=== PATIENT | male | born 1950 | race Two or more races ===

== ENCOUNTER 2018-11-02 11:07 | Inpatient (IN) | payer MEDICAID ==
[2018-11-02] VITALS (13 sets, daily range): BP systolic 85–124; BP diastolic 50–87
[~2018-11-02] VITALS: Ht 172.7 cm; Wt 79.5 kg
[2018-11-02] MEDS ORDERED: LEVOTHYROXINE200 MCG PO (11:22)
[2018-11-02] MEDS ORDERED: LISINOPRIL5 MG ORAL (11:23)
[2018-11-02] MEDS ORDERED: AMLODIPINE BESYL5 MG ORAL (11:23)
[2018-11-02] MEDS ORDERED: ASPIR 8181 MG ORAL (11:23)
[2018-11-02] MEDS ORDERED: METFORMIN ER1000 MG PO (11:23)
[2018-11-02] MEDS ORDERED: METOPROLOL TART25 MG ORAL (11:23)
[2018-11-02] MEDS ORDERED: LIPITOR80 MG ORAL (11:23)
[2018-11-02] MEDS ORDERED: GABAPENTIN300 MG ORAL (11:23)
[2018-11-02 11:52] LABS: HEMATOCRIT 44.7 % (42.0-52.0); MEAN CORPUSCULAR VOLUME 86 FL (80-99); PLATELET COUNT 162 K/UL (150-450); RED CELL DISTRIBUTION WIDTH 14.1 % (11.6-14.8); WHITE BLOOD COUNT 11.1 K/UL (4.8-10.8)
[2018-11-02 12:29] LABS: APPEARANCE,URINE SLIGHTLY CLOUDY; BILIRUBIN, URINE NEGATIVE (NEGATIVE); COLOR,URINE PALE YELLOW; GLUCOSE, URINE (UA) 4+ (NEGATIVE); KETONES,URINE 3+ (NEGATIVE); LEUKOCYTE ESTERASE ,URINE 1+ (NEGATIVE); NITRITE,URINE NEGATIVE (NEGATIVE); PH,URINE 5 (4.5-8.0); PROTEIN,URINE 2+ (NEGATIVE); UROBILINOGEN,URINE NORMAL MG/DL (0.0-1.0)
--- NOTE | 2018-11-02 12:36 | Diagnostic Imaging Report ---
Indication: Chest pain Technique: XRAY Chest 1v Comparison: None Findings: Heart size and mediastinal contours are within normal limits for AP technique. Calcifications noted in a slightly tortuous thoracic aorta. There is no focal consolidation, pneumothorax or pleural effusion. There are degenerative changes in the spine. Osseous structures demonstrate no acute abnormality. Impression: No radiographic evidence of acute cardiopulmonary disease.
[2018-11-02 12:43] LABS: ANION GAP 22 mmol/L (5-15); BLOOD UREA NITROGEN 74 mg/dL (7-18); CALCIUM 7.6 MG/DL (8.5-10.1); CARBON DIOXIDE 16 MMOL/L (21-32); CHLORIDE 86 MMOL/L (98-107); CREATININE 3.9 MG/DL (0.55-1.30); POTASSIUM 5.1 MMOL/L (3.5-5.1); SODIUM 124 MMOL/L (136-145)
[2018-11-02 12:44] LABS: ALANINE AMINOTRANSFERASE 12 U/L (12-78); ALBUMIN 2.3 G/DL (3.4-5.0); ALBUMIN/GLOBULIN RATIO 0.5 (1.0-2.7); ALKALINE PHOSPHATASE 84 U/L (46-116); ASPARTATE AMINO TRANSFERASE 17 U/L (15-37); BILIRUBIN,TOTAL 0.5 MG/DL (0.2-1.0)
[2018-11-02] MEDS ORDERED: LORazepam Inj 2mg/ml 1ml IV PRN (13:45)
[2018-11-02] MEDS ORDERED: Insulin Rate Change 1 Each MISC PRN (13:45)
[2018-11-02] MEDS ORDERED: Insulin Human Regular 100units/ml 3ml IV PRN ×3 (13:45→21:15)
[2018-11-02] MEDS ORDERED: Morphine Sulfate 4mg/ml Inj (IV USE ONLY) IVP PRN (13:45)
[2018-11-02] MEDS ORDERED: Albuterol/Ipratropium 3ml neb HHN PRN (13:45)
[2018-11-02] MEDS ORDERED: Nitroglycerin Subl 0.4mg tab SL PRN (13:45)
[2018-11-02] MEDS ORDERED: Miralax 17gm pkt ORAL PRN (13:45)
[2018-11-02] MEDS ORDERED: Dextrose 50% 25ml Syringe IV PRN (14:00)
--- NOTE | 2018-11-02 15:15 | Emergency Room Report ---
History of Present Illness General Chief Complaint: Abnormal Labs Source: Patient, Medical Record, EMS Present Illness HPI This patient presents from a nursing home facility with critically high blood sugar. EMS reported that they were called to the nursing home facility because the nursing staff had taken a blood sugar and it was greater than 500. The patient himself complains of lightheadedness otherwise has no complaints. He denies recent illness. He denies fever or chills. He denies nausea or vomiting. He denies chest pain or shortness of breath. He denies abdominal pain. He has no other complaints. Allergies: Coded Allergies: No Known Allergies (Unverified , 11/02/18) Patient History Past Medical History: see triage record, old chart reviewed, DM, HTN, CAD, renal disease Social History: Denies: smoking, alcohol use, drug use Reviewed Nursing Documentation: PMH: Agreed; PSxH: Agreed Nursing Documentation-PMH Past Medical History: No History, Except For Hx Diabetes: Yes Review of Systems All Other Systems: negative except mentioned in HPI Physical Exam Vital Signs Date Time Temp Pulse Resp B/P (MAP) Pulse Ox O2 Delivery O2 Flow Rate FiO2 11/02/18 11:00 98.1 96 18 117/73 98 Room Air 11/02/18 11:41 2.0 Sp02 EP Interpretation: reviewed, normal General Appearance: no apparent distress, alert, GCS 15, non-toxic Head: normocephalic, atraumatic Eyes: bilateral eye normal inspection, bilateral eye PERRL ENT: hearing grossly normal, normal pharynx, no angioedema, normal voice Neck: full range of motion, supple/symm/no masses Respiratory: chest non-tender, lungs clear, normal breath sounds, no respiratory distress, no retraction, no accessory muscle use, speaking full sentences Cardiovascular #1: regular rate, rhythm, no edema Gastrointestinal: normal bowel sounds, non tender, soft, non-distended, no guarding, no rebound Rectal: deferred Musculoskeletal: normal inspection, normal range of motion, non-tender Neurologic: alert, oriented x3, responsive, motor strength/tone normal, sensory intact, speech normal Psychiatric: judgement/insight normal, memory normal, mood/affect normal, no suicidal/homicidal ideation Skin: warm/dry, well hydrated, other - See RN skin exam Medical Decision Making Diagnostic Impression: Primary Impression: DKA (diabetic ketoacidoses) ER Course This patient is in DKA. His given aggressive IV fluids and started on an insulin drip. I did not identify an infectious etiology. I am unsure why this patient is in DKA, possibly diet Indiscretion in combination with insufficient insulin treatment. Regardless, the patient will be admitted to the ICU for DKA on an insulin drip. This patient is critically ill. This patient required complex medical decision- making, aggressive intervention, extensive laboratory workup and monitoring. Critical care time: 40 minutes. Laboratory Tests Test 11/02/18 11:30 11/02/18 12:05 11/02/18 12:10 11/02/18 12:15 White Blood Count 11.1 K/UL (4.8-10.8) H Red Blood Count 5.20 M/UL (4.70-6.10) Hemoglobin 14.0 G/DL (14.2-18.0) L Hematocrit 44.7 % (42.0-52.0) Mean Corpuscular Volume 86 FL (80-99) Mean Corpuscular Hemoglobin 26.9 PG (27.0-31.0) L Mean Corpuscular Hemoglobin Concent 31.3 G/DL (32.0-36.0) L Red Cell Distribution Width 14.1 % (11.6-14.8) Platelet Count 162 K/UL (150-450) Mean Platelet Volume 7.4 FL (6.5-10.1) Neutrophils (%) (Auto) % (45.0-75.0) Lymphocytes (%) (Auto) % (20.0-45.0) Monocytes (%) (Auto) % (1.0-10.0) Eosinophils (%) (Auto) % (0.0-3.0) Basophils (%) (Auto) % (0.0-2.0) Differential Total Cells Counted 100 Neutrophils % (Manual) 86 % (45-75) H Lymphocytes % (Manual) 2 % (20-45) L Monocytes % (Manual) 12 % (1-10) H Eosinophils % (Manual) 0 % (0-3) Basophils % (Manual) 0 % (0-2) Band Neutrophils 0 % (0-8) Platelet Estimate Adequate Platelet Morphology Normal Acetone Level Positive-small (NEGATIVE) Sodium Level 124 MMOL/L (136-145) L Potassium Level 5.1 MMOL/L (3.5-5.1) Chloride Level 86 MMOL/L (98-107) L Carbon Dioxide Level 16 MMOL/L (21-32) L Anion Gap 22 mmol/L (5-15) H Blood Urea Nitrogen 74 mg/dL (7-18) H Creatinine 3.9 MG/DL (0.55-1.30) H Estimate Glomerular Filtration Rate 15.5 mL/min (>60) Glucose Level 928 MG/DL (74-106) *H Calcium Level 7.6 MG/DL (8.5-10.1) L Magnesium Level 1.9 MG/DL (1.8-2.4) Total Bilirubin 0.5 MG/DL (0.2-1.0) Aspartate Amino Transferase (AST) 17 U/L (15-37) Alanine Aminotransferase (ALT) 12 U/L (12-78) Alkaline Phosphatase 84 U/L (46-116) Total Protein 6.5 G/DL (6.4-8.2) Albumin 2.3 G/DL (3.4-5.0) L Globulin 4.2 g/dL Albumin/Globulin Ratio 0.5 (1.0-2.7) L Arterial Blood pH 7.243 (7.350-7.450) Arterial Blood Partial Pressure CO2 28.1 mmHg (35.0-45.0) L Arterial Blood Partial Pressure O2 135.8 mmHg (75.0-100.0) H Arterial Blood HCO3 11.9 mmol/L (22.0-26.0) *L Arterial Blood Oxygen Saturation 98.0 % (95-100) Arterial Blood Base Excess -14.0 (-2-2) *L Zain Test Positive Urine Color Pale yellow Urine Appearance Slightly cloudy Urine pH 5 (4.5-8.0) Urine Specific [employer] 1.010 (1.005-1.035) Urine Protein 2+ (NEGATIVE) H Urine Glucose (UA) 4+ (NEGATIVE) H Urine Ketones 3+ (NEGATIVE) H Urine Blood 3+ (NEGATIVE) H Urine Nitrite Negative (NEGATIVE) Urine Bilirubin Negative (NEGATIVE) Urine Urobilinogen Normal MG/DL (0.0-1.0) Urine Leukocyte Esterase 1+ (NEGATIVE) H Urine RBC 2-4 /HPF (0 - 0) H Urine WBC 2-4 /HPF (0 - 0) Urine Squamous Epithelial Cells Occasional /LPF Urine Bacteria Moderate /HPF (NONE) H EKG Diagnostic Results Rate: normal Rhythm: NSR ST Segments: no acute changes Rhythm Strip Diag. Results EP Interpretation: yes Rate: 90's Rhythm: NSR, no PVC's, no ectopy Chest X-Ray Diagnostic Results Chest X-Ray Diagnostic Results : Chest X-Ray Ordered: Yes # of Views/Limited/Complete: 1 View Indication: Other Interpretation: no consolidation, no effusion, no pneumothorax, no acute cardiopulmonary disease Impression: No acute disease Electronically Signed by: Krystina Finn DO Last Vital Signs Date Time Temp Pulse Resp B/P (MAP) Pulse Ox O2 Delivery O2 Flow Rate FiO2 11/02/18 14:50 98.4 98 18 102/87 (92) 100 11/02/18 14:04 Room Air 11/02/18 11:42 2.0 Disposition: ADMITTED INPATIENT Condition: Critical Scripts Insulin Aspart (Novolog Flexpen) 100 Unit/1 Ml Insuln.pen 0 UNITS SUBQ BEFORE MEALS AND HS for 30 Days, EA Prov: Jade Mann MD 11/06/18 Insulin Detemir (LEVEMIR FLEXPEN) 100 Unit/1 Ml Insuln.pen 10 UNITS SUBQ EVERY 12 HOURS for 30 Days, EA Prov: Jade Mann MD 11/06/18 Referrals: NON PHYSICIAN (PCP) Krystina Finn DO Nov 02, 2018 15:15
[2018-11-02] MEDS: Insulin Human Regular 100units/ml 3ml IV PRN ×6 (15:31→20:02)
--- NOTE | 2018-11-02 18:01 | History & Physical ---
History and Physical History & Physicial Dictated for Int Med - Dr Mancini no. [id number]. ICU Sudhir Jones MD Nov 02, 2018 18:01
[2018-11-02 19:09] LABS: ANION GAP 14 mmol/L (5-15); BLOOD UREA NITROGEN 66 mg/dL (7-18); CALCIUM 7.7 MG/DL (8.5-10.1); CARBON DIOXIDE 21 MMOL/L (21-32); CHLORIDE 101 MMOL/L (98-107); POTASSIUM 3.3 MMOL/L (3.5-5.1); SODIUM 136 MMOL/L (136-145)
[2018-11-02] MEDS: Heparin 5000 units/ml inj SUBQ SCH (20:49)
--- NOTE | 2018-11-02 21:15 | History and Physical Report ---
DATE OF ADMISSION: 11/02/2018 CHIEF COMPLAINT: The patient is a 68-year-old male, who presents with a chief complaint of elevated blood sugar. HISTORY OF PRESENT ILLNESS: This is a history and physical that is taken from the patient's chart. The patient is a resident of [facility], [place]. According to staff at [facility], the patient had elevated blood sugar. The patient was transferred to [facility]. Initial glucose was found to be greater than 900. The patient is admitted for diabetic ketoacidosis. REVIEW OF SYSTEMS: Unable to assess secondary to the patient's mental status. PAST MEDICAL HISTORY: Significant for, 1. Type 2 diabetes. 2. Diabetic neuropathy. 3. Hypertension. 4. Anemia. 5. Hypothyroidism. PAST SURGICAL HISTORY: Unknown. CURRENT MEDICATIONS: 1. Levoxyl 0.05 mg p.o. daily. 2. Metoprolol 25 mg one tablet p.o. twice daily. 3. Aspirin 81 mg one tablet p.o. daily. 4. Amlodipine 5 mg p.o. daily. 5. Lisinopril 10 mg p.o. daily. 6. Basaglar 10 units subcutaneously daily. 7. NovoLog sliding scale. 8. Metformin 1000 mg p.o. twice daily. 9. Gabapentin 300 mg p.o. 3 times daily. 10. Atorvastatin 40 mg p.o. at bedtime. ALLERGIES: No known drug allergies. SOCIAL HISTORY: The patient is single. PHYSICAL EXAMINATION: VITAL SIGNS: Temperature 98.4, respirations 18, pulse 98, and blood pressure 102/87. GENERAL: The patient is a well-developed and well-nourished male, in no apparent distress. HEENT: Eyes, pupils are equal and responsive to light and accommodation. Extraocular movements are intact. NECK: Supple without lymphadenopathy. CHEST: Lungs are clear to auscultation bilaterally without wheezes or rales. CARDIOVASCULAR: Regular rhythm and rate. S1 and S2 are normal without murmurs, rubs, or gallops. ABDOMEN: Soft, nontender, and nondistended. Positive bowel sounds. No evidence of hepatosplenomegaly. Currently, no rebound or guarding noted. EXTREMITIES: Negative for clubbing, cyanosis, or edema. RECTAL/GENITAL: Not performed. NEUROLOGIC: Cranial nerves II through XII are grossly intact without focal deficits. LABORATORY STUDIES: WBC 11.1, hemoglobin 14.0, hematocrit 44.7, and platelets 162,000. Sodium 124, potassium 5.1, chloride 86, CO2 16, BUN 74, creatinine 3.9, and glucose 928. TREATMENT: 1. Hyperglycemia. The patient has been placed on a regular insulin drip. Serial BNPs will be performed. Latest fingerstick is reading as high. 2. Acute renal failure. This may be secondary to diabetic ketoacidosis as above. 3. Hyponatremia. The patient has been started on normal saline intravenously. 4. Hypertension. Continue amlodipine and lisinopril as above. Continue metoprolol as above. 5. Hypothyroidism. Continue Levoxyl as above. 6. Hypercholesterolemia. Continue atorvastatin as above. Sudhir Jones M.D. DR: NATE JOB#: [id number] CC:
[2018-11-02 21:44] LABS: ANION GAP 13 mmol/L (5-15); BLOOD UREA NITROGEN 67 mg/dL (7-18); CALCIUM 8.4 MG/DL (8.5-10.1); CARBON DIOXIDE 22 MMOL/L (21-32); CHLORIDE 103 MMOL/L (98-107); POTASSIUM 3.6 MMOL/L (3.5-5.1); SODIUM 138 MMOL/L (136-145)
[2018-11-02] MEDS: Insulin Rate Change 1 Each MISC PRN ×2 (21:57→22:53)
[2018-11-03] VITALS (24 sets, daily range): BP systolic 82–141; BP diastolic 49–97
[2018-11-03] MEDS ORDERED: Insulin Human Regular 100units/ml 3ml IV PRN ×2 (00:30)
[2018-11-03] MEDS: Insulin Rate Change 1 Each MISC PRN ×5 (01:54→09:11)
[2018-11-03] MEDS ORDERED: Insulin Rate Change 1 Each MISC PRN (02:30)
[2018-11-03 05:41] LABS: BASOPHILS % (AUTO) 0.4 % (0.0-2.0); EOSINOPHILS % (AUTO) 0.2 % (0.0-3.0); HEMATOCRIT 30.6 % (42.0-52.0); HEMOGLOBIN 10.4 G/DL (14.2-18.0); LYMPHOCYTES % (AUTO) 7.3 % (20.0-45.0); MEAN CORPUSCULAR VOLUME 82 FL (80-99); MONOCYTES % (AUTO) 7.7 % (1.0-10.0); NEUTROPHILS % (AUTO) 84.4 % (45.0-75.0); PLATELET COUNT 212 K/UL (150-450); RED BLOOD COUNT 3.72 M/UL (4.70-6.10); RED CELL DISTRIBUTION WIDTH 12.9 % (11.6-14.8); WHITE BLOOD COUNT 11.9 K/UL (4.8-10.8)
[2018-11-03 06:16] LABS: ALANINE AMINOTRANSFERASE 19 U/L (12-78); ALBUMIN/GLOBULIN RATIO 0.6 (1.0-2.7); ALKALINE PHOSPHATASE 69 U/L (46-116); ANION GAP 14 mmol/L (5-15); ASPARTATE AMINO TRANSFERASE 15 U/L (15-37); BILIRUBIN,TOTAL 0.3 MG/DL (0.2-1.0); BLOOD UREA NITROGEN 60 mg/dL (7-18); CALCIUM 7.9 MG/DL (8.5-10.1); CARBON DIOXIDE 19 MMOL/L (21-32); CHLORIDE 107 MMOL/L (98-107); CREATININE 2.3 MG/DL (0.55-1.30); POTASSIUM 4.3 MMOL/L (3.5-5.1); SODIUM 140 MMOL/L (136-145)
[2018-11-03 06:19] LABS: PHOSPHORUS 1.6 MG/DL (2.5-4.9)
[2018-11-03 06:20] LABS: BILIRUBIN,DIRECT 0.1 MG/DL (0.0-0.3)
[2018-11-03] MEDS: Heparin 5000 units/ml inj SUBQ SCH ×2 (08:14→20:37)
[2018-11-03] MEDS ORDERED: Pantoprazole Inj IVP SCH (09:00)
--- NOTE | 2018-11-03 09:57 | Consultation ---
History of Present Illness General Chief Complaint: Abnormal Labs Present Illness HPI 68 year old male with hx of DM, on Insulin, hypothyroid, HTN, who lives in an assisted living brought in by paramedics b/o too high of BS. Pt was found to be in DKA and was started on insulin drip and transferred to ICU. Allergies: Coded Allergies: No Known Allergies (Unverified , 11/02/18) Medication History Scheduled Amlodipine Besylate* (Amlodipine Besylate*), 5 MG ORAL DAILY, (Reported) Aspirin* (Aspir 81*), 81 MG ORAL DAILY, (Reported) Atorvastatin (Lipitor), 40 MG ORAL BEDTIME, (Reported) Gabapentin* (Gabapentin*), 300 MG ORAL THREE TIMES A DAY, (Reported) Levothyroxine Sodium* (Levothyroxine Sodium), 50 MCG PO DAILY, (Reported) Lisinopril (Lisinopril*), 10 MG ORAL DAILY, (Reported) Metformin HCl (Metformin ER Gastric), 1,000 MG PO BID, (Reported) Metoprolol Tartrate* (Metoprolol Tartrate*), 12.5 MG ORAL EVERY 12 HOURS, ( Reported) Patient History Healthcare decision maker N Resuscitation status Advanced Directive on File Past Medical/Surgical History Past Medical/Surgical History: (1) Diabetes mellitus (2) Hypothyroidism (3) Hypertension Review of Systems All Other Systems: negative except mentioned in HPI Physical Exam General Appearance: WD/WN Lines, tubes and drains: peripheral HEENT: normocephalic, atraumatic Neck: non-tender, normal alignment Respiratory/Chest: chest wall non-tender, lungs clear Breasts: no masses Cardiovascular/Chest: normal peripheral pulses Abdomen: normal bowel sounds, non tender Genitourinary/Rectal: normal genital exam Extremities: non-tender Last 24 Hour Vital Signs Date Time Temp Pulse Resp B/P (MAP) Pulse Ox O2 Delivery O2 Flow Rate FiO2 11/03/18 09:00 82 17 130/75 (93) 100 11/03/18 08:00 Room Air 11/03/18 08:00 80 11/03/18 08:00 98.0 80 14 134/72 (92) 100 11/03/18 07:00 79 16 127/94 (105) 100 11/03/18 06:00 82 14 133/64 (87) 100 11/03/18 05:00 82 15 97/64 (75) 100 11/03/18 04:16 83 11/03/18 04:00 99.0 85 16 124/88 (100) 100 11/03/18 04:00 Room Air 11/03/18 03:00 89 15 104/64 (77) 100 11/03/18 02:00 94 13 86/59 (68) 100 11/03/18 01:00 95 18 91/64 (73) 99 11/03/18 00:00 Room Air 11/03/18 00:00 98.7 104 20 82/49 (60) 100 11/02/18 23:15 112 19 94/50 (65) 100 11/02/18 23:00 111 19 88/53 (65) 100 11/02/18 22:56 114 11/02/18 22:00 113 15 97/56 (70) 100 11/02/18 21:00 114 15 91/57 (68) 100 11/02/18 20:00 98.6 115 16 85/57 (66) 100 11/02/18 20:00 Room Air 11/02/18 19:17 113 11/02/18 19:00 114 18 90/64 (73) 100 11/02/18 18:00 115 18 104/62 (76) 98 11/02/18 17:00 110 16 99/63 (75) 98 11/02/18 16:12 109 11/02/18 16:00 97 18 111/63 (79) 100 11/02/18 16:00 Room Air 11/02/18 15:17 Room Air 11/02/18 14:50 98.4 98 18 102/87 (92) 100 11/02/18 14:47 97 11/02/18 14:04 98.3 84 16 124/68 100 Room Air 11/02/18 13:20 98.1 84 16 124/68 100 Room Air 11/02/18 12:19 98.0 85 16 123/74 100 Room Air 11/02/18 11:42 97.9 86 13 116/77 98 Nasal Cannula 2.0 11/02/18 11:41 86 13 Nasal Cannula 2.0 11/02/18 11:00 98.1 96 18 117/73 98 Room Air Intake and Output 11/02/18 11/03/18 19:00 07:00 Intake Total 4731.96 ml 2280.76 ml Output Total 550 ml 700 ml Balance 4181.96 ml 1580.76 ml Intake Oral 0 ml 0 ml IV Total 4731.96 ml 2280.76 ml Output Urine Total 550 ml 700 ml # Voids 4 Laboratory Tests Test 11/02/18 11:30 11/02/18 12:05 11/02/18 12:10 11/02/18 12:15 White Blood Count 11.1 K/UL (4.8-10.8) H Red Blood Count 5.20 M/UL (4.70-6.10) Hemoglobin 14.0 G/DL (14.2-18.0) L Hematocrit 44.7 % (42.0-52.0) Mean Corpuscular Volume 86 FL (80-99) Mean Corpuscular Hemoglobin 26.9 PG (27.0-31.0) L Mean Corpuscular Hemoglobin Concent 31.3 G/DL (32.0-36.0) L Red Cell Distribution Width 14.1 % (11.6-14.8) Platelet Count 162 K/UL (150-450) Mean Platelet Volume 7.4 FL (6.5-10.1) Neutrophils (%) (Auto) % (45.0-75.0) Lymphocytes (%) (Auto) % (20.0-45.0) Monocytes (%) (Auto) % (1.0-10.0) Eosinophils (%) (Auto) % (0.0-3.0) Basophils (%) (Auto) % (0.0-2.0) Differential Total Cells Counted 100 Neutrophils % (Manual) 86 % (45-75) H Lymphocytes % (Manual) 2 % (20-45) L Monocytes % (Manual) 12 % (1-10) H Eosinophils % (Manual) 0 % (0-3) Basophils % (Manual) 0 % (0-2) Band Neutrophils 0 % (0-8) Platelet Estimate Adequate Platelet Morphology Normal Acetone Level Positive-small (NEGATIVE) Sodium Level 124 MMOL/L (136-145) L Potassium Level 5.1 MMOL/L (3.5-5.1) Chloride Level 86 MMOL/L (98-107) L Carbon Dioxide Level 16 MMOL/L (21-32) L Anion Gap 22 mmol/L (5-15) H Blood Urea Nitrogen 74 mg/dL (7-18) H Creatinine 3.9 MG/DL (0.55-1.30) H Estimat Glomerular Filtration Rate 15.5 mL/min (>60) Glucose Level 928 MG/DL (74-106) *H Calcium Level 7.6 MG/DL (8.5-10.1) L Magnesium Level 1.9 MG/DL (1.8-2.4) Total Bilirubin 0.5 MG/DL (0.2-1.0) Aspartate Amino Transf (AST/SGOT) 17 U/L (15-37) Alanine Aminotransferase (ALT/SGPT) 12 U/L (12-78) Alkaline Phosphatase 84 U/L (46-116) Total Protein 6.5 G/DL (6.4-8.2) Albumin 2.3 G/DL (3.4-5.0) L Globulin 4.2 g/dL Albumin/Globulin Ratio 0.5 (1.0-2.7) L Arterial Blood pH 7.243 (7.350-7.450) Arterial Blood Partial Pressure CO2 28.1 mmHg (35.0-45.0) L Arterial Blood Partial Pressure O2 135.8 mmHg (75.0-100.0) H Arterial Blood HCO3 11.9 mmol/L (22.0-26.0) *L Arterial Blood Oxygen Saturation 98.0 % (95-100) Arterial Blood Base Excess -14.0 (-2-2) *L Zain Test Positive Urine Color Pale yellow Urine Appearance Slightly cloudy Urine pH 5 (4.5-8.0) Urine Specific [place] 1.010 (1.005-1.035) Urine Protein 2+ (NEGATIVE) H Urine Glucose (UA) 4+ (NEGATIVE) H Urine Ketones 3+ (NEGATIVE) H Urine Blood 3+ (NEGATIVE) H Urine Nitrite Negative (NEGATIVE) Urine Bilirubin Negative (NEGATIVE) Urine Urobilinogen Normal MG/DL (0.0-1.0) Urine Leukocyte Esterase 1+ (NEGATIVE) H Urine RBC 2-4 /HPF (0 - 0) H Urine WBC 2-4 /HPF (0 - 0) Urine Squamous Epithelial Cells Occasional /LPF Urine Bacteria Moderate /HPF (NONE) H Test 11/02/18 18:20 11/02/18 21:15 11/03/18 04:30 Sodium Level 136 MMOL/L (136-145) # 138 MMOL/L (136-145) 140 MMOL/L (136-145) Potassium Level 3.3 MMOL/L (3.5-5.1) L 3.6 MMOL/L (3.5-5.1) 4.3 MMOL/L (3.5-5.1) Chloride Level 101 MMOL/L (98-107) 103 MMOL/L (98-107) 107 MMOL/L (98-107) Carbon Dioxide Level 21 MMOL/L (21-32) 22 MMOL/L (21-32) 19 MMOL/L (21-32) L Anion Gap 14 mmol/L (5-15) 13 mmol/L (5-15) 14 mmol/L (5-15) Blood Urea Nitrogen 66 mg/dL (7-18) H 67 mg/dL (7-18) H 60 mg/dL (7-18) H Creatinine 3.0 MG/DL (0.55-1.30) H 3.0 MG/DL (0.55-1.30) H 2.3 MG/DL (0.55-1.30) H Estimat Glomerular Filtration Rate 20.9 mL/min (>60) 20.9 mL/min (>60) 28.4 mL/min (>60) Glucose Level 396 MG/DL (74-106) #H 241 MG/DL (74-106) #H 123 MG/DL (74-106) #H Calcium Level 7.7 MG/DL (8.5-10.1) L 8.4 MG/DL (8.5-10.1) L 7.9 MG/DL (8.5-10.1) L Hemoglobin A1c 14.2 % (4.3-6.0) H White Blood Count 11.9 K/UL (4.8-10.8) H Red Blood Count 3.72 M/UL (4.70-6.10) L Hemoglobin 10.4 G/DL (14.2-18.0) L Hematocrit 30.6 % (42.0-52.0) #L Mean Corpuscular Volume 82 FL (80-99) Mean Corpuscular Hemoglobin 27.8 PG (27.0-31.0) Mean Corpuscular Hemoglobin Concent 33.8 G/DL (32.0-36.0) Red Cell Distribution Width 12.9 % (11.6-14.8) Platelet Count 212 K/UL (150-450) Mean Platelet Volume 7.6 FL (6.5-10.1) Neutrophils (%) (Auto) 84.4 % (45.0-75.0) H Lymphocytes (%) (Auto) 7.3 % (20.0-45.0) L Monocytes (%) (Auto) 7.7 % (1.0-10.0) Eosinophils (%) (Auto) 0.2 % (0.0-3.0) Basophils (%) (Auto) 0.4 % (0.0-2.0) Prothrombin Time 10.8 SEC (9.30-11.50) Prothromb Time International Ratio 1.0 (0.9-1.1) Activated Partial Thromboplast Time 33 SEC (23-33) Phosphorus Level 1.6 MG/DL (2.5-4.9) L Total Bilirubin 0.3 MG/DL (0.2-1.0) Direct Bilirubin 0.1 MG/DL (0.0-0.3) Aspartate Amino Transf (AST/SGOT) 15 U/L (15-37) Alanine Aminotransferase (ALT/SGPT) 19 U/L (12-78) Alkaline Phosphatase 69 U/L (46-116) Total Protein 5.5 G/DL (6.4-8.2) L Albumin 2.0 G/DL (3.4-5.0) L Globulin 3.5 g/dL Albumin/Globulin Ratio 0.6 (1.0-2.7) L Microbiology Date/Time Source Procedure Growth Status 11/02/18 12:15 Urine,Clean Catch Urine Culture - Preliminary Gram Negative Bacillus 1 Resulted 11/02/18 12:05 Rectum Received Height (Feet): 5 Height (Inches): 8.00 Weight (Pounds): 155 Medications Current Medications Medications (Trade) Dose Ordered Sig/Oscar Route PRN Reason Start Time Stop Time Status Last Admin Dose Admin Acetaminophen (Tylenol) 650 mg Q4H PRN ORAL Fever 11/02/18 13:45 12/02/18 13:44 Albuterol/ Ipratropium (Albuterol/ Ipratropium) 3 ml Q4H PRN HHN Shortness of Breath 11/02/18 13:45 11/07/18 13:44 Dextrose (Dextrose 50%) 25 ml Q30M PRN IV HYPOGLYCEMIA 11/03/18 00:30 12/03/18 00:29 Dextrose (Dextrose 50%) 50 ml Q30M PRN IV HYPOGLYCEMIA 11/03/18 00:30 12/03/18 00:29 Heparin Sodium (Porcine) (Heparin 5000 units/ml) 5,000 units EVERY 12 HOURS SUBQ 11/02/18 21:00 12/02/18 20:59 11/03/18 08:14 Insulin Human Regular (NovoLIN R) 5 units PRN PRN IV BS 200-299 11/03/18 00:30 12/03/18 00:29 Insulin Human Regular (NovoLIN R) 10 units PRN PRN IV BS=>300 11/03/18 00:30 12/03/18 00:29 Insulin Human Regular 100 units/ Sodium Chloride 101 ml @ 0 mls/hr Q24H IV 11/03/18 02:30 12/03/18 02:29 11/03/18 02:42 Lorazepam (Ativan 2mg/ml 1ml) 2 mg Q2H PRN IV agitation 11/02/18 13:45 11/09/18 13:44 Miscellaneous Medication (Insulin Rate Change) 1 ea PRN PRN MISC Taper 11/03/18 01:00 12/03/18 00:59 11/03/18 09:11 Miscellaneous Medication (Insulin Rate Change) 1 ea PRN PRN MISC Hyperglycemia 11/03/18 02:30 12/03/18 02:29 11/03/18 05:53 Morphine Sulfate (Morphine Sulfate) 4 mg Q4H PRN IVP Severe Pain (Pain Scale 7-10) 11/02/18 13:45 11/09/18 13:44 Nitroglycerin (Ntg) 0.4 mg Q5M PRN SL Prn Chest Pain 11/02/18 13:45 12/02/18 13:44 Ondansetron HCl (Zofran) 4 mg Q6H PRN IVP Nausea & Vomiting 11/02/18 13:45 12/02/18 13:44 Pantoprazole (Protonix) 40 mg DAILY IVP 11/03/18 09:00 12/03/18 08:59 11/03/18 08:06 Polyethylene Glycol (Miralax) 17 gm DAILYPRN PRN ORAL Constipation 11/02/18 13:45 12/02/18 13:44 Sodium Chloride 1,000 ml @ 150 mls/hr Q6H40M IV 11/02/18 14:14 12/02/18 14:13 11/03/18 03:24 Assessment/Plan Problem List: (1) DKA (diabetic ketoacidoses) ICD Codes: E13.10 - Other specified diabetes mellitus with ketoacidosis without coma SNOMED: 38615707, 832716865 (2) Sacral wound ICD Codes: S31.000A - Unspecified open wound of lower back and pelvis without penetration into retroperitoneum, initial encounter SNOMED: 384602315 (3) ATN (acute tubular necrosis) ICD Codes: N17.0 - Acute kidney failure with tubular necrosis SNOMED: 84614680 (4) Acute on chronic renal insufficiency ICD Codes: N28.9 - Disorder of kidney and ureter, unspecified; N18.9 - Chronic kidney disease, unspecified SNOMED: 165903798, 633489008 (5) Diabetes mellitus ICD Codes: E11.9 - Type 2 diabetes mellitus without complications SNOMED: 16822433 (6) Hypothyroidism ICD Codes: E03.9 - Hypothyroidism, unspecified SNOMED: 23907850 (7) Hypertension ICD Codes: I10 - Essential (primary) hypertension SNOMED: 13095635 Diagnosis [place] I: BS controlled start levemir and sliding scale diabetic diet wound care pt/ot monitor HTN, supplement synthyroid dvt prophylaxis. Jade Mann MD Nov 03, 2018 09:57
[2018-11-03] MEDS ORDERED: Dextrose 50% 25ml Syringe IV PRN (10:15)
[2018-11-03 10:26] LABS: CREATINE KINASE 84 U/L (26-308)
[2018-11-03] MEDS: Levemir Flexpen SUBQ SCH ×2 (11:49→20:38)
[2018-11-03] MEDS: NovoLOG Insulin Flexpen SUBQ SCH ×3 (11:50→20:40)
[2018-11-03] MEDS ORDERED: Sodium Phosphate 30 MM in NS 275 ML IV SCH (13:00)
--- NOTE | 2018-11-03 13:39 | Cardiology Report ---
APPROVED REPORT EKG Measurement Heart [id number] Normal sinus rhythm Septal infarct, age undetermined Abnormal ECG
[2018-11-03 13:43] LABS: APPEARANCE,URINE CLOUDY; BILIRUBIN, URINE NEGATIVE (NEGATIVE); COLOR,URINE PALE YELLOW; GLUCOSE, URINE (UA) 2+ (NEGATIVE); KETONES,URINE 1+ (NEGATIVE); LEUKOCYTE ESTERASE ,URINE 3+ (NEGATIVE); NITRITE,URINE NEGATIVE (NEGATIVE); PH,URINE 6 (4.5-8.0); PROTEIN,URINE 2+ (NEGATIVE); UROBILINOGEN,URINE NORMAL MG/DL (0.0-1.0)
--- NOTE | 2018-11-03 14:19 | Consultation ---
Consult Note Consult Note seen at the request of Dr Reinoso for renal failure The patient is a 68-year-old male, who presents with a chief complaint of elevated blood sugar. HISTORY OF PRESENT ILLNESS: This is a history and physical that is taken from the patient's chart. The patient is a resident of [facility]. According to staff at [facility], the patient had elevated blood sugar. The patient was transferred to [facility]. Initial glucose was found to be greater than 900. The patient is admitted for diabetic ketoacidosis. REVIEW OF SYSTEMS: Unable to assess secondary to the patient's mental status. PAST MEDICAL HISTORY: Significant for, 1. Type 2 diabetes. 2. Diabetic neuropathy. 3. Hypertension. 4. Anemia. 5. Hypothyroidism. examined data reviewed presented with BS of over 900 cr 3.9 to 2.3 Assessment/Plan Acute on Chronic renal failure- DKA on admit Diabetic Nephropathy HypoThyroidism HTN Sacral wound Anemia UTI Hydrate BP and BS control Electrolyte check Anemia conrado Dawson per orders Lefty Zaomra MD Nov 03, 2018 14:19
--- NOTE | 2018-11-03 14:54 | Diagnostic Imaging Report ---
Indication: Abnormal renal function. Diabetes. Technique: A plantar grayscale and color Doppler imaging of the kidneys Comparison: None Findings: The right kidney measures 9.7 cm in length. The left kidney measures 9.9 cm in length. Bilateral kidneys demonstrate normal echogenicity. Normal color flow is noted in the bilateral kidneys. A subcentimeter simple cyst is noted in the left kidney. There is mild nonspecific fullness of the left renal collecting system. Trace perinephric fluid is noted on the left. No sonographically appreciable urinary tract stones are identified. Bilateral ureteral jets identified. Bladder is unremarkable given degree of distention. Prostate normal in size with a volume of 16 mL imaged portions of the liver and IVC unremarkable. Impression: * Renal echogenicity within normal limits. * Trace fullness of the left renal collecting system trace left perinephric fluid nonspecific. Correlate for left flank pain. No sonographically appreciable renal stone. * Bladder grossly unremarkable given degree of underdistention. Bilateral ureteral jets seen.
--- NOTE | 2018-11-03 14:59 | Consultation ---
History of Present Illness General Chief Complaint: Abnormal Labs Present Illness HPI 68 year old male shelter resident was found to be in DKA with elevated glucose and brought to [facility] for evaluation. Admitted to ICU for care and management. on admission noted requiring care for multiple medical comorbidities and also noted to have wounds requiring care. surgery called to evaluate and assist with care and management. patient seen, chart reviewed, patient examined. Allergies: Coded Allergies: No Known Allergies (Unverified , 11/02/18) Medication History Scheduled Amlodipine Besylate* (Amlodipine Besylate*), 5 MG ORAL DAILY, (Reported) Aspirin* (Aspir 81*), 81 MG ORAL DAILY, (Reported) Atorvastatin (Lipitor), 40 MG ORAL BEDTIME, (Reported) Gabapentin* (Gabapentin*), 300 MG ORAL THREE TIMES A DAY, (Reported) Levothyroxine Sodium* (Levothyroxine Sodium), 50 MCG PO DAILY, (Reported) Lisinopril (Lisinopril*), 10 MG ORAL DAILY, (Reported) Metformin HCl (Metformin ER Gastric), 1,000 MG PO BID, (Reported) Metoprolol Tartrate* (Metoprolol Tartrate*), 12.5 MG ORAL EVERY 12 HOURS, ( Reported) Patient History Limited by: medical condition History Provided By: Medical Record, PMD Healthcare decision maker N Resuscitation status Advanced Directive on File Past Medical/Surgical History Past Medical/Surgical History: (1) Diabetes mellitus (2) Hypothyroidism (3) Hypertension (4) DKA (diabetic ketoacidoses) (5) ATN (acute tubular necrosis) (6) Acute on chronic renal insufficiency (7) Sacral wound Review of Systems ROS Narrative cannot obtain given medical condition Physical Exam General Appearance: no apparent distress Lines, tubes and drains: peripheral HEENT: mucous membranes moist Neck: normal inspection, other Respiratory/Chest: no respiratory distress, no accessory muscle use, other Cardiovascular/Chest: tachycardia Abdomen: soft, no organomegaly, no mass, other Extremities: normal capillary refill Skin Exam: warm/dry Neurologic: unresponsiveness Last 24 Hour Vital Signs Date Time Temp Pulse Resp B/P (MAP) Pulse Ox O2 Delivery O2 Flow Rate FiO2 11/03/18 14:00 107 16 128/71 (90) 100 11/03/18 13:00 108 14 139/84 (102) 99 11/03/18 12:00 97.6 120 14 95/62 (73) 100 11/03/18 12:00 Room Air 11/03/18 12:00 122 11/03/18 11:00 132 17 141/92 (108) 100 11/03/18 10:00 86 17 137/97 (110) 100 11/03/18 09:00 82 17 130/75 (93) 100 11/03/18 08:00 Room Air 11/03/18 08:00 80 11/03/18 08:00 98.0 80 14 134/72 (92) 100 11/03/18 07:00 79 16 127/94 (105) 100 11/03/18 06:00 82 14 133/64 (87) 100 11/03/18 05:00 82 15 97/64 (75) 100 11/03/18 04:16 83 11/03/18 04:00 99.0 85 16 124/88 (100) 100 11/03/18 04:00 Room Air 11/03/18 03:00 89 15 104/64 (77) 100 11/03/18 02:00 94 13 86/59 (68) 100 11/03/18 01:00 95 18 91/64 (73) 99 11/03/18 00:00 Room Air 11/03/18 00:00 98.7 104 20 82/49 (60) 100 11/02/18 23:15 112 19 94/50 (65) 100 11/02/18 23:00 111 19 88/53 (65) 100 11/02/18 22:56 114 11/02/18 22:00 113 15 97/56 (70) 100 11/02/18 21:00 114 15 91/57 (68) 100 11/02/18 20:00 98.6 115 16 85/57 (66) 100 11/02/18 20:00 Room Air 11/02/18 19:17 113 11/02/18 19:00 114 18 90/64 (73) 100 11/02/18 18:00 115 18 104/62 (76) 98 11/02/18 17:00 110 16 99/63 (75) 98 11/02/18 16:12 109 11/02/18 16:00 97 18 111/63 (79) 100 11/02/18 16:00 Room Air 11/02/18 15:17 Room Air Intake and Output 11/02/18 11/03/18 19:00 07:00 Intake Total 4731.96 ml 2280.76 ml Output Total 550 ml 700 ml Balance 4181.96 ml 1580.76 ml Intake Oral 0 ml 0 ml IV Total 4731.96 ml 2280.76 ml Output Urine Total 550 ml 700 ml # Voids 4 Laboratory Tests Test 11/02/18 18:20 11/02/18 21:15 11/03/18 04:30 11/03/18 13:20 Sodium Level 136 MMOL/L (136-145) # 138 MMOL/L (136-145) 140 MMOL/L (136-145) Potassium Level 3.3 MMOL/L (3.5-5.1) L 3.6 MMOL/L (3.5-5.1) 4.3 MMOL/L (3.5-5.1) Chloride Level 101 MMOL/L (98-107) 103 MMOL/L (98-107) 107 MMOL/L (98-107) Carbon Dioxide Level 21 MMOL/L (21-32) 22 MMOL/L (21-32) 19 MMOL/L (21-32) L Anion Gap 14 mmol/L (5-15) 13 mmol/L (5-15) 14 mmol/L (5-15) Blood Urea Nitrogen 66 mg/dL (7-18) H 67 mg/dL (7-18) H 60 mg/dL (7-18) H Creatinine 3.0 MG/DL (0.55-1.30) H 3.0 MG/DL (0.55-1.30) H 2.3 MG/DL (0.55-1.30) H Estimat Glomerular Filtration Rate 20.9 mL/min (>60) 20.9 mL/min (>60) 28.4 mL/min (>60) Glucose Level 396 MG/DL (74-106) #H 241 MG/DL (74-106) #H 123 MG/DL (74-106) #H Calcium Level 7.7 MG/DL (8.5-10.1) L 8.4 MG/DL (8.5-10.1) L 7.9 MG/DL (8.5-10.1) L Hemoglobin A1c 14.2 % (4.3-6.0) H White Blood Count 11.9 K/UL (4.8-10.8) H Red Blood Count 3.72 M/UL (4.70-6.10) L Hemoglobin 10.4 G/DL (14.2-18.0) L Hematocrit 30.6 % (42.0-52.0) #L Mean Corpuscular Volume 82 FL (80-99) Mean Corpuscular Hemoglobin 27.8 PG (27.0-31.0) Mean Corpuscular Hemoglobin Concent 33.8 G/DL (32.0-36.0) Red Cell Distribution Width 12.9 % (11.6-14.8) Platelet Count 212 K/UL (150-450) Mean Platelet Volume 7.6 FL (6.5-10.1) Neutrophils (%) (Auto) 84.4 % (45.0-75.0) H Lymphocytes (%) (Auto) 7.3 % (20.0-45.0) L Monocytes (%) (Auto) 7.7 % (1.0-10.0) Eosinophils (%) (Auto) 0.2 % (0.0-3.0) Basophils (%) (Auto) 0.4 % (0.0-2.0) Prothrombin Time 10.8 SEC (9.30-11.50) Prothromb Time International Ratio 1.0 (0.9-1.1) Activated Partial Thromboplast Time 33 SEC (23-33) Uric Acid 13.4 MG/DL (2.6-7.2) H Phosphorus Level 1.6 MG/DL (2.5-4.9) L Total Bilirubin 0.3 MG/DL (0.2-1.0) Direct Bilirubin 0.1 MG/DL (0.0-0.3) Aspartate Amino Transf (AST/SGOT) 15 U/L (15-37) Alanine Aminotransferase (ALT/SGPT) 19 U/L (12-78) Alkaline Phosphatase 69 U/L (46-116) Total Creatine Kinase 84 U/L (26-308) Total Protein 5.5 G/DL (6.4-8.2) L Albumin 2.0 G/DL (3.4-5.0) L Globulin 3.5 g/dL Albumin/Globulin Ratio 0.6 (1.0-2.7) L Urine Color Pale yellow Urine Appearance Cloudy Urine pH 6 (4.5-8.0) Urine Specific [place] 1.010 (1.005-1.035) Urine Protein 2+ (NEGATIVE) H Urine Glucose (UA) 2+ (NEGATIVE) H Urine Ketones 1+ (NEGATIVE) H Urine Blood 5+ (NEGATIVE) H Urine Nitrite Negative (NEGATIVE) Urine Bilirubin Negative (NEGATIVE) Urine Urobilinogen Normal MG/DL (0.0-1.0) Urine Leukocyte Esterase 3+ (NEGATIVE) H Urine RBC 20-30 /HPF (0 - 0) H Urine WBC Tntc /HPF (0 - 0) H Urine Squamous Epithelial Cells Few /LPF (NONE/OCC) Urine Bacteria Many /HPF (NONE) H Urine Eosinophils None seen (NONE SEEN) Urine Random Creatinine Pending Urine Random Microalbumin Pending Urine Random Sodium 45 mmol/L (20-110) Urine Creatinine 77.9 MG/DL (30.0-125.0) Urine Microalbumin/Creatinine Ratio Pending Urine Potassium Timed 20 mmol/L (12-62) Height (Feet): 5 Height (Inches): 8.00 Weight (Pounds): 155 Medications Current Medications Medications (Trade) Dose Ordered Sig/Oscar Route PRN Reason Start Time Stop Time Status Last Admin Dose Admin Acetaminophen (Tylenol) 650 mg Q4H PRN ORAL Fever 11/02/18 13:45 12/02/18 13:44 Aspirin (Ecotrin) 81 mg DAILY ORAL 11/04/18 09:00 12/04/18 08:59 Ceftriaxone Sodium 1 gm/ Dextrose 55 ml @ 110 mls/hr Q24H IVPB 11/03/18 16:00 11/10/18 15:59 Clonidine HCl (Catapres Tab) 0.1 mg Q4H PRN ORAL bp over 165 syst 11/03/18 14:30 12/03/18 14:29 Dextrose (Dextrose 50%) 25 ml Q30M PRN IV Hypoglycemia 11/03/18 10:15 12/03/18 10:01 Dextrose (Dextrose 50%) 50 ml Q30M PRN IV hypoglycemia 11/03/18 10:15 12/03/18 10:14 Docusate Sodium (Colace) 100 mg THREE TIMES A DAY ORAL 11/03/18 18:00 12/03/18 17:59 Heparin Sodium (Porcine) (Heparin 5000 units/ml) 5,000 units EVERY 12 HOURS SUBQ 11/02/18 21:00 12/02/18 20:59 11/03/18 08:14 Insulin Aspart (NovoLOG) BEFORE MEALS AND HS SUBQ 11/03/18 11:30 12/03/18 11:29 11/03/18 11:50 Insulin Detemir (Levemir) 10 units EVERY 12 HOURS SUBQ 11/03/18 10:00 12/03/18 09:59 11/03/18 11:49 Levothyroxine Sodium (Synthroid) 50 mcg DAILY@0630 ORAL 11/04/18 06:30 12/04/18 06:29 Magnesium Sulfate 100 ml @ 100 mls/hr Q1H IVPB 11/03/18 14:30 11/03/18 18:29 Ondansetron HCl (Zofran) 4 mg Q6H PRN IVP Nausea & Vomiting 11/02/18 13:45 12/02/18 13:44 Pantoprazole (Protonix) 40 mg EVERY 12 HOURS ORAL 11/03/18 14:30 12/03/18 14:29 Polyethylene Glycol (Miralax) 17 gm DAILYPRN PRN ORAL Constipation 11/02/18 13:45 12/02/18 13:44 Sodium Chloride 1,000 ml @ 125 mls/hr Q8H IV 11/03/18 10:02 12/03/18 10:01 11/03/18 10:18 Sodium Phosphate 30 mm/Sodium Chloride 285 ml @ 47.5 mls/hr ONCE IV 11/03/18 13:00 11/03/18 19:00 11/03/18 11:51 Assessment/Plan Problem List: (1) Diabetes mellitus Assessment & Plan: A1c 14 glu improved cont with Rx ICD Codes: E11.9 - Type 2 diabetes mellitus without complications SNOMED: 68650622 (2) Hypothyroidism Assessment & Plan: levels pending ICD Codes: E03.9 - Hypothyroidism, unspecified SNOMED: 69232787 (3) Hypertension ICD Codes: I10 - Essential (primary) hypertension SNOMED: 08357611 (4) DKA (diabetic ketoacidoses) ICD Codes: E13.10 - Other specified diabetes mellitus with ketoacidosis without coma SNOMED: 57670796, 519540364 (5) ATN (acute tubular necrosis) ICD Codes: N17.0 - Acute kidney failure with tubular necrosis SNOMED: 74263657 (6) Acute on chronic renal insufficiency ICD Codes: N28.9 - Disorder of kidney and ureter, unspecified; N18.9 - Chronic kidney disease, unspecified SNOMED: 396350590, 853489519 (7) Sacral wound Assessment & Plan: Pt presented on admission with full thickness pressure injury sacrococcygeal area. Base of wound with trace biofilm,(+) maceration along borders (L)1cm x (W00.5cm x (D)0.2cm. Darker skin tone without induration periwound . Darker skin tone without induration or erythema periwound to both ischial regions.Soft mass upper back .Pt verbalized tenderness when palpated.No erythema noted. Both heels are firm and blanchable. Pt educated on wound prevention and encouraged to frequently turn on sides to relive pressure off buttocks. Tx.Plan: Cleanse with saline. Apply Triad Paste. Cover with Optifoam drsg. Change every 3 days and prn. Apply Cavilon Skin Barrier to Both heels. Off-load heels with Pillow. Cue and encourage pt to Reposition at least every 2 hours or as tolerated. Help patient with reposition q2h ICD Codes: S31.000A - Unspecified open wound of lower back and pelvis without penetration into retroperitoneum, initial encounter SNOMED: 182917253 (8) Leukocytosis Assessment & Plan: unlikely related to wounds will monitor will follow with recs ICD Codes: D72.829 - Elevated white blood cell count, unspecified SNOMED: 653464483, 619303615 Josias Lipscomb Nov 03, 2018 14:59
[2018-11-03] MEDS ORDERED: cefTRIAXone 1 GM in D5W 55 ML IVPB SCH (16:00)
[2018-11-03] MEDS ORDERED: NS 275ml ONE (17:09)
[2018-11-03] MEDS ORDERED: Tubing IV Secondary IV ONE (17:09)
[2018-11-03] MEDS ORDERED: Docusate 100mg cap ORAL SCH (18:00)
--- NOTE | 2018-11-03 18:04 | Internal Med Progress Note ---
Subjective Date of Service: Nov 03, 2018 Physician Name Sudhir Jones Attending Physician Gómez Mancini MD Current Medications Medications (Trade) Dose Ordered Sig/Oscar Route PRN Reason Start Time Stop Time Status Last Admin Dose Admin Acetaminophen (Tylenol) 650 mg Q4H PRN ORAL Fever 11/02/18 13:45 12/02/18 13:44 Aspirin (Ecotrin) 81 mg DAILY ORAL 11/04/18 09:00 12/04/18 08:59 Ceftriaxone Sodium 1 gm/ Dextrose 55 ml @ 110 mls/hr Q24H IVPB 11/03/18 16:00 11/10/18 15:59 11/03/18 16:57 Clonidine HCl (Catapres Tab) 0.1 mg Q4H PRN ORAL bp over 165 syst 11/03/18 14:30 12/03/18 14:29 Dextrose (Dextrose 50%) 25 ml Q30M PRN IV Hypoglycemia 11/03/18 10:15 12/03/18 10:01 Dextrose (Dextrose 50%) 50 ml Q30M PRN IV hypoglycemia 11/03/18 10:15 12/03/18 10:14 Docusate Sodium (Colace) 100 mg THREE TIMES A DAY ORAL 11/03/18 18:00 12/03/18 17:59 11/03/18 17:43 Heparin Sodium (Porcine) (Heparin 5000 units/ml) 5,000 units EVERY 12 HOURS SUBQ 11/02/18 21:00 12/02/18 20:59 11/03/18 08:14 Insulin Aspart (NovoLOG) BEFORE MEALS AND HS SUBQ 11/03/18 11:30 12/03/18 11:29 11/03/18 17:05 Insulin Detemir (Levemir) 10 units EVERY 12 HOURS SUBQ 11/03/18 10:00 12/03/18 09:59 11/03/18 11:49 Levothyroxine Sodium (Synthroid) 50 mcg DAILY@0630 ORAL 11/04/18 06:30 12/04/18 06:29 Magnesium Sulfate 100 ml @ 100 mls/hr Q1H IVPB 11/03/18 14:30 11/03/18 18:29 11/03/18 17:43 Ondansetron HCl (Zofran) 4 mg Q6H PRN IVP Nausea & Vomiting 11/02/18 13:45 12/02/18 13:44 Pantoprazole (Protonix) 40 mg EVERY 12 HOURS ORAL 11/03/18 14:30 12/03/18 14:29 11/03/18 14:58 Polyethylene Glycol (Miralax) 17 gm DAILYPRN PRN ORAL Constipation 11/02/18 13:45 12/02/18 13:44 Sodium Chloride 1,000 ml @ 125 mls/hr Q8H IV 11/03/18 10:02 12/03/18 10:01 11/03/18 17:44 Sodium Phosphate 30 mm/Sodium Chloride 285 ml @ 47.5 mls/hr ONCE IV 11/03/18 13:00 11/03/18 19:00 11/03/18 11:51 Allergies: Coded Allergies: No Known Allergies (Unverified , 11/02/18) ROS Limited/Unobtainable: No Constitutional: Reports: no symptoms HEENT: Reports: no symptoms Cardiovascular: Reports: no symptoms Respiratory: Reports: no symptoms Gastrointestinal/Abdominal: Reports: no symptoms Genitourinary: Reports: no symptoms Neurologic/Psychiatric: Reports: no symptoms Subjective 68 YO M admitted with diabetic ketoacidosis and hyperglycemia. Cover for Int Med-DR Mancini. ICU Objective Last Vital Signs Date Time Temp Pulse Resp B/P (MAP) Pulse Ox O2 Delivery O2 Flow Rate FiO2 11/03/18 18:00 93 24 125/76 (92) 100 11/03/18 16:00 98.0 11/03/18 16:00 Room Air 11/02/18 11:42 2.0 Laboratory Tests Test 11/02/18 18:20 11/02/18 21:15 11/03/18 04:30 11/03/18 06:40 Sodium Level 136 MMOL/L (136-145) # 138 MMOL/L (136-145) 140 MMOL/L (136-145) Potassium Level 3.3 MMOL/L (3.5-5.1) L 3.6 MMOL/L (3.5-5.1) 4.3 MMOL/L (3.5-5.1) Chloride Level 101 MMOL/L (98-107) 103 MMOL/L (98-107) 107 MMOL/L (98-107) Carbon Dioxide Level 21 MMOL/L (21-32) 22 MMOL/L (21-32) 19 MMOL/L (21-32) L Anion Gap 14 mmol/L (5-15) 13 mmol/L (5-15) 14 mmol/L (5-15) Blood Urea Nitrogen 66 mg/dL (7-18) H 67 mg/dL (7-18) H 60 mg/dL (7-18) H Creatinine 3.0 MG/DL (0.55-1.30) H 3.0 MG/DL (0.55-1.30) H 2.3 MG/DL (0.55-1.30) H Estimat Glomerular Filtration Rate 20.9 mL/min (>60) 20.9 mL/min (>60) 28.4 mL/min (>60) Glucose Level 396 MG/DL (74-106) #H 241 MG/DL (74-106) #H 123 MG/DL (74-106) #H Calcium Level 7.7 MG/DL (8.5-10.1) L 8.4 MG/DL (8.5-10.1) L 7.9 MG/DL (8.5-10.1) L Hemoglobin A1c 14.2 % (4.3-6.0) H White Blood Count 11.9 K/UL (4.8-10.8) H Red Blood Count 3.72 M/UL (4.70-6.10) L Hemoglobin 10.4 G/DL (14.2-18.0) L Hematocrit 30.6 % (42.0-52.0) #L Mean Corpuscular Volume 82 FL (80-99) Mean Corpuscular Hemoglobin 27.8 PG (27.0-31.0) Mean Corpuscular Hemoglobin Concent 33.8 G/DL (32.0-36.0) Red Cell Distribution Width 12.9 % (11.6-14.8) Platelet Count 212 K/UL (150-450) Mean Platelet Volume 7.6 FL (6.5-10.1) Neutrophils (%) (Auto) 84.4 % (45.0-75.0) H Lymphocytes (%) (Auto) 7.3 % (20.0-45.0) L Monocytes (%) (Auto) 7.7 % (1.0-10.0) Eosinophils (%) (Auto) 0.2 % (0.0-3.0) Basophils (%) (Auto) 0.4 % (0.0-2.0) Prothrombin Time 10.8 SEC (9.30-11.50) Prothromb Time International Ratio 1.0 (0.9-1.1) Activated Partial Thromboplast Time 33 SEC (23-33) Uric Acid 13.4 MG/DL (2.6-7.2) H Phosphorus Level 1.6 MG/DL (2.5-4.9) L Total Bilirubin 0.3 MG/DL (0.2-1.0) Direct Bilirubin 0.1 MG/DL (0.0-0.3) Aspartate Amino Transf (AST/SGOT) 15 U/L (15-37) Alanine Aminotransferase (ALT/SGPT) 19 U/L (12-78) Alkaline Phosphatase 69 U/L (46-116) Total Creatine Kinase 84 U/L (26-308) Total Protein 5.5 G/DL (6.4-8.2) L Albumin 2.0 G/DL (3.4-5.0) L Globulin 3.5 g/dL Albumin/Globulin Ratio 0.6 (1.0-2.7) L Magnesium Level 1.6 MG/DL (1.8-2.4) L Test 11/03/18 13:20 Urine Color Pale yellow Urine Appearance Cloudy Urine pH 6 (4.5-8.0) Urine Specific [place] 1.010 (1.005-1.035) Urine Protein 2+ (NEGATIVE) H Urine Glucose (UA) 2+ (NEGATIVE) H Urine Ketones 1+ (NEGATIVE) H Urine Blood 5+ (NEGATIVE) H Urine Nitrite Negative (NEGATIVE) Urine Bilirubin Negative (NEGATIVE) Urine Urobilinogen Normal MG/DL (0.0-1.0) Urine Leukocyte Esterase 3+ (NEGATIVE) H Urine RBC 20-30 /HPF (0 - 0) H Urine WBC Tntc /HPF (0 - 0) H Urine Squamous Epithelial Cells Few /LPF (NONE/OCC) Urine Bacteria Many /HPF (NONE) H Urine Eosinophils None seen (NONE SEEN) Urine Random Creatinine Pending Urine Random Microalbumin Pending Urine Random Sodium 45 mmol/L (20-110) Urine Creatinine 77.9 MG/DL (30.0-125.0) Urine Microalbumin/Creatinine Ratio Pending Urine Potassium Timed 20 mmol/L (12-62) Microbiology Date/Time Source Procedure Growth Status 11/02/18 12:15 Urine,Clean Catch Urine Culture - Preliminary Gram Negative Bacillus 1 Resulted 11/02/18 12:05 Rectum Received Intake and Output 11/02/18 11/03/18 19:00 07:00 Intake Total 4731.96 ml 2280.76 ml Output Total 550 ml 700 ml Balance 4181.96 ml 1580.76 ml Intake Oral 0 ml 0 ml IV Total 4731.96 ml 2280.76 ml Output Urine Total 550 ml 700 ml # Voids 4 Objective PHYSICAL EXAMINATION: GENERAL: The patient is a well-developed and well-nourished male, in no apparent distress. HEENT: Eyes, pupils are equal and responsive to light and accommodation. Extraocular movements are intact. NECK: Supple without lymphadenopathy. CHEST: Lungs are clear to auscultation bilaterally without wheezes or rales. CARDIOVASCULAR: Regular rhythm and rate. S1 and S2 are normal without murmurs, rubs, or gallops. ABDOMEN: Soft, nontender, and nondistended. Positive bowel sounds. No evidence of hepatosplenomegaly. Currently, no rebound or guarding noted. EXTREMITIES: Negative for clubbing, cyanosis, or edema. RECTAL/GENITAL: Not performed. NEUROLOGIC: Cranial nerves II through XII are grossly intact without focal deficits. Assessment/Plan Assessment/Plan Assessment: 1. Diabetes II 2. Diabetic ketoacidosis 3. hyponatremia 4. hyperglycemia 5. hypertension 6. hypothyroidism 7. diabetic neuropathy 8. Hypercholesterolemia TREATMENT: 1. Hyperglycemia. D/C insulin drip; continue levemir and novolog sliding scale. Latest fingerstick readings are improved. 2. Acute renal failure. This may be secondary to diabetic ketoacidosis as above. 3. Hyponatremia. The patient has been started on normal saline intravenously. 4. Hypertension. Continue amlodipine and lisinopril as above. Continue metoprolol as above. 5. Hypothyroidism. Continue Levoxyl as above. 6. Hypercholesterolemia. Continue atorvastatin as above. Sudhir Jones MD Nov 03, 2018 18:04
[2018-11-03] MEDS ORDERED: Atorvastatin 20mg tab ORAL SCH (21:00)
[2018-11-04] VITALS (7 sets, daily range): BP systolic 127–141; BP diastolic 77–88
[2018-11-04] MEDS: NovoLOG Insulin Flexpen SUBQ SCH ×4 (06:30→21:49)
[2018-11-04 07:02] LABS: BASOPHILS % (AUTO) 0.4 % (0.0-2.0); EOSINOPHILS % (AUTO) 0.4 % (0.0-3.0); HEMATOCRIT 30.1 % (42.0-52.0); HEMOGLOBIN 10.2 G/DL (14.2-18.0); LYMPHOCYTES % (AUTO) 11.6 % (20.0-45.0); MEAN CORPUSCULAR VOLUME 82 FL (80-99); MONOCYTES % (AUTO) 11.5 % (1.0-10.0); NEUTROPHILS % (AUTO) 76.1 % (45.0-75.0); PLATELET COUNT 168 K/UL (150-450); RED BLOOD COUNT 3.69 M/UL (4.70-6.10); RED CELL DISTRIBUTION WIDTH 13.4 % (11.6-14.8); WHITE BLOOD COUNT 12.7 K/UL (4.8-10.8)
[2018-11-04 07:07] LABS: % IRON SATURATION 13 % (15-50); IRON 20 ug/dL (50-175); TOTAL IRON BINDING CAPACITY 153 ug/dL (250-450)
[2018-11-04 07:14] LABS: ALANINE AMINOTRANSFERASE 15 U/L (12-78); ALBUMIN/GLOBULIN RATIO 0.5 (1.0-2.7); ALKALINE PHOSPHATASE 68 U/L (46-116); ANION GAP 11 mmol/L (5-15); ASPARTATE AMINO TRANSFERASE 21 U/L (15-37); BILIRUBIN,TOTAL 0.2 MG/DL (0.2-1.0); BLOOD UREA NITROGEN 44 mg/dL (7-18); CALCIUM 7.9 MG/DL (8.5-10.1); CARBON DIOXIDE 24 MMOL/L (21-32); CHLORIDE 106 MMOL/L (98-107); CHOLESTEROL 77 MG/DL (< 200); HDL CHOLESTEROL 35 MG/DL (40-60); PHOSPHORUS 2.8 MG/DL (2.5-4.9); POTASSIUM 3.2 MMOL/L (3.5-5.1); SODIUM 141 MMOL/L (136-145); TRIGLYCERIDES 100 MG/DL (30-150)
[2018-11-04 07:23] LABS: FERRITIN 346 NG/ML (8-388); GAMMA GLUTAMYL TRANSPEPTIDASE 18 U/L (5-85)
[2018-11-04] MEDS: Levemir Flexpen SUBQ SCH ×2 (09:00→21:49)
[2018-11-04] MEDS ORDERED: Aspirin EC 81mg tab ORAL SCH (09:00)
[2018-11-04] MEDS: Aspirin EC 81mg tab ORAL SCH (09:41)
[2018-11-04] MEDS: Docusate 100mg cap ORAL SCH ×3 (09:41→17:19)
[2018-11-04] MEDS: Heparin 5000 units/ml inj SUBQ SCH ×2 (09:48→21:52)
--- NOTE | 2018-11-04 10:40 | General Progress Note ---
Assessment/Plan Problem List: (1) DKA (diabetic ketoacidoses) ICD Codes: E13.10 - Other specified diabetes mellitus with ketoacidosis without coma SNOMED: 82471452, 703515546 (2) Diabetes mellitus ICD Codes: E11.9 - Type 2 diabetes mellitus without complications SNOMED: 31985282 (3) Hypothyroidism ICD Codes: E03.9 - Hypothyroidism, unspecified SNOMED: 56984023 (4) Hypertension ICD Codes: I10 - Essential (primary) hypertension SNOMED: 74885414 Assessment: add Novolog 5 units ac tid continue Levemir 10 units bid continue Levothyroxine 50 mcg daily Subjective Allergies: Coded Allergies: No Known Allergies (Unverified , 11/02/18) All Systems: reviewed and negative except above Subjective events noted Item Value Date Time Bedside Blood Glucose 156 mg/dl H 11/04/18 0900 Bedside Blood Glucose 74 mg/dl 11/04/18 0630 Bedside Blood Glucose 146 mg/dl H 11/03/18 2040 Bedside Blood Glucose 224 mg/dl H 11/03/18 1705 Objective Last 24 Hour Vital Signs Date Time Temp Pulse Resp B/P (MAP) Pulse Ox O2 Delivery O2 Flow Rate FiO2 11/04/18 08:00 98.6 83 19 133/81 (98) 99 11/04/18 04:00 97.5 75 18 127/85 (99) 99 11/04/18 01:00 97.4 76 17 128/80 (96) 97 11/04/18 00:00 98.6 78 18 129/77 (94) 100 11/04/18 00:00 77 11/04/18 00:00 Room Air 11/03/18 23:00 78 17 96/60 (72) 100 11/03/18 22:00 80 18 131/86 (101) 100 11/03/18 21:00 75 17 130/88 (102) 100 11/03/18 20:00 98.1 79 17 122/77 (92) 100 11/03/18 20:00 Room Air 11/03/18 19:43 80 11/03/18 19:00 79 16 122/81 (95) 100 11/03/18 18:00 93 24 125/76 (92) 100 11/03/18 17:00 88 15 124/75 (91) 100 11/03/18 16:01 99 11/03/18 16:00 98.0 98 21 122/74 (90) 100 11/03/18 16:00 Room Air 11/03/18 15:00 99 14 140/73 (95) 100 11/03/18 14:00 107 16 128/71 (90) 100 11/03/18 13:00 108 14 139/84 (102) 99 11/03/18 12:00 97.6 120 14 95/62 (73) 100 11/03/18 12:00 Room Air 11/03/18 12:00 122 11/03/18 11:00 132 17 141/92 (108) 100 Intake and Output 11/03/18 11/04/18 19:00 07:00 Intake Total 2116.6 ml 2100 ml Output Total 800 ml 400 ml Balance 1316.6 ml 1700 ml Intake Oral 220 ml 850 ml IV Total 1896.6 ml 1250 ml Output Urine Total 800 ml 400 ml # Voids 1 Laboratory Tests 11/03/18 13:20: Urine Color Pale yellow, Urine Appearance Cloudy, Urine pH 6, Urine Specific [place] 1.010, Urine Protein 2+H, Urine Glucose (UA) 2+H, Urine Ketones 1+H, Urine Blood 5+H, Urine Nitrite Negative, Urine Bilirubin Negative, Urine Urobilinogen Normal, Urine Leukocyte Esterase 3+H, Urine RBC 20-30H, Urine WBC TntcH, Urine Squamous Epithelial Cells Few, Urine Bacteria ManyH, Urine Eosinophils None seen, Urine Random Creatinine [Pending], Urine Random Microalbumin [Pending], Urine Random Sodium 45, Urine Creatinine 77.9, Urine Microalbumin/Creatinine Ratio [Pending], Urine Potassium Timed 20 11/04/18 06:30: White Blood Count 12.7H, Red Blood Count 3.69L, Hemoglobin 10.2L, Hematocrit 30.1L, Mean Corpuscular Volume 82, Mean Corpuscular Hemoglobin 27.6, Mean Corpuscular Hemoglobin Concent 33.9, Red Cell Distribution Width 13.4, Platelet Count 168, Mean Platelet Volume 7.9, Neutrophils (%) (Auto) 76.1H, Lymphocytes ( %) (Auto) 11.6L, Monocytes (%) (Auto) 11.5H, Eosinophils (%) (Auto) 0.4, Basophils (%) (Auto) 0.4, Sodium Level 141, Potassium Level 3.2L, Chloride Level 106, Carbon Dioxide Level 24, Anion Gap 11, Blood Urea Nitrogen 44H, Creatinine 2.0H, Estimat Glomerular Filtration Rate 33.4, Glucose Level 75, Hemoglobin A1c 15.5H, Uric Acid 10.3H, Calcium Level 7.9L, Phosphorus Level 2.8 , Magnesium Level 2.3, Iron Level 20L, Total Iron Binding Capacity 153L, Percent Iron Saturation 13L, Unsaturated Iron Binding 133, Ferritin 346, Total Bilirubin 0.2, Gamma Glutamyl Transpeptidase 18, Aspartate Amino Transf (AST/ SGOT) 21, Alanine Aminotransferase (ALT/SGPT) 15, Alkaline Phosphatase 68, Troponin I 0.274H, C-Reactive Protein, Quantitative 17.0H, Pro-B-Type Natriuretic Peptide 1573H, Total Protein 6.1L, Albumin 2.0L, Globulin 4.1, Albumin/Globulin Ratio 0.5L, Triglycerides Level 100, Cholesterol Level 77, LDL Cholesterol 29, HDL Cholesterol 35L, Cholesterol/HDL Ratio 2.2L, Vitamin B12 Level > 2000H, Folate 11.5, Thyroid Stimulating Hormone (TSH) 1.744 Height (Feet): 5 Height (Inches): 8.00 Weight (Pounds): 167 General Appearance: no apparent distress Neck: normal alignment Cardiovascular: normal rate Respiratory/Chest: lungs clear Abdomen: normal bowel sounds Objective Current Medications Medications (Trade) Dose Ordered Sig/Oscar Route PRN Reason Start Time Stop Time Status Last Admin Dose Admin Acetaminophen (Tylenol) 650 mg Q4H PRN ORAL Fever 11/04/18 01:45 12/02/18 13:44 Aspirin (Ecotrin) 81 mg DAILY ORAL 11/04/18 09:00 12/04/18 08:59 11/04/18 09:41 Ceftriaxone Sodium 1 gm/ Dextrose 55 ml @ 110 mls/hr Q24H IVPB 11/04/18 16:00 11/10/18 15:59 Clonidine HCl (Catapres Tab) 0.1 mg Q4H PRN ORAL bp over 165 syst 11/04/18 02:30 12/03/18 14:29 Dextrose (Dextrose 50%) 25 ml Q30M PRN IV Hypoglycemia 11/04/18 00:45 12/03/18 10:01 Dextrose (Dextrose 50%) 50 ml Q30M PRN IV hypoglycemia 11/04/18 00:45 12/03/18 10:14 Docusate Sodium (Colace) 100 mg THREE TIMES A DAY ORAL 11/04/18 09:00 12/03/18 17:59 11/04/18 09:41 Heparin Sodium (Porcine) (Heparin 5000 units/ml) 5,000 units EVERY 12 HOURS SUBQ 11/04/18 09:00 12/02/18 20:59 11/04/18 09:48 Insulin Aspart (NovoLOG) BEFORE MEALS AND HS SUBQ 11/04/18 06:30 12/03/18 11:29 Insulin Detemir (Levemir) 10 units EVERY 12 HOURS SUBQ 11/04/18 09:00 12/03/18 09:59 11/04/18 09:00 Levothyroxine Sodium (Synthroid) 50 mcg DAILY@0630 ORAL 11/04/18 06:30 12/04/18 06:29 11/04/18 06:05 Ondansetron HCl (Zofran) 4 mg Q6H PRN IVP Nausea & Vomiting 11/04/18 01:45 12/02/18 13:44 Pantoprazole (Protonix) 40 mg EVERY 12 HOURS ORAL 11/04/18 09:00 12/03/18 14:29 11/04/18 09:41 Polyethylene Glycol (Miralax) 17 gm DAILYPRN PRN ORAL Constipation 11/04/18 13:45 12/02/18 13:44 Sodium Chloride 1,000 ml @ 125 mls/hr Q8H IV 11/04/18 00:45 12/03/18 10:01 11/04/18 09:51 Yevgeniy Vinson MD Nov 04, 2018 10:40
[2018-11-04] MEDS: HYDROcodone/Acetamin 5/325 tab ORAL PRN ×2 (12:03→21:52)
[2018-11-04] MEDS ORDERED: Miralax 17gm pkt ORAL PRN (13:45)
--- NOTE | 2018-11-04 14:32 | Internal Med Progress Note ---
Subjective Date of Service: Nov 04, 2018 Physician Name Sudhir Jones Attending Physician Gómez Mancini MD Current Medications Medications (Trade) Dose Ordered Sig/Oscar Route PRN Reason Start Time Stop Time Status Last Admin Dose Admin Acetaminophen (Tylenol) 650 mg Q4H PRN ORAL Mild Pain/Temp > 100.5 11/04/18 11:15 12/02/18 11:14 Acetaminophen/ Hydrocodone Bitart ([place] 5/325) 1 tab Q6H PRN ORAL For Pain 11/04/18 11:30 11/11/18 11:29 11/04/18 12:03 Aspirin (Ecotrin) 81 mg DAILY ORAL 11/04/18 09:00 12/04/18 08:59 11/04/18 09:41 Ceftriaxone Sodium 1 gm/ Dextrose 55 ml @ 110 mls/hr Q24H IVPB 11/04/18 16:00 11/10/18 15:59 Clonidine HCl (Catapres Tab) 0.1 mg Q4H PRN ORAL bp over 165 syst 11/04/18 02:30 12/03/18 14:29 Dextrose (Dextrose 50%) 25 ml Q30M PRN IV Hypoglycemia 11/04/18 00:45 12/03/18 10:01 Dextrose (Dextrose 50%) 50 ml Q30M PRN IV hypoglycemia 11/04/18 00:45 12/03/18 10:14 Docusate Sodium (Colace) 100 mg THREE TIMES A DAY ORAL 11/04/18 09:00 12/03/18 17:59 11/04/18 12:46 Heparin Sodium (Porcine) (Heparin 5000 units/ml) 5,000 units EVERY 12 HOURS SUBQ 11/04/18 09:00 12/02/18 20:59 11/04/18 09:48 Insulin Aspart (NovoLOG) BEFORE MEALS AND HS SUBQ 11/04/18 06:30 12/03/18 11:29 11/04/18 12:05 Insulin Detemir (Levemir) 10 units EVERY 12 HOURS SUBQ 11/04/18 09:00 12/03/18 09:59 11/04/18 09:00 Levothyroxine Sodium (Synthroid) 50 mcg DAILY@0630 ORAL 11/04/18 06:30 12/04/18 06:29 11/04/18 06:05 Ondansetron HCl (Zofran) 4 mg Q6H PRN IVP Nausea & Vomiting 11/04/18 01:45 12/02/18 13:44 Pantoprazole (Protonix) 40 mg EVERY 12 HOURS ORAL 11/04/18 09:00 12/03/18 14:29 11/04/18 09:41 Polyethylene Glycol (Miralax) 17 gm DAILYPRN PRN ORAL Constipation 11/04/18 13:45 12/02/18 13:44 Sodium Chloride 1,000 ml @ 125 mls/hr Q8H IV 11/04/18 00:45 12/03/18 10:01 11/04/18 09:51 Allergies: Coded Allergies: No Known Allergies (Unverified , 11/02/18) ROS Limited/Unobtainable: No Constitutional: Reports: no symptoms HEENT: Reports: no symptoms Cardiovascular: Reports: no symptoms Respiratory: Reports: no symptoms Gastrointestinal/Abdominal: Reports: no symptoms Genitourinary: Reports: no symptoms Neurologic/Psychiatric: Reports: no symptoms Subjective 68 YO M admitted with diabetic ketoacidosis and hyperglycemia. Cover for Int Med-DR Mancini. Objective Last Vital Signs Date Time Temp Pulse Resp B/P (MAP) Pulse Ox O2 Delivery O2 Flow Rate FiO2 11/04/18 12:00 97.5 74 18 141/86 (104) 99 11/04/18 09:00 Room Air 11/02/18 11:42 2.0 Laboratory Tests Test 11/04/18 06:30 11/04/18 12:00 White Blood Count 12.7 K/UL (4.8-10.8) H Red Blood Count 3.69 M/UL (4.70-6.10) L Hemoglobin 10.2 G/DL (14.2-18.0) L Hematocrit 30.1 % (42.0-52.0) L Mean Corpuscular Volume 82 FL (80-99) Mean Corpuscular Hemoglobin 27.6 PG (27.0-31.0) Mean Corpuscular Hemoglobin Concent 33.9 G/DL (32.0-36.0) Red Cell Distribution Width 13.4 % (11.6-14.8) Platelet Count 168 K/UL (150-450) Mean Platelet Volume 7.9 FL (6.5-10.1) Neutrophils (%) (Auto) 76.1 % (45.0-75.0) H Lymphocytes (%) (Auto) 11.6 % (20.0-45.0) L Monocytes (%) (Auto) 11.5 % (1.0-10.0) H Eosinophils (%) (Auto) 0.4 % (0.0-3.0) Basophils (%) (Auto) 0.4 % (0.0-2.0) Sodium Level 141 MMOL/L (136-145) Potassium Level 3.2 MMOL/L (3.5-5.1) L Chloride Level 106 MMOL/L (98-107) Carbon Dioxide Level 24 MMOL/L (21-32) Anion Gap 11 mmol/L (5-15) Blood Urea Nitrogen 44 mg/dL (7-18) H Creatinine 2.0 MG/DL (0.55-1.30) H Estimat Glomerular Filtration Rate 33.4 mL/min (>60) Glucose Level 75 MG/DL (74-106) Hemoglobin A1c 15.5 % (4.3-6.0) H Uric Acid 10.3 MG/DL (2.6-7.2) H Calcium Level 7.9 MG/DL (8.5-10.1) L Phosphorus Level 2.8 MG/DL (2.5-4.9) Magnesium Level 2.3 MG/DL (1.8-2.4) Iron Level 20 ug/dL (50-175) L Total Iron Binding Capacity 153 ug/dL (250-450) L Percent Iron Saturation 13 % (15-50) L Unsaturated Iron Binding 133 ug/dL (112-346) Ferritin 346 NG/ML (8-388) Total Bilirubin 0.2 MG/DL (0.2-1.0) Gamma Glutamyl Transpeptidase 18 U/L (5-85) Aspartate Amino Transf (AST/SGOT) 21 U/L (15-37) Alanine Aminotransferase (ALT/SGPT) 15 U/L (12-78) Alkaline Phosphatase 68 U/L (46-116) Troponin I 0.274 ng/mL (0.000-0.056) 0.256 ng/mL (0.000-0.056) C-Reactive Protein, Quantitative 17.0 mg/dL (0.00-0.90) H Pro-B-Type Natriuretic Peptide 1573 pg/mL (0-125) H Total Protein 6.1 G/DL (6.4-8.2) L Albumin 2.0 G/DL (3.4-5.0) L Globulin 4.1 g/dL Albumin/Globulin Ratio 0.5 (1.0-2.7) L Triglycerides Level 100 MG/DL (30-150) Cholesterol Level 77 MG/DL (< 200) LDL Cholesterol 29 mg/dL (<100) HDL Cholesterol 35 MG/DL (40-60) L Cholesterol/HDL Ratio 2.2 (3.3-4.4) L Vitamin B12 Level > 2000 PG/ML (193-986) H Folate 11.5 NG/ML (8.6-58.9) Thyroid Stimulating Hormone (TSH) 1.744 uiU/mL (0.358-3.740) Microbiology Date/Time Source Procedure Growth Status 11/02/18 12:05 Nasal Nares MRSA Culture - Final NO METHICILLIN RESISTANT STAPH AUREUS... Complete 11/02/18 12:15 Urine,Clean Catch Urine Culture - Final Klebsiella Pneumoniae Complete 11/02/18 12:05 Rectum VRE Culture - Final NO VANCOMYCIN RESISTANT ENTEROCOCCUS ... Complete 11/02/18 12:05 Rectum Received Intake and Output 11/03/18 11/04/18 19:00 07:00 Intake Total 2116.6 ml 2100 ml Output Total 800 ml 400 ml Balance 1316.6 ml 1700 ml Intake Oral 220 ml 850 ml IV Total 1896.6 ml 1250 ml Output Urine Total 800 ml 400 ml # Voids 1 Objective PHYSICAL EXAMINATION: GENERAL: The patient is a well-developed and well-nourished male, in no apparent distress. HEENT: Eyes, pupils are equal and responsive to light and accommodation. Extraocular movements are intact. NECK: Supple without lymphadenopathy. CHEST: Lungs are clear to auscultation bilaterally without wheezes or rales. CARDIOVASCULAR: Regular rhythm and rate. S1 and S2 are normal without murmurs, rubs, or gallops. ABDOMEN: Soft, nontender, and nondistended. Positive bowel sounds. No evidence of hepatosplenomegaly. Currently, no rebound or guarding noted. EXTREMITIES: Negative for clubbing, cyanosis, or edema. RECTAL/GENITAL: Not performed. NEUROLOGIC: Cranial nerves II through XII are grossly intact without focal deficits. Assessment/Plan Assessment/Plan Assessment: 1. Diabetes II 2. Diabetic ketoacidosis 3. hyponatremia 4. hyperglycemia 5. hypertension 6. hypothyroidism 7. diabetic neuropathy 8. Hypercholesterolemia TREATMENT: 1. Diabetic ketoacidosisHyperglycemia. D/C insulin drip; continue levemir and novolog sliding scale per endocrinology. Latest fingerstick readings are improved. 2. Acute renal failure. This may be secondary to diabetic ketoacidosis as above. 3. Hyponatremia. The patient has been started on normal saline intravenously. 4. Hypertension. Continue amlodipine and lisinopril as above. Continue metoprolol as above. 5. Hypothyroidism. Continue Levoxyl as above. 6. Hypercholesterolemia. Continue atorvastatin as above. Sudhir Jones MD Nov 04, 2018 14:32
[2018-11-04] MEDS: cefTRIAXone 1 GM in D5W 55 ML IVPB SCH (16:17)
--- NOTE | 2018-11-04 17:21 | Surgery Progress Note ---
Surgery Progress Note Subjective Additional Comments no acute events. states he fells well. in good spirits today. no complaints. mild back discomfort. no n/v/f/c. tolerating diet. Objective Last 24 Hour Vital Signs Date Time Temp Pulse Resp B/P (MAP) Pulse Ox O2 Delivery O2 Flow Rate FiO2 11/04/18 16:00 97.5 69 18 136/79 (98) 99 11/04/18 12:00 97.5 74 18 141/86 (104) 99 11/04/18 09:00 Room Air 11/04/18 08:00 98.6 83 19 133/81 (98) 99 11/04/18 04:00 97.5 75 18 127/85 (99) 99 11/04/18 01:00 97.4 76 17 128/80 (96) 97 11/04/18 00:00 98.6 78 18 129/77 (94) 100 11/04/18 00:00 77 11/04/18 00:00 Room Air 11/03/18 23:00 78 17 96/60 (72) 100 11/03/18 22:00 80 18 131/86 (101) 100 11/03/18 21:00 75 17 130/88 (102) 100 11/03/18 20:00 98.1 79 17 122/77 (92) 100 11/03/18 20:00 Room Air 11/03/18 19:43 80 11/03/18 19:00 79 16 122/81 (95) 100 11/03/18 18:00 93 24 125/76 (92) 100 I&O Intake and Output 11/03/18 11/04/18 19:00 07:00 Intake Total 2116.6 ml 2100 ml Output Total 800 ml 400 ml Balance 1316.6 ml 1700 ml Intake Oral 220 ml 850 ml IV Total 1896.6 ml 1250 ml Output Urine Total 800 ml 400 ml # Voids 1 Dressing: saturated Wound: other Drains: other Cardiovascular: RSR Respiratory: decreased breath sounds Abdomen: soft, non-tender, present bowel sounds, non-distended Extremities: no edema, no tenderness, no cyanosis Laboratory Tests Test 11/04/18 06:30 11/04/18 12:00 White Blood Count 12.7 K/UL (4.8-10.8) H Red Blood Count 3.69 M/UL (4.70-6.10) L Hemoglobin 10.2 G/DL (14.2-18.0) L Hematocrit 30.1 % (42.0-52.0) L Mean Corpuscular Volume 82 FL (80-99) Mean Corpuscular Hemoglobin 27.6 PG (27.0-31.0) Mean Corpuscular Hemoglobin Concent 33.9 G/DL (32.0-36.0) Red Cell Distribution Width 13.4 % (11.6-14.8) Platelet Count 168 K/UL (150-450) Mean Platelet Volume 7.9 FL (6.5-10.1) Neutrophils (%) (Auto) 76.1 % (45.0-75.0) H Lymphocytes (%) (Auto) 11.6 % (20.0-45.0) L Monocytes (%) (Auto) 11.5 % (1.0-10.0) H Eosinophils (%) (Auto) 0.4 % (0.0-3.0) Basophils (%) (Auto) 0.4 % (0.0-2.0) Sodium Level 141 MMOL/L (136-145) Potassium Level 3.2 MMOL/L (3.5-5.1) L Chloride Level 106 MMOL/L (98-107) Carbon Dioxide Level 24 MMOL/L (21-32) Anion Gap 11 mmol/L (5-15) Blood Urea Nitrogen 44 mg/dL (7-18) H Creatinine 2.0 MG/DL (0.55-1.30) H Estimat Glomerular Filtration Rate 33.4 mL/min (>60) Glucose Level 75 MG/DL (74-106) Hemoglobin A1c 15.5 % (4.3-6.0) H Uric Acid 10.3 MG/DL (2.6-7.2) H Calcium Level 7.9 MG/DL (8.5-10.1) L Phosphorus Level 2.8 MG/DL (2.5-4.9) Magnesium Level 2.3 MG/DL (1.8-2.4) Iron Level 20 ug/dL (50-175) L Total Iron Binding Capacity 153 ug/dL (250-450) L Percent Iron Saturation 13 % (15-50) L Unsaturated Iron Binding 133 ug/dL (112-346) Ferritin 346 NG/ML (8-388) Total Bilirubin 0.2 MG/DL (0.2-1.0) Gamma Glutamyl Transpeptidase 18 U/L (5-85) Aspartate Amino Transf (AST/SGOT) 21 U/L (15-37) Alanine Aminotransferase (ALT/SGPT) 15 U/L (12-78) Alkaline Phosphatase 68 U/L (46-116) Troponin I 0.274 ng/mL (0.000-0.056) 0.256 ng/mL (0.000-0.056) C-Reactive Protein, Quantitative 17.0 mg/dL (0.00-0.90) H Pro-B-Type Natriuretic Peptide 1573 pg/mL (0-125) H Total Protein 6.1 G/DL (6.4-8.2) L Albumin 2.0 G/DL (3.4-5.0) L Globulin 4.1 g/dL Albumin/Globulin Ratio 0.5 (1.0-2.7) L Triglycerides Level 100 MG/DL (30-150) Cholesterol Level 77 MG/DL (< 200) LDL Cholesterol 29 mg/dL (<100) HDL Cholesterol 35 MG/DL (40-60) L Cholesterol/HDL Ratio 2.2 (3.3-4.4) L Vitamin B12 Level > 2000 PG/ML (193-986) H Folate 11.5 NG/ML (8.6-58.9) Thyroid Stimulating Hormone (TSH) 1.744 uiU/mL (0.358-3.740) Plan Problems: (1) Diabetes mellitus Assessment & Plan: A1c 14 glu improved cont with Rx DAILY ESTIMATED NEEDS: Needs based on Wound, DM/ 70kg 25-30 kcals/kg 1037-5632 total kcals 1.25-1.5 g protein/kg 87-105 g total protein 25-30 mL/kg 6969-9478 total fluid mLs NUTRITION DIAGNOSIS: * Increased kcal/prot intake needs R/T wound healing as evidenced by pt admitted w/ full thickness pressure injury at sacrococcyx. * Altered nutrition related lab values R/T DKA as evidenced by elev BG of 928* upon adm -> 123, 241 now improved, A1C of 14.1, 4+ urine gluclose, now off insulin drip. CURRENT DIET:[facility] MED PO DIET RECOMMENDATIONS: CCHO MED/ texture as tolerated ADDITIONAL RECOMMENDATIONS: * Calibrated bedscale wt for accurate CBW * Wound healing: Add MVI x 1, Vit C 500mg QD, Hari 1pkt BID : ZnSO4 220mg QD x 10 days * Monitor BGs closely- improved since adm * Monitor lytes, replete as needed (phos 1.6) * DM diet education upon f/up when pt more stable and awake (2) Hypothyroidism Assessment & Plan: levels pending (3) Hypertension (4) DKA (diabetic ketoacidoses) (5) ATN (acute tubular necrosis) (6) Acute on chronic renal insufficiency (7) Sacral wound Assessment & Plan: Pt presented on admission with full thickness pressure injury sacrococcygeal area. Base of wound with trace biofilm,(+) maceration along borders (L)1cm x (W00.5cm x (D)0.2cm. Darker skin tone without induration periwound . Darker skin tone without induration or erythema periwound to both ischial regions.Soft mass upper back .Pt verbalized tenderness when palpated.No erythema noted. Both heels are firm and blanchable. Pt educated on wound prevention and encouraged to frequently turn on sides to relive pressure off buttocks. Tx.Plan: Cleanse with saline. Apply Triad Paste. Cover with Optifoam drsg. Change every 3 days and prn. Apply Cavilon Skin Barrier to Both heels. Off-load heels with Pillow. Cue and encourage pt to Reposition at least every 2 hours or as tolerated. Help patient with reposition q2h (8) Leukocytosis Assessment & Plan: unlikely related to wounds will monitor will follow with Josias Fernandez Nov 04, 2018 17:20
--- NOTE | 2018-11-04 18:08 | Nephrology Progress Note ---
Assessment/Plan Problem List: (1) ATN (acute tubular necrosis) (2) DKA (diabetic ketoacidoses) (3) Hypertension (4) Hypothyroidism (5) Acute on chronic renal insufficiency Assessment Acute on Chronic renal failure- DKA on admit Diabetic Nephropathy HypoThyroidism HTN Sacral wound Anemia UTI Plan Hydrate BP and BS control Electrolyte check Anemia camp Rocephin per orders Subjective ROS Limited/Unobtainable: No Objective Objective Last 24 Hour Vital Signs Date Time Temp Pulse Resp B/P (MAP) Pulse Ox O2 Delivery O2 Flow Rate FiO2 11/04/18 16:00 97.5 69 18 136/79 (98) 99 11/04/18 12:00 97.5 74 18 141/86 (104) 99 11/04/18 09:00 Room Air 11/04/18 08:00 98.6 83 19 133/81 (98) 99 11/04/18 04:00 97.5 75 18 127/85 (99) 99 11/04/18 01:00 97.4 76 17 128/80 (96) 97 11/04/18 00:00 98.6 78 18 129/77 (94) 100 11/04/18 00:00 77 11/04/18 00:00 Room Air 11/03/18 23:00 78 17 96/60 (72) 100 11/03/18 22:00 80 18 131/86 (101) 100 11/03/18 21:00 75 17 130/88 (102) 100 11/03/18 20:00 98.1 79 17 122/77 (92) 100 11/03/18 20:00 Room Air 11/03/18 19:43 80 11/03/18 19:00 79 16 122/81 (95) 100 Intake and Output 11/03/18 11/04/18 19:00 07:00 Intake Total 2116.6 ml 2100 ml Output Total 800 ml 400 ml Balance 1316.6 ml 1700 ml Intake Oral 220 ml 850 ml IV Total 1896.6 ml 1250 ml Output Urine Total 800 ml 400 ml # Voids 1 Laboratory Tests 11/04/18 06:30: White Blood Count 12.7H, Red Blood Count 3.69L, Hemoglobin 10.2L, Hematocrit 30.1L, Mean Corpuscular Volume 82, Mean Corpuscular Hemoglobin 27.6, Mean Corpuscular Hemoglobin Concent 33.9, Red Cell Distribution Width 13.4, Platelet Count 168, Mean Platelet Volume 7.9, Neutrophils (%) (Auto) 76.1H, Lymphocytes ( %) (Auto) 11.6L, Monocytes (%) (Auto) 11.5H, Eosinophils (%) (Auto) 0.4, Basophils (%) (Auto) 0.4, Sodium Level 141, Potassium Level 3.2L, Chloride Level 106, Carbon Dioxide Level 24, Anion Gap 11, Blood Urea Nitrogen 44H, Creatinine 2.0H, Estimat Glomerular Filtration Rate 33.4, Glucose Level 75, Hemoglobin A1c 15.5H, Uric Acid 10.3H, Calcium Level 7.9L, Phosphorus Level 2.8 , Magnesium Level 2.3, Iron Level 20L, Total Iron Binding Capacity 153L, Percent Iron Saturation 13L, Unsaturated Iron Binding 133, Ferritin 346, Total Bilirubin 0.2, Gamma Glutamyl Transpeptidase 18, Aspartate Amino Transf (AST/ SGOT) 21, Alanine Aminotransferase (ALT/SGPT) 15, Alkaline Phosphatase 68, Troponin I 0.274H, C-Reactive Protein, Quantitative 17.0H, Pro-B-Type Natriuretic Peptide 1573H, Total Protein 6.1L, Albumin 2.0L, Globulin 4.1, Albumin/Globulin Ratio 0.5L, Triglycerides Level 100, Cholesterol Level 77, LDL Cholesterol 29, HDL Cholesterol 35L, Cholesterol/HDL Ratio 2.2L, Vitamin B12 Level > 2000H, Folate 11.5, Thyroid Stimulating Hormone (TSH) 1.744 11/04/18 12:00: Troponin I 0.256H Height (Feet): 5 Height (Inches): 8.00 Weight (Pounds): 167 General Appearance: no apparent distress Cardiovascular: normal rate Respiratory/Chest: lungs clear Abdomen: soft Lefty Zamora MD Nov 04, 2018 18:08
[2018-11-04] MEDS ORDERED: D5 1/2NS w/KCl 40meq 1000ml 1,000 ML IV SCH (19:30)
[2018-11-04] MEDS ORDERED: Iron Sucrose 200 MG in NS 110 ML IV ONE (19:30)
[2018-11-04] MEDS: Tamsulosin 0.4mg cap ORAL SCH (21:51)
[2018-11-05] VITALS: BP 139/91
[2018-11-05] MEDS: HYDROcodone/Acetamin 5/325 tab ORAL PRN ×3 (03:49→22:39)
[2018-11-05 04:00] VITALS: BP 135/81
[2018-11-05] MEDS: NovoLOG Insulin Flexpen SUBQ SCH ×4 (05:51→20:46)
[2018-11-05 07:14] LABS: BASOPHILS % (AUTO) 0.6 % (0.0-2.0); EOSINOPHILS % (AUTO) 0.4 % (0.0-3.0); HEMATOCRIT 28.7 % (42.0-52.0); HEMOGLOBIN 9.3 G/DL (14.2-18.0); LYMPHOCYTES % (AUTO) 10.1 % (20.0-45.0); MEAN CORPUSCULAR VOLUME 84 FL (80-99); MONOCYTES % (AUTO) 8.5 % (1.0-10.0); NEUTROPHILS % (AUTO) 80.4 % (45.0-75.0); PLATELET COUNT 146 K/UL (150-450); RED BLOOD COUNT 3.43 M/UL (4.70-6.10); RED CELL DISTRIBUTION WIDTH 13.5 % (11.6-14.8); WHITE BLOOD COUNT 10.7 K/UL (4.8-10.8)
[2018-11-05 08:00] VITALS: BP 131/89
[2018-11-05 08:16] LABS: ANION GAP 11 mmol/L (5-15); BLOOD UREA NITROGEN 27 mg/dL (7-18); CALCIUM 7.9 MG/DL (8.5-10.1); CARBON DIOXIDE 23 MMOL/L (21-32); CHLORIDE 104 MMOL/L (98-107); CREATININE 1.6 MG/DL (0.55-1.30); POTASSIUM 4.2 MMOL/L (3.5-5.1); SODIUM 138 MMOL/L (136-145)
[2018-11-05] MEDS: Zinc Sulfate 220mg cap ORAL SCH (08:51)
[2018-11-05] MEDS: Docusate 100mg cap ORAL SCH ×3 (08:51→17:28)
[2018-11-05] MEDS: Ascorbic Acid 500mg tab ORAL SCH (08:51)
[2018-11-05] MEDS: Aspirin EC 81mg tab ORAL SCH (08:51)
[2018-11-05] MEDS: Heparin 5000 units/ml inj SUBQ SCH ×2 (08:52→20:46)
[2018-11-05] MEDS: Levemir Flexpen SUBQ SCH ×2 (08:57→20:45)
[2018-11-05] MEDS ORDERED: NS 500ML ONE (09:13)
[2018-11-05] MEDS ORDERED: 1/2 NS 1000ml IV ONE (09:13)
[2018-11-05] MEDS ORDERED: Tubing IV Secondary IV ONE (09:13)
--- NOTE | 2018-11-05 09:36 | General Progress Note ---
Assessment/Plan Problem List: (1) DKA (diabetic ketoacidoses) ICD Codes: E13.10 - Other specified diabetes mellitus with ketoacidosis without coma SNOMED: 98035191, 924523676 (2) Diabetes mellitus ICD Codes: E11.9 - Type 2 diabetes mellitus without complications SNOMED: 45001287 (3) Hypothyroidism ICD Codes: E03.9 - Hypothyroidism, unspecified SNOMED: 99896555 (4) Hypertension ICD Codes: I10 - Essential (primary) hypertension SNOMED: 93492496 Assessment: glucose values are stable continue Levemir 10 units bid continue Levothyroxine 50 mcg daily Subjective Allergies: Coded Allergies: No Known Allergies (Unverified , 11/02/18) All Systems: reviewed and negative except above Subjective events noted Item Value Date Time Bedside Blood Glucose 195 mg/dl H 11/05/18 0857 Bedside Blood Glucose 101 mg/dl 11/05/18 0607 Bedside Blood Glucose 133 mg/dl H 11/04/18 2149 Bedside Blood Glucose 163 mg/dl H 11/04/18 1645 Bedside Blood Glucose 147 mg/dl H 11/04/18 1205 Bedside Blood Glucose 156 mg/dl H 11/04/18 0900 Objective Last 24 Hour Vital Signs Date Time Temp Pulse Resp B/P (MAP) Pulse Ox O2 Delivery O2 Flow Rate FiO2 11/05/18 08:00 97.9 89 18 131/89 (103) 96 11/05/18 04:00 97.7 84 17 135/81 (99) 95 11/05/18 00:00 98.8 83 17 139/91 (107) 98 11/04/18 21:00 Room Air 11/04/18 20:00 98.1 73 19 133/88 (103) 95 73 11/04/18 16:00 97.5 69 18 136/79 (98) 99 11/04/18 12:00 97.5 74 18 141/86 (104) 99 Intake and Output 11/04/18 11/05/18 18:59 06:59 Intake Total 2661 ml 1760 ml Output Total 900 ml Balance 2661 ml 860 ml Intake Oral 360 ml IV Total 2661 ml 500 ml Other 900 ml Output Urine Total 900 ml Laboratory Tests 11/04/18 12:00: Troponin I 0.256H 11/05/18 05:50: Troponin I [Pending], White Blood Count 10.7, Red Blood Count 3.43L, Hemoglobin 9.3L, Hematocrit 28.7L, Mean Corpuscular Volume 84, Mean Corpuscular Hemoglobin 27.2, Mean Corpuscular Hemoglobin Concent 32.4, Red Cell Distribution Width 13.5 , Platelet Count 146L, Mean Platelet Volume 7.9, Neutrophils (%) (Auto) 80.4H, Lymphocytes (%) (Auto) 10.1L, Monocytes (%) (Auto) 8.5, Eosinophils (%) (Auto) 0.4, Basophils (%) (Auto) 0.6, Sodium Level 138, Potassium Level 4.2, Chloride Level 104, Carbon Dioxide Level 23, Anion Gap 11, Blood Urea Nitrogen 27H, Creatinine 1.6H, Estimat Glomerular Filtration Rate 43.2, Glucose Level 98, Uric Acid [Pending], Calcium Level 7.9L, Phosphorus Level [Pending], Magnesium Level [Pending], Total Bilirubin [Pending], Direct Bilirubin [Pending], Aspartate Amino Transf (AST/SGOT) [Pending], Alanine Aminotransferase (ALT/SGPT ) [Pending], Alkaline Phosphatase [Pending], Total Protein [Pending], Albumin [ Pending] Height (Feet): 5 Height (Inches): 8.00 Weight (Pounds): 170 General Appearance: no apparent distress Neck: normal alignment Cardiovascular: normal rate Respiratory/Chest: lungs clear Abdomen: normal bowel sounds Objective Current Medications Medications (Trade) Dose Ordered Sig/Oscar Route PRN Reason Start Time Stop Time Status Last Admin Dose Admin Acetaminophen (Tylenol) 650 mg Q4H PRN ORAL Mild Pain/Temp > 100.5 11/04/18 11:15 12/02/18 11:14 Acetaminophen/ Hydrocodone Bitart ([place] 5/325) 1 tab Q6H PRN ORAL For Pain 11/04/18 11:30 11/11/18 11:29 11/05/18 03:49 Ascorbic Acid (Vitamin C) 500 mg DAILY ORAL 11/05/18 09:00 12/05/18 08:59 11/05/18 08:51 Aspirin (Ecotrin) 81 mg DAILY ORAL 11/04/18 09:00 12/04/18 08:59 11/05/18 08:51 Ceftriaxone Sodium 1 gm/ Dextrose 55 ml @ 110 mls/hr Q24H IVPB 11/04/18 16:00 11/10/18 15:59 11/04/18 16:17 Clonidine HCl (Catapres Tab) 0.1 mg Q4H PRN ORAL bp over 165 syst 11/04/18 02:30 12/03/18 14:29 Dextrose (Dextrose 50%) 25 ml Q30M PRN IV Hypoglycemia 11/04/18 00:45 12/03/18 10:01 Dextrose (Dextrose 50%) 50 ml Q30M PRN IV hypoglycemia 11/04/18 00:45 12/03/18 10:14 Dextrose/ Electrolytes 1,000 ml @ 50 mls/hr Q20H IV 11/04/18 19:30 12/04/18 19:29 11/04/18 20:41 Docusate Sodium (Colace) 100 mg THREE TIMES A DAY ORAL 11/04/18 09:00 12/03/18 17:59 11/05/18 08:51 Heparin Sodium (Porcine) (Heparin 5000 units/ml) 5,000 units EVERY 12 HOURS SUBQ 11/04/18 09:00 12/02/18 20:59 11/04/18 21:52 Insulin Aspart (NovoLOG) BEFORE MEALS AND HS SUBQ 11/04/18 06:30 12/03/18 11:29 11/04/18 21:49 Insulin Detemir (Levemir) 10 units EVERY 12 HOURS SUBQ 11/04/18 09:00 12/03/18 09:59 11/05/18 08:57 Levothyroxine Sodium (Synthroid) 50 mcg DAILY@0630 ORAL 11/04/18 06:30 12/04/18 06:29 11/05/18 05:58 Multivitamins (Multivitamins) 1 tab DAILY ORAL 11/05/18 09:00 12/05/18 08:59 11/05/18 08:52 Ondansetron HCl (Zofran) 4 mg Q6H PRN IVP Nausea & Vomiting 11/04/18 01:45 12/02/18 13:44 Pantoprazole (Protonix) 40 mg EVERY 12 HOURS ORAL 11/04/18 09:00 12/03/18 14:29 11/05/18 08:51 Polyethylene Glycol (Miralax) 17 gm DAILYPRN PRN ORAL Constipation 11/04/18 13:45 12/02/18 13:44 Tamsulosin HCl (Flomax) 0.4 mg BEDTIME ORAL 11/04/18 21:00 12/04/18 20:59 11/04/18 21:51 Zinc Sulfate (Zinc Sulfate) 220 mg DAILY ORAL 11/05/18 09:00 12/05/18 08:59 11/05/18 08:51 Yevgeniy Vinson MD Nov 05, 2018 09:35
[2018-11-05 10:24] LABS: ALANINE AMINOTRANSFERASE 13 U/L (12-78); ALBUMIN 1.8 G/DL (3.4-5.0); ALKALINE PHOSPHATASE 60 U/L (46-116); ASPARTATE AMINO TRANSFERASE 16 U/L (15-37); BILIRUBIN,DIRECT < 0.1 MG/DL (0.0-0.3); BILIRUBIN,TOTAL 0.2 MG/DL (0.2-1.0); PHOSPHORUS 2.9 MG/DL (2.5-4.9)
--- NOTE | 2018-11-05 11:06 | Nephrology Progress Note ---
Assessment/Plan Problem List: (1) ATN (acute tubular necrosis) (2) DKA (diabetic ketoacidoses) (3) Hypertension (4) Hypothyroidism (5) Acute on chronic renal insufficiency Assessment Acute on Chronic renal failure- DKA on admit Diabetic Nephropathy HypoThyroidism HTN Sacral wound Anemia UTI Plan Hydrate BP and BS control Electrolyte check Anemia camp Rocephin per orders Subjective ROS Limited/Unobtainable: No Objective Objective Last 24 Hour Vital Signs Date Time Temp Pulse Resp B/P (MAP) Pulse Ox O2 Delivery O2 Flow Rate FiO2 11/05/18 09:00 Room Air 11/05/18 08:00 97.9 89 18 131/89 (103) 96 11/05/18 04:00 97.7 84 17 135/81 (99) 95 11/05/18 00:00 98.8 83 17 139/91 (107) 98 11/04/18 21:00 Room Air 11/04/18 20:00 98.1 73 19 133/88 (103) 95 73 11/04/18 16:00 97.5 69 18 136/79 (98) 99 11/04/18 12:00 97.5 74 18 141/86 (104) 99 Intake and Output 11/04/18 11/05/18 18:59 06:59 Intake Total 2661 ml 1760 ml Output Total 900 ml Balance 2661 ml 860 ml Intake Oral 360 ml IV Total 2661 ml 500 ml Other 900 ml Output Urine Total 900 ml Laboratory Tests 11/04/18 12:00: Troponin I 0.256H 11/05/18 05:50: White Blood Count 10.7, Red Blood Count 3.43L, Hemoglobin 9.3L, Hematocrit 28.7L , Mean Corpuscular Volume 84, Mean Corpuscular Hemoglobin 27.2, Mean Corpuscular Hemoglobin Concent 32.4, Red Cell Distribution Width 13.5, Platelet Count 146L, Mean Platelet Volume 7.9, Neutrophils (%) (Auto) 80.4H, Lymphocytes (%) (Auto) 10.1L, Monocytes (%) (Auto) 8.5, Eosinophils (%) (Auto) 0.4, Basophils (%) (Auto) 0.6, Sodium Level 138, Potassium Level 4.2, Chloride Level 104, Carbon Dioxide Level 23, Anion Gap 11, Blood Urea Nitrogen 27H, Creatinine 1.6H, Estimat Glomerular Filtration Rate 43.2, Glucose Level 98, Calcium Level 7.9L 11/05/18 09:45: Troponin I 0.086H, Uric Acid 6.7, Phosphorus Level 2.9, Magnesium Level 1.7L, Total Bilirubin 0.2, Direct Bilirubin < 0.1, Aspartate Amino Transf (AST/SGOT) 16, Alanine Aminotransferase (ALT/SGPT) 13, Alkaline Phosphatase 60, Total Protein 5.8L, Albumin 1.8L Height (Feet): 5 Height (Inches): 8.00 Weight (Pounds): 170 General Appearance: no apparent distress Cardiovascular: normal rate Respiratory/Chest: decreased breath sounds Abdomen: soft Objective no change Lefty Zamora MD Nov 05, 2018 11:06
[2018-11-05 12:00] VITALS: BP 141/67
--- NOTE | 2018-11-05 13:30 | Internal Med Progress Note ---
Subjective Date of Service: Nov 05, 2018 Physician Name Sudhir Jones Attending Physician Gómez Mancini MD Current Medications Medications (Trade) Dose Ordered Sig/Oscar Route PRN Reason Start Time Stop Time Status Last Admin Dose Admin Acetaminophen (Tylenol) 650 mg Q4H PRN ORAL Mild Pain/Temp > 100.5 11/04/18 11:15 12/02/18 11:14 Acetaminophen/ Hydrocodone Bitart ([place] 5/325) 1 tab Q6H PRN ORAL For Pain 11/04/18 11:30 11/11/18 11:29 11/05/18 03:49 Ascorbic Acid (Vitamin C) 500 mg DAILY ORAL 11/05/18 09:00 12/05/18 08:59 11/05/18 08:51 Aspirin (Ecotrin) 81 mg DAILY ORAL 11/04/18 09:00 12/04/18 08:59 11/05/18 08:51 Ceftriaxone Sodium 1 gm/ Dextrose 55 ml @ 110 mls/hr Q24H IVPB 11/04/18 16:00 11/10/18 15:59 11/04/18 16:17 Clonidine HCl (Catapres Tab) 0.1 mg Q4H PRN ORAL bp over 165 syst 11/04/18 02:30 12/03/18 14:29 Dextrose (Dextrose 50%) 25 ml Q30M PRN IV Hypoglycemia 11/04/18 00:45 12/03/18 10:01 Dextrose (Dextrose 50%) 50 ml Q30M PRN IV hypoglycemia 11/04/18 00:45 12/03/18 10:14 Docusate Sodium (Colace) 100 mg THREE TIMES A DAY ORAL 11/04/18 09:00 12/03/18 17:59 11/05/18 12:25 Heparin Sodium (Porcine) (Heparin 5000 units/ml) 5,000 units EVERY 12 HOURS SUBQ 11/05/18 21:00 12/02/18 20:59 Insulin Aspart (NovoLOG) BEFORE MEALS AND HS SUBQ 11/04/18 06:30 12/03/18 11:29 11/05/18 11:53 Insulin Detemir (Levemir) 10 units EVERY 12 HOURS SUBQ 11/04/18 09:00 12/03/18 09:59 11/05/18 08:57 Levothyroxine Sodium (Synthroid) 50 mcg DAILY@0630 ORAL 11/04/18 06:30 12/04/18 06:29 11/05/18 05:58 Multivitamins (Multivitamins) 1 tab DAILY ORAL 11/05/18 09:00 12/05/18 08:59 11/05/18 08:52 Ondansetron HCl (Zofran) 4 mg Q6H PRN IVP Nausea & Vomiting 11/04/18 01:45 12/02/18 13:44 Pantoprazole (Protonix) 40 mg EVERY 12 HOURS ORAL 11/04/18 09:00 12/03/18 14:29 11/05/18 08:51 Polyethylene Glycol (Miralax) 17 gm DAILYPRN PRN ORAL Constipation 11/04/18 13:45 12/02/18 13:44 Tamsulosin HCl (Flomax) 0.4 mg BEDTIME ORAL 11/04/18 21:00 12/04/18 20:59 11/04/18 21:51 Zinc Sulfate (Zinc Sulfate) 220 mg DAILY ORAL 11/05/18 09:00 12/05/18 08:59 11/05/18 08:51 Allergies: Coded Allergies: No Known Allergies (Unverified , 11/02/18) ROS Limited/Unobtainable: Yes Subjective 68 YO M admitted with diabetic ketoacidosis and hyperglycemia. Cover for Int Med-DR Mancini. Objective Last Vital Signs Date Time Temp Pulse Resp B/P (MAP) Pulse Ox O2 Delivery O2 Flow Rate FiO2 11/05/18 12:00 98.0 83 16 141/67 (91) 96 11/05/18 09:00 Room Air 11/02/18 11:42 2.0 Laboratory Tests Test 11/05/18 05:50 11/05/18 09:45 White Blood Count 10.7 K/UL (4.8-10.8) Red Blood Count 3.43 M/UL (4.70-6.10) L Hemoglobin 9.3 G/DL (14.2-18.0) L Hematocrit 28.7 % (42.0-52.0) L Mean Corpuscular Volume 84 FL (80-99) Mean Corpuscular Hemoglobin 27.2 PG (27.0-31.0) Mean Corpuscular Hemoglobin Concent 32.4 G/DL (32.0-36.0) Red Cell Distribution Width 13.5 % (11.6-14.8) Platelet Count 146 K/UL (150-450) L Mean Platelet Volume 7.9 FL (6.5-10.1) Neutrophils (%) (Auto) 80.4 % (45.0-75.0) H Lymphocytes (%) (Auto) 10.1 % (20.0-45.0) L Monocytes (%) (Auto) 8.5 % (1.0-10.0) Eosinophils (%) (Auto) 0.4 % (0.0-3.0) Basophils (%) (Auto) 0.6 % (0.0-2.0) Sodium Level 138 MMOL/L (136-145) Potassium Level 4.2 MMOL/L (3.5-5.1) Chloride Level 104 MMOL/L (98-107) Carbon Dioxide Level 23 MMOL/L (21-32) Anion Gap 11 mmol/L (5-15) Blood Urea Nitrogen 27 mg/dL (7-18) H Creatinine 1.6 MG/DL (0.55-1.30) H Estimat Glomerular Filtration Rate 43.2 mL/min (>60) Glucose Level 98 MG/DL (74-106) Calcium Level 7.9 MG/DL (8.5-10.1) L Uric Acid 6.7 MG/DL (2.6-7.2) Phosphorus Level 2.9 MG/DL (2.5-4.9) Magnesium Level 1.7 MG/DL (1.8-2.4) L Total Bilirubin 0.2 MG/DL (0.2-1.0) Direct Bilirubin < 0.1 MG/DL (0.0-0.3) Aspartate Amino Transf (AST/SGOT) 16 U/L (15-37) Alanine Aminotransferase (ALT/SGPT) 13 U/L (12-78) Alkaline Phosphatase 60 U/L (46-116) Troponin I 0.086 ng/mL (0.000-0.056) Total Protein 5.8 G/DL (6.4-8.2) L Albumin 1.8 G/DL (3.4-5.0) L Intake and Output 11/04/18 11/05/18 19:00 07:00 Intake Total 2661 ml 1760 ml Output Total 900 ml Balance 2661 ml 860 ml Intake Oral 360 ml IV Total 2661 ml 500 ml Other 900 ml Output Urine Total 900 ml Objective PHYSICAL EXAMINATION: GENERAL: The patient is a well-developed and well-nourished male, in no apparent distress. HEENT: Eyes, pupils are equal and responsive to light and accommodation. Extraocular movements are intact. NECK: Supple without lymphadenopathy. CHEST: Lungs are clear to auscultation bilaterally without wheezes or rales. CARDIOVASCULAR: Regular rhythm and rate. S1 and S2 are normal without murmurs, rubs, or gallops. ABDOMEN: Soft, nontender, and nondistended. Positive bowel sounds. No evidence of hepatosplenomegaly. Currently, no rebound or guarding noted. EXTREMITIES: Negative for clubbing, cyanosis, or edema. RECTAL/GENITAL: Not performed. NEUROLOGIC: Cranial nerves II through XII are grossly intact without focal deficits. Assessment/Plan Assessment/Plan Assessment: 1. Diabetes II 2. Diabetic ketoacidosis 3. hyponatremia 4. hyperglycemia 5. hypertension 6. hypothyroidism 7. diabetic neuropathy 8. Hypercholesterolemia TREATMENT: 1. Diabetic ketoacidosisHyperglycemia. D/C insulin drip; continue levemir and novolog sliding scale per endocrinology. Latest fingerstick readings are improved. 2. Acute renal failure. This may be secondary to diabetic ketoacidosis as above. 3. Hyponatremia. The patient has been started on normal saline intravenously. 4. Hypertension. Continue amlodipine and lisinopril as above. Continue metoprolol as above. 5. Hypothyroidism. Continue Levoxyl as above. 6. Hypercholesterolemia. Continue atorvastatin as above. Sudhir Jones MD Nov 05, 2018 13:30
--- NOTE | 2018-11-05 15:09 | Surgery Progress Note ---
Surgery Progress Note Subjective Additional Comments no acute events. exam unchanged. comfortable. states he feels well and had no complaints Objective Last 24 Hour Vital Signs Date Time Temp Pulse Resp B/P (MAP) Pulse Ox O2 Delivery O2 Flow Rate FiO2 11/05/18 12:00 98.0 83 16 141/67 (91) 96 11/05/18 09:00 Room Air 11/05/18 08:00 97.9 89 18 131/89 (103) 96 11/05/18 04:00 97.7 84 17 135/81 (99) 95 11/05/18 00:00 98.8 83 17 139/91 (107) 98 11/04/18 21:00 Room Air 11/04/18 20:00 98.1 73 19 133/88 (103) 95 73 11/04/18 16:00 97.5 69 18 136/79 (98) 99 I&O Intake and Output 11/04/18 11/05/18 19:00 07:00 Intake Total 2661 ml 1760 ml Output Total 900 ml Balance 2661 ml 860 ml Intake Oral 360 ml IV Total 2661 ml 500 ml Other 900 ml Output Urine Total 900 ml Dressing: other Wound: other Drains: other Cardiovascular: RSR Respiratory: clear Abdomen: soft, present bowel sounds Extremities: no cyanosis Laboratory Tests Test 11/05/18 05:50 11/05/18 09:45 White Blood Count 10.7 K/UL (4.8-10.8) Red Blood Count 3.43 M/UL (4.70-6.10) L Hemoglobin 9.3 G/DL (14.2-18.0) L Hematocrit 28.7 % (42.0-52.0) L Mean Corpuscular Volume 84 FL (80-99) Mean Corpuscular Hemoglobin 27.2 PG (27.0-31.0) Mean Corpuscular Hemoglobin Concent 32.4 G/DL (32.0-36.0) Red Cell Distribution Width 13.5 % (11.6-14.8) Platelet Count 146 K/UL (150-450) L Mean Platelet Volume 7.9 FL (6.5-10.1) Neutrophils (%) (Auto) 80.4 % (45.0-75.0) H Lymphocytes (%) (Auto) 10.1 % (20.0-45.0) L Monocytes (%) (Auto) 8.5 % (1.0-10.0) Eosinophils (%) (Auto) 0.4 % (0.0-3.0) Basophils (%) (Auto) 0.6 % (0.0-2.0) Sodium Level 138 MMOL/L (136-145) Potassium Level 4.2 MMOL/L (3.5-5.1) Chloride Level 104 MMOL/L (98-107) Carbon Dioxide Level 23 MMOL/L (21-32) Anion Gap 11 mmol/L (5-15) Blood Urea Nitrogen 27 mg/dL (7-18) H Creatinine 1.6 MG/DL (0.55-1.30) H Estimat Glomerular Filtration Rate 43.2 mL/min (>60) Glucose Level 98 MG/DL (74-106) Calcium Level 7.9 MG/DL (8.5-10.1) L Uric Acid 6.7 MG/DL (2.6-7.2) Phosphorus Level 2.9 MG/DL (2.5-4.9) Magnesium Level 1.7 MG/DL (1.8-2.4) L Total Bilirubin 0.2 MG/DL (0.2-1.0) Direct Bilirubin < 0.1 MG/DL (0.0-0.3) Aspartate Amino Transf (AST/SGOT) 16 U/L (15-37) Alanine Aminotransferase (ALT/SGPT) 13 U/L (12-78) Alkaline Phosphatase 60 U/L (46-116) Troponin I 0.086 ng/mL (0.000-0.056) Total Protein 5.8 G/DL (6.4-8.2) L Albumin 1.8 G/DL (3.4-5.0) L Plan Problems: (1) Diabetes mellitus Assessment & Plan: A1c 14 glu improved cont with Rx DAILY ESTIMATED NEEDS: Needs based on Wound, DM/ 70kg 25-30 kcals/kg 0673-8459 total kcals 1.25-1.5 g protein/kg 87-105 g total protein 25-30 mL/kg 3422-4317 total fluid mLs NUTRITION DIAGNOSIS: * Increased kcal/prot intake needs R/T wound healing as evidenced by pt admitted w/ full thickness pressure injury at sacrococcyx. * Altered nutrition related lab values R/T DKA as evidenced by elev BG of 928* upon adm -> 123, 241 now improved, A1C of 14.1, 4+ urine gluclose, now off insulin drip. CURRENT DIET:[facility] MED PO DIET RECOMMENDATIONS: CCHO MED/ texture as tolerated ADDITIONAL RECOMMENDATIONS: * Calibrated bedscale wt for accurate CBW * Wound healing: Add MVI x 1, Vit C 500mg QD, Hari 1pkt BID : ZnSO4 220mg QD x 10 days * Monitor BGs closely- improved since adm * Monitor lytes, replete as needed (phos 1.6) * DM diet education upon f/up when pt more stable and awake (2) Hypothyroidism Assessment & Plan: levels pending (3) Hypertension (4) DKA (diabetic ketoacidoses) (5) ATN (acute tubular necrosis) (6) Acute on chronic renal insufficiency (7) Sacral wound Assessment & Plan: Pt presented on admission with full thickness pressure injury sacrococcygeal area. Base of wound with trace biofilm,(+) maceration along borders (L)1cm x (W00.5cm x (D)0.2cm. Darker skin tone without induration periwound . Darker skin tone without induration or erythema periwound to both ischial regions.Soft mass upper back .Pt verbalized tenderness when palpated.No erythema noted. Both heels are firm and blanchable. Pt educated on wound prevention and encouraged to frequently turn on sides to relive pressure off buttocks. Tx.Plan: Cleanse with saline. Apply Triad Paste. Cover with Optifoam drsg. Change every 3 days and prn. Apply Cavilon Skin Barrier to Both heels. Off-load heels with Pillow. Cue and encourage pt to Reposition at least every 2 hours or as tolerated. Help patient with reposition q2h (8) Leukocytosis Assessment & Plan: unlikely related to wounds will monitor will follow with Josias Fernandez Nov 05, 2018 15:09
[2018-11-05 16:00] VITALS: BP 139/92
--- NOTE | 2018-11-05 16:06 | Consultation ---
Consult Note Consult Note Cardiology for Dr. Medrano Full consult dictated #[id number] 68 yo man with HTN, type II DM and hypothyroidism adm w/ hyperosmolar state- treated. He c/o intermittent chest pain over past 2 wks, and had elevated troponin, now decreasing, on adm. EKG w/o ischemic change and echo without wma, nl ef. Rec: stress nuclear study. Risk factor management - optimize diabetic control, BP, and lipids. continue asa and start statin Francoise Johnson MD Nov 05, 2018 16:06
[2018-11-05] MEDS ORDERED: Lexiscan 0.4mg/5ml syringe IV PRN (16:15)
[2018-11-05] MEDS: cefTRIAXone 1 GM in D5W 55 ML IVPB SCH (17:28)
--- NOTE | 2018-11-05 19:15 | Consultation ---
DATE OF CONSULTATION: 11/05/2018 CARDIOLOGY CONSULTATION CONSULTING PHYSICIAN: Francoise Johnson M.D. This is a cardiology consult being done as coverage for Howard Medrano M.D. REQUESTING PHYSICIAN: Gómez Mancini M.D. REASON FOR CONSULTATION: Chest pain. HISTORY OF PRESENT ILLNESS: The patient is a 68-year-old man with history of hypertension, type 2 diabetes, diabetic neuropathy, and hypothyroidism, who was transferred from the assisted living facility on 11/02/2018, with elevated glucose and altered mental status. His blood sugar was found to be over 900 and he was diagnosed with hyperosmolar state. He received intravenous hydration and electrolyte supplementation. He was placed on an insulin drip. His condition has improved and his blood sugars are now in normal range. He complained of chest pain and was noted to have an elevated troponin of 0.25, repeat 0.08, and Cardiology evaluation was requested. The patient is a fair historian, but states that he had intermittent chest pain while at the assisted living facility over about two weeks prior to presentation. The pain was not clearly exertional and was substernal, nonradiating, and not associated with any other symptoms such as dyspnea, diaphoresis, nausea, or vomiting. He has no previous history of coronary artery disease or angina. MEDICATIONS: Subcutaneous heparin 5000 units q.12 hours, vitamin C 500 mg daily, multivitamin one daily, zinc sulfate 220 mg daily, Flomax 0.4 mg nightly, ceftriaxone 1 g IV q.24 h., [place] q.6 h. p.r.n., aspirin 81 mg daily, Colace 100 mg three times daily, insulin Levemir 10 units every 12 hours subcutaneous, Protonix 40 mg p.o. q.12 h., insulin sliding scale, Synthroid 50 mcg daily, clonidine 0.1 mg q.4 h. p.r.n. ALLERGIES: No known drug allergies. PAST MEDICAL HISTORY: As noted above. History of hypertension, type 2 diabetes, hypothyroidism on supplement, and anemia. SOCIAL HISTORY: The patient resides at an assisted living facility. He has remote history of tobacco use, but states he has not smoked in over 10 years. No history of alcohol or drug abuse. PHYSICAL EXAMINATION: VITAL SIGNS: Blood pressure is 141/67, pulse 83 and regular, respirations 16, afebrile. GENERAL: Alert, well-developed male, in no acute distress. HEENT: Normocephalic and atraumatic. Pupils are equal, round, and reactive to light. Bilateral arcus senilis. Oral mucosa are moist. NECK: Supple. There is no jugular venous distention. No carotid bruits. No thyromegaly. LUNGS: Clear to auscultation bilaterally. HEART: Regular, S1 and S2. Positive S4. No murmurs or S3. ABDOMEN: Soft, nontender. No palpable mass. No bruits. EXTREMITIES: No cyanosis, clubbing, or edema. A 2+ dorsalis pedis pulses bilaterally. LABORATORY AND DIAGNOSTIC DATA: EKG shows sinus rhythm, rate of 82 beats per minute, axis 0 degrees, poor R-wave progression in V1 to V3, no ST-segment or T-wave changes. Venous duplex of the legs done on admission showed chronic right femoral DVT with recanalization. Hemoglobin 9.3, hematocrit 28.7, white blood count 10,700. Potassium 4.2, BUN 27, creatinine 1.6, glucose 98. Hemoglobin A1c 10.3. Troponins 0.274, 0.256, and 0.086. ASSESSMENT AND RECOMMENDATIONS: The patient is a 68-year-old man with history of hypertension, type 2 diabetes, and hypothyroidism, who was admitted with hyperosmolar state. He has been resuscitated with intravenous fluids and intravenous insulin with resolution. He did complain of chest pain over the past few weeks which may be anginal. His history is not clear and he is a fair historian. His current EKG does not show ischemic changes though there is poor R-wave progression anteriorly. He had mild troponin elevation on admission, which is most consistent with demand ischemia. He has had an echo done during this admission which did not show any wall motion abnormalities, EF was normal at 55%, and there was no left ventricular hypertrophy. Doppler showed only mild valvular regurgitation (aortic, mitral, and tricuspid). I would favor obtaining a stress nuclear study to rule out ischemia given his multiple coronary risk factors, would optimize medical therapy for diabetes and hypertension, would also start a statin, and continue aspirin. Further recommendations will be made following results of his stress myocardial perfusion study. Dr. Medrano will continue to follow the patient starting 11/06/2018. Francoise Johnson M.D. DR: Kennedy JOB#: [id number] CC:
[2018-11-05 20:00] VITALS: BP 144/93
[2018-11-05] MEDS: Tamsulosin 0.4mg cap ORAL SCH (20:47)
[2018-11-05] MEDS: Atorvastatin 20mg tab ORAL SCH (20:47)
[2018-11-06] VITALS: BP 158/99
[2018-11-06 04:00] VITALS: BP 143/94
[2018-11-06] MEDS: NovoLOG Insulin Flexpen SUBQ SCH ×4 (05:38→21:18)
--- NOTE | 2018-11-06 06:37 | General Progress Note ---
Assessment/Plan Problem List: (1) DKA (diabetic ketoacidoses) ICD Codes: E13.10 - Other specified diabetes mellitus with ketoacidosis without coma SNOMED: 96372563, 839478629 (2) Diabetes mellitus ICD Codes: E11.9 - Type 2 diabetes mellitus without complications SNOMED: 89269403 (3) Hypothyroidism ICD Codes: E03.9 - Hypothyroidism, unspecified SNOMED: 25671715 (4) Hypertension ICD Codes: I10 - Essential (primary) hypertension SNOMED: 36529368 Assessment: glucose values are stable continue Levemir 10 units bid continue Levothyroxine 50 mcg daily Subjective Allergies: Coded Allergies: No Known Allergies (Unverified , 11/02/18) Subjective events noted Item Value Date Time Bedside Blood Glucose 78 mg/dl 11/06/18 0607 Bedside Blood Glucose 222 mg/dl H 11/05/18 2304 Bedside Blood Glucose 222 mg/dl H 11/05/18 2046 Bedside Blood Glucose 127 mg/dl H 11/05/18 1646 Bedside Blood Glucose 181 mg/dl H 11/05/18 1153 Bedside Blood Glucose 195 mg/dl H 11/05/18 0857 Bedside Blood Glucose 101 mg/dl 11/05/18 0607 Objective Last 24 Hour Vital Signs Date Time Temp Pulse Resp B/P (MAP) Pulse Ox O2 Delivery O2 Flow Rate FiO2 11/06/18 04:00 98.3 98 17 143/94 (110) 96 11/06/18 00:00 99.2 86 18 158/99 (118) 98 11/05/18 21:00 Room Air 11/05/18 20:00 98.6 84 18 144/93 (110) 96 11/05/18 16:00 98.5 83 19 139/92 (108) 96 11/05/18 12:00 98.0 83 16 141/67 (91) 96 11/05/18 09:00 Room Air 11/05/18 08:00 97.9 89 18 131/89 (103) 96 Intake and Output 11/05/18 11/06/18 19:00 07:00 Intake Total 720 ml 360 ml Output Total 1150 ml Balance 720 ml -790 ml Intake Oral 720 ml 360 ml Output Urine Total 1150 ml # Voids 3 Laboratory Tests 11/05/18 09:45: Uric Acid 6.7, Phosphorus Level 2.9, Magnesium Level 1.7L, Total Bilirubin 0.2, Direct Bilirubin < 0.1, Aspartate Amino Transf (AST/SGOT) 16, Alanine Aminotransferase (ALT/SGPT) 13, Alkaline Phosphatase 60, Troponin I 0.086H, Total Protein 5.8L, Albumin 1.8L Height (Feet): 5 Height (Inches): 8.00 Weight (Pounds): 167 General Appearance: no apparent distress Neck: normal alignment Cardiovascular: normal rate Respiratory/Chest: lungs clear Abdomen: normal bowel sounds Objective Current Medications Medications (Trade) Dose Ordered Sig/Oscar Route PRN Reason Start Time Stop Time Status Last Admin Dose Admin Acetaminophen (Tylenol) 650 mg Q4H PRN ORAL Mild Pain/Temp > 100.5 11/04/18 11:15 12/02/18 11:14 Acetaminophen/ Hydrocodone Bitart ([place] 5/325) 1 tab Q6H PRN ORAL For Pain 11/04/18 11:30 11/11/18 11:29 11/05/18 22:39 Ascorbic Acid (Vitamin C) 500 mg DAILY ORAL 11/05/18 09:00 12/05/18 08:59 11/05/18 08:51 Aspirin (Ecotrin) 81 mg DAILY ORAL 11/04/18 09:00 12/04/18 08:59 11/05/18 08:51 Atorvastatin Calcium (Lipitor) 20 mg BEDTIME ORAL 11/05/18 21:00 12/05/18 20:59 11/05/18 20:47 Ceftriaxone Sodium 1 gm/ Dextrose 55 ml @ 110 mls/hr Q24H IVPB 11/04/18 16:00 11/10/18 15:59 11/05/18 17:28 Clonidine HCl (Catapres Tab) 0.1 mg Q4H PRN ORAL bp over 165 syst 11/04/18 02:30 12/03/18 14:29 Dextrose (Dextrose 50%) 25 ml Q30M PRN IV Hypoglycemia 11/04/18 00:45 12/03/18 10:01 Dextrose (Dextrose 50%) 50 ml Q30M PRN IV hypoglycemia 11/04/18 00:45 12/03/18 10:14 Docusate Sodium (Colace) 100 mg THREE TIMES A DAY ORAL 11/04/18 09:00 12/03/18 17:59 11/05/18 17:28 Heparin Sodium (Porcine) (Heparin 5000 units/ml) 5,000 units EVERY 12 HOURS SUBQ 11/05/18 21:00 12/02/18 20:59 11/05/18 20:46 Insulin Aspart (NovoLOG) BEFORE MEALS AND HS SUBQ 11/04/18 06:30 12/03/18 11:29 11/05/18 20:46 Insulin Detemir (Levemir) 10 units EVERY 12 HOURS SUBQ 11/04/18 09:00 12/03/18 09:59 11/05/18 20:45 Levothyroxine Sodium (Synthroid) 50 mcg DAILY@0630 ORAL 11/04/18 06:30 12/04/18 06:29 11/05/18 05:58 Multivitamins (Multivitamins) 1 tab DAILY ORAL 11/05/18 09:00 12/05/18 08:59 11/05/18 08:52 Ondansetron HCl (Zofran) 4 mg Q6H PRN IVP Nausea & Vomiting 11/04/18 01:45 12/02/18 13:44 Pantoprazole (Protonix) 40 mg EVERY 12 HOURS ORAL 11/04/18 09:00 12/03/18 14:29 11/05/18 20:47 Polyethylene Glycol (Miralax) 17 gm DAILYPRN PRN ORAL Constipation 11/04/18 13:45 12/02/18 13:44 Regadenoson (Lexiscan) 0.4 mg ONCE PRN IV FOR STRESS TEST 11/05/18 16:15 11/07/18 23:59 Tamsulosin HCl (Flomax) 0.4 mg BEDTIME ORAL 11/04/18 21:00 12/04/18 20:59 11/05/18 20:47 Zinc Sulfate (Zinc Sulfate) 220 mg DAILY ORAL 11/05/18 09:00 12/05/18 08:59 11/05/18 08:51 Yevgeniy Vinson MD Nov 06, 2018 06:37
[2018-11-06] MEDS ORDERED: D5 1/2NS 1,000 ML IV SCH (07:00)
[2018-11-06 07:12] LABS: ANION GAP 12 mmol/L (5-15); BLOOD UREA NITROGEN 18 mg/dL (7-18); CALCIUM 8.2 MG/DL (8.5-10.1); CARBON DIOXIDE 24 MMOL/L (21-32); CHLORIDE 103 MMOL/L (98-107); CREATININE 1.4 MG/DL (0.55-1.30); POTASSIUM 3.2 MMOL/L (3.5-5.1); SODIUM 139 MMOL/L (136-145)
[2018-11-06 07:26] LABS: BASOPHILS % (AUTO) 0.8 % (0.0-2.0); EOSINOPHILS % (AUTO) 0.6 % (0.0-3.0); HEMATOCRIT 30.5 % (42.0-52.0); LYMPHOCYTES % (AUTO) 13.8 % (20.0-45.0); MEAN CORPUSCULAR VOLUME 83 FL (80-99); MONOCYTES % (AUTO) 15.5 % (1.0-10.0); NEUTROPHILS % (AUTO) 69.4 % (45.0-75.0); PLATELET COUNT 198 K/UL (150-450); RED BLOOD COUNT 3.68 M/UL (4.70-6.10); RED CELL DISTRIBUTION WIDTH 13.5 % (11.6-14.8)
[2018-11-06 08:00] VITALS: BP_SYST 151; BP_SYST 181; BP_DIAS 100
[2018-11-06] MEDS: Aspirin EC 81mg tab ORAL SCH (08:20)
[2018-11-06] MEDS: Zinc Sulfate 220mg cap ORAL SCH (08:21)
[2018-11-06] MEDS: HYDROcodone/Acetamin 5/325 tab ORAL PRN (08:21)
[2018-11-06] MEDS: Ascorbic Acid 500mg tab ORAL SCH (08:21)
[2018-11-06] MEDS: Docusate 100mg cap ORAL SCH ×3 (08:22→18:16)
[2018-11-06] MEDS: Heparin 5000 units/ml inj SUBQ SCH ×2 (08:23→21:19)
[2018-11-06] MEDS: Levemir Flexpen SUBQ SCH ×2 (09:00→21:18)
[2018-11-06 12:00] VITALS: BP 139/76
[2018-11-06] MEDS ORDERED: LEVEMIR FL100 UNIT/1 SUBQ (12:02)
[2018-11-06] MEDS ORDERED: NOVOLOG100 UNITS1 SUBQ (12:02)
--- NOTE | 2018-11-06 12:04 | Pulmonology Progress Note ---
Assessment/Plan Problems: (1) DKA (diabetic ketoacidoses) (2) Sacral wound (3) ATN (acute tubular necrosis) (4) Acute on chronic renal insufficiency (5) Diabetes mellitus (6) Hypothyroidism (7) Hypertension Assessment/Plan improving dka resolved bp controlled stress study done wound care dc to previous setting. Subjective ROS Limited/Unobtainable: No Constitutional: Reports: no symptoms HEENT: Repors: no symptoms Respiratory: Reports: no symptoms Allergies: Coded Allergies: No Known Allergies (Unverified , 11/02/18) Objective Last 24 Hour Vital Signs Date Time Temp Pulse Resp B/P (MAP) Pulse Ox O2 Delivery O2 Flow Rate FiO2 11/06/18 08:00 98.3 80 21 181/100 (127) 97 11/06/18 08:00 98.3 80 21 151/100 (117) 97 11/06/18 04:00 98.3 98 17 143/94 (110) 96 11/06/18 00:00 99.2 86 18 158/99 (118) 98 11/05/18 21:00 Room Air 11/05/18 20:00 98.6 84 18 144/93 (110) 96 11/05/18 16:00 98.5 83 19 139/92 (108) 96 Intake and Output 11/05/18 11/06/18 18:59 06:59 Intake Total 720 ml 360 ml Output Total 1150 ml Balance 720 ml -790 ml Intake Oral 720 ml 360 ml Output Urine Total 1150 ml # Voids 3 General Appearance: WD/WN HEENT: normocephalic, atraumatic Respiratory/Chest: chest wall non-tender, lungs clear Cardiovascular: normal peripheral pulses, normal rate Abdomen: normal bowel sounds, soft, non tender Genitourinary: normal external genitalia Extremities: no clubbing Skin: no lesions 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, normal mood/affect Microbiology Date/Time Source Procedure Growth Status 11/03/18 13:20 Urine,Clean Catch Urine Culture - Preliminary Gram Negative Lawrence Resulted Laboratory Tests 11/06/18 05:15: White Blood Count 9.0, Red Blood Count 3.68L, Hemoglobin 10.0L, Hematocrit 30.5L , Mean Corpuscular Volume 83, Mean Corpuscular Hemoglobin 27.1, Mean Corpuscular Hemoglobin Concent 32.7, Red Cell Distribution Width 13.5, Platelet Count 198, Mean Platelet Volume 8.5, Neutrophils (%) (Auto) 69.4, Lymphocytes (% ) (Auto) 13.8L, Monocytes (%) (Auto) 15.5H, Eosinophils (%) (Auto) 0.6, Basophils (%) (Auto) 0.8, Sodium Level 139, Potassium Level 3.2L, Chloride Level 103, Carbon Dioxide Level 24, Anion Gap 12, Blood Urea Nitrogen 18, Creatinine 1.4H, Estimat Glomerular Filtration Rate 50.4, Glucose Level 73L, Calcium Level 8.2L Current Medications Medications (Trade) Dose Ordered Sig/Oscar Route PRN Reason Start Time Stop Time Status Last Admin Dose Admin Acetaminophen (Tylenol) 650 mg Q4H PRN ORAL Mild Pain/Temp > 100.5 11/04/18 11:15 12/02/18 11:14 Acetaminophen/ Hydrocodone Bitart ([place] 5/325) 1 tab Q6H PRN ORAL For Pain 11/04/18 11:30 11/11/18 11:29 11/06/18 08:21 Ascorbic Acid (Vitamin C) 500 mg DAILY ORAL 11/05/18 09:00 12/05/18 08:59 11/06/18 08:21 Aspirin (Ecotrin) 81 mg DAILY ORAL 11/04/18 09:00 12/04/18 08:59 11/06/18 08:20 Atorvastatin Calcium (Lipitor) 20 mg BEDTIME ORAL 11/05/18 21:00 12/05/18 20:59 11/05/18 20:47 Ceftriaxone Sodium 1 gm/ Dextrose 55 ml @ 110 mls/hr Q24H IVPB 11/04/18 16:00 11/10/18 15:59 11/05/18 17:28 Clonidine HCl (Catapres Tab) 0.1 mg Q4H PRN ORAL bp over 165 syst 11/04/18 02:30 12/03/18 14:29 Dextrose (Dextrose 50%) 25 ml Q30M PRN IV Hypoglycemia 11/04/18 00:45 12/03/18 10:01 Dextrose (Dextrose 50%) 50 ml Q30M PRN IV hypoglycemia 11/04/18 00:45 12/03/18 10:14 Dextrose/Sodium Chloride 1,000 ml @ 50 mls/hr Q20H IV 11/06/18 07:00 12/06/18 06:59 11/06/18 07:29 Docusate Sodium (Colace) 100 mg THREE TIMES A DAY ORAL 11/04/18 09:00 12/03/18 17:59 11/06/18 08:22 Heparin Sodium (Porcine) (Heparin 5000 units/ml) 5,000 units EVERY 12 HOURS SUBQ 11/05/18 21:00 12/02/18 20:59 11/06/18 08:23 Insulin Aspart (NovoLOG) BEFORE MEALS AND HS SUBQ 11/04/18 06:30 12/03/18 11:29 11/05/18 20:46 Insulin Detemir (Levemir) 10 units EVERY 12 HOURS SUBQ 11/04/18 09:00 12/03/18 09:59 11/05/18 20:45 Levothyroxine Sodium (Synthroid) 50 mcg DAILY@0630 ORAL 11/04/18 06:30 12/04/18 06:29 11/05/18 05:58 Multivitamins (Multivitamins) 1 tab DAILY ORAL 11/05/18 09:00 12/05/18 08:59 11/06/18 08:20 Ondansetron HCl (Zofran) 4 mg Q6H PRN IVP Nausea & Vomiting 11/04/18 01:45 12/02/18 13:44 Pantoprazole (Protonix) 40 mg EVERY 12 HOURS ORAL 11/04/18 09:00 12/03/18 14:29 11/06/18 08:21 Polyethylene Glycol (Miralax) 17 gm DAILYPRN PRN ORAL Constipation 11/04/18 13:45 12/02/18 13:44 Regadenoson (Lexiscan) 0.4 mg ONCE PRN IV FOR STRESS TEST 11/05/18 16:15 11/07/18 23:59 Tamsulosin HCl (Flomax) 0.4 mg BEDTIME ORAL 11/04/18 21:00 12/04/18 20:59 11/05/18 20:47 Zinc Sulfate (Zinc Sulfate) 220 mg DAILY ORAL 11/05/18 09:00 12/05/18 08:59 11/06/18 08:21 Jade Mann MD Nov 06, 2018 12:04
--- NOTE | 2018-11-06 12:42 | Nephrology Progress Note ---
Assessment/Plan Problem List: (1) ATN (acute tubular necrosis) (2) DKA (diabetic ketoacidoses) (3) Hypertension (4) Hypothyroidism (5) Acute on chronic renal insufficiency Assessment Acute on Chronic renal failure- DKA on admit Diabetic Nephropathy HypoThyroidism HTN Sacral wound Anemia UTI Plan Hydrate BP and BS control Electrolyte check Anemia camp [place] per orders and consultants Subjective ROS Limited/Unobtainable: No Objective Objective Last 24 Hour Vital Signs Date Time Temp Pulse Resp B/P (MAP) Pulse Ox O2 Delivery O2 Flow Rate FiO2 11/06/18 12:10 Room Air 11/06/18 09:00 Room Air 11/06/18 08:51 98.3 11/06/18 08:00 98.3 80 21 181/100 (127) 97 11/06/18 08:00 98.3 80 21 151/100 (117) 97 11/06/18 04:00 98.3 98 17 143/94 (110) 96 11/06/18 00:00 99.2 86 18 158/99 (118) 98 11/05/18 21:00 Room Air 11/05/18 20:00 98.6 84 18 144/93 (110) 96 11/05/18 16:00 98.5 83 19 139/92 (108) 96 Intake and Output 11/05/18 11/06/18 18:59 06:59 Intake Total 720 ml 360 ml Output Total 1150 ml Balance 720 ml -790 ml Intake Oral 720 ml 360 ml Output Urine Total 1150 ml # Voids 3 Laboratory Tests 11/06/18 05:15: White Blood Count 9.0, Red Blood Count 3.68L, Hemoglobin 10.0L, Hematocrit 30.5L , Mean Corpuscular Volume 83, Mean Corpuscular Hemoglobin 27.1, Mean Corpuscular Hemoglobin Concent 32.7, Red Cell Distribution Width 13.5, Platelet Count 198, Mean Platelet Volume 8.5, Neutrophils (%) (Auto) 69.4, Lymphocytes (% ) (Auto) 13.8L, Monocytes (%) (Auto) 15.5H, Eosinophils (%) (Auto) 0.6, Basophils (%) (Auto) 0.8, Sodium Level 139, Potassium Level 3.2L, Chloride Level 103, Carbon Dioxide Level 24, Anion Gap 12, Blood Urea Nitrogen 18, Creatinine 1.4H, Estimat Glomerular Filtration Rate 50.4, Glucose Level 73L, Calcium Level 8.2L Height (Feet): 5 Height (Inches): 8.00 Weight (Pounds): 167 General Appearance: no apparent distress Objective no change Lefty Zamora MD Nov 06, 2018 12:42
--- NOTE | 2018-11-06 14:30 | Surgery Progress Note ---
Surgery Progress Note Subjective Additional Comments doing well. comfortable. no n/v/f/c. no complaints Objective Last 24 Hour Vital Signs Date Time Temp Pulse Resp B/P (MAP) Pulse Ox O2 Delivery O2 Flow Rate FiO2 11/06/18 12:10 Room Air 11/06/18 09:00 Room Air 11/06/18 08:51 98.3 11/06/18 08:00 98.3 80 21 181/100 (127) 97 11/06/18 08:00 98.3 80 21 151/100 (117) 97 11/06/18 04:00 98.3 98 17 143/94 (110) 96 11/06/18 00:00 99.2 86 18 158/99 (118) 98 11/05/18 21:00 Room Air 11/05/18 20:00 98.6 84 18 144/93 (110) 96 11/05/18 16:00 98.5 83 19 139/92 (108) 96 I&O Intake and Output 11/05/18 11/06/18 18:59 06:59 Intake Total 720 ml 360 ml Output Total 1150 ml Balance 720 ml -790 ml Intake Oral 720 ml 360 ml Output Urine Total 1150 ml # Voids 3 Dressing: saturated Wound: clean Cardiovascular: RSR Respiratory: clear Abdomen: soft, present bowel sounds, non-distended Extremities: no tenderness, no cyanosis Laboratory Tests Test 11/06/18 05:15 White Blood Count 9.0 K/UL (4.8-10.8) Red Blood Count 3.68 M/UL (4.70-6.10) L Hemoglobin 10.0 G/DL (14.2-18.0) L Hematocrit 30.5 % (42.0-52.0) L Mean Corpuscular Volume 83 FL (80-99) Mean Corpuscular Hemoglobin 27.1 PG (27.0-31.0) Mean Corpuscular Hemoglobin Concent 32.7 G/DL (32.0-36.0) Red Cell Distribution Width 13.5 % (11.6-14.8) Platelet Count 198 K/UL (150-450) Mean Platelet Volume 8.5 FL (6.5-10.1) Neutrophils (%) (Auto) 69.4 % (45.0-75.0) Lymphocytes (%) (Auto) 13.8 % (20.0-45.0) L Monocytes (%) (Auto) 15.5 % (1.0-10.0) H Eosinophils (%) (Auto) 0.6 % (0.0-3.0) Basophils (%) (Auto) 0.8 % (0.0-2.0) Sodium Level 139 MMOL/L (136-145) Potassium Level 3.2 MMOL/L (3.5-5.1) L Chloride Level 103 MMOL/L (98-107) Carbon Dioxide Level 24 MMOL/L (21-32) Anion Gap 12 mmol/L (5-15) Blood Urea Nitrogen 18 mg/dL (7-18) Creatinine 1.4 MG/DL (0.55-1.30) H Estimat Glomerular Filtration Rate 50.4 mL/min (>60) Glucose Level 73 MG/DL (74-106) L Calcium Level 8.2 MG/DL (8.5-10.1) L Plan Problems: (1) Diabetes mellitus Assessment & Plan: A1c 14 glu improved cont with Rx DAILY ESTIMATED NEEDS: Needs based on Wound, DM/ 70kg 25-30 kcals/kg 5950-4034 total kcals 1.25-1.5 g protein/kg 87-105 g total protein 25-30 mL/kg 3944-1004 total fluid mLs NUTRITION DIAGNOSIS: * Increased kcal/prot intake needs R/T wound healing as evidenced by pt admitted w/ full thickness pressure injury at sacrococcyx. * Altered nutrition related lab values R/T DKA as evidenced by elev BG of 928* upon adm -> 123, 241 now improved, A1C of 14.1, 4+ urine gluclose, now off insulin drip. CURRENT DIET:[facility]HO MED PO DIET RECOMMENDATIONS: CCHO MED/ texture as tolerated ADDITIONAL RECOMMENDATIONS: * Calibrated bedscale wt for accurate CBW * Wound healing: Add MVI x 1, Vit C 500mg QD, Hari 1pkt BID : ZnSO4 220mg QD x 10 days * Monitor BGs closely- improved since adm * Monitor lytes, replete as needed (phos 1.6) * DM diet education upon f/up when pt more stable and awake (2) Hypothyroidism Assessment & Plan: levels noted stable (3) Hypertension (4) DKA (diabetic ketoacidoses) (5) ATN (acute tubular necrosis) (6) Acute on chronic renal insufficiency (7) Sacral wound Assessment & Plan: Pt presented on admission with full thickness pressure injury sacrococcygeal area. Base of wound with trace biofilm,(+) maceration along borders (L)1cm x (W00.5cm x (D)0.2cm. Darker skin tone without induration periwound . Darker skin tone without induration or erythema periwound to both ischial regions.Soft mass upper back .Pt verbalized tenderness when palpated.No erythema noted. Both heels are firm and blanchable. Pt educated on wound prevention and encouraged to frequently turn on sides to relive pressure off buttocks. Tx.Plan: Cleanse with saline. Apply Triad Paste. Cover with Optifoam drsg. Change every 3 days and prn. Apply Cavilon Skin Barrier to Both heels. Off-load heels with Pillow. Cue and encourage pt to Reposition at least every 2 hours or as tolerated. Help patient with reposition q2h (8) Leukocytosis Assessment & Plan: unlikely related to wounds resolved will monitor will follow with Josias Fernandez Nov 06, 2018 14:30
--- NOTE | 2018-11-06 15:55 | Diagnostic Imaging Report ---
Indications: Chest pain Technique: Single day single isotope protocol utilized. Initially, resting images obtained using IV administration 10 millicuries 99M technetium Myoview. Subsequently, patient underwent lexiscan stress testing. See cardiology report for details. During Lexiscan infusion, IV administration 31 mCi 99 M technetium Myoview. SPECT and planar images obtained. SPECT images gated to 8 phases of the cardiac cycle were also obtained, and reformatted into cine images for evaluation of ejection fraction. Comparison: none Findings: Per cardiology report, patient experienced no symptoms. Per cardiology report, resting EKG demonstrates normal sinus rhythm with nonspecific T wave abnormality. No ST changes reported during infusion. Imaging demonstrates no evidence of fixed or reversible post stress perfusion defects. Normal cardiac chamber size. Calculated post stress ejection fraction 67%. No focal wall motion abnormality. Impression: Nonischemic clinical response to pharmacologic stress, per cardiology report Nonischemic electrocardiographic response to pharmacologic stress, per cardiology report No imaging findings to suggest ischemia, at level of stress achieved. Calculated post stress ejection fraction 67%
[2018-11-06 16:00] VITALS: BP 130/100
[2018-11-06] MEDS: cefTRIAXone 1 GM in D5W 55 ML IVPB SCH (16:34)
--- NOTE | 2018-11-06 18:42 | Internal Med Progress Note ---
Subjective Date of Service: Nov 06, 2018 Physician Name Sudhir Jones Attending Physician Gómez Mancini MD Current Medications Medications (Trade) Dose Ordered Sig/Oscar Route PRN Reason Start Time Stop Time Status Last Admin Dose Admin Acetaminophen (Tylenol) 650 mg Q4H PRN ORAL Mild Pain/Temp > 100.5 11/04/18 11:15 12/02/18 11:14 Acetaminophen/ Hydrocodone Bitart ([place] 5/325) 1 tab Q6H PRN ORAL For Pain 11/04/18 11:30 11/11/18 11:29 11/06/18 08:21 Ascorbic Acid (Vitamin C) 500 mg DAILY ORAL 11/05/18 09:00 12/05/18 08:59 11/06/18 08:21 Aspirin (Ecotrin) 81 mg DAILY ORAL 11/04/18 09:00 12/04/18 08:59 11/06/18 08:20 Atorvastatin Calcium (Lipitor) 20 mg BEDTIME ORAL 11/05/18 21:00 12/05/18 20:59 11/05/18 20:47 Ceftriaxone Sodium 1 gm/ Dextrose 55 ml @ 110 mls/hr Q24H IVPB 11/04/18 16:00 11/10/18 15:59 11/06/18 16:34 Clonidine HCl (Catapres Tab) 0.1 mg Q4H PRN ORAL bp over 165 syst 11/04/18 02:30 12/03/18 14:29 Dextrose (Dextrose 50%) 25 ml Q30M PRN IV Hypoglycemia 11/04/18 00:45 12/03/18 10:01 Dextrose (Dextrose 50%) 50 ml Q30M PRN IV hypoglycemia 11/04/18 00:45 12/03/18 10:14 Docusate Sodium (Colace) 100 mg THREE TIMES A DAY ORAL 11/04/18 09:00 12/03/18 17:59 11/06/18 18:16 Heparin Sodium (Porcine) (Heparin 5000 units/ml) 5,000 units EVERY 12 HOURS SUBQ 11/05/18 21:00 12/02/18 20:59 11/06/18 08:23 Insulin Aspart (NovoLOG) BEFORE MEALS AND HS SUBQ 11/04/18 06:30 12/03/18 11:29 11/06/18 16:35 Insulin Detemir (Levemir) 10 units EVERY 12 HOURS SUBQ 11/04/18 09:00 12/03/18 09:59 11/05/18 20:45 Levothyroxine Sodium (Synthroid) 50 mcg DAILY@0630 ORAL 11/04/18 06:30 12/04/18 06:29 11/05/18 05:58 Multivitamins (Multivitamins) 1 tab DAILY ORAL 11/05/18 09:00 12/05/18 08:59 11/06/18 08:20 Ondansetron HCl (Zofran) 4 mg Q6H PRN IVP Nausea & Vomiting 11/04/18 01:45 12/02/18 13:44 Pantoprazole (Protonix) 40 mg EVERY 12 HOURS ORAL 11/04/18 09:00 12/03/18 14:29 11/06/18 08:21 Polyethylene Glycol (Miralax) 17 gm DAILYPRN PRN ORAL Constipation 11/04/18 13:45 12/02/18 13:44 Regadenoson (Lexiscan) 0.4 mg ONCE PRN IV FOR STRESS TEST 11/05/18 16:15 11/07/18 23:59 Tamsulosin HCl (Flomax) 0.4 mg BEDTIME ORAL 11/04/18 21:00 12/04/18 20:59 11/05/18 20:47 Zinc Sulfate (Zinc Sulfate) 220 mg DAILY ORAL 11/05/18 09:00 12/05/18 08:59 11/06/18 08:21 Allergies: Coded Allergies: No Known Allergies (Unverified , 11/02/18) ROS Limited/Unobtainable: No Constitutional: Reports: no symptoms HEENT: Reports: no symptoms Cardiovascular: Reports: no symptoms Respiratory: Reports: no symptoms Gastrointestinal/Abdominal: Reports: no symptoms Genitourinary: Reports: no symptoms Neurologic/Psychiatric: Reports: no symptoms Subjective 68 YO M admitted with diabetic ketoacidosis and hyperglycemia. Cover for Geovanni Hoskins-DR Mancini. Objective Last Vital Signs Date Time Temp Pulse Resp B/P (MAP) Pulse Ox O2 Delivery O2 Flow Rate FiO2 11/06/18 16:00 98.1 96 20 130/100 (110) 98 11/06/18 12:10 Room Air 11/02/18 11:42 2.0 Laboratory Tests Test 11/06/18 05:15 White Blood Count 9.0 K/UL (4.8-10.8) Red Blood Count 3.68 M/UL (4.70-6.10) L Hemoglobin 10.0 G/DL (14.2-18.0) L Hematocrit 30.5 % (42.0-52.0) L Mean Corpuscular Volume 83 FL (80-99) Mean Corpuscular Hemoglobin 27.1 PG (27.0-31.0) Mean Corpuscular Hemoglobin Concent 32.7 G/DL (32.0-36.0) Red Cell Distribution Width 13.5 % (11.6-14.8) Platelet Count 198 K/UL (150-450) Mean Platelet Volume 8.5 FL (6.5-10.1) Neutrophils (%) (Auto) 69.4 % (45.0-75.0) Lymphocytes (%) (Auto) 13.8 % (20.0-45.0) L Monocytes (%) (Auto) 15.5 % (1.0-10.0) H Eosinophils (%) (Auto) 0.6 % (0.0-3.0) Basophils (%) (Auto) 0.8 % (0.0-2.0) Sodium Level 139 MMOL/L (136-145) Potassium Level 3.2 MMOL/L (3.5-5.1) L Chloride Level 103 MMOL/L (98-107) Carbon Dioxide Level 24 MMOL/L (21-32) Anion Gap 12 mmol/L (5-15) Blood Urea Nitrogen 18 mg/dL (7-18) Creatinine 1.4 MG/DL (0.55-1.30) H Estimat Glomerular Filtration Rate 50.4 mL/min (>60) Glucose Level 73 MG/DL (74-106) L Calcium Level 8.2 MG/DL (8.5-10.1) L Intake and Output 11/05/18 11/06/18 19:00 07:00 Intake Total 720 ml 360 ml Output Total 1150 ml Balance 720 ml -790 ml Intake Oral 720 ml 360 ml Output Urine Total 1150 ml # Voids 3 Objective PHYSICAL EXAMINATION: GENERAL: The patient is a well-developed and well-nourished male, in no apparent distress. HEENT: Eyes, pupils are equal and responsive to light and accommodation. Extraocular movements are intact. NECK: Supple without lymphadenopathy. CHEST: Lungs are clear to auscultation bilaterally without wheezes or rales. CARDIOVASCULAR: Regular rhythm and rate. S1 and S2 are normal without murmurs, rubs, or gallops. ABDOMEN: Soft, nontender, and nondistended. Positive bowel sounds. No evidence of hepatosplenomegaly. Currently, no rebound or guarding noted. EXTREMITIES: Negative for clubbing, cyanosis, or edema. RECTAL/GENITAL: Not performed. NEUROLOGIC: Cranial nerves II through XII are grossly intact without focal deficits. Assessment/Plan Assessment/Plan Assessment: 1. Diabetes II 2. Diabetic ketoacidosis 3. hyponatremia 4. hyperglycemia 5. hypertension 6. hypothyroidism 7. diabetic neuropathy 8. Hypercholesterolemia TREATMENT: 1. Diabetic ketoacidosisHyperglycemia. Continue levemir and novolog sliding scale per endocrinology. Latest fingerstick readings are improved. 2. Acute renal failure. This may be secondary to diabetic ketoacidosis as above. 3. Hyponatremia. The patient has been started on normal saline intravenously. 4. Hypertension. Continue amlodipine and lisinopril as above. Continue metoprolol as above. 5. Hypothyroidism. Continue Levoxyl as above. 6. Hypercholesterolemia. Continue atorvastatin as above. 7. Discharge planning Sudhir Jones MD Nov 06, 2018 18:42
[2018-11-06 20:00] VITALS: BP 144/95
[2018-11-06] MEDS: Atorvastatin 20mg tab ORAL SCH (21:16)
[2018-11-06] MEDS: Tamsulosin 0.4mg cap ORAL SCH (21:16)
[2018-11-07] VITALS: BP 131/84
[2018-11-07 04:00] VITALS: BP 135/81
[2018-11-07] MEDS: HYDROcodone/Acetamin 5/325 tab ORAL PRN ×2 (06:10→17:11)
[2018-11-07] MEDS: NovoLOG Insulin Flexpen SUBQ SCH ×4 (06:11→20:48)
[2018-11-07 06:34] LABS: BASOPHILS % (AUTO) 1.5 % (0.0-2.0); EOSINOPHILS % (AUTO) 1.3 % (0.0-3.0); HEMATOCRIT 28.3 % (42.0-52.0); HEMOGLOBIN 9.2 G/DL (14.2-18.0); LYMPHOCYTES % (AUTO) 18.3 % (20.0-45.0); MEAN CORPUSCULAR VOLUME 84 FL (80-99); MONOCYTES % (AUTO) 15.9 % (1.0-10.0); PLATELET COUNT 261 K/UL (150-450); RED BLOOD COUNT 3.38 M/UL (4.70-6.10); RED CELL DISTRIBUTION WIDTH 13.5 % (11.6-14.8); WHITE BLOOD COUNT 7.6 K/UL (4.8-10.8)
--- NOTE | 2018-11-07 06:43 | General Progress Note ---
Assessment/Plan Problem List: (1) DKA (diabetic ketoacidoses) ICD Codes: E13.10 - Other specified diabetes mellitus with ketoacidosis without coma SNOMED: 29167036, 641792933 (2) Diabetes mellitus ICD Codes: E11.9 - Type 2 diabetes mellitus without complications SNOMED: 27977876 (3) Hypothyroidism ICD Codes: E03.9 - Hypothyroidism, unspecified SNOMED: 16706288 (4) Hypertension ICD Codes: I10 - Essential (primary) hypertension SNOMED: 57247592 Assessment: glucose values are stable continue Levemir 10 units bid continue Levothyroxine 50 mcg daily Subjective Allergies: Coded Allergies: No Known Allergies (Unverified , 11/02/18) Subjective events noted Item Value Date Time Bedside Blood Glucose 153 mg/dl H 11/07/18 0611 Bedside Blood Glucose 196 mg/dl H 11/06/18 2118 Bedside Blood Glucose 309 mg/dl H 11/06/18 1635 Bedside Blood Glucose 113 mg/dl 11/06/18 1130 Bedside Blood Glucose 74 mg/dl 11/06/18 0900 Bedside Blood Glucose 78 mg/dl 11/06/18 0607 Bedside Blood Glucose 222 mg/dl H 11/05/18 2304 Objective Last 24 Hour Vital Signs Date Time Temp Pulse Resp B/P (MAP) Pulse Ox O2 Delivery O2 Flow Rate FiO2 11/07/18 04:00 99.1 84 16 135/81 (99) 97 11/07/18 00:00 98.9 96 16 131/84 (100) 96 11/06/18 21:00 Room Air 11/06/18 20:00 98.7 87 17 144/95 (111) 97 11/06/18 16:00 98.1 96 20 130/100 (110) 98 11/06/18 12:10 Room Air 11/06/18 12:00 98.2 88 18 139/76 (97) 94 11/06/18 09:00 Room Air 11/06/18 08:51 98.3 11/06/18 08:00 98.3 80 21 181/100 (127) 97 11/06/18 08:00 98.3 80 21 151/100 (117) 97 Intake and Output 11/06/18 11/07/18 19:00 07:00 Intake Total 360 ml Output Total 1700 ml Balance -1340 ml Intake Oral 360 ml Output Urine Total 1700 ml Laboratory Tests 11/07/18 05:00: White Blood Count [Pending], Red Blood Count [Pending], Hemoglobin [Pending], Hematocrit [Pending], Mean Corpuscular Volume [Pending], Mean Corpuscular Hemoglobin [Pending], Mean Corpuscular Hemoglobin Concent [Pending], Red Cell Distribution Width [Pending], Platelet Count [Pending], Mean Platelet Volume [ Pending], Neutrophils (%) (Auto) [Pending], Lymphocytes (%) (Auto) [Pending], Monocytes (%) (Auto) [Pending], Eosinophils (%) (Auto) [Pending], Basophils (%) (Auto) [Pending], Sodium Level [Pending], Potassium Level [Pending], Chloride Level [Pending], Carbon Dioxide Level [Pending], Blood Urea Nitrogen [Pending], Creatinine [Pending], Estimat Glomerular Filtration Rate [Pending], Glucose Level [Pending], Calcium Level [Pending] Height (Feet): 5 Height (Inches): 8.00 Weight (Pounds): 164 General Appearance: no apparent distress Neck: normal alignment Cardiovascular: normal rate Respiratory/Chest: lungs clear Abdomen: normal bowel sounds Objective Current Medications Medications (Trade) Dose Ordered Sig/Oscar Route PRN Reason Start Time Stop Time Status Last Admin Dose Admin Acetaminophen (Tylenol) 650 mg Q4H PRN ORAL Mild Pain/Temp > 100.5 11/04/18 11:15 12/02/18 11:14 Acetaminophen/ Hydrocodone Bitart ([place] 5/325) 1 tab Q6H PRN ORAL For Pain 11/04/18 11:30 11/11/18 11:29 11/07/18 06:10 Ascorbic Acid (Vitamin C) 500 mg DAILY ORAL 11/05/18 09:00 12/05/18 08:59 11/06/18 08:21 Aspirin (Ecotrin) 81 mg DAILY ORAL 11/04/18 09:00 12/04/18 08:59 11/06/18 08:20 Atorvastatin Calcium (Lipitor) 20 mg BEDTIME ORAL 11/05/18 21:00 12/05/18 20:59 11/06/18 21:16 Ceftriaxone Sodium 1 gm/ Dextrose 55 ml @ 110 mls/hr Q24H IVPB 11/04/18 16:00 11/10/18 15:59 11/06/18 16:34 Clonidine HCl (Catapres Tab) 0.1 mg Q4H PRN ORAL bp over 165 syst 11/04/18 02:30 12/03/18 14:29 Dextrose (Dextrose 50%) 25 ml Q30M PRN IV Hypoglycemia 11/04/18 00:45 12/03/18 10:01 Dextrose (Dextrose 50%) 50 ml Q30M PRN IV hypoglycemia 11/04/18 00:45 12/03/18 10:14 Docusate Sodium (Colace) 100 mg THREE TIMES A DAY ORAL 11/04/18 09:00 12/03/18 17:59 11/06/18 18:16 Heparin Sodium (Porcine) (Heparin 5000 units/ml) 5,000 units EVERY 12 HOURS SUBQ 11/05/18 21:00 12/02/18 20:59 11/06/18 21:19 Insulin Aspart (NovoLOG) BEFORE MEALS AND HS SUBQ 11/04/18 06:30 12/03/18 11:29 11/07/18 06:11 Insulin Detemir (Levemir) 10 units EVERY 12 HOURS SUBQ 11/04/18 09:00 12/03/18 09:59 11/06/18 21:18 Levothyroxine Sodium (Synthroid) 50 mcg DAILY@0630 ORAL 11/04/18 06:30 12/04/18 06:29 11/07/18 06:09 Multivitamins (Multivitamins) 1 tab DAILY ORAL 11/05/18 09:00 12/05/18 08:59 11/06/18 08:20 Ondansetron HCl (Zofran) 4 mg Q6H PRN IVP Nausea & Vomiting 11/04/18 01:45 12/02/18 13:44 Pantoprazole (Protonix) 40 mg EVERY 12 HOURS ORAL 11/04/18 09:00 12/03/18 14:29 11/06/18 21:16 Polyethylene Glycol (Miralax) 17 gm DAILYPRN PRN ORAL Constipation 11/04/18 13:45 12/02/18 13:44 Regadenoson (Lexiscan) 0.4 mg ONCE PRN IV FOR STRESS TEST 11/05/18 16:15 11/07/18 23:59 Tamsulosin HCl (Flomax) 0.4 mg BEDTIME ORAL 11/04/18 21:00 12/04/18 20:59 11/06/18 21:16 Zinc Sulfate (Zinc Sulfate) 220 mg DAILY ORAL 11/05/18 09:00 12/05/18 08:59 11/06/18 08:21 Yevgeniy Vinson MD Nov 07, 2018 06:43
[2018-11-07 07:07] LABS: ANION GAP 8 mmol/L (5-15); BLOOD UREA NITROGEN 16 mg/dL (7-18); CARBON DIOXIDE 27 MMOL/L (21-32); CHLORIDE 101 MMOL/L (98-107); CREATININE 1.3 MG/DL (0.55-1.30); POTASSIUM 4.2 MMOL/L (3.5-5.1); SODIUM 136 MMOL/L (136-145)
[2018-11-07 08:00] VITALS: BP 133/79
[2018-11-07] MEDS: Docusate 100mg cap ORAL SCH ×3 (09:29→17:11)
[2018-11-07] MEDS: Aspirin EC 81mg tab ORAL SCH (09:30)
[2018-11-07] MEDS: Ascorbic Acid 500mg tab ORAL SCH (09:32)
[2018-11-07] MEDS: Zinc Sulfate 220mg cap ORAL SCH (09:33)
[2018-11-07] MEDS: Heparin 5000 units/ml inj SUBQ SCH ×2 (09:39→20:47)
[2018-11-07] MEDS: Levemir Flexpen SUBQ SCH ×2 (09:53→20:47)
[2018-11-07 12:00] VITALS: BP 158/85
--- NOTE | 2018-11-07 13:10 | Pulmonology Progress Note ---
Assessment/Plan Problems: (1) DKA (diabetic ketoacidoses) (2) Sacral wound (3) ATN (acute tubular necrosis) (4) Acute on chronic renal insufficiency (5) Diabetes mellitus (6) Hypothyroidism (7) Hypertension Assessment/Plan BS controlled with Levemir BID improving dka resolved bp controlled stress study done wound care dc to previous setting. Subjective ROS Limited/Unobtainable: No Constitutional: Reports: no symptoms HEENT: Repors: no symptoms Allergies: Coded Allergies: No Known Allergies (Unverified , 11/02/18) Objective Last 24 Hour Vital Signs Date Time Temp Pulse Resp B/P (MAP) Pulse Ox O2 Delivery O2 Flow Rate FiO2 11/07/18 12:00 97.9 83 16 158/85 (109) 96 11/07/18 09:00 Room Air 11/07/18 08:00 98.2 83 18 133/79 (97) 100 11/07/18 04:00 99.1 84 16 135/81 (99) 97 11/07/18 00:00 98.9 96 16 131/84 (100) 96 11/06/18 21:00 Room Air 11/06/18 20:00 98.7 87 17 144/95 (111) 97 11/06/18 16:00 98.1 96 20 130/100 (110) 98 Intake and Output 11/06/18 11/07/18 18:59 06:59 Intake Total 360 ml 800 ml Output Total 1700 ml 1300 ml Balance -1340 ml -500 ml Intake Oral 360 ml 800 ml Output Urine Total 1700 ml 1300 ml General Appearance: WD/WN Respiratory/Chest: chest wall non-tender, lungs clear Cardiovascular: normal peripheral pulses, normal rate Abdomen: normal bowel sounds, no organomegaly Extremities: no cyanosis Skin: no rash Laboratory Tests 11/07/18 05:00: White Blood Count 7.6, Red Blood Count 3.38L, Hemoglobin 9.2L, Hematocrit 28.3L , Mean Corpuscular Volume 84, Mean Corpuscular Hemoglobin 27.2, Mean Corpuscular Hemoglobin Concent 32.6, Red Cell Distribution Width 13.5, Platelet Count 261, Mean Platelet Volume 7.7, Neutrophils (%) (Auto) 63.0, Lymphocytes (% ) (Auto) 18.3L, Monocytes (%) (Auto) 15.9H, Eosinophils (%) (Auto) 1.3, Basophils (%) (Auto) 1.5, Sodium Level 136, Potassium Level 4.2, Chloride Level 101, Carbon Dioxide Level 27, Anion Gap 8, Blood Urea Nitrogen 16, Creatinine 1.3, Estimat Glomerular Filtration Rate 54.9, Glucose Level 158H, Calcium Level 8.0L Current Medications Medications (Trade) Dose Ordered Sig/Oscar Route PRN Reason Start Time Stop Time Status Last Admin Dose Admin Acetaminophen (Tylenol) 650 mg Q4H PRN ORAL Mild Pain/Temp > 100.5 11/04/18 11:15 12/02/18 11:14 Acetaminophen/ Hydrocodone Bitart ([place] 5/325) 1 tab Q6H PRN ORAL For Pain 11/04/18 11:30 11/11/18 11:29 11/07/18 06:10 Ascorbic Acid (Vitamin C) 500 mg DAILY ORAL 11/05/18 09:00 12/05/18 08:59 11/07/18 09:32 Aspirin (Ecotrin) 81 mg DAILY ORAL 11/04/18 09:00 12/04/18 08:59 11/07/18 09:30 Atorvastatin Calcium (Lipitor) 20 mg BEDTIME ORAL 11/05/18 21:00 12/05/18 20:59 11/06/18 21:16 Ceftriaxone Sodium 1 gm/ Dextrose 55 ml @ 110 mls/hr Q24H IVPB 11/04/18 16:00 11/10/18 15:59 11/06/18 16:34 Clonidine HCl (Catapres Tab) 0.1 mg Q4H PRN ORAL bp over 165 syst 11/04/18 02:30 12/03/18 14:29 Dextrose (Dextrose 50%) 25 ml Q30M PRN IV Hypoglycemia 11/04/18 00:45 12/03/18 10:01 Dextrose (Dextrose 50%) 50 ml Q30M PRN IV hypoglycemia 11/04/18 00:45 12/03/18 10:14 Docusate Sodium (Colace) 100 mg THREE TIMES A DAY ORAL 11/04/18 09:00 12/03/18 17:59 11/07/18 12:47 Heparin Sodium (Porcine) (Heparin 5000 units/ml) 5,000 units EVERY 12 HOURS SUBQ 11/05/18 21:00 12/02/18 20:59 11/07/18 09:39 Insulin Aspart (NovoLOG) BEFORE MEALS AND HS SUBQ 11/04/18 06:30 12/03/18 11:29 11/07/18 12:48 Insulin Detemir (Levemir) 10 units EVERY 12 HOURS SUBQ 11/04/18 09:00 12/03/18 09:59 11/07/18 09:53 Levothyroxine Sodium (Synthroid) 50 mcg DAILY@0630 ORAL 11/04/18 06:30 12/04/18 06:29 11/07/18 06:09 Multivitamins (Multivitamins) 1 tab DAILY ORAL 11/05/18 09:00 12/05/18 08:59 11/07/18 09:31 Ondansetron HCl (Zofran) 4 mg Q6H PRN IVP Nausea & Vomiting 11/04/18 01:45 12/02/18 13:44 Pantoprazole (Protonix) 40 mg EVERY 12 HOURS ORAL 11/04/18 09:00 12/03/18 14:29 11/07/18 09:32 Polyethylene Glycol (Miralax) 17 gm DAILYPRN PRN ORAL Constipation 11/04/18 13:45 12/02/18 13:44 Regadenoson (Lexiscan) 0.4 mg ONCE PRN IV FOR STRESS TEST 11/05/18 16:15 11/07/18 23:59 Tamsulosin HCl (Flomax) 0.4 mg BEDTIME ORAL 11/04/18 21:00 12/04/18 20:59 11/06/18 21:16 Zinc Sulfate (Zinc Sulfate) 220 mg DAILY ORAL 11/05/18 09:00 12/05/18 08:59 11/07/18 09:33 Jade Mann MD Nov 07, 2018 13:10
--- NOTE | 2018-11-07 13:27 | Surgery Progress Note ---
Surgery Progress Note Subjective Additional Comments no acute events. comfortable. stable. no complaints. labs okay Objective Last 24 Hour Vital Signs Date Time Temp Pulse Resp B/P (MAP) Pulse Ox O2 Delivery O2 Flow Rate FiO2 11/07/18 12:00 97.9 83 16 158/85 (109) 96 11/07/18 09:00 Room Air 11/07/18 08:00 98.2 83 18 133/79 (97) 100 11/07/18 04:00 99.1 84 16 135/81 (99) 97 11/07/18 00:00 98.9 96 16 131/84 (100) 96 11/06/18 21:00 Room Air 11/06/18 20:00 98.7 87 17 144/95 (111) 97 11/06/18 16:00 98.1 96 20 130/100 (110) 98 I&O Intake and Output 11/06/18 11/07/18 18:59 06:59 Intake Total 360 ml 800 ml Output Total 1700 ml 1300 ml Balance -1340 ml -500 ml Intake Oral 360 ml 800 ml Output Urine Total 1700 ml 1300 ml Dressing: dry Wound: clean Drains: none Cardiovascular: RSR Respiratory: clear Abdomen: soft, flat, present bowel sounds, non-distended Extremities: no cyanosis Laboratory Tests Test 11/07/18 05:00 White Blood Count 7.6 K/UL (4.8-10.8) Red Blood Count 3.38 M/UL (4.70-6.10) L Hemoglobin 9.2 G/DL (14.2-18.0) L Hematocrit 28.3 % (42.0-52.0) L Mean Corpuscular Volume 84 FL (80-99) Mean Corpuscular Hemoglobin 27.2 PG (27.0-31.0) Mean Corpuscular Hemoglobin Concent 32.6 G/DL (32.0-36.0) Red Cell Distribution Width 13.5 % (11.6-14.8) Platelet Count 261 K/UL (150-450) Mean Platelet Volume 7.7 FL (6.5-10.1) Neutrophils (%) (Auto) 63.0 % (45.0-75.0) Lymphocytes (%) (Auto) 18.3 % (20.0-45.0) L Monocytes (%) (Auto) 15.9 % (1.0-10.0) H Eosinophils (%) (Auto) 1.3 % (0.0-3.0) Basophils (%) (Auto) 1.5 % (0.0-2.0) Sodium Level 136 MMOL/L (136-145) Potassium Level 4.2 MMOL/L (3.5-5.1) Chloride Level 101 MMOL/L (98-107) Carbon Dioxide Level 27 MMOL/L (21-32) Anion Gap 8 mmol/L (5-15) Blood Urea Nitrogen 16 mg/dL (7-18) Creatinine 1.3 MG/DL (0.55-1.30) Estimat Glomerular Filtration Rate 54.9 mL/min (>60) Glucose Level 158 MG/DL (74-106) H Calcium Level 8.0 MG/DL (8.5-10.1) L Plan Problems: (1) Diabetes mellitus Assessment & Plan: A1c 14 glu improved cont with Rx DAILY ESTIMATED NEEDS: Needs based on Wound, DM/ 70kg 25-30 kcals/kg 2841-4305 total kcals 1.25-1.5 g protein/kg 87-105 g total protein 25-30 mL/kg 6723-4221 total fluid mLs NUTRITION DIAGNOSIS: * Increased kcal/prot intake needs R/T wound healing as evidenced by pt admitted w/ full thickness pressure injury at sacrococcyx. * Altered nutrition related lab values R/T DKA as evidenced by elev BG of 928* upon adm -> 123, 241 now improved, A1C of 14.1, 4+ urine gluclose, now off insulin drip. CURRENT DIET:[facility] MED PO DIET RECOMMENDATIONS: CCHO MED/ texture as tolerated ADDITIONAL RECOMMENDATIONS: * Calibrated bedscale wt for accurate CBW * Wound healing: Add MVI x 1, Vit C 500mg QD, Hari 1pkt BID : ZnSO4 220mg QD x 10 days * Monitor BGs closely- improved since adm * Monitor lytes, replete as needed (phos 1.6) * DM diet education upon f/up when pt more stable and awake (2) Hypothyroidism Assessment & Plan: levels noted stable (3) Hypertension (4) DKA (diabetic ketoacidoses) (5) ATN (acute tubular necrosis) (6) Acute on chronic renal insufficiency (7) Sacral wound Assessment & Plan: Pt presented on admission with full thickness pressure injury sacrococcygeal area. Base of wound with trace biofilm,(+) maceration along borders (L)1cm x (W00.5cm x (D)0.2cm. Darker skin tone without induration periwound . Darker skin tone without induration or erythema periwound to both ischial regions.Soft mass upper back .Pt verbalized tenderness when palpated.No erythema noted. Both heels are firm and blanchable. Pt educated on wound prevention and encouraged to frequently turn on sides to relive pressure off buttocks. Tx.Plan: Cleanse with saline. Apply Triad Paste. Cover with Optifoam drsg. Change every 3 days and prn. Apply Cavilon Skin Barrier to Both heels. Off-load heels with Pillow. Cue and encourage pt to Reposition at least every 2 hours or as tolerated. Help patient with reposition q2h (8) Leukocytosis Assessment & Plan: unlikely related to wounds resolved will monitor will follow with recs okay to d/c from surgical standpoint d/c planning Josias Lipscomb Nov 07, 2018 13:27
--- NOTE | 2018-11-07 14:49 | Nephrology Progress Note ---
Assessment/Plan Problem List: (1) ATN (acute tubular necrosis) Assessment: Cr wnl now (2) DKA (diabetic ketoacidoses) (3) Hypertension (4) Hypothyroidism (5) Acute on chronic renal insufficiency Assessment Acute on Chronic renal failure- DKA on admit Diabetic Nephropathy HypoThyroidism HTN Sacral wound Anemia UTI Plan Hydrate- BP and BS control Electrolyte check Anemia camp Rocephin per orders and consultants Subjective ROS Limited/Unobtainable: No Constitutional: Reports: malaise Objective Objective Last 24 Hour Vital Signs Date Time Temp Pulse Resp B/P (MAP) Pulse Ox O2 Delivery O2 Flow Rate FiO2 11/07/18 12:00 97.9 83 16 158/85 (109) 96 11/07/18 09:00 Room Air 11/07/18 08:00 98.2 83 18 133/79 (97) 100 11/07/18 04:00 99.1 84 16 135/81 (99) 97 11/07/18 00:00 98.9 96 16 131/84 (100) 96 11/06/18 21:00 Room Air 11/06/18 20:00 98.7 87 17 144/95 (111) 97 11/06/18 16:00 98.1 96 20 130/100 (110) 98 Intake and Output 11/06/18 11/07/18 18:59 06:59 Intake Total 360 ml 800 ml Output Total 1700 ml 1300 ml Balance -1340 ml -500 ml Intake Oral 360 ml 800 ml Output Urine Total 1700 ml 1300 ml Laboratory Tests 11/07/18 05:00: White Blood Count 7.6, Red Blood Count 3.38L, Hemoglobin 9.2L, Hematocrit 28.3L , Mean Corpuscular Volume 84, Mean Corpuscular Hemoglobin 27.2, Mean Corpuscular Hemoglobin Concent 32.6, Red Cell Distribution Width 13.5, Platelet Count 261, Mean Platelet Volume 7.7, Neutrophils (%) (Auto) 63.0, Lymphocytes (% ) (Auto) 18.3L, Monocytes (%) (Auto) 15.9H, Eosinophils (%) (Auto) 1.3, Basophils (%) (Auto) 1.5, Sodium Level 136, Potassium Level 4.2, Chloride Level 101, Carbon Dioxide Level 27, Anion Gap 8, Blood Urea Nitrogen 16, Creatinine 1.3, Estimat Glomerular Filtration Rate 54.9, Glucose Level 158H, Calcium Level 8.0L Height (Feet): 5 Height (Inches): 8.00 Weight (Pounds): 164 General Appearance: no apparent distress Respiratory/Chest: lungs clear Abdomen: soft Objective no change Lefty Zamora MD Nov 07, 2018 14:49
[2018-11-07 16:00] VITALS: BP 139/92
--- NOTE | 2018-11-07 16:02 | Cardiology Progress Note ---
Assessment/Plan Assessment/Plan hypertension, type 2 diabetes, hypothyroidism, abn cardaic enzyme hyperosmolar state myocardail perfusion did nto show any fixed or reversible lesion cv stable on ecotrin and statin already Subjective Cardiovascular: Denies: chest pain, lightheadedness Respiratory: Denies: shortness of breath Gastrointestinal/Abdominal: Denies: abdominal pain Genitourinary: Denies: burning Subjective head ache Objective Last 24 Hour Vital Signs Date Time Temp Pulse Resp B/P (MAP) Pulse Ox O2 Delivery O2 Flow Rate FiO2 11/07/18 12:00 97.9 83 16 158/85 (109) 96 11/07/18 09:00 Room Air 11/07/18 08:00 98.2 83 18 133/79 (97) 100 11/07/18 04:00 99.1 84 16 135/81 (99) 97 11/07/18 00:00 98.9 96 16 131/84 (100) 96 11/06/18 21:00 Room Air 11/06/18 20:00 98.7 87 17 144/95 (111) 97 11/06/18 16:00 98.1 96 20 130/100 (110) 98 General Appearance: no apparent distress, alert Neck: supple Cardiovascular: normal rate, regular rhythm Respiratory/Chest: lungs clear Abdomen: normal bowel sounds, non tender, soft Extremities: no swelling Intake and Output 11/06/18 11/07/18 18:59 06:59 Intake Total 360 ml 800 ml Output Total 1700 ml 1300 ml Balance -1340 ml -500 ml Intake Oral 360 ml 800 ml Output Urine Total 1700 ml 1300 ml Laboratory Tests Test 11/07/18 05:00 White Blood Count 7.6 K/UL (4.8-10.8) Red Blood Count 3.38 M/UL (4.70-6.10) L Hemoglobin 9.2 G/DL (14.2-18.0) L Hematocrit 28.3 % (42.0-52.0) L Mean Corpuscular Volume 84 FL (80-99) Mean Corpuscular Hemoglobin 27.2 PG (27.0-31.0) Mean Corpuscular Hemoglobin Concent 32.6 G/DL (32.0-36.0) Red Cell Distribution Width 13.5 % (11.6-14.8) Platelet Count 261 K/UL (150-450) Mean Platelet Volume 7.7 FL (6.5-10.1) Neutrophils (%) (Auto) 63.0 % (45.0-75.0) Lymphocytes (%) (Auto) 18.3 % (20.0-45.0) L Monocytes (%) (Auto) 15.9 % (1.0-10.0) H Eosinophils (%) (Auto) 1.3 % (0.0-3.0) Basophils (%) (Auto) 1.5 % (0.0-2.0) Sodium Level 136 MMOL/L (136-145) Potassium Level 4.2 MMOL/L (3.5-5.1) Chloride Level 101 MMOL/L (98-107) Carbon Dioxide Level 27 MMOL/L (21-32) Anion Gap 8 mmol/L (5-15) Blood Urea Nitrogen 16 mg/dL (7-18) Creatinine 1.3 MG/DL (0.55-1.30) Estimat Glomerular Filtration Rate 54.9 mL/min (>60) Glucose Level 158 MG/DL (74-106) H Calcium Level 8.0 MG/DL (8.5-10.1) L Howard Medrano MD Nov 07, 2018 16:02
[2018-11-07] MEDS: cefTRIAXone 1 GM in D5W 55 ML IVPB SCH (16:51)
--- NOTE | 2018-11-07 18:25 | Internal Med Progress Note ---
Subjective Date of Service: Nov 07, 2018 Physician Name Sudhir Jones Attending Physician Gómez Mancini MD Current Medications Medications (Trade) Dose Ordered Sig/Oscar Route PRN Reason Start Time Stop Time Status Last Admin Dose Admin Acetaminophen (Tylenol) 650 mg Q4H PRN ORAL Mild Pain/Temp > 100.5 11/04/18 11:15 12/02/18 11:14 Acetaminophen/ Hydrocodone Bitart ([place] 5/325) 1 tab Q6H PRN ORAL For Pain 11/04/18 11:30 11/11/18 11:29 11/07/18 17:11 Ascorbic Acid (Vitamin C) 500 mg DAILY ORAL 11/05/18 09:00 12/05/18 08:59 11/07/18 09:32 Aspirin (Ecotrin) 81 mg DAILY ORAL 11/04/18 09:00 12/04/18 08:59 11/07/18 09:30 Atorvastatin Calcium (Lipitor) 20 mg BEDTIME ORAL 11/05/18 21:00 12/05/18 20:59 11/06/18 21:16 Ceftriaxone Sodium 1 gm/ Dextrose 55 ml @ 110 mls/hr Q24H IVPB 11/04/18 16:00 11/10/18 15:59 11/07/18 16:51 Clonidine HCl (Catapres Tab) 0.1 mg Q4H PRN ORAL bp over 165 syst 11/04/18 02:30 12/03/18 14:29 Dextrose (Dextrose 50%) 25 ml Q30M PRN IV Hypoglycemia 11/04/18 00:45 12/03/18 10:01 Dextrose (Dextrose 50%) 50 ml Q30M PRN IV hypoglycemia 11/04/18 00:45 12/03/18 10:14 Docusate Sodium (Colace) 100 mg THREE TIMES A DAY ORAL 11/04/18 09:00 12/03/18 17:59 11/07/18 17:11 Heparin Sodium (Porcine) (Heparin 5000 units/ml) 5,000 units EVERY 12 HOURS SUBQ 11/05/18 21:00 12/02/18 20:59 11/07/18 09:39 Insulin Aspart (NovoLOG) BEFORE MEALS AND HS SUBQ 11/04/18 06:30 12/03/18 11:29 11/07/18 17:06 Insulin Detemir (Levemir) 10 units EVERY 12 HOURS SUBQ 11/04/18 09:00 12/03/18 09:59 11/07/18 09:53 Levothyroxine Sodium (Synthroid) 50 mcg DAILY@0630 ORAL 11/04/18 06:30 12/04/18 06:29 11/07/18 06:09 Multivitamins (Multivitamins) 1 tab DAILY ORAL 11/05/18 09:00 12/05/18 08:59 11/07/18 09:31 Ondansetron HCl (Zofran) 4 mg Q6H PRN IVP Nausea & Vomiting 11/04/18 01:45 12/02/18 13:44 Pantoprazole (Protonix) 40 mg EVERY 12 HOURS ORAL 11/04/18 09:00 12/03/18 14:29 11/07/18 09:32 Polyethylene Glycol (Miralax) 17 gm DAILYPRN PRN ORAL Constipation 11/04/18 13:45 12/02/18 13:44 Regadenoson (Lexiscan) 0.4 mg ONCE PRN IV FOR STRESS TEST 11/05/18 16:15 11/07/18 23:59 Tamsulosin HCl (Flomax) 0.4 mg BEDTIME ORAL 11/04/18 21:00 12/04/18 20:59 11/06/18 21:16 Zinc Sulfate (Zinc Sulfate) 220 mg DAILY ORAL 11/05/18 09:00 12/05/18 08:59 11/07/18 09:33 Allergies: Coded Allergies: No Known Allergies (Unverified , 11/02/18) ROS Limited/Unobtainable: No Constitutional: Reports: no symptoms HEENT: Reports: no symptoms Cardiovascular: Reports: no symptoms Respiratory: Reports: no symptoms Gastrointestinal/Abdominal: Reports: no symptoms Genitourinary: Reports: no symptoms Neurologic/Psychiatric: Reports: no symptoms Subjective 68 YO M admitted with diabetic ketoacidosis and hyperglycemia. Cover for Geovanni Mancini. Objective Last Vital Signs Date Time Temp Pulse Resp B/P (MAP) Pulse Ox O2 Delivery O2 Flow Rate FiO2 11/07/18 17:41 97.7 11/07/18 16:00 82 18 139/92 (108) 96 11/07/18 09:00 Room Air 11/02/18 11:42 2.0 Laboratory Tests Test 11/07/18 05:00 White Blood Count 7.6 K/UL (4.8-10.8) Red Blood Count 3.38 M/UL (4.70-6.10) L Hemoglobin 9.2 G/DL (14.2-18.0) L Hematocrit 28.3 % (42.0-52.0) L Mean Corpuscular Volume 84 FL (80-99) Mean Corpuscular Hemoglobin 27.2 PG (27.0-31.0) Mean Corpuscular Hemoglobin Concent 32.6 G/DL (32.0-36.0) Red Cell Distribution Width 13.5 % (11.6-14.8) Platelet Count 261 K/UL (150-450) Mean Platelet Volume 7.7 FL (6.5-10.1) Neutrophils (%) (Auto) 63.0 % (45.0-75.0) Lymphocytes (%) (Auto) 18.3 % (20.0-45.0) L Monocytes (%) (Auto) 15.9 % (1.0-10.0) H Eosinophils (%) (Auto) 1.3 % (0.0-3.0) Basophils (%) (Auto) 1.5 % (0.0-2.0) Sodium Level 136 MMOL/L (136-145) Potassium Level 4.2 MMOL/L (3.5-5.1) Chloride Level 101 MMOL/L (98-107) Carbon Dioxide Level 27 MMOL/L (21-32) Anion Gap 8 mmol/L (5-15) Blood Urea Nitrogen 16 mg/dL (7-18) Creatinine 1.3 MG/DL (0.55-1.30) Estimat Glomerular Filtration Rate 54.9 mL/min (>60) Glucose Level 158 MG/DL (74-106) H Calcium Level 8.0 MG/DL (8.5-10.1) L Intake and Output 11/06/18 11/07/18 19:00 07:00 Intake Total 360 ml 800 ml Output Total 1700 ml 1300 ml Balance -1340 ml -500 ml Intake Oral 360 ml 800 ml Output Urine Total 1700 ml 1300 ml Objective PHYSICAL EXAMINATION: GENERAL: The patient is a well-developed and well-nourished male, in no apparent distress. HEENT: Eyes, pupils are equal and responsive to light and accommodation. Extraocular movements are intact. NECK: Supple without lymphadenopathy. CHEST: Lungs are clear to auscultation bilaterally without wheezes or rales. CARDIOVASCULAR: Regular rhythm and rate. S1 and S2 are normal without murmurs, rubs, or gallops. ABDOMEN: Soft, nontender, and nondistended. Positive bowel sounds. No evidence of hepatosplenomegaly. Currently, no rebound or guarding noted. EXTREMITIES: Negative for clubbing, cyanosis, or edema. RECTAL/GENITAL: Not performed. NEUROLOGIC: Cranial nerves II through XII are grossly intact without focal deficits. Assessment/Plan Assessment/Plan Assessment: 1. Diabetes II 2. Diabetic ketoacidosis 3. hyponatremia 4. hyperglycemia 5. hypertension 6. hypothyroidism 7. diabetic neuropathy 8. Hypercholesterolemia TREATMENT: 1. Diabetic ketoacidosisHyperglycemia. Continue levemir and novolog sliding scale per endocrinology. Latest fingerstick readings are improved. 2. Acute renal failure. This may be secondary to diabetic ketoacidosis as above. 3. Hyponatremia. The patient has been started on normal saline intravenously. 4. Hypertension. Continue amlodipine and lisinopril as above. Continue metoprolol as above. 5. Hypothyroidism. Continue Levoxyl as above. 6. Hypercholesterolemia. Continue atorvastatin as above. 7. Discharge planning Sudhir Jones MD Nov 07, 2018 18:25
[2018-11-07 20:00] VITALS: BP 130/66
[2018-11-07] MEDS: Atorvastatin 20mg tab ORAL SCH (20:45)
[2018-11-07] MEDS: Tamsulosin 0.4mg cap ORAL SCH (20:45)
[2018-11-08] VITALS: BP 141/93
[2018-11-08 04:00] VITALS: BP 151/98
[2018-11-08] MEDS: NovoLOG Insulin Flexpen SUBQ SCH ×4 (06:17→21:24)
[2018-11-08] MEDS: HYDROcodone/Acetamin 5/325 tab ORAL PRN ×2 (06:28→12:55)
[2018-11-08 06:54] LABS: ANION GAP 6 mmol/L (5-15); BLOOD UREA NITROGEN 15 mg/dL (7-18); CALCIUM 7.9 MG/DL (8.5-10.1); CARBON DIOXIDE 28 MMOL/L (21-32); CHLORIDE 102 MMOL/L (98-107); CREATININE 1.3 MG/DL (0.55-1.30); POTASSIUM 4.2 MMOL/L (3.5-5.1); SODIUM 136 MMOL/L (136-145)
[2018-11-08 06:56] LABS: BASOPHILS % (AUTO) 1.8 % (0.0-2.0); EOSINOPHILS % (AUTO) 1.8 % (0.0-3.0); HEMATOCRIT 28.3 % (42.0-52.0); HEMOGLOBIN 9.1 G/DL (14.2-18.0); LYMPHOCYTES % (AUTO) 17.6 % (20.0-45.0); MEAN CORPUSCULAR VOLUME 83 FL (80-99); MONOCYTES % (AUTO) 17.4 % (1.0-10.0); NEUTROPHILS % (AUTO) 61.4 % (45.0-75.0); PLATELET COUNT 377 K/UL (150-450); RED BLOOD COUNT 3.39 M/UL (4.70-6.10); RED CELL DISTRIBUTION WIDTH 13.8 % (11.6-14.8); WHITE BLOOD COUNT 8.3 K/UL (4.8-10.8)
[2018-11-08 08:00] VITALS: BP 149/94
[2018-11-08] MEDS: Docusate 100mg cap ORAL SCH ×3 (08:18→17:21)
[2018-11-08] MEDS: Aspirin EC 81mg tab ORAL SCH (08:18)
[2018-11-08] MEDS: Zinc Sulfate 220mg cap ORAL SCH (08:18)
[2018-11-08] MEDS: Ascorbic Acid 500mg tab ORAL SCH (08:18)
[2018-11-08] MEDS: Heparin 5000 units/ml inj SUBQ SCH ×2 (08:20→21:23)
[2018-11-08] MEDS: Levemir Flexpen SUBQ SCH (08:21)
[2018-11-08 11:04] LABS: ALANINE AMINOTRANSFERASE 18 U/L (12-78); ALKALINE PHOSPHATASE 60 U/L (46-116); ASPARTATE AMINO TRANSFERASE 32 U/L (15-37); BILIRUBIN,DIRECT < 0.1 MG/DL (0.0-0.3); BILIRUBIN,TOTAL 0.2 MG/DL (0.2-1.0); PHOSPHORUS 2.6 MG/DL (2.5-4.9)
[2018-11-08 12:00] VITALS: BP 135/97
--- NOTE | 2018-11-08 13:02 | Pulmonology Progress Note ---
Assessment/Plan Problems: (1) DKA (diabetic ketoacidoses) (2) Sacral wound (3) ATN (acute tubular necrosis) (4) Acute on chronic renal insufficiency (5) Diabetes mellitus (6) Hypothyroidism (7) Hypertension Assessment/Plan BS controlled with Levemir BID improving dka resolved bp controlled stress study done wound care dc to previous setting. Subjective ROS Limited/Unobtainable: No Constitutional: Reports: no symptoms HEENT: Repors: no symptoms Allergies: Coded Allergies: No Known Allergies (Unverified , 11/02/18) Objective Last 24 Hour Vital Signs Date Time Temp Pulse Resp B/P (MAP) Pulse Ox O2 Delivery O2 Flow Rate FiO2 11/08/18 12:00 98.7 83 16 135/97 (110) 96 11/08/18 09:00 Room Air 11/08/18 08:49 98.2 11/08/18 08:00 97.9 93 16 149/94 (112) 96 11/08/18 04:00 98.2 81 19 151/98 (115) 100 11/08/18 00:00 98.1 82 18 141/93 (109) 99 11/07/18 21:00 Room Air 11/07/18 20:00 98.1 93 18 130/66 (87) 100 11/07/18 17:41 97.7 11/07/18 16:00 97.7 82 18 139/92 (108) 96 Intake and Output 11/07/18 11/08/18 18:59 06:59 Intake Total 1275 ml Output Total 750 ml Balance 1275 ml -750 ml Intake Oral 1220 ml IV Total 55 ml Output Urine Total 750 ml # Voids 6 # Bowel Movements 1 General Appearance: WD/WN HEENT: normocephalic, anicteric Respiratory/Chest: chest wall non-tender, lungs clear Cardiovascular: normal peripheral pulses, regular rhythm Abdomen: normal bowel sounds, no organomegaly Genitourinary: normal external genitalia Extremities: no clubbing Skin: no lesions Laboratory Tests 11/08/18 05:55: White Blood Count 8.3, Red Blood Count 3.39L, Hemoglobin 9.1L, Hematocrit 28.3L , Mean Corpuscular Volume 83, Mean Corpuscular Hemoglobin 27.0, Mean Corpuscular Hemoglobin Concent 32.3, Red Cell Distribution Width 13.8, Platelet Count 377, Mean Platelet Volume 6.4L, Neutrophils (%) (Auto) 61.4, Lymphocytes ( %) (Auto) 17.6L, Monocytes (%) (Auto) 17.4H, Eosinophils (%) (Auto) 1.8, Basophils (%) (Auto) 1.8, Sodium Level 136, Potassium Level 4.2, Chloride Level 102, Carbon Dioxide Level 28, Anion Gap 6, Blood Urea Nitrogen 15, Creatinine 1.3, Estimat Glomerular Filtration Rate 54.9, Glucose Level 215H, Calcium Level 7.9L, Phosphorus Level 2.6, Magnesium Level 1.4L, Total Bilirubin 0.2, Direct Bilirubin < 0.1, Aspartate Amino Transf (AST/SGOT) 32, Alanine Aminotransferase (ALT/SGPT) 18, Alkaline Phosphatase 60, Total Protein 6.5, Albumin 2.0L Current Medications Medications (Trade) Dose Ordered Sig/Oscar Route PRN Reason Start Time Stop Time Status Last Admin Dose Admin Acetaminophen (Tylenol) 650 mg Q4H PRN ORAL Mild Pain/Temp > 100.5 11/04/18 11:15 12/02/18 11:14 11/08/18 08:19 Acetaminophen/ Hydrocodone Bitart ([place] 5/325) 1 tab Q6H PRN ORAL For Pain 11/04/18 11:30 11/11/18 11:29 11/08/18 12:55 Ascorbic Acid (Vitamin C) 500 mg DAILY ORAL 11/05/18 09:00 12/05/18 08:59 11/08/18 08:18 Aspirin (Ecotrin) 81 mg DAILY ORAL 11/04/18 09:00 12/04/18 08:59 11/08/18 08:18 Atorvastatin Calcium (Lipitor) 20 mg BEDTIME ORAL 11/05/18 21:00 12/05/18 20:59 11/07/18 20:45 Ceftriaxone Sodium 1 gm/ Dextrose 55 ml @ 110 mls/hr Q24H IVPB 11/04/18 16:00 11/10/18 15:59 11/07/18 16:51 Clonidine HCl (Catapres Tab) 0.1 mg Q4H PRN ORAL bp over 165 syst 11/04/18 02:30 12/03/18 14:29 Dextrose (Dextrose 50%) 25 ml Q30M PRN IV Hypoglycemia 11/04/18 00:45 12/03/18 10:01 Dextrose (Dextrose 50%) 50 ml Q30M PRN IV hypoglycemia 11/04/18 00:45 12/03/18 10:14 Docusate Sodium (Colace) 100 mg THREE TIMES A DAY ORAL 11/04/18 09:00 12/03/18 17:59 11/08/18 12:55 Heparin Sodium (Porcine) (Heparin 5000 units/ml) 5,000 units EVERY 12 HOURS SUBQ 11/05/18 21:00 12/02/18 20:59 11/08/18 08:20 Insulin Aspart (NovoLOG) BEFORE MEALS AND HS SUBQ 11/04/18 06:30 12/03/18 11:29 11/08/18 12:59 Insulin Detemir (Levemir) 10 units EVERY 12 HOURS SUBQ 11/04/18 09:00 12/03/18 09:59 11/08/18 08:21 Levothyroxine Sodium (Synthroid) 50 mcg DAILY@0630 ORAL 11/04/18 06:30 12/04/18 06:29 11/08/18 06:16 Multivitamins (Multivitamins) 1 tab DAILY ORAL 11/05/18 09:00 12/05/18 08:59 11/08/18 08:18 Ondansetron HCl (Zofran) 4 mg Q6H PRN IVP Nausea & Vomiting 11/04/18 01:45 12/02/18 13:44 Pantoprazole (Protonix) 40 mg EVERY 12 HOURS ORAL 11/04/18 09:00 12/03/18 14:29 11/08/18 08:18 Polyethylene Glycol (Miralax) 17 gm DAILYPRN PRN ORAL Constipation 11/04/18 13:45 12/02/18 13:44 Tamsulosin HCl (Flomax) 0.4 mg BEDTIME ORAL 11/04/18 21:00 12/04/18 20:59 11/07/18 20:45 Zinc Sulfate (Zinc Sulfate) 220 mg DAILY ORAL 11/05/18 09:00 12/05/18 08:59 11/08/18 08:18 Jade Mann MD Nov 08, 2018 13:02
--- NOTE | 2018-11-08 13:22 | General Progress Note ---
Assessment/Plan Problem List: (1) DKA (diabetic ketoacidoses) ICD Codes: E13.10 - Other specified diabetes mellitus with ketoacidosis without coma SNOMED: 18697976, 897887763 (2) Diabetes mellitus ICD Codes: E11.9 - Type 2 diabetes mellitus without complications SNOMED: 21457497 (3) Hypothyroidism ICD Codes: E03.9 - Hypothyroidism, unspecified SNOMED: 25812582 (4) Hypertension ICD Codes: I10 - Essential (primary) hypertension SNOMED: 39909655 Assessment: glucose values are elevated increase Levemir to 13 units bid add Starlix 60 mg ac tid continue Levothyroxine 50 mcg daily Subjective Allergies: Coded Allergies: No Known Allergies (Unverified , 11/02/18) All Systems: reviewed and negative except above Subjective events noted glucose values are elevated Item Value Date Time Bedside Blood Glucose 258 mg/dl H 11/08/18 1259 Bedside Blood Glucose 214 mg/dl H 11/08/18 0821 Bedside Blood Glucose 214 mg/dl H 11/08/18 0617 Bedside Blood Glucose 212 mg/dl H 11/07/18 2048 Bedside Blood Glucose 239 mg/dl H 11/07/18 1706 Objective Last 24 Hour Vital Signs Date Time Temp Pulse Resp B/P (MAP) Pulse Ox O2 Delivery O2 Flow Rate FiO2 11/08/18 12:00 98.7 83 16 135/97 (110) 96 11/08/18 09:00 Room Air 11/08/18 08:49 98.2 11/08/18 08:00 97.9 93 16 149/94 (112) 96 11/08/18 04:00 98.2 81 19 151/98 (115) 100 11/08/18 00:00 98.1 82 18 141/93 (109) 99 11/07/18 21:00 Room Air 11/07/18 20:00 98.1 93 18 130/66 (87) 100 11/07/18 17:41 97.7 11/07/18 16:00 97.7 82 18 139/92 (108) 96 Intake and Output 11/07/18 11/08/18 18:59 06:59 Intake Total 1275 ml Output Total 750 ml Balance 1275 ml -750 ml Intake Oral 1220 ml IV Total 55 ml Output Urine Total 750 ml # Voids 6 # Bowel Movements 1 Laboratory Tests 11/08/18 05:55: White Blood Count 8.3, Red Blood Count 3.39L, Hemoglobin 9.1L, Hematocrit 28.3L , Mean Corpuscular Volume 83, Mean Corpuscular Hemoglobin 27.0, Mean Corpuscular Hemoglobin Concent 32.3, Red Cell Distribution Width 13.8, Platelet Count 377, Mean Platelet Volume 6.4L, Neutrophils (%) (Auto) 61.4, Lymphocytes ( %) (Auto) 17.6L, Monocytes (%) (Auto) 17.4H, Eosinophils (%) (Auto) 1.8, Basophils (%) (Auto) 1.8, Sodium Level 136, Potassium Level 4.2, Chloride Level 102, Carbon Dioxide Level 28, Anion Gap 6, Blood Urea Nitrogen 15, Creatinine 1.3, Estimat Glomerular Filtration Rate 54.9, Glucose Level 215H, Calcium Level 7.9L, Phosphorus Level 2.6, Magnesium Level 1.4L, Total Bilirubin 0.2, Direct Bilirubin < 0.1, Aspartate Amino Transf (AST/SGOT) 32, Alanine Aminotransferase (ALT/SGPT) 18, Alkaline Phosphatase 60, Total Protein 6.5, Albumin 2.0L Height (Feet): 5 Height (Inches): 8.00 Weight (Pounds): 76 General Appearance: no apparent distress Neck: normal alignment Cardiovascular: normal rate Respiratory/Chest: lungs clear Abdomen: normal bowel sounds Objective Current Medications Medications (Trade) Dose Ordered Sig/Oscar Route PRN Reason Start Time Stop Time Status Last Admin Dose Admin Acetaminophen (Tylenol) 650 mg Q4H PRN ORAL Mild Pain/Temp > 100.5 11/04/18 11:15 12/02/18 11:14 11/08/18 08:19 Acetaminophen/ Hydrocodone Bitart ([place] 10/325) 1 tab Q6HR PRN ORAL For Pain 11/08/18 13:30 11/15/18 13:29 UNV Acetaminophen/ Hydrocodone Bitart ([place] 5/325) 1 tab Q6H PRN ORAL For Pain 11/04/18 11:30 11/11/18 11:29 11/08/18 12:55 Ascorbic Acid (Vitamin C) 500 mg DAILY ORAL 11/05/18 09:00 12/05/18 08:59 11/08/18 08:18 Aspirin (Ecotrin) 81 mg DAILY ORAL 11/04/18 09:00 12/04/18 08:59 11/08/18 08:18 Atorvastatin Calcium (Lipitor) 20 mg BEDTIME ORAL 11/05/18 21:00 12/05/18 20:59 11/07/18 20:45 Ceftriaxone Sodium 1 gm/ Dextrose 55 ml @ 110 mls/hr Q24H IVPB 11/04/18 16:00 11/10/18 15:59 11/07/18 16:51 Clonidine HCl (Catapres Tab) 0.1 mg Q4H PRN ORAL bp over 165 syst 11/04/18 02:30 12/03/18 14:29 Dextrose (Dextrose 50%) 25 ml Q30M PRN IV Hypoglycemia 11/04/18 00:45 12/03/18 10:01 Dextrose (Dextrose 50%) 50 ml Q30M PRN IV hypoglycemia 11/04/18 00:45 12/03/18 10:14 Docusate Sodium (Colace) 100 mg THREE TIMES A DAY ORAL 11/04/18 09:00 12/03/18 17:59 11/08/18 12:55 Heparin Sodium (Porcine) (Heparin 5000 units/ml) 5,000 units EVERY 12 HOURS SUBQ 11/05/18 21:00 12/02/18 20:59 11/08/18 08:20 Insulin Aspart (NovoLOG) BEFORE MEALS AND HS SUBQ 11/04/18 06:30 12/03/18 11:29 11/08/18 12:59 Insulin Detemir (Levemir) 10 units EVERY 12 HOURS SUBQ 11/04/18 09:00 12/03/18 09:59 11/08/18 08:21 Levothyroxine Sodium (Synthroid) 50 mcg DAILY@0630 ORAL 11/04/18 06:30 12/04/18 06:29 11/08/18 06:16 Multivitamins (Multivitamins) 1 tab DAILY ORAL 11/05/18 09:00 12/05/18 08:59 11/08/18 08:18 Ondansetron HCl (Zofran) 4 mg Q6H PRN IVP Nausea & Vomiting 11/04/18 01:45 12/02/18 13:44 Pantoprazole (Protonix) 40 mg EVERY 12 HOURS ORAL 11/04/18 09:00 12/03/18 14:29 11/08/18 08:18 Polyethylene Glycol (Miralax) 17 gm DAILYPRN PRN ORAL Constipation 11/04/18 13:45 12/02/18 13:44 Tamsulosin HCl (Flomax) 0.4 mg BEDTIME ORAL 11/04/18 21:00 12/04/18 20:59 11/07/18 20:45 Zinc Sulfate (Zinc Sulfate) 220 mg DAILY ORAL 11/05/18 09:00 12/05/18 08:59 11/08/18 08:18 Yevgeniy Vinson MD Nov 08, 2018 13:22
--- NOTE | 2018-11-08 14:52 | Nephrology Progress Note ---
Assessment/Plan Problem List: (1) ATN (acute tubular necrosis) Assessment: Cr wnl now (2) DKA (diabetic ketoacidoses) (3) Hypertension (4) Hypothyroidism (5) Acute on chronic renal insufficiency Assessment Acute on Chronic renal failure- DKA on admit Diabetic Nephropathy HypoThyroidism HTN Sacral wound Anemia UTI Plan Mag supplement IV Hydrate- BP and BS control Electrolyte check Anemia camp Rocephin per orders and consultants Subjective ROS Limited/Unobtainable: No Constitutional: Reports: malaise Objective Objective Last 24 Hour Vital Signs Date Time Temp Pulse Resp B/P (MAP) Pulse Ox O2 Delivery O2 Flow Rate FiO2 11/08/18 12:00 98.7 83 16 135/97 (110) 96 11/08/18 09:00 Room Air 11/08/18 08:49 98.2 11/08/18 08:00 97.9 93 16 149/94 (112) 96 11/08/18 04:00 98.2 81 19 151/98 (115) 100 11/08/18 00:00 98.1 82 18 141/93 (109) 99 11/07/18 21:00 Room Air 11/07/18 20:00 98.1 93 18 130/66 (87) 100 11/07/18 17:41 97.7 11/07/18 16:00 97.7 82 18 139/92 (108) 96 Intake and Output 11/07/18 11/08/18 18:59 06:59 Intake Total 1275 ml Output Total 750 ml Balance 1275 ml -750 ml Intake Oral 1220 ml IV Total 55 ml Output Urine Total 750 ml # Voids 6 # Bowel Movements 1 Laboratory Tests 11/08/18 05:55: White Blood Count 8.3, Red Blood Count 3.39L, Hemoglobin 9.1L, Hematocrit 28.3L , Mean Corpuscular Volume 83, Mean Corpuscular Hemoglobin 27.0, Mean Corpuscular Hemoglobin Concent 32.3, Red Cell Distribution Width 13.8, Platelet Count 377, Mean Platelet Volume 6.4L, Neutrophils (%) (Auto) 61.4, Lymphocytes ( %) (Auto) 17.6L, Monocytes (%) (Auto) 17.4H, Eosinophils (%) (Auto) 1.8, Basophils (%) (Auto) 1.8, Sodium Level 136, Potassium Level 4.2, Chloride Level 102, Carbon Dioxide Level 28, Anion Gap 6, Blood Urea Nitrogen 15, Creatinine 1.3, Estimat Glomerular Filtration Rate 54.9, Glucose Level 215H, Calcium Level 7.9L, Phosphorus Level 2.6, Magnesium Level 1.4L, Total Bilirubin 0.2, Direct Bilirubin < 0.1, Aspartate Amino Transf (AST/SGOT) 32, Alanine Aminotransferase (ALT/SGPT) 18, Alkaline Phosphatase 60, Total Protein 6.5, Albumin 2.0L Height (Feet): 5 Height (Inches): 8.00 Weight (Pounds): 76 General Appearance: no apparent distress Objective no change Lefty Zamora MD Nov 08, 2018 14:52
[2018-11-08] MEDS: cefTRIAXone 1 GM in D5W 55 ML IVPB SCH (15:10)
[2018-11-08 16:00] VITALS: BP 134/84
--- NOTE | 2018-11-08 16:36 | Surgery Progress Note ---
Surgery Progress Note Subjective Symptoms: improved, pain absent, tolerating diet, passing flatus Additional Comments no complaints. Objective Last 24 Hour Vital Signs Date Time Temp Pulse Resp B/P (MAP) Pulse Ox O2 Delivery O2 Flow Rate FiO2 11/08/18 16:00 97.9 83 17 134/84 (101) 100 11/08/18 12:00 98.7 83 16 135/97 (110) 96 11/08/18 09:00 Room Air 11/08/18 08:49 98.2 11/08/18 08:00 97.9 93 16 149/94 (112) 96 11/08/18 04:00 98.2 81 19 151/98 (115) 100 11/08/18 00:00 98.1 82 18 141/93 (109) 99 11/07/18 21:00 Room Air 11/07/18 20:00 98.1 93 18 130/66 (87) 100 11/07/18 17:41 97.7 I&O Intake and Output 11/07/18 11/08/18 18:59 06:59 Intake Total 1275 ml Output Total 750 ml Balance 1275 ml -750 ml Intake Oral 1220 ml IV Total 55 ml Output Urine Total 750 ml # Voids 6 # Bowel Movements 1 Dressing: dry Wound: clean Cardiovascular: RSR Respiratory: clear Abdomen: soft, flat, non-tender, present bowel sounds Extremities: no tenderness, no cyanosis Laboratory Tests Test 11/08/18 05:55 White Blood Count 8.3 K/UL (4.8-10.8) Red Blood Count 3.39 M/UL (4.70-6.10) L Hemoglobin 9.1 G/DL (14.2-18.0) L Hematocrit 28.3 % (42.0-52.0) L Mean Corpuscular Volume 83 FL (80-99) Mean Corpuscular Hemoglobin 27.0 PG (27.0-31.0) Mean Corpuscular Hemoglobin Concent 32.3 G/DL (32.0-36.0) Red Cell Distribution Width 13.8 % (11.6-14.8) Platelet Count 377 K/UL (150-450) Mean Platelet Volume 6.4 FL (6.5-10.1) L Neutrophils (%) (Auto) 61.4 % (45.0-75.0) Lymphocytes (%) (Auto) 17.6 % (20.0-45.0) L Monocytes (%) (Auto) 17.4 % (1.0-10.0) H Eosinophils (%) (Auto) 1.8 % (0.0-3.0) Basophils (%) (Auto) 1.8 % (0.0-2.0) Sodium Level 136 MMOL/L (136-145) Potassium Level 4.2 MMOL/L (3.5-5.1) Chloride Level 102 MMOL/L (98-107) Carbon Dioxide Level 28 MMOL/L (21-32) Anion Gap 6 mmol/L (5-15) Blood Urea Nitrogen 15 mg/dL (7-18) Creatinine 1.3 MG/DL (0.55-1.30) Estimat Glomerular Filtration Rate 54.9 mL/min (>60) Glucose Level 215 MG/DL (74-106) H Calcium Level 7.9 MG/DL (8.5-10.1) L Phosphorus Level 2.6 MG/DL (2.5-4.9) Magnesium Level 1.4 MG/DL (1.8-2.4) L Total Bilirubin 0.2 MG/DL (0.2-1.0) Direct Bilirubin < 0.1 MG/DL (0.0-0.3) Aspartate Amino Transf (AST/SGOT) 32 U/L (15-37) Alanine Aminotransferase (ALT/SGPT) 18 U/L (12-78) Alkaline Phosphatase 60 U/L (46-116) Total Protein 6.5 G/DL (6.4-8.2) Albumin 2.0 G/DL (3.4-5.0) L Plan Problems: (1) Diabetes mellitus Assessment & Plan: A1c 14 glu improved cont with Rx DAILY ESTIMATED NEEDS: Needs based on Wound, DM/ 70kg 25-30 kcals/kg 7258-0632 total kcals 1.25-1.5 g protein/kg 87-105 g total protein 25-30 mL/kg 8943-4080 total fluid mLs NUTRITION DIAGNOSIS: * Increased kcal/prot intake needs R/T wound healing as evidenced by pt admitted w/ full thickness pressure injury at sacrococcyx. * Altered nutrition related lab values R/T DKA as evidenced by elev BG of 928* upon adm -> 123, 241 now improved, A1C of 14.1, 4+ urine gluclose, now off insulin drip. CURRENT DIET:[facility] MED PO DIET RECOMMENDATIONS: CCHO MED/ texture as tolerated ADDITIONAL RECOMMENDATIONS: * Calibrated bedscale wt for accurate CBW * Wound healing: Add MVI x 1, Vit C 500mg QD, Hari 1pkt BID : ZnSO4 220mg QD x 10 days * Monitor BGs closely- improved since adm * Monitor lytes, replete as needed (phos 1.6) * DM diet education upon f/up when pt more stable and awake (2) Hypothyroidism Assessment & Plan: levels noted stable (3) Hypertension (4) DKA (diabetic ketoacidoses) (5) ATN (acute tubular necrosis) (6) Acute on chronic renal insufficiency (7) Sacral wound Assessment & Plan: Pt presented on admission with full thickness pressure injury sacrococcygeal area. Base of wound with trace biofilm,(+) maceration along borders (L)1cm x (W00.5cm x (D)0.2cm. Darker skin tone without induration periwound . Darker skin tone without induration or erythema periwound to both ischial regions.Soft mass upper back .Pt verbalized tenderness when palpated.No erythema noted. Both heels are firm and blanchable. Pt educated on wound prevention and encouraged to frequently turn on sides to relive pressure off buttocks. Tx.Plan: Cleanse with saline. Apply Triad Paste. Cover with Optifoam drsg. Change every 3 days and prn. Apply Cavilon Skin Barrier to Both heels. Off-load heels with Pillow. Cue and encourage pt to Reposition at least every 2 hours or as tolerated. Help patient with reposition q2h (8) Leukocytosis Assessment & Plan: unlikely related to wounds resolved will monitor will follow with recs okay to d/c from surgical standpoint d/c planning Josias Lipscomb Nov 08, 2018 16:36
[2018-11-08] MEDS: Nateglinide 60mg tab ORAL SCH (16:43)
--- NOTE | 2018-11-08 19:27 | Internal Med Progress Note ---
Subjective Date of Service: Nov 08, 2018 Physician Name Sudhir Jones Attending Physician Gómez Mancini MD Current Medications Medications (Trade) Dose Ordered Sig/Oscar Route PRN Reason Start Time Stop Time Status Last Admin Dose Admin Acetaminophen (Tylenol) 650 mg Q4H PRN ORAL Mild Pain/Temp > 100.5 11/04/18 11:15 12/02/18 11:14 11/08/18 08:19 Acetaminophen/ Hydrocodone Bitart ([place] 10/325) 1 tab Q6H PRN ORAL For Pain 11/08/18 13:20 11/15/18 13:19 Ascorbic Acid (Vitamin C) 500 mg DAILY ORAL 11/05/18 09:00 12/05/18 08:59 11/08/18 08:18 Aspirin (Ecotrin) 81 mg DAILY ORAL 11/04/18 09:00 12/04/18 08:59 11/08/18 08:18 Atorvastatin Calcium (Lipitor) 20 mg BEDTIME ORAL 11/05/18 21:00 12/05/18 20:59 11/07/18 20:45 Ceftriaxone Sodium 1 gm/ Dextrose 55 ml @ 110 mls/hr Q24H IVPB 11/04/18 16:00 11/10/18 15:59 11/08/18 15:10 Clonidine HCl (Catapres Tab) 0.1 mg Q4H PRN ORAL bp over 165 syst 11/04/18 02:30 12/03/18 14:29 Dextrose (Dextrose 50%) 25 ml Q30M PRN IV Hypoglycemia 11/04/18 00:45 12/03/18 10:01 Dextrose (Dextrose 50%) 50 ml Q30M PRN IV hypoglycemia 11/04/18 00:45 12/03/18 10:14 Docusate Sodium (Colace) 100 mg THREE TIMES A DAY ORAL 11/04/18 09:00 12/03/18 17:59 11/08/18 17:21 Heparin Sodium (Porcine) (Heparin 5000 units/ml) 5,000 units EVERY 12 HOURS SUBQ 11/05/18 21:00 12/02/18 20:59 11/08/18 08:20 Insulin Aspart (NovoLOG) BEFORE MEALS AND HS SUBQ 11/04/18 06:30 12/03/18 11:29 11/08/18 16:46 Insulin Detemir (Levemir) 13 units EVERY 12 HOURS SUBQ 11/08/18 21:00 12/03/18 09:59 Levothyroxine Sodium (Synthroid) 50 mcg DAILY@0630 ORAL 11/04/18 06:30 12/04/18 06:29 11/08/18 06:16 Multivitamins (Multivitamins) 1 tab DAILY ORAL 11/05/18 09:00 12/05/18 08:59 11/08/18 08:18 Nateglinide (Starlix) 60 mg TIAC ORAL 11/08/18 16:30 12/08/18 16:29 11/08/18 16:43 Ondansetron HCl (Zofran) 4 mg Q6H PRN IVP Nausea & Vomiting 11/04/18 01:45 12/02/18 13:44 Pantoprazole (Protonix) 40 mg EVERY 12 HOURS ORAL 11/04/18 09:00 12/03/18 14:29 11/08/18 08:18 Polyethylene Glycol (Miralax) 17 gm DAILYPRN PRN ORAL Constipation 11/04/18 13:45 12/02/18 13:44 Tamsulosin HCl (Flomax) 0.4 mg BEDTIME ORAL 11/04/18 21:00 12/04/18 20:59 11/07/18 20:45 Zinc Sulfate (Zinc Sulfate) 220 mg DAILY ORAL 11/05/18 09:00 12/05/18 08:59 11/08/18 08:18 Allergies: Coded Allergies: No Known Allergies (Unverified , 11/02/18) ROS Limited/Unobtainable: No Constitutional: Reports: no symptoms HEENT: Reports: no symptoms Cardiovascular: Reports: no symptoms Respiratory: Reports: no symptoms Gastrointestinal/Abdominal: Reports: no symptoms Genitourinary: Reports: no symptoms Neurologic/Psychiatric: Reports: no symptoms Subjective 68 YO M admitted with diabetic ketoacidosis and hyperglycemia. Cover for Int Gato-DR Mancini. Objective Last Vital Signs Date Time Temp Pulse Resp B/P (MAP) Pulse Ox O2 Delivery O2 Flow Rate FiO2 11/08/18 16:00 97.9 83 17 134/84 (101) 100 11/08/18 09:00 Room Air 11/02/18 11:42 2.0 Laboratory Tests Test 11/08/18 05:55 White Blood Count 8.3 K/UL (4.8-10.8) Red Blood Count 3.39 M/UL (4.70-6.10) L Hemoglobin 9.1 G/DL (14.2-18.0) L Hematocrit 28.3 % (42.0-52.0) L Mean Corpuscular Volume 83 FL (80-99) Mean Corpuscular Hemoglobin 27.0 PG (27.0-31.0) Mean Corpuscular Hemoglobin Concent 32.3 G/DL (32.0-36.0) Red Cell Distribution Width 13.8 % (11.6-14.8) Platelet Count 377 K/UL (150-450) Mean Platelet Volume 6.4 FL (6.5-10.1) L Neutrophils (%) (Auto) 61.4 % (45.0-75.0) Lymphocytes (%) (Auto) 17.6 % (20.0-45.0) L Monocytes (%) (Auto) 17.4 % (1.0-10.0) H Eosinophils (%) (Auto) 1.8 % (0.0-3.0) Basophils (%) (Auto) 1.8 % (0.0-2.0) Sodium Level 136 MMOL/L (136-145) Potassium Level 4.2 MMOL/L (3.5-5.1) Chloride Level 102 MMOL/L (98-107) Carbon Dioxide Level 28 MMOL/L (21-32) Anion Gap 6 mmol/L (5-15) Blood Urea Nitrogen 15 mg/dL (7-18) Creatinine 1.3 MG/DL (0.55-1.30) Estimat Glomerular Filtration Rate 54.9 mL/min (>60) Glucose Level 215 MG/DL (74-106) H Calcium Level 7.9 MG/DL (8.5-10.1) L Phosphorus Level 2.6 MG/DL (2.5-4.9) Magnesium Level 1.4 MG/DL (1.8-2.4) L Total Bilirubin 0.2 MG/DL (0.2-1.0) Direct Bilirubin < 0.1 MG/DL (0.0-0.3) Aspartate Amino Transf (AST/SGOT) 32 U/L (15-37) Alanine Aminotransferase (ALT/SGPT) 18 U/L (12-78) Alkaline Phosphatase 60 U/L (46-116) Total Protein 6.5 G/DL (6.4-8.2) Albumin 2.0 G/DL (3.4-5.0) L Intake and Output 11/07/18 11/08/18 18:59 06:59 Intake Total 1275 ml Output Total 750 ml Balance 1275 ml -750 ml Intake Oral 1220 ml IV Total 55 ml Output Urine Total 750 ml # Voids 6 # Bowel Movements 1 Objective PHYSICAL EXAMINATION: GENERAL: The patient is a well-developed and well-nourished male, in no apparent distress. HEENT: Eyes, pupils are equal and responsive to light and accommodation. Extraocular movements are intact. NECK: Supple without lymphadenopathy. CHEST: Lungs are clear to auscultation bilaterally without wheezes or rales. CARDIOVASCULAR: Regular rhythm and rate. S1 and S2 are normal without murmurs, rubs, or gallops. ABDOMEN: Soft, nontender, and nondistended. Positive bowel sounds. No evidence of hepatosplenomegaly. Currently, no rebound or guarding noted. EXTREMITIES: Negative for clubbing, cyanosis, or edema. RECTAL/GENITAL: Not performed. NEUROLOGIC: Cranial nerves II through XII are grossly intact without focal deficits. Assessment/Plan Assessment/Plan Assessment: 1. Diabetes II 2. Diabetic ketoacidosis 3. hyponatremia 4. hyperglycemia 5. hypertension 6. hypothyroidism 7. diabetic neuropathy 8. Hypercholesterolemia TREATMENT: 1. Diabetic ketoacidosis/Hyperglycemia. Continue levemir and novolog sliding scale per endocrinology. Latest fingerstick readings are improved. 2. Acute renal failure. This may be secondary to diabetic ketoacidosis as above. 3. Hyponatremia. The patient has been started on normal saline intravenously. 4. Hypertension. Continue amlodipine and lisinopril as above. Continue metoprolol as above. 5. Hypothyroidism. Continue Levoxyl as above. 6. Hypercholesterolemia. Continue atorvastatin as above. 7. Discharge planning Sudhir Jones MD Nov 08, 2018 19:27
[2018-11-08 20:00] VITALS: BP 141/96
[2018-11-08] MEDS ORDERED: Levemir Flexpen SUBQ SCH (21:00)
[2018-11-08] MEDS: Tamsulosin 0.4mg cap ORAL SCH (21:21)
[2018-11-08] MEDS: Atorvastatin 20mg tab ORAL SCH (21:21)
[2018-11-08] MEDS: HYDROcodone/Acetamin 10/325 tab ORAL PRN (21:21)
[2018-11-09] VITALS: BP 148/92
[2018-11-09 04:00] VITALS: BP 135/83
[2018-11-09] MEDS: Nateglinide 60mg tab ORAL SCH ×3 (06:06→15:44)
[2018-11-09] MEDS: NovoLOG Insulin Flexpen SUBQ SCH ×4 (06:09→21:00)
--- NOTE | 2018-11-09 06:31 | General Progress Note ---
Assessment/Plan Problem List: (1) DKA (diabetic ketoacidoses) ICD Codes: E13.10 - Other specified diabetes mellitus with ketoacidosis without coma SNOMED: 20551547, 602744168 (2) Diabetes mellitus ICD Codes: E11.9 - Type 2 diabetes mellitus without complications SNOMED: 39160365 (3) Hypothyroidism ICD Codes: E03.9 - Hypothyroidism, unspecified SNOMED: 88237465 (4) Hypertension ICD Codes: I10 - Essential (primary) hypertension SNOMED: 50945976 Assessment/Plan: glucose values are elevated increase Levemir to 18 units bid continue Starlix 60 mg ac tid continue Levothyroxine 50 mcg daily Subjective Allergies: Coded Allergies: No Known Allergies (Unverified , 11/02/18) All Systems: reviewed and negative except above Subjective events noted glucose values are still elevated Item Value Date Time Bedside Blood Glucose 283 mg/dl H 11/09/18 0609 Bedside Blood Glucose 294 mg/dl H 11/08/18 2124 Bedside Blood Glucose 152 mg/dl H 11/08/18 1646 Bedside Blood Glucose 258 mg/dl H 11/08/18 1259 Bedside Blood Glucose 214 mg/dl H 11/08/18 0821 Bedside Blood Glucose 214 mg/dl H 11/08/18 0617 Objective Last 24 Hour Vital Signs Date Time Temp Pulse Resp B/P (MAP) Pulse Ox O2 Delivery O2 Flow Rate FiO2 11/09/18 04:00 98.0 87 18 135/83 (100) 96 11/09/18 00:00 97.8 88 18 148/92 (110) 96 11/08/18 21:00 Room Air 11/08/18 20:00 97.6 87 18 141/96 (111) 96 11/08/18 16:00 97.9 83 17 134/84 (101) 100 11/08/18 12:00 98.7 83 16 135/97 (110) 96 11/08/18 09:00 Room Air 11/08/18 08:49 98.2 11/08/18 08:00 97.9 93 16 149/94 (112) 96 Intake and Output 11/08/18 11/09/18 18:59 06:59 Intake Total 835 ml Output Total 200 ml 1300 ml Balance 635 ml -1300 ml Intake Oral 480 ml IV Total 355 ml Output Urine Total 200 ml 1300 ml # Voids 3 # Bowel Movements 1 Height (Feet): 5 Height (Inches): 8.00 Weight (Pounds): 76 General Appearance: no apparent distress Neck: normal alignment Cardiovascular: normal rate Respiratory/Chest: lungs clear Abdomen: normal bowel sounds Pelvis: normal external exam Objective Current Medications Medications (Trade) Dose Ordered Sig/Oscar Route PRN Reason Start Time Stop Time Status Last Admin Dose Admin Acetaminophen (Tylenol) 650 mg Q4H PRN ORAL Mild Pain/Temp > 100.5 11/04/18 11:15 12/02/18 11:14 11/08/18 08:19 Acetaminophen/ Hydrocodone Bitart ([place] 10/325) 1 tab Q6H PRN ORAL For Pain 11/08/18 13:20 11/15/18 13:19 11/08/18 21:21 Ascorbic Acid (Vitamin C) 500 mg DAILY ORAL 11/05/18 09:00 12/05/18 08:59 11/08/18 08:18 Aspirin (Ecotrin) 81 mg DAILY ORAL 11/04/18 09:00 12/04/18 08:59 11/08/18 08:18 Atorvastatin Calcium (Lipitor) 20 mg BEDTIME ORAL 11/05/18 21:00 12/05/18 20:59 11/08/18 21:21 Ceftriaxone Sodium 1 gm/ Dextrose 55 ml @ 110 mls/hr Q24H IVPB 11/04/18 16:00 11/10/18 15:59 11/08/18 15:10 Clonidine HCl (Catapres Tab) 0.1 mg Q4H PRN ORAL bp over 165 syst 11/04/18 02:30 12/03/18 14:29 Dextrose (Dextrose 50%) 25 ml Q30M PRN IV Hypoglycemia 11/04/18 00:45 12/03/18 10:01 Dextrose (Dextrose 50%) 50 ml Q30M PRN IV hypoglycemia 11/04/18 00:45 12/03/18 10:14 Docusate Sodium (Colace) 100 mg THREE TIMES A DAY ORAL 11/04/18 09:00 12/03/18 17:59 11/08/18 17:21 Heparin Sodium (Porcine) (Heparin 5000 units/ml) 5,000 units EVERY 12 HOURS SUBQ 11/05/18 21:00 12/02/18 20:59 11/08/18 21:23 Insulin Aspart (NovoLOG) BEFORE MEALS AND HS SUBQ 11/04/18 06:30 12/03/18 11:29 11/09/18 06:09 Insulin Detemir (Levemir) 13 units EVERY 12 HOURS SUBQ 11/08/18 21:00 12/03/18 09:59 11/08/18 21:23 Levothyroxine Sodium (Synthroid) 50 mcg DAILY@0630 ORAL 11/04/18 06:30 12/04/18 06:29 11/09/18 06:06 Multivitamins (Multivitamins) 1 tab DAILY ORAL 11/05/18 09:00 12/05/18 08:59 11/08/18 08:18 Nateglinide (Starlix) 60 mg TIAC ORAL 11/08/18 16:30 12/08/18 16:29 11/09/18 06:06 Ondansetron HCl (Zofran) 4 mg Q6H PRN IVP Nausea & Vomiting 11/04/18 01:45 12/02/18 13:44 Pantoprazole (Protonix) 40 mg EVERY 12 HOURS ORAL 11/04/18 09:00 12/03/18 14:29 11/08/18 21:21 Polyethylene Glycol (Miralax) 17 gm DAILYPRN PRN ORAL Constipation 11/04/18 13:45 12/02/18 13:44 Tamsulosin HCl (Flomax) 0.4 mg BEDTIME ORAL 11/04/18 21:00 12/04/18 20:59 11/08/18 21:21 Zinc Sulfate (Zinc Sulfate) 220 mg DAILY ORAL 11/05/18 09:00 12/05/18 08:59 11/08/18 08:18 Yevgeniy Vinson MD Nov 09, 2018 06:31
[2018-11-09 07:31] LABS: BASOPHILS % (AUTO) 1.5 % (0.0-2.0); EOSINOPHILS % (AUTO) 1.9 % (0.0-3.0); HEMATOCRIT 27.9 % (42.0-52.0); LYMPHOCYTES % (AUTO) 19.7 % (20.0-45.0); MEAN CORPUSCULAR VOLUME 84 FL (80-99); MONOCYTES % (AUTO) 17.7 % (1.0-10.0); NEUTROPHILS % (AUTO) 59.3 % (45.0-75.0); PLATELET COUNT 469 K/UL (150-450); RED BLOOD COUNT 3.31 M/UL (4.70-6.10); RED CELL DISTRIBUTION WIDTH 13.8 % (11.6-14.8); WHITE BLOOD COUNT 7.2 K/UL (4.8-10.8)
[2018-11-09 07:43] LABS: ANION GAP 10 mmol/L (5-15); BLOOD UREA NITROGEN 16 mg/dL (7-18); CALCIUM 8.1 MG/DL (8.5-10.1); CARBON DIOXIDE 25 MMOL/L (21-32); CHLORIDE 100 MMOL/L (98-107); CREATININE 1.2 MG/DL (0.55-1.30); POTASSIUM 3.9 MMOL/L (3.5-5.1); SODIUM 135 MMOL/L (136-145)
[2018-11-09 08:00] VITALS: BP 130/78
[2018-11-09] MEDS: Docusate 100mg cap ORAL SCH ×3 (08:12→17:04)
[2018-11-09] MEDS: Ascorbic Acid 500mg tab ORAL SCH (08:12)
[2018-11-09] MEDS: Zinc Sulfate 220mg cap ORAL SCH (08:12)
[2018-11-09] MEDS: Aspirin EC 81mg tab ORAL SCH (08:12)
[2018-11-09] MEDS: Heparin 5000 units/ml inj SUBQ SCH ×2 (08:13→21:41)
[2018-11-09] MEDS: Levemir Flexpen SUBQ SCH ×2 (09:33→22:37)
[2018-11-09 12:00] VITALS: BP 165/99
--- NOTE | 2018-11-09 13:21 | Pulmonology Progress Note ---
Assessment/Plan Problems: (1) DKA (diabetic ketoacidoses) (2) Sacral wound (3) ATN (acute tubular necrosis) (4) Acute on chronic renal insufficiency (5) Diabetes mellitus (6) Hypothyroidism (7) Hypertension Assessment/Plan BS controlled with Levemir BID improving dka resolved bp controlled stress study done wound care dc to previous setting. Subjective ROS Limited/Unobtainable: No HEENT: Repors: no symptoms Allergies: Coded Allergies: No Known Allergies (Unverified , 11/02/18) Objective Last 24 Hour Vital Signs Date Time Temp Pulse Resp B/P (MAP) Pulse Ox O2 Delivery O2 Flow Rate FiO2 11/09/18 12:00 98.0 86 18 165/99 (121) 99 11/09/18 09:00 Room Air 11/09/18 08:00 98.1 84 18 130/78 (95) 97 11/09/18 04:00 98.0 87 18 135/83 (100) 96 11/09/18 00:00 97.8 88 18 148/92 (110) 96 11/08/18 21:00 Room Air 11/08/18 20:00 97.6 87 18 141/96 (111) 96 11/08/18 16:00 97.9 83 17 134/84 (101) 100 Intake and Output 11/08/18 11/09/18 19:00 07:00 Intake Total 835 ml Output Total 200 ml 1300 ml Balance 635 ml -1300 ml Intake Oral 480 ml IV Total 355 ml Output Urine Total 200 ml 1300 ml # Voids 3 # Bowel Movements 1 General Appearance: WD/WN HEENT: normocephalic Respiratory/Chest: chest wall non-tender, lungs clear Cardiovascular: normal peripheral pulses, normal rate Abdomen: normal bowel sounds, soft, non tender Genitourinary: normal external genitalia Skin: no rash Laboratory Tests 11/09/18 05:25: White Blood Count 7.2, Red Blood Count 3.31L, Hemoglobin 9.0L, Hematocrit 27.9L , Mean Corpuscular Volume 84, Mean Corpuscular Hemoglobin 27.1, Mean Corpuscular Hemoglobin Concent 32.2, Red Cell Distribution Width 13.8, Platelet Count 469H, Mean Platelet Volume 5.5L, Neutrophils (%) (Auto) 59.3, Lymphocytes (%) (Auto) 19.7L, Monocytes (%) (Auto) 17.7H, Eosinophils (%) (Auto) 1.9, Basophils (%) (Auto) 1.5, Sodium Level 135L, Potassium Level 3.9, Chloride Level 100, Carbon Dioxide Level 25, Anion Gap 10, Blood Urea Nitrogen 16, Creatinine 1.2, Estimat Glomerular Filtration Rate > 60, Glucose Level 255H, Calcium Level 8.1L Current Medications Medications (Trade) Dose Ordered Sig/Oscar Route PRN Reason Start Time Stop Time Status Last Admin Dose Admin Acetaminophen (Tylenol) 650 mg Q4H PRN ORAL Mild Pain/Temp > 100.5 11/04/18 11:15 12/02/18 11:14 11/08/18 08:19 Acetaminophen/ Hydrocodone Bitart ([place] 10/325) 1 tab Q6H PRN ORAL For Pain 11/08/18 13:20 11/15/18 13:19 11/08/18 21:21 Ascorbic Acid (Vitamin C) 500 mg DAILY ORAL 11/05/18 09:00 12/05/18 08:59 11/09/18 08:12 Aspirin (Ecotrin) 81 mg DAILY ORAL 11/04/18 09:00 12/04/18 08:59 11/09/18 08:12 Atorvastatin Calcium (Lipitor) 20 mg BEDTIME ORAL 11/05/18 21:00 12/05/18 20:59 11/08/18 21:21 Ceftriaxone Sodium 1 gm/ Dextrose 55 ml @ 110 mls/hr Q24H IVPB 11/04/18 16:00 11/10/18 15:59 11/08/18 15:10 Clonidine HCl (Catapres Tab) 0.1 mg Q4H PRN ORAL bp over 165 syst 11/04/18 02:30 12/03/18 14:29 Dextrose (Dextrose 50%) 25 ml Q30M PRN IV Hypoglycemia 11/04/18 00:45 12/03/18 10:01 Dextrose (Dextrose 50%) 50 ml Q30M PRN IV hypoglycemia 11/04/18 00:45 12/03/18 10:14 Docusate Sodium (Colace) 100 mg THREE TIMES A DAY ORAL 11/04/18 09:00 12/03/18 17:59 11/09/18 12:27 Heparin Sodium (Porcine) (Heparin 5000 units/ml) 5,000 units EVERY 12 HOURS SUBQ 11/05/18 21:00 12/02/18 20:59 11/09/18 08:13 Insulin Aspart (NovoLOG) BEFORE MEALS AND HS SUBQ 11/04/18 06:30 12/03/18 11:29 11/09/18 12:28 Insulin Detemir (Levemir) 18 units EVERY 12 HOURS SUBQ 11/09/18 09:00 12/03/18 09:59 11/09/18 09:33 Levothyroxine Sodium (Synthroid) 50 mcg DAILY@0630 ORAL 11/04/18 06:30 12/04/18 06:29 11/09/18 06:06 Multivitamins (Multivitamins) 1 tab DAILY ORAL 11/05/18 09:00 12/05/18 08:59 11/09/18 08:12 Nateglinide (Starlix) 60 mg TIAC ORAL 11/08/18 16:30 12/08/18 16:29 11/09/18 12:27 Ondansetron HCl (Zofran) 4 mg Q6H PRN IVP Nausea & Vomiting 11/04/18 01:45 12/02/18 13:44 Pantoprazole (Protonix) 40 mg EVERY 12 HOURS ORAL 11/04/18 09:00 12/03/18 14:29 11/09/18 08:12 Polyethylene Glycol (Miralax) 17 gm DAILYPRN PRN ORAL Constipation 11/04/18 13:45 12/02/18 13:44 Tamsulosin HCl (Flomax) 0.4 mg BEDTIME ORAL 11/04/18 21:00 12/04/18 20:59 11/08/18 21:21 Zinc Sulfate (Zinc Sulfate) 220 mg DAILY ORAL 11/05/18 09:00 12/05/18 08:59 11/09/18 08:12 Jade Mann MD Nov 09, 2018 13:21
--- NOTE | 2018-11-09 13:38 | Surgery Progress Note ---
Surgery Progress Note Subjective Additional Comments no acute events. comfortable. no complaints. no n/v/f/c. Objective Last 24 Hour Vital Signs Date Time Temp Pulse Resp B/P (MAP) Pulse Ox O2 Delivery O2 Flow Rate FiO2 11/09/18 12:00 98.0 86 18 165/99 (121) 99 11/09/18 09:00 Room Air 11/09/18 08:00 98.1 84 18 130/78 (95) 97 11/09/18 04:00 98.0 87 18 135/83 (100) 96 11/09/18 00:00 97.8 88 18 148/92 (110) 96 11/08/18 21:00 Room Air 11/08/18 20:00 97.6 87 18 141/96 (111) 96 11/08/18 16:00 97.9 83 17 134/84 (101) 100 I&O Intake and Output 11/08/18 11/09/18 19:00 07:00 Intake Total 835 ml Output Total 200 ml 1300 ml Balance 635 ml -1300 ml Intake Oral 480 ml IV Total 355 ml Output Urine Total 200 ml 1300 ml # Voids 3 # Bowel Movements 1 Dressing: saturated Wound: clean Drains: other Cardiovascular: RSR Respiratory: clear Abdomen: soft, non-tender, present bowel sounds, non-distended Extremities: no tenderness, no cyanosis Laboratory Tests Test 11/09/18 05:25 White Blood Count 7.2 K/UL (4.8-10.8) Red Blood Count 3.31 M/UL (4.70-6.10) L Hemoglobin 9.0 G/DL (14.2-18.0) L Hematocrit 27.9 % (42.0-52.0) L Mean Corpuscular Volume 84 FL (80-99) Mean Corpuscular Hemoglobin 27.1 PG (27.0-31.0) Mean Corpuscular Hemoglobin Concent 32.2 G/DL (32.0-36.0) Red Cell Distribution Width 13.8 % (11.6-14.8) Platelet Count 469 K/UL (150-450) H Mean Platelet Volume 5.5 FL (6.5-10.1) L Neutrophils (%) (Auto) 59.3 % (45.0-75.0) Lymphocytes (%) (Auto) 19.7 % (20.0-45.0) L Monocytes (%) (Auto) 17.7 % (1.0-10.0) H Eosinophils (%) (Auto) 1.9 % (0.0-3.0) Basophils (%) (Auto) 1.5 % (0.0-2.0) Sodium Level 135 MMOL/L (136-145) L Potassium Level 3.9 MMOL/L (3.5-5.1) Chloride Level 100 MMOL/L (98-107) Carbon Dioxide Level 25 MMOL/L (21-32) Anion Gap 10 mmol/L (5-15) Blood Urea Nitrogen 16 mg/dL (7-18) Creatinine 1.2 MG/DL (0.55-1.30) Estimat Glomerular Filtration Rate > 60 mL/min (>60) Glucose Level 255 MG/DL (74-106) H Calcium Level 8.1 MG/DL (8.5-10.1) L Plan Problems: (1) Diabetes mellitus Assessment & Plan: A1c 14 glu improved cont with Rx DAILY ESTIMATED NEEDS: Needs based on Wound, DM/ 70kg 25-30 kcals/kg 3857-5230 total kcals 1.25-1.5 g protein/kg 87-105 g total protein 25-30 mL/kg 1220-7743 total fluid mLs NUTRITION DIAGNOSIS: * Increased kcal/prot intake needs R/T wound healing as evidenced by pt admitted w/ full thickness pressure injury at sacrococcyx. * Altered nutrition related lab values R/T DKA as evidenced by elev BG of 928* upon adm -> 123, 241 now improved, A1C of 14.1, 4+ urine gluclose, now off insulin drip. CURRENT DIET:[facility] MED PO DIET RECOMMENDATIONS: CCHO MED/ texture as tolerated ADDITIONAL RECOMMENDATIONS: * Calibrated bedscale wt for accurate CBW * Wound healing: Add MVI x 1, Vit C 500mg QD, Hari 1pkt BID : ZnSO4 220mg QD x 10 days * Monitor BGs closely- improved since adm * Monitor lytes, replete as needed (phos 1.6) * DM diet education upon f/up when pt more stable and awake (2) Hypothyroidism Assessment & Plan: levels noted stable (3) Hypertension (4) DKA (diabetic ketoacidoses) (5) ATN (acute tubular necrosis) (6) Acute on chronic renal insufficiency (7) Sacral wound Assessment & Plan: Pt presented on admission with full thickness pressure injury sacrococcygeal area. Base of wound with trace biofilm,(+) maceration along borders (L)1cm x (W00.5cm x (D)0.2cm. Darker skin tone without induration periwound . Darker skin tone without induration or erythema periwound to both ischial regions.Soft mass upper back .Pt verbalized tenderness when palpated.No erythema noted. Both heels are firm and blanchable. Pt educated on wound prevention and encouraged to frequently turn on sides to relive pressure off buttocks. Tx.Plan: Cleanse with saline. Apply Triad Paste. Cover with Optifoam drsg. Change every 3 days and prn. Apply Cavilon Skin Barrier to Both heels. Off-load heels with Pillow. Cue and encourage pt to Reposition at least every 2 hours or as tolerated. Help patient with reposition q2h (8) Leukocytosis Assessment & Plan: unlikely related to wounds resolved will monitor will follow with recs okay to d/c from surgical standpoint d/c planning Josias Lipscomb Nov 09, 2018 13:38
--- NOTE | 2018-11-09 14:41 | Nephrology Progress Note ---
Assessment/Plan Problem List: (1) ATN (acute tubular necrosis) Assessment: Cr wnl now (2) DKA (diabetic ketoacidoses) (3) Hypertension (4) Hypothyroidism (5) Acute on chronic renal insufficiency Assessment Acute on Chronic renal failure- DKA on admit Diabetic Nephropathy HypoThyroidism HTN Sacral wound Anemia UTI Plan Mag supplement IV Hydrate- BP and BS control Electrolyte check Anemia camp Rocephin per orders and consultants Subjective ROS Limited/Unobtainable: No Constitutional: Reports: malaise Objective Objective Last 24 Hour Vital Signs Date Time Temp Pulse Resp B/P (MAP) Pulse Ox O2 Delivery O2 Flow Rate FiO2 11/09/18 12:00 98.0 86 18 165/99 (121) 99 11/09/18 09:00 Room Air 11/09/18 08:00 98.1 84 18 130/78 (95) 97 11/09/18 04:00 98.0 87 18 135/83 (100) 96 11/09/18 00:00 97.8 88 18 148/92 (110) 96 11/08/18 21:00 Room Air 11/08/18 20:00 97.6 87 18 141/96 (111) 96 11/08/18 16:00 97.9 83 17 134/84 (101) 100 Intake and Output 11/08/18 11/09/18 19:00 07:00 Intake Total 835 ml Output Total 200 ml 1300 ml Balance 635 ml -1300 ml Intake Oral 480 ml IV Total 355 ml Output Urine Total 200 ml 1300 ml # Voids 3 # Bowel Movements 1 Laboratory Tests 11/09/18 05:25: White Blood Count 7.2, Red Blood Count 3.31L, Hemoglobin 9.0L, Hematocrit 27.9L , Mean Corpuscular Volume 84, Mean Corpuscular Hemoglobin 27.1, Mean Corpuscular Hemoglobin Concent 32.2, Red Cell Distribution Width 13.8, Platelet Count 469H, Mean Platelet Volume 5.5L, Neutrophils (%) (Auto) 59.3, Lymphocytes (%) (Auto) 19.7L, Monocytes (%) (Auto) 17.7H, Eosinophils (%) (Auto) 1.9, Basophils (%) (Auto) 1.5, Sodium Level 135L, Potassium Level 3.9, Chloride Level 100, Carbon Dioxide Level 25, Anion Gap 10, Blood Urea Nitrogen 16, Creatinine 1.2, Estimat Glomerular Filtration Rate > 60, Glucose Level 255H, Calcium Level 8.1L Height (Feet): 5 Height (Inches): 8.00 Weight (Pounds): 76 General Appearance: no apparent distress Cardiovascular: normal rate Respiratory/Chest: decreased breath sounds Abdomen: distended Objective no change Lefty Zamora MD Nov 09, 2018 14:41
[2018-11-09 15:16] LABS: PHOSPHORUS 2.6 MG/DL (2.5-4.9)
[2018-11-09] MEDS: HYDROcodone/Acetamin 10/325 tab ORAL PRN ×2 (15:44→21:49)
[2018-11-09 16:00] VITALS: BP 155/97
[2018-11-09] MEDS: cefTRIAXone 1 GM in D5W 55 ML IVPB SCH (16:37)
[2018-11-09 20:00] VITALS: BP 146/99
--- NOTE | 2018-11-09 20:45 | Internal Med Progress Note ---
Subjective Date of Service: Nov 09, 2018 Physician Name Sudhir Jones Attending Physician Gómez Mancini MD Current Medications Medications (Trade) Dose Ordered Sig/Oscar Route PRN Reason Start Time Stop Time Status Last Admin Dose Admin Acetaminophen (Tylenol) 650 mg Q4H PRN ORAL Mild Pain/Temp > 100.5 11/04/18 11:15 12/02/18 11:14 11/08/18 08:19 Acetaminophen/ Hydrocodone Bitart ([place] 10/325) 1 tab Q6H PRN ORAL For Pain 11/08/18 13:20 11/15/18 13:19 11/09/18 15:44 Ascorbic Acid (Vitamin C) 500 mg DAILY ORAL 11/05/18 09:00 12/05/18 08:59 11/09/18 08:12 Aspirin (Ecotrin) 81 mg DAILY ORAL 11/04/18 09:00 12/04/18 08:59 11/09/18 08:12 Atorvastatin Calcium (Lipitor) 20 mg BEDTIME ORAL 11/05/18 21:00 12/05/18 20:59 11/08/18 21:21 Ceftriaxone Sodium 1 gm/ Dextrose 55 ml @ 110 mls/hr Q24H IVPB 11/04/18 16:00 11/10/18 15:59 11/09/18 16:37 Clonidine HCl (Catapres Tab) 0.1 mg Q4H PRN ORAL bp over 165 syst 11/04/18 02:30 12/03/18 14:29 Dextrose (Dextrose 50%) 25 ml Q30M PRN IV Hypoglycemia 11/04/18 00:45 12/03/18 10:01 Dextrose (Dextrose 50%) 50 ml Q30M PRN IV hypoglycemia 11/04/18 00:45 12/03/18 10:14 Docusate Sodium (Colace) 100 mg THREE TIMES A DAY ORAL 11/04/18 09:00 12/03/18 17:59 11/09/18 17:04 Heparin Sodium (Porcine) (Heparin 5000 units/ml) 5,000 units EVERY 12 HOURS SUBQ 11/05/18 21:00 12/02/18 20:59 11/09/18 08:13 Insulin Aspart (NovoLOG) BEFORE MEALS AND HS SUBQ 11/04/18 06:30 12/03/18 11:29 11/09/18 16:47 Insulin Detemir (Levemir) 18 units EVERY 12 HOURS SUBQ 11/09/18 09:00 12/03/18 09:59 11/09/18 09:33 Levothyroxine Sodium (Synthroid) 50 mcg DAILY@0630 ORAL 11/04/18 06:30 12/04/18 06:29 11/09/18 06:06 Multivitamins (Multivitamins) 1 tab DAILY ORAL 11/05/18 09:00 12/05/18 08:59 11/09/18 08:12 Nateglinide (Starlix) 60 mg TIAC ORAL 11/08/18 16:30 12/08/18 16:29 11/09/18 15:44 Ondansetron HCl (Zofran) 4 mg Q6H PRN IVP Nausea & Vomiting 11/04/18 01:45 12/02/18 13:44 Pantoprazole (Protonix) 40 mg EVERY 12 HOURS ORAL 11/04/18 09:00 12/03/18 14:29 11/09/18 08:12 Polyethylene Glycol (Miralax) 17 gm DAILYPRN PRN ORAL Constipation 11/04/18 13:45 12/02/18 13:44 Tamsulosin HCl (Flomax) 0.4 mg BEDTIME ORAL 11/04/18 21:00 12/04/18 20:59 11/08/18 21:21 Zinc Sulfate (Zinc Sulfate) 220 mg DAILY ORAL 11/05/18 09:00 12/05/18 08:59 11/09/18 08:12 Allergies: Coded Allergies: No Known Allergies (Unverified , 11/02/18) ROS Limited/Unobtainable: No Constitutional: Reports: no symptoms HEENT: Reports: no symptoms Cardiovascular: Reports: no symptoms Respiratory: Reports: no symptoms Gastrointestinal/Abdominal: Reports: no symptoms Genitourinary: Reports: no symptoms Neurologic/Psychiatric: Reports: no symptoms Subjective 68 YO M admitted with diabetic ketoacidosis and hyperglycemia. Cover for Geovanni Hoskins-DR Mancini. Objective Last Vital Signs Date Time Temp Pulse Resp B/P (MAP) Pulse Ox O2 Delivery O2 Flow Rate FiO2 11/09/18 16:00 97.8 82 19 155/97 (116) 98 11/09/18 09:00 Room Air 11/02/18 11:42 2.0 Laboratory Tests Test 11/09/18 05:23 11/09/18 05:25 Phosphorus Level 2.6 MG/DL (2.5-4.9) Magnesium Level 2.1 MG/DL (1.8-2.4) White Blood Count 7.2 K/UL (4.8-10.8) Red Blood Count 3.31 M/UL (4.70-6.10) L Hemoglobin 9.0 G/DL (14.2-18.0) L Hematocrit 27.9 % (42.0-52.0) L Mean Corpuscular Volume 84 FL (80-99) Mean Corpuscular Hemoglobin 27.1 PG (27.0-31.0) Mean Corpuscular Hemoglobin Concent 32.2 G/DL (32.0-36.0) Red Cell Distribution Width 13.8 % (11.6-14.8) Platelet Count 469 K/UL (150-450) H Mean Platelet Volume 5.5 FL (6.5-10.1) L Neutrophils (%) (Auto) 59.3 % (45.0-75.0) Lymphocytes (%) (Auto) 19.7 % (20.0-45.0) L Monocytes (%) (Auto) 17.7 % (1.0-10.0) H Eosinophils (%) (Auto) 1.9 % (0.0-3.0) Basophils (%) (Auto) 1.5 % (0.0-2.0) Sodium Level 135 MMOL/L (136-145) L Potassium Level 3.9 MMOL/L (3.5-5.1) Chloride Level 100 MMOL/L (98-107) Carbon Dioxide Level 25 MMOL/L (21-32) Anion Gap 10 mmol/L (5-15) Blood Urea Nitrogen 16 mg/dL (7-18) Creatinine 1.2 MG/DL (0.55-1.30) Estimat Glomerular Filtration Rate > 60 mL/min (>60) Glucose Level 255 MG/DL (74-106) H Calcium Level 8.1 MG/DL (8.5-10.1) L Intake and Output 11/08/18 11/09/18 18:59 06:59 Intake Total 835 ml Output Total 200 ml 1300 ml Balance 635 ml -1300 ml Intake Oral 480 ml IV Total 355 ml Output Urine Total 200 ml 1300 ml # Voids 3 # Bowel Movements 1 Objective PHYSICAL EXAMINATION: GENERAL: The patient is a well-developed and well-nourished male, in no apparent distress. HEENT: Eyes, pupils are equal and responsive to light and accommodation. Extraocular movements are intact. NECK: Supple without lymphadenopathy. CHEST: Lungs are clear to auscultation bilaterally without wheezes or rales. CARDIOVASCULAR: Regular rhythm and rate. S1 and S2 are normal without murmurs, rubs, or gallops. ABDOMEN: Soft, nontender, and nondistended. Positive bowel sounds. No evidence of hepatosplenomegaly. Currently, no rebound or guarding noted. EXTREMITIES: Negative for clubbing, cyanosis, or edema. RECTAL/GENITAL: Not performed. NEUROLOGIC: Cranial nerves II through XII are grossly intact without focal deficits. Assessment/Plan Assessment/Plan Assessment: 1. Diabetes II 2. Diabetic ketoacidosis 3. hyponatremia 4. hyperglycemia 5. hypertension 6. hypothyroidism 7. diabetic neuropathy 8. Hypercholesterolemia TREATMENT: 1. Diabetic ketoacidosis/Hyperglycemia. Continue levemir and novolog sliding scale per endocrinology. Latest fingerstick readings are improved. 2. Acute renal failure. This may be secondary to diabetic ketoacidosis as above. 3. Hyponatremia. The patient has been started on normal saline intravenously. 4. Hypertension. Continue amlodipine and lisinopril as above. Continue metoprolol as above. 5. Hypothyroidism. Continue Levoxyl as above. 6. Hypercholesterolemia. Continue atorvastatin as above. 7. Discharge planning Sudhir Jones MD Nov 09, 2018 20:45
[2018-11-09] MEDS: Atorvastatin 20mg tab ORAL SCH (21:40)
[2018-11-09] MEDS: Tamsulosin 0.4mg cap ORAL SCH (21:40)
[2018-11-10] VITALS: BP 136/92
[2018-11-10 04:00] VITALS: BP 149/98
[2018-11-10] MEDS: HYDROcodone/Acetamin 10/325 tab ORAL PRN ×3 (05:22→22:31)
[2018-11-10] MEDS: Nateglinide 60mg tab ORAL SCH ×3 (06:29→16:57)
[2018-11-10] MEDS: NovoLOG Insulin Flexpen SUBQ SCH ×4 (06:31→21:29)
--- NOTE | 2018-11-10 06:45 | General Progress Note ---
Assessment/Plan Problem List: (1) DKA (diabetic ketoacidoses) ICD Codes: E13.10 - Other specified diabetes mellitus with ketoacidosis without coma SNOMED: 44353730, 829332649 (2) Diabetes mellitus ICD Codes: E11.9 - Type 2 diabetes mellitus without complications SNOMED: 31390711 (3) Hypothyroidism ICD Codes: E03.9 - Hypothyroidism, unspecified SNOMED: 11082157 (4) Hypertension ICD Codes: I10 - Essential (primary) hypertension SNOMED: 88907134 Assessment/Plan: glucose values improved continue Levemir 18 units bid continue Starlix 60 mg ac tid continue Levothyroxine 50 mcg daily Subjective Allergies: Coded Allergies: No Known Allergies (Unverified , 11/02/18) All Systems: reviewed and negative except above Subjective events noted glucose values improved Item Value Date Time Bedside Blood Glucose 132 mg/dl H 11/10/18 0631 Bedside Blood Glucose 102 mg/dl 11/09/18 2237 Bedside Blood Glucose 190 mg/dl H 11/09/18 1647 Bedside Blood Glucose 145 mg/dl H 11/09/18 1228 Bedside Blood Glucose 283 mg/dl H 11/09/18 0933 Bedside Blood Glucose 283 mg/dl H 11/09/18 0630 Objective Last 24 Hour Vital Signs Date Time Temp Pulse Resp B/P (MAP) Pulse Ox O2 Delivery O2 Flow Rate FiO2 11/10/18 05:52 98.1 11/10/18 04:00 98.1 87 18 149/98 (115) 95 11/10/18 00:00 98.3 79 18 136/92 (107) 99 11/09/18 21:00 Room Air 11/09/18 20:00 98.0 85 18 146/99 (115) 98 11/09/18 16:00 97.8 82 19 155/97 (116) 98 11/09/18 12:00 98.0 86 18 165/99 (121) 99 11/09/18 09:00 Room Air 11/09/18 08:00 98.1 84 18 130/78 (95) 97 Intake and Output 11/09/18 11/10/18 19:00 07:00 Intake Total 1300 ml 480 ml Output Total 1000 ml Balance 1300 ml -520 ml Intake Oral 1300 ml 480 ml Output Urine Total 1000 ml # Voids 9 Laboratory Tests 11/10/18 05:00: White Blood Count [Pending], Red Blood Count [Pending], Hemoglobin [Pending], Hematocrit [Pending], Mean Corpuscular Volume [Pending], Mean Corpuscular Hemoglobin [Pending], Mean Corpuscular Hemoglobin Concent [Pending], Red Cell Distribution Width [Pending], Platelet Count [Pending], Mean Platelet Volume [ Pending], Neutrophils (%) (Auto) [Pending], Lymphocytes (%) (Auto) [Pending], Monocytes (%) (Auto) [Pending], Eosinophils (%) (Auto) [Pending], Basophils (%) (Auto) [Pending], Sodium Level [Pending], Potassium Level [Pending], Chloride Level [Pending], Carbon Dioxide Level [Pending], Blood Urea Nitrogen [Pending], Creatinine [Pending], Estimat Glomerular Filtration Rate [Pending], Glucose Level [Pending], Calcium Level [Pending] Height (Feet): 5 Height (Inches): 8.00 Weight (Pounds): 170 General Appearance: no apparent distress Neck: normal alignment Cardiovascular: normal rate Respiratory/Chest: lungs clear Abdomen: normal bowel sounds Pelvis: normal external exam Objective Current Medications Medications (Trade) Dose Ordered Sig/Oscar Route PRN Reason Start Time Stop Time Status Last Admin Dose Admin Acetaminophen (Tylenol) 650 mg Q4H PRN ORAL Mild Pain/Temp > 100.5 11/04/18 11:15 12/02/18 11:14 11/08/18 08:19 Acetaminophen/ Hydrocodone Bitart ([place] 10/325) 1 tab Q6H PRN ORAL For Pain 11/08/18 13:20 11/15/18 13:19 11/10/18 05:22 Ascorbic Acid (Vitamin C) 500 mg DAILY ORAL 11/05/18 09:00 12/05/18 08:59 11/09/18 08:12 Aspirin (Ecotrin) 81 mg DAILY ORAL 11/04/18 09:00 12/04/18 08:59 11/09/18 08:12 Atorvastatin Calcium (Lipitor) 20 mg BEDTIME ORAL 11/05/18 21:00 12/05/18 20:59 11/09/18 21:40 Ceftriaxone Sodium 1 gm/ Dextrose 55 ml @ 110 mls/hr Q24H IVPB 11/04/18 16:00 11/10/18 15:59 11/09/18 16:37 Clonidine HCl (Catapres Tab) 0.1 mg Q4H PRN ORAL bp over 165 syst 11/04/18 02:30 12/03/18 14:29 Dextrose (Dextrose 50%) 25 ml Q30M PRN IV Hypoglycemia 11/04/18 00:45 12/03/18 10:01 Dextrose (Dextrose 50%) 50 ml Q30M PRN IV hypoglycemia 11/04/18 00:45 12/03/18 10:14 Docusate Sodium (Colace) 100 mg THREE TIMES A DAY ORAL 11/04/18 09:00 12/03/18 17:59 11/09/18 17:04 Heparin Sodium (Porcine) (Heparin 5000 units/ml) 5,000 units EVERY 12 HOURS SUBQ 11/05/18 21:00 12/02/18 20:59 11/09/18 21:41 Insulin Aspart (NovoLOG) BEFORE MEALS AND HS SUBQ 11/04/18 06:30 12/03/18 11:29 11/10/18 06:31 Insulin Detemir (Levemir) 18 units EVERY 12 HOURS SUBQ 11/09/18 09:00 12/03/18 09:59 11/09/18 22:37 Levothyroxine Sodium (Synthroid) 50 mcg DAILY@0630 ORAL 11/04/18 06:30 12/04/18 06:29 11/10/18 06:29 Multivitamins (Multivitamins) 1 tab DAILY ORAL 11/05/18 09:00 12/05/18 08:59 11/09/18 08:12 Nateglinide (Starlix) 60 mg TIAC ORAL 11/08/18 16:30 12/08/18 16:29 11/10/18 06:29 Ondansetron HCl (Zofran) 4 mg Q6H PRN IVP Nausea & Vomiting 11/04/18 01:45 12/02/18 13:44 Pantoprazole (Protonix) 40 mg EVERY 12 HOURS ORAL 11/04/18 09:00 12/03/18 14:29 11/09/18 21:40 Polyethylene Glycol (Miralax) 17 gm DAILYPRN PRN ORAL Constipation 11/04/18 13:45 12/02/18 13:44 Tamsulosin HCl (Flomax) 0.4 mg BEDTIME ORAL 11/04/18 21:00 12/04/18 20:59 11/09/18 21:40 Zinc Sulfate (Zinc Sulfate) 220 mg DAILY ORAL 11/05/18 09:00 12/05/18 08:59 11/09/18 08:12 Yevgeniy Vinson MD Nov 10, 2018 06:45
[2018-11-10 06:56] LABS: BASOPHILS % (AUTO) 1.3 % (0.0-2.0); EOSINOPHILS % (AUTO) 2.3 % (0.0-3.0); HEMATOCRIT 27.9 % (42.0-52.0); HEMOGLOBIN 9.1 G/DL (14.2-18.0); LYMPHOCYTES % (AUTO) 17.4 % (20.0-45.0); MEAN CORPUSCULAR VOLUME 84 FL (80-99); MONOCYTES % (AUTO) 12.5 % (1.0-10.0); NEUTROPHILS % (AUTO) 66.6 % (45.0-75.0); PLATELET COUNT 534 K/UL (150-450); RED BLOOD COUNT 3.33 M/UL (4.70-6.10)
[2018-11-10 07:04] LABS: ANION GAP 10 mmol/L (5-15); BLOOD UREA NITROGEN 14 mg/dL (7-18); CALCIUM 8.1 MG/DL (8.5-10.1); CARBON DIOXIDE 25 MMOL/L (21-32); CHLORIDE 103 MMOL/L (98-107); CREATININE 1.4 MG/DL (0.55-1.30); SODIUM 138 MMOL/L (136-145)
[2018-11-10 08:00] VITALS: BP 139/87
[2018-11-10] MEDS: Ascorbic Acid 500mg tab ORAL SCH (08:19)
[2018-11-10] MEDS: Zinc Sulfate 220mg cap ORAL SCH (08:19)
[2018-11-10] MEDS: Aspirin EC 81mg tab ORAL SCH (08:19)
[2018-11-10] MEDS: Docusate 100mg cap ORAL SCH ×3 (08:19→16:57)
[2018-11-10] MEDS: Heparin 5000 units/ml inj SUBQ SCH ×2 (08:22→20:50)
[2018-11-10] MEDS: Levemir Flexpen SUBQ SCH ×2 (08:24→21:28)
[2018-11-10 12:00] VITALS: BP 121/79
--- NOTE | 2018-11-10 12:26 | Nephrology Progress Note ---
Assessment/Plan Problem List: (1) ATN (acute tubular necrosis) Assessment: Cr wnl now (2) DKA (diabetic ketoacidoses) (3) Hypertension (4) Hypothyroidism (5) Acute on chronic renal insufficiency Assessment Acute on Chronic renal failure- DKA on admit Diabetic Nephropathy HypoThyroidism HTN Sacral wound Anemia UTI Plan Mag supplement IV as needed Hydrate- BP and BS control Electrolyte check Anemia camp Rocephin per orders and consultants Subjective ROS Limited/Unobtainable: No Constitutional: Reports: malaise Objective Objective Last 24 Hour Vital Signs Date Time Temp Pulse Resp B/P (MAP) Pulse Ox O2 Delivery O2 Flow Rate FiO2 11/10/18 12:00 98.3 80 18 121/79 (93) 97 11/10/18 09:07 Room Air 11/10/18 08:00 98.4 88 18 139/87 (104) 97 11/10/18 05:52 98.1 11/10/18 04:00 98.1 87 18 149/98 (115) 95 11/10/18 00:00 98.3 79 18 136/92 (107) 99 11/09/18 21:00 Room Air 11/09/18 20:00 98.0 85 18 146/99 (115) 98 11/09/18 16:00 97.8 82 19 155/97 (116) 98 Intake and Output 11/09/18 11/10/18 19:00 07:00 Intake Total 1300 ml 480 ml Output Total 1000 ml Balance 1300 ml -520 ml Intake Oral 1300 ml 480 ml Output Urine Total 1000 ml # Voids 9 Laboratory Tests 11/10/18 05:00: White Blood Count 8.0, Red Blood Count 3.33L, Hemoglobin 9.1L, Hematocrit 27.9L , Mean Corpuscular Volume 84, Mean Corpuscular Hemoglobin 27.2, Mean Corpuscular Hemoglobin Concent 32.5, Red Cell Distribution Width 14.0, Platelet Count 534H, Mean Platelet Volume 5.1L, Neutrophils (%) (Auto) 66.6, Lymphocytes (%) (Auto) 17.4L, Monocytes (%) (Auto) 12.5H, Eosinophils (%) (Auto) 2.3, Basophils (%) (Auto) 1.3, Sodium Level 138, Potassium Level 4.0, Chloride Level 103, Carbon Dioxide Level 25, Anion Gap 10, Blood Urea Nitrogen 14, Creatinine 1.4H, Estimat Glomerular Filtration Rate 50.4, Glucose Level 127#H, Calcium Level 8.1L Height (Feet): 5 Height (Inches): 8.00 Weight (Pounds): 170 General Appearance: no apparent distress Objective no change Lefty Zamora MD Nov 10, 2018 12:26
--- NOTE | 2018-11-10 13:03 | Surgery Progress Note ---
Surgery Progress Note Subjective Additional Comments no acute events. comfortable. stable. pending d/c Objective Last 24 Hour Vital Signs Date Time Temp Pulse Resp B/P (MAP) Pulse Ox O2 Delivery O2 Flow Rate FiO2 11/10/18 12:00 98.3 80 18 121/79 (93) 97 11/10/18 09:07 Room Air 11/10/18 08:00 98.4 88 18 139/87 (104) 97 11/10/18 05:52 98.1 11/10/18 04:00 98.1 87 18 149/98 (115) 95 11/10/18 00:00 98.3 79 18 136/92 (107) 99 11/09/18 21:00 Room Air 11/09/18 20:00 98.0 85 18 146/99 (115) 98 11/09/18 16:00 97.8 82 19 155/97 (116) 98 I&O Intake and Output 11/09/18 11/10/18 19:00 07:00 Intake Total 1300 ml 480 ml Output Total 1000 ml Balance 1300 ml -520 ml Intake Oral 1300 ml 480 ml Output Urine Total 1000 ml # Voids 9 Dressing: saturated Wound: clean Drains: other Cardiovascular: RSR Respiratory: clear Abdomen: soft, present bowel sounds, non-distended Extremities: no tenderness, no cyanosis Laboratory Tests Test 11/10/18 05:00 White Blood Count 8.0 K/UL (4.8-10.8) Red Blood Count 3.33 M/UL (4.70-6.10) L Hemoglobin 9.1 G/DL (14.2-18.0) L Hematocrit 27.9 % (42.0-52.0) L Mean Corpuscular Volume 84 FL (80-99) Mean Corpuscular Hemoglobin 27.2 PG (27.0-31.0) Mean Corpuscular Hemoglobin Concent 32.5 G/DL (32.0-36.0) Red Cell Distribution Width 14.0 % (11.6-14.8) Platelet Count 534 K/UL (150-450) H Mean Platelet Volume 5.1 FL (6.5-10.1) L Neutrophils (%) (Auto) 66.6 % (45.0-75.0) Lymphocytes (%) (Auto) 17.4 % (20.0-45.0) L Monocytes (%) (Auto) 12.5 % (1.0-10.0) H Eosinophils (%) (Auto) 2.3 % (0.0-3.0) Basophils (%) (Auto) 1.3 % (0.0-2.0) Sodium Level 138 MMOL/L (136-145) Potassium Level 4.0 MMOL/L (3.5-5.1) Chloride Level 103 MMOL/L (98-107) Carbon Dioxide Level 25 MMOL/L (21-32) Anion Gap 10 mmol/L (5-15) Blood Urea Nitrogen 14 mg/dL (7-18) Creatinine 1.4 MG/DL (0.55-1.30) H Estimat Glomerular Filtration Rate 50.4 mL/min (>60) Glucose Level 127 MG/DL (74-106) #H Calcium Level 8.1 MG/DL (8.5-10.1) L Plan Problems: (1) Diabetes mellitus Assessment & Plan: A1c 14 glu improved cont with Rx DAILY ESTIMATED NEEDS: Needs based on Wound, DM/ 70kg 25-30 kcals/kg 4542-7621 total kcals 1.25-1.5 g protein/kg 87-105 g total protein 25-30 mL/kg 9891-7239 total fluid mLs NUTRITION DIAGNOSIS: * Increased kcal/prot intake needs R/T wound healing as evidenced by pt admitted w/ full thickness pressure injury at sacrococcyx. * Altered nutrition related lab values R/T DKA as evidenced by elev BG of 928* upon adm -> POC glu improved:224 132 102 190 145, A1C of 15.5, 4+ urine glucose, off insulin drip. CURRENT DIET:CCHO MED PO DIET RECOMMENDATIONS: CCHO MED, LOW NA/ texture as tolerated ADDITIONAL RECOMMENDATIONS: * Calibrated bedscale wt for accurate CBW * Wound healing: Continue MVI x 1, Vit C 500mg x1, ZnSO4 220mg QD : Add Hari 1pkt BID * Monitor BGs closely- improved since adm * DM diet education provided on 11/06 * Monitor lytes, replete as needed (2) Hypothyroidism Assessment & Plan: levels noted stable (3) Hypertension (4) DKA (diabetic ketoacidoses) (5) ATN (acute tubular necrosis) (6) Acute on chronic renal insufficiency (7) Sacral wound Assessment & Plan: Pt presented on admission with full thickness pressure injury sacrococcygeal area. Base of wound with trace biofilm,(+) maceration along borders (L)1cm x (W00.5cm x (D)0.2cm. Darker skin tone without induration periwound . Darker skin tone without induration or erythema periwound to both ischial regions.Soft mass upper back .Pt verbalized tenderness when palpated.No erythema noted. Both heels are firm and blanchable. Pt educated on wound prevention and encouraged to frequently turn on sides to relive pressure off buttocks. Tx.Plan: Cleanse with saline. Apply Triad Paste. Cover with Optifoam drsg. Change every 3 days and prn. Apply Cavilon Skin Barrier to Both heels. Off-load heels with Pillow. Cue and encourage pt to Reposition at least every 2 hours or as tolerated. Help patient with reposition q2h (8) Leukocytosis Assessment & Plan: unlikely related to wounds resolved will monitor will follow with recs okay to d/c from surgical standpoint d/c planning Josias Lipscomb Nov 10, 2018 13:03
--- NOTE | 2018-11-10 14:57 | Cardiology Report ---
APPROVED REPORT EXAM: Two-dimensional and M-mode echocardiogram with Doppler and color Doppler. INDICATION Chest Pain M-Mode DIMENSIONS IVSd1.2 (0.7-1.1cm)Left Atrium (MM)3.0 (1.6-4.0cm) LVDd5.3 (3.5-5.6cm)Aortic Root4.0 (2.0-3.7cm) PWd0.8 (0.7-1.1cm)Aortic Cusp Exc.1.9 (1.5-2.0cm) IVSs1.0 cm LVDs3.8 (2.5-4.0cm) PWs1.2 cm Normal left ventricular chamber size, systolic function and wall motion . Left ventricular ejection fraction estimated to be 55 %. No evidence of left ventricular hypertrophy. Trivial pricardial effusion . All other cardiac chamber sizes are within normal limits. Focal aortic valve sclerosis with adequate cusp excursion. Thickened mitral valve leaflets with normal excursion. Mitral annulus and aortic root calcification. Normal pulmonic valve structure. Normal tricuspid valve structure. IVC at normal size with physiologic collapse. A color flow and spectral Doppler study was performed and revealed: Mild aortic regurgitation. Mild mitral regurgitation. Mitral diastolic velocities suggest reduced left ventricular relaxation c/w mild LV diastolic dysfunction (Grade I ). Trace tricuspid regurgitation. Tricuspid systolic velocities suggests peak right ventricular systolic pressure of 25 mmHg.
[2018-11-10 15:53] VITALS: BP 128/80
--- NOTE | 2018-11-10 16:09 | Pulmonology Progress Note ---
Assessment/Plan Problems: (1) DKA (diabetic ketoacidoses) (2) Sacral wound (3) ATN (acute tubular necrosis) (4) Acute on chronic renal insufficiency (5) Diabetes mellitus (6) Hypothyroidism (7) Hypertension Assessment/Plan BS controlled with Levemir BID improving dka resolved bp controlled stress study done wound care dc to previous setting. Subjective ROS Limited/Unobtainable: No Constitutional: Reports: no symptoms HEENT: Repors: no symptoms Allergies: Coded Allergies: No Known Allergies (Unverified , 11/02/18) Objective Last 24 Hour Vital Signs Date Time Temp Pulse Resp B/P (MAP) Pulse Ox O2 Delivery O2 Flow Rate FiO2 11/10/18 15:53 98.0 77 18 128/80 (96) 98 11/10/18 14:04 98.3 11/10/18 12:00 98.3 80 18 121/79 (93) 97 11/10/18 09:07 Room Air 11/10/18 08:00 98.4 88 18 139/87 (104) 97 11/10/18 04:00 98.1 87 18 149/98 (115) 95 11/10/18 00:00 98.3 79 18 136/92 (107) 99 11/09/18 21:00 Room Air 11/09/18 20:00 98.0 85 18 146/99 (115) 98 Intake and Output 11/09/18 11/10/18 19:00 07:00 Intake Total 1300 ml 480 ml Output Total 1000 ml Balance 1300 ml -520 ml Intake Oral 1300 ml 480 ml Output Urine Total 1000 ml # Voids 9 Objective General Appearance: WD/WN HEENT: normocephalic, atraumatic Respiratory/Chest: chest wall non-tender, normal breath sounds Cardiovascular: normal peripheral pulses, normal rate Abdomen: normal bowel sounds, soft, non tender, no organomegaly, non distended Extremities: no cyanosis Skin: no rash, no lesions, no ulcers Laboratory Tests 11/10/18 05:00: White Blood Count 8.0, Red Blood Count 3.33L, Hemoglobin 9.1L, Hematocrit 27.9L , Mean Corpuscular Volume 84, Mean Corpuscular Hemoglobin 27.2, Mean Corpuscular Hemoglobin Concent 32.5, Red Cell Distribution Width 14.0, Platelet Count 534H, Mean Platelet Volume 5.1L, Neutrophils (%) (Auto) 66.6, Lymphocytes (%) (Auto) 17.4L, Monocytes (%) (Auto) 12.5H, Eosinophils (%) (Auto) 2.3, Basophils (%) (Auto) 1.3, Sodium Level 138, Potassium Level 4.0, Chloride Level 103, Carbon Dioxide Level 25, Anion Gap 10, Blood Urea Nitrogen 14, Creatinine 1.4H, Estimat Glomerular Filtration Rate 50.4, Glucose Level 127#H, Calcium Level 8.1L Current Medications Medications (Trade) Dose Ordered Sig/Oscar Route PRN Reason Start Time Stop Time Status Last Admin Dose Admin Acetaminophen (Tylenol) 650 mg Q4H PRN ORAL Mild Pain/Temp > 100.5 11/04/18 11:15 12/02/18 11:14 11/08/18 08:19 Acetaminophen/ Hydrocodone Bitart ([place] 10/325) 1 tab Q6H PRN ORAL For Pain 11/08/18 13:20 11/15/18 13:19 11/10/18 13:34 Ascorbic Acid (Vitamin C) 500 mg DAILY ORAL 11/05/18 09:00 12/05/18 08:59 11/10/18 08:19 Aspirin (Ecotrin) 81 mg DAILY ORAL 11/04/18 09:00 12/04/18 08:59 11/10/18 08:19 Atorvastatin Calcium (Lipitor) 20 mg BEDTIME ORAL 11/05/18 21:00 12/05/18 20:59 11/09/18 21:40 Clonidine HCl (Catapres Tab) 0.1 mg Q4H PRN ORAL bp over 165 syst 11/04/18 02:30 12/03/18 14:29 Dextrose (Dextrose 50%) 25 ml Q30M PRN IV Hypoglycemia 11/04/18 00:45 12/03/18 10:01 Dextrose (Dextrose 50%) 50 ml Q30M PRN IV hypoglycemia 11/04/18 00:45 12/03/18 10:14 Docusate Sodium (Colace) 100 mg THREE TIMES A DAY ORAL 11/04/18 09:00 12/03/18 17:59 11/10/18 12:22 Heparin Sodium (Porcine) (Heparin 5000 units/ml) 5,000 units EVERY 12 HOURS SUBQ 11/05/18 21:00 12/02/18 20:59 11/10/18 08:22 Insulin Aspart (NovoLOG) BEFORE MEALS AND HS SUBQ 11/04/18 06:30 12/03/18 11:29 11/10/18 11:17 Insulin Detemir (Levemir) 18 units EVERY 12 HOURS SUBQ 11/09/18 09:00 12/03/18 09:59 11/10/18 08:24 Levothyroxine Sodium (Synthroid) 50 mcg DAILY@0630 ORAL 11/04/18 06:30 12/04/18 06:29 11/10/18 06:29 Multivitamins (Multivitamins) 1 tab DAILY ORAL 11/05/18 09:00 12/05/18 08:59 11/10/18 08:19 Nateglinide (Starlix) 60 mg TIAC ORAL 11/08/18 16:30 12/08/18 16:29 11/10/18 11:18 Ondansetron HCl (Zofran) 4 mg Q6H PRN IVP Nausea & Vomiting 11/04/18 01:45 12/02/18 13:44 Pantoprazole (Protonix) 40 mg EVERY 12 HOURS ORAL 11/04/18 09:00 12/03/18 14:29 11/10/18 08:19 Polyethylene Glycol (Miralax) 17 gm DAILYPRN PRN ORAL Constipation 11/04/18 13:45 12/02/18 13:44 Tamsulosin HCl (Flomax) 0.4 mg BEDTIME ORAL 11/04/18 21:00 12/04/18 20:59 11/09/18 21:40 Zinc Sulfate (Zinc Sulfate) 220 mg DAILY ORAL 11/05/18 09:00 12/05/18 08:59 11/10/18 08:19 Jade Mann MD Nov 10, 2018 16:09
--- NOTE | 2018-11-10 18:18 | Internal Med Progress Note ---
Subjective Date of Service: Nov 10, 2018 Physician Name Sudhir Jones Attending Physician Gómez Mancini MD Current Medications Medications (Trade) Dose Ordered Sig/Oscar Route PRN Reason Start Time Stop Time Status Last Admin Dose Admin Acetaminophen (Tylenol) 650 mg Q4H PRN ORAL Mild Pain/Temp > 100.5 11/04/18 11:15 12/02/18 11:14 11/08/18 08:19 Acetaminophen/ Hydrocodone Bitart ([place] 10/325) 1 tab Q6H PRN ORAL For Pain 11/08/18 13:20 11/15/18 13:19 11/10/18 13:34 Ascorbic Acid (Vitamin C) 500 mg DAILY ORAL 11/05/18 09:00 12/05/18 08:59 11/10/18 08:19 Aspirin (Ecotrin) 81 mg DAILY ORAL 11/04/18 09:00 12/04/18 08:59 11/10/18 08:19 Atorvastatin Calcium (Lipitor) 20 mg BEDTIME ORAL 11/05/18 21:00 12/05/18 20:59 11/09/18 21:40 Clonidine HCl (Catapres Tab) 0.1 mg Q4H PRN ORAL bp over 165 syst 11/04/18 02:30 12/03/18 14:29 Dextrose (Dextrose 50%) 25 ml Q30M PRN IV Hypoglycemia 11/04/18 00:45 12/03/18 10:01 Dextrose (Dextrose 50%) 50 ml Q30M PRN IV hypoglycemia 11/04/18 00:45 12/03/18 10:14 Docusate Sodium (Colace) 100 mg THREE TIMES A DAY ORAL 11/04/18 09:00 12/03/18 17:59 11/10/18 16:57 Heparin Sodium (Porcine) (Heparin 5000 units/ml) 5,000 units EVERY 12 HOURS SUBQ 11/05/18 21:00 12/02/18 20:59 11/10/18 08:22 Insulin Aspart (NovoLOG) BEFORE MEALS AND HS SUBQ 11/04/18 06:30 12/03/18 11:29 11/10/18 16:58 Insulin Detemir (Levemir) 18 units EVERY 12 HOURS SUBQ 11/09/18 09:00 12/03/18 09:59 11/10/18 08:24 Levothyroxine Sodium (Synthroid) 50 mcg DAILY@0630 ORAL 11/04/18 06:30 12/04/18 06:29 11/10/18 06:29 Multivitamins (Multivitamins) 1 tab DAILY ORAL 11/05/18 09:00 12/05/18 08:59 11/10/18 08:19 Nateglinide (Starlix) 60 mg TIAC ORAL 11/08/18 16:30 12/08/18 16:29 11/10/18 16:57 Ondansetron HCl (Zofran) 4 mg Q6H PRN IVP Nausea & Vomiting 11/04/18 01:45 12/02/18 13:44 Pantoprazole (Protonix) 40 mg EVERY 12 HOURS ORAL 11/04/18 09:00 12/03/18 14:29 11/10/18 08:19 Polyethylene Glycol (Miralax) 17 gm DAILYPRN PRN ORAL Constipation 11/04/18 13:45 12/02/18 13:44 Tamsulosin HCl (Flomax) 0.4 mg BEDTIME ORAL 11/04/18 21:00 12/04/18 20:59 11/09/18 21:40 Zinc Sulfate (Zinc Sulfate) 220 mg DAILY ORAL 11/05/18 09:00 12/05/18 08:59 11/10/18 08:19 Allergies: Coded Allergies: No Known Allergies (Unverified , 11/02/18) ROS Limited/Unobtainable: No Constitutional: Reports: no symptoms HEENT: Reports: no symptoms Cardiovascular: Reports: no symptoms Respiratory: Reports: no symptoms Gastrointestinal/Abdominal: Reports: no symptoms Genitourinary: Reports: no symptoms Neurologic/Psychiatric: Reports: no symptoms Subjective 68 YO M admitted with diabetic ketoacidosis and hyperglycemia. Cover for Int Gato-DR Mancini. Objective Last Vital Signs Date Time Temp Pulse Resp B/P (MAP) Pulse Ox O2 Delivery O2 Flow Rate FiO2 11/10/18 15:53 98.0 77 18 128/80 (96) 98 11/10/18 09:07 Room Air 11/02/18 11:42 2.0 Laboratory Tests Test 11/10/18 05:00 White Blood Count 8.0 K/UL (4.8-10.8) Red Blood Count 3.33 M/UL (4.70-6.10) L Hemoglobin 9.1 G/DL (14.2-18.0) L Hematocrit 27.9 % (42.0-52.0) L Mean Corpuscular Volume 84 FL (80-99) Mean Corpuscular Hemoglobin 27.2 PG (27.0-31.0) Mean Corpuscular Hemoglobin Concent 32.5 G/DL (32.0-36.0) Red Cell Distribution Width 14.0 % (11.6-14.8) Platelet Count 534 K/UL (150-450) H Mean Platelet Volume 5.1 FL (6.5-10.1) L Neutrophils (%) (Auto) 66.6 % (45.0-75.0) Lymphocytes (%) (Auto) 17.4 % (20.0-45.0) L Monocytes (%) (Auto) 12.5 % (1.0-10.0) H Eosinophils (%) (Auto) 2.3 % (0.0-3.0) Basophils (%) (Auto) 1.3 % (0.0-2.0) Sodium Level 138 MMOL/L (136-145) Potassium Level 4.0 MMOL/L (3.5-5.1) Chloride Level 103 MMOL/L (98-107) Carbon Dioxide Level 25 MMOL/L (21-32) Anion Gap 10 mmol/L (5-15) Blood Urea Nitrogen 14 mg/dL (7-18) Creatinine 1.4 MG/DL (0.55-1.30) H Estimat Glomerular Filtration Rate 50.4 mL/min (>60) Glucose Level 127 MG/DL (74-106) #H Calcium Level 8.1 MG/DL (8.5-10.1) L Intake and Output 11/09/18 11/10/18 19:00 07:00 Intake Total 1300 ml 480 ml Output Total 1000 ml Balance 1300 ml -520 ml Intake Oral 1300 ml 480 ml Output Urine Total 1000 ml # Voids 9 Objective PHYSICAL EXAMINATION: GENERAL: The patient is a well-developed and well-nourished male, in no apparent distress. HEENT: Eyes, pupils are equal and responsive to light and accommodation. Extraocular movements are intact. NECK: Supple without lymphadenopathy. CHEST: Lungs are clear to auscultation bilaterally without wheezes or rales. CARDIOVASCULAR: Regular rhythm and rate. S1 and S2 are normal without murmurs, rubs, or gallops. ABDOMEN: Soft, nontender, and nondistended. Positive bowel sounds. No evidence of hepatosplenomegaly. Currently, no rebound or guarding noted. EXTREMITIES: Negative for clubbing, cyanosis, or edema. RECTAL/GENITAL: Not performed. NEUROLOGIC: Cranial nerves II through XII are grossly intact without focal deficits. Assessment/Plan Assessment/Plan Assessment: 1. Diabetes II 2. Diabetic ketoacidosis 3. hyponatremia 4. hyperglycemia 5. hypertension 6. hypothyroidism 7. diabetic neuropathy 8. Hypercholesterolemia TREATMENT: 1. Diabetic ketoacidosis/Hyperglycemia. Continue levemir and novolog sliding scale per endocrinology. Latest fingerstick readings are improved. 2. Acute renal failure. This may be secondary to diabetic ketoacidosis as above. 3. Hyponatremia. The patient has been started on normal saline intravenously. 4. Hypertension. Continue amlodipine and lisinopril as above. Continue metoprolol as above. 5. Hypothyroidism. Continue Levoxyl as above. 6. Hypercholesterolemia. Continue atorvastatin as above. 7. Discharge planning Sudhir Jones MD Nov 10, 2018 18:18
[2018-11-10 20:00] VITALS: BP 158/101
[2018-11-10] MEDS: Tamsulosin 0.4mg cap ORAL SCH (20:49)
[2018-11-10] MEDS: Atorvastatin 20mg tab ORAL SCH (20:49)
[2018-11-11] VITALS: BP 159/93
[2018-11-11 04:00] VITALS: BP 128/78
[2018-11-11] MEDS: NovoLOG Insulin Flexpen SUBQ SCH ×4 (06:15→20:54)
[2018-11-11] MEDS: Nateglinide 60mg tab ORAL SCH ×3 (06:53→17:10)
[2018-11-11] MEDS: HYDROcodone/Acetamin 10/325 tab ORAL PRN ×3 (06:57→23:05)
[2018-11-11 07:46] LABS: BASOPHILS % (AUTO) 1.6 % (0.0-2.0); EOSINOPHILS % (AUTO) 1.8 % (0.0-3.0); HEMOGLOBIN 8.8 G/DL (14.2-18.0); LYMPHOCYTES % (AUTO) 25.7 % (20.0-45.0); MEAN CORPUSCULAR VOLUME 84 FL (80-99); MONOCYTES % (AUTO) 9.8 % (1.0-10.0); NEUTROPHILS % (AUTO) 61.2 % (45.0-75.0); PLATELET COUNT 609 K/UL (150-450); RED CELL DISTRIBUTION WIDTH 14.3 % (11.6-14.8); WHITE BLOOD COUNT 7.3 K/UL (4.8-10.8)
[2018-11-11 08:00] VITALS: BP 157/101
--- NOTE | 2018-11-11 08:05 | General Progress Note ---
Assessment/Plan Problem List: (1) DKA (diabetic ketoacidoses) ICD Codes: E13.10 - Other specified diabetes mellitus with ketoacidosis without coma SNOMED: 66924980, 333931581 (2) Diabetes mellitus ICD Codes: E11.9 - Type 2 diabetes mellitus without complications SNOMED: 32047839 (3) Hypothyroidism ICD Codes: E03.9 - Hypothyroidism, unspecified SNOMED: 42621999 (4) Hypertension ICD Codes: I10 - Essential (primary) hypertension SNOMED: 19009221 Assessment/Plan: glucose values are stable continue Levemir 18 units bid continue Starlix 60 mg ac tid continue Levothyroxine 50 mcg daily Subjective Allergies: Coded Allergies: No Known Allergies (Unverified , 11/02/18) All Systems: reviewed and negative except above Subjective events noted glucose values are stable Item Value Date Time Bedside Blood Glucose 96 mg/dl 11/11/18 0624 Bedside Blood Glucose 131 mg/dl H 11/10/18 2129 Bedside Blood Glucose 141 mg/dl H 11/10/18 1658 Bedside Blood Glucose 224 mg/dl H 11/10/18 1117 Bedside Blood Glucose 132 mg/dl H 11/10/18 0824 Objective Last 24 Hour Vital Signs Date Time Temp Pulse Resp B/P (MAP) Pulse Ox O2 Delivery O2 Flow Rate FiO2 11/11/18 07:27 97.8 11/11/18 04:00 97.8 76 18 128/78 (95) 98 11/11/18 04:00 97.8 76 18 128/78 (95) 11/11/18 00:00 98.2 84 20 159/93 (115) 98 11/10/18 22:28 161/103 11/10/18 21:00 Room Air 11/10/18 20:00 98.1 87 20 158/101 (120) 97 11/10/18 15:53 98.0 77 18 128/80 (96) 98 11/10/18 12:00 98.3 80 18 121/79 (93) 97 11/10/18 09:07 Room Air Intake and Output 11/10/18 11/11/18 19:00 07:00 Intake Total 1280 ml 480 ml Output Total 1600 ml Balance 1280 ml -1120 ml Intake Oral 1280 ml 480 ml Output Urine Total 1600 ml # Voids 6 2 # Bowel Movements 1 Laboratory Tests 11/11/18 05:33: White Blood Count 7.3, Red Blood Count 3.20L, Hemoglobin 8.8L, Hematocrit 27.0L , Mean Corpuscular Volume 84, Mean Corpuscular Hemoglobin 27.5, Mean Corpuscular Hemoglobin Concent 32.5, Red Cell Distribution Width 14.3, Platelet Count 609H, Mean Platelet Volume 5.2L, Neutrophils (%) (Auto) 61.2, Lymphocytes (%) (Auto) 25.7, Monocytes (%) (Auto) 9.8, Eosinophils (%) (Auto) 1.8, Basophils (%) (Auto) 1.6, Sodium Level [Pending], Potassium Level [Pending], Chloride Level [Pending], Carbon Dioxide Level [Pending], Blood Urea Nitrogen [ Pending], Creatinine [Pending], Estimat Glomerular Filtration Rate [Pending], Glucose Level [Pending], Calcium Level [Pending] Height (Feet): 5 Height (Inches): 8.00 Weight (Pounds): 169 General Appearance: no apparent distress Neck: normal alignment Cardiovascular: normal rate Respiratory/Chest: lungs clear Abdomen: normal bowel sounds Pelvis: normal external exam Edema: no edema noted Arm (L), no edema noted Arm (R), no edema noted Leg (L), no edema noted Leg (R), no edema noted Pedal (L), no edema noted Pedal (R), no edema noted Generalized Objective Current Medications Medications (Trade) Dose Ordered Sig/Oscar Route PRN Reason Start Time Stop Time Status Last Admin Dose Admin Acetaminophen (Tylenol) 650 mg Q4H PRN ORAL Mild Pain/Temp > 100.5 11/04/18 11:15 12/02/18 11:14 11/08/18 08:19 Acetaminophen/ Hydrocodone Bitart ([place] 10/325) 1 tab Q6H PRN ORAL For Pain 11/08/18 13:20 11/15/18 13:19 11/11/18 06:57 Ascorbic Acid (Vitamin C) 500 mg DAILY ORAL 11/05/18 09:00 12/05/18 08:59 11/10/18 08:19 Aspirin (Ecotrin) 81 mg DAILY ORAL 11/04/18 09:00 12/04/18 08:59 11/10/18 08:19 Atorvastatin Calcium (Lipitor) 20 mg BEDTIME ORAL 11/05/18 21:00 12/05/18 20:59 11/10/18 20:49 Clonidine HCl (Catapres Tab) 0.1 mg Q4H PRN ORAL bp over 165 syst 11/04/18 02:30 12/03/18 14:29 11/10/18 22:28 Dextrose (Dextrose 50%) 25 ml Q30M PRN IV Hypoglycemia 11/04/18 00:45 12/03/18 10:01 Dextrose (Dextrose 50%) 50 ml Q30M PRN IV hypoglycemia 11/04/18 00:45 12/03/18 10:14 Docusate Sodium (Colace) 100 mg THREE TIMES A DAY ORAL 11/04/18 09:00 12/03/18 17:59 11/10/18 16:57 Heparin Sodium (Porcine) (Heparin 5000 units/ml) 5,000 units EVERY 12 HOURS SUBQ 11/05/18 21:00 12/02/18 20:59 11/10/18 20:50 Insulin Aspart (NovoLOG) BEFORE MEALS AND HS SUBQ 11/04/18 06:30 12/03/18 11:29 11/10/18 21:29 Insulin Detemir (Levemir) 18 units EVERY 12 HOURS SUBQ 11/09/18 09:00 12/03/18 09:59 11/10/18 21:28 Levothyroxine Sodium (Synthroid) 50 mcg DAILY@0630 ORAL 11/04/18 06:30 12/04/18 06:29 11/11/18 06:53 Multivitamins (Multivitamins) 1 tab DAILY ORAL 11/05/18 09:00 12/05/18 08:59 11/10/18 08:19 Nateglinide (Starlix) 60 mg TIAC ORAL 11/08/18 16:30 12/08/18 16:29 11/11/18 06:53 Ondansetron HCl (Zofran) 4 mg Q6H PRN IVP Nausea & Vomiting 11/04/18 01:45 12/02/18 13:44 Pantoprazole (Protonix) 40 mg EVERY 12 HOURS ORAL 11/04/18 09:00 12/03/18 14:29 11/10/18 20:48 Polyethylene Glycol (Miralax) 17 gm DAILYPRN PRN ORAL Constipation 11/04/18 13:45 12/02/18 13:44 Tamsulosin HCl (Flomax) 0.4 mg BEDTIME ORAL 11/04/18 21:00 12/04/18 20:59 11/10/18 20:49 Zinc Sulfate (Zinc Sulfate) 220 mg DAILY ORAL 11/05/18 09:00 12/05/18 08:59 11/10/18 08:19 Yevgeniy Vinson MD Nov 11, 2018 08:05
[2018-11-11 08:14] LABS: ANION GAP 6 mmol/L (5-15); BLOOD UREA NITROGEN 17 mg/dL (7-18); CALCIUM 8.3 MG/DL (8.5-10.1); CARBON DIOXIDE 28 MMOL/L (21-32); CHLORIDE 103 MMOL/L (98-107); CREATININE 1.2 MG/DL (0.55-1.30); POTASSIUM 4.4 MMOL/L (3.5-5.1); SODIUM 137 MMOL/L (136-145)
[2018-11-11] MEDS: Ascorbic Acid 500mg tab ORAL SCH (08:46)
[2018-11-11] MEDS: Aspirin EC 81mg tab ORAL SCH (08:46)
[2018-11-11] MEDS: Zinc Sulfate 220mg cap ORAL SCH (08:46)
[2018-11-11] MEDS: Docusate 100mg cap ORAL SCH ×3 (08:46→17:10)
[2018-11-11] MEDS: Levemir Flexpen SUBQ SCH ×2 (08:49→20:52)
[2018-11-11] MEDS ORDERED: D5 1/2NS 1000ml IV ONE (08:54)
[2018-11-11] MEDS: Heparin 5000 units/ml inj SUBQ SCH ×2 (08:57→20:51)
--- NOTE | 2018-11-11 11:23 | Pulmonology Progress Note ---
Assessment/Plan Problems: (1) DKA (diabetic ketoacidoses) (2) Sacral wound (3) ATN (acute tubular necrosis) (4) Acute on chronic renal insufficiency (5) Diabetes mellitus (6) Hypothyroidism (7) Hypertension Assessment/Plan BS controlled with Levemir BID improving dka resolved bp controlled stress study done wound care dc to previous setting. Subjective ROS Limited/Unobtainable: No Constitutional: Reports: no symptoms HEENT: Repors: no symptoms Allergies: Coded Allergies: No Known Allergies (Unverified , 11/02/18) Objective Last 24 Hour Vital Signs Date Time Temp Pulse Resp B/P (MAP) Pulse Ox O2 Delivery O2 Flow Rate FiO2 11/11/18 08:35 Room Air 11/11/18 08:00 97.7 89 18 157/101 (119) 97 11/11/18 07:27 97.8 11/11/18 04:00 97.8 76 18 128/78 (95) 98 11/11/18 04:00 97.8 76 18 128/78 (95) 11/11/18 00:00 98.2 84 20 159/93 (115) 98 11/10/18 22:28 161/103 11/10/18 21:00 Room Air 11/10/18 20:00 98.1 87 20 158/101 (120) 97 11/10/18 15:53 98.0 77 18 128/80 (96) 98 11/10/18 12:00 98.3 80 18 121/79 (93) 97 Intake and Output 11/10/18 11/11/18 19:00 07:00 Intake Total 1280 ml 480 ml Output Total 1600 ml Balance 1280 ml -1120 ml Intake Oral 1280 ml 480 ml Output Urine Total 1600 ml # Voids 6 2 # Bowel Movements 1 Objective General Appearance: WD/WN HEENT: normocephalic, atraumatic Respiratory/Chest: chest wall non-tender, normal breath sounds Cardiovascular: normal peripheral pulses, normal rate Abdomen: normal bowel sounds, soft, non tender, no organomegaly, non distended Extremities: no cyanosis Skin: no rash, no lesions, no ulcers Laboratory Tests 11/11/18 05:33: White Blood Count 7.3, Red Blood Count 3.20L, Hemoglobin 8.8L, Hematocrit 27.0L , Mean Corpuscular Volume 84, Mean Corpuscular Hemoglobin 27.5, Mean Corpuscular Hemoglobin Concent 32.5, Red Cell Distribution Width 14.3, Platelet Count 609H, Mean Platelet Volume 5.2L, Neutrophils (%) (Auto) 61.2, Lymphocytes (%) (Auto) 25.7, Monocytes (%) (Auto) 9.8, Eosinophils (%) (Auto) 1.8, Basophils (%) (Auto) 1.6, Sodium Level 137, Potassium Level 4.4, Chloride Level 103, Carbon Dioxide Level 28, Anion Gap 6, Blood Urea Nitrogen 17, Creatinine 1.2, Estimat Glomerular Filtration Rate > 60, Glucose Level 82, Calcium Level 8.3L Current Medications Medications (Trade) Dose Ordered Sig/Oscar Route PRN Reason Start Time Stop Time Status Last Admin Dose Admin Acetaminophen (Tylenol) 650 mg Q4H PRN ORAL Mild Pain/Temp > 100.5 11/04/18 11:15 12/02/18 11:14 11/08/18 08:19 Acetaminophen/ Hydrocodone Bitart ([place] 10/325) 1 tab Q6H PRN ORAL For Pain 11/08/18 13:20 11/15/18 13:19 11/11/18 06:57 Ascorbic Acid (Vitamin C) 500 mg DAILY ORAL 11/05/18 09:00 12/05/18 08:59 11/11/18 08:46 Aspirin (Ecotrin) 81 mg DAILY ORAL 11/04/18 09:00 12/04/18 08:59 11/11/18 08:46 Atorvastatin Calcium (Lipitor) 20 mg BEDTIME ORAL 11/05/18 21:00 12/05/18 20:59 11/10/18 20:49 Clonidine HCl (Catapres Tab) 0.1 mg Q4H PRN ORAL bp over 165 syst 11/04/18 02:30 12/03/18 14:29 11/10/18 22:28 Dextrose (Dextrose 50%) 25 ml Q30M PRN IV Hypoglycemia 11/04/18 00:45 12/03/18 10:01 Dextrose (Dextrose 50%) 50 ml Q30M PRN IV hypoglycemia 11/04/18 00:45 12/03/18 10:14 Docusate Sodium (Colace) 100 mg THREE TIMES A DAY ORAL 11/04/18 09:00 12/03/18 17:59 11/11/18 08:46 Heparin Sodium (Porcine) (Heparin 5000 units/ml) 5,000 units EVERY 12 HOURS SUBQ 11/05/18 21:00 12/02/18 20:59 11/11/18 08:57 Insulin Aspart (NovoLOG) BEFORE MEALS AND HS SUBQ 11/04/18 06:30 12/03/18 11:29 11/10/18 21:29 Insulin Detemir (Levemir) 18 units EVERY 12 HOURS SUBQ 11/09/18 09:00 12/03/18 09:59 11/11/18 08:49 Levothyroxine Sodium (Synthroid) 50 mcg DAILY@0630 ORAL 11/04/18 06:30 12/04/18 06:29 11/11/18 06:53 Multivitamins (Multivitamins) 1 tab DAILY ORAL 11/05/18 09:00 12/05/18 08:59 11/11/18 08:46 Nateglinide (Starlix) 60 mg TIAC ORAL 11/08/18 16:30 12/08/18 16:29 11/11/18 06:53 Ondansetron HCl (Zofran) 4 mg Q6H PRN IVP Nausea & Vomiting 11/04/18 01:45 12/02/18 13:44 Pantoprazole (Protonix) 40 mg EVERY 12 HOURS ORAL 11/04/18 09:00 12/03/18 14:29 11/11/18 08:46 Polyethylene Glycol (Miralax) 17 gm DAILYPRN PRN ORAL Constipation 11/04/18 13:45 12/02/18 13:44 Tamsulosin HCl (Flomax) 0.4 mg BEDTIME ORAL 11/04/18 21:00 12/04/18 20:59 11/10/18 20:49 Zinc Sulfate (Zinc Sulfate) 220 mg DAILY ORAL 11/05/18 09:00 12/05/18 08:59 11/11/18 08:46 Jade Mann MD Nov 11, 2018 11:22
[2018-11-11 12:00] VITALS: BP 159/98
--- NOTE | 2018-11-11 13:11 | Surgery Progress Note ---
Surgery Progress Note Subjective Additional Comments no acute events. stable. comfortable. no complaints. mild headache at times but feels okay Objective Last 24 Hour Vital Signs Date Time Temp Pulse Resp B/P (MAP) Pulse Ox O2 Delivery O2 Flow Rate FiO2 11/11/18 12:00 98.2 86 20 159/98 (118) 97 11/11/18 08:35 Room Air 11/11/18 08:00 97.7 89 18 157/101 (119) 97 11/11/18 07:27 97.8 11/11/18 04:00 97.8 76 18 128/78 (95) 98 11/11/18 04:00 97.8 76 18 128/78 (95) 11/11/18 00:00 98.2 84 20 159/93 (115) 98 11/10/18 22:28 161/103 11/10/18 21:00 Room Air 11/10/18 20:00 98.1 87 20 158/101 (120) 97 11/10/18 15:53 98.0 77 18 128/80 (96) 98 I&O Intake and Output 11/10/18 11/11/18 19:00 07:00 Intake Total 1280 ml 480 ml Output Total 1600 ml Balance 1280 ml -1120 ml Intake Oral 1280 ml 480 ml Output Urine Total 1600 ml # Voids 6 2 # Bowel Movements 1 Dressing: dry Wound: clean Cardiovascular: RSR Respiratory: clear Abdomen: soft, flat, present bowel sounds, non-distended Extremities: no tenderness, no cyanosis Laboratory Tests Test 11/11/18 05:33 White Blood Count 7.3 K/UL (4.8-10.8) Red Blood Count 3.20 M/UL (4.70-6.10) L Hemoglobin 8.8 G/DL (14.2-18.0) L Hematocrit 27.0 % (42.0-52.0) L Mean Corpuscular Volume 84 FL (80-99) Mean Corpuscular Hemoglobin 27.5 PG (27.0-31.0) Mean Corpuscular Hemoglobin Concent 32.5 G/DL (32.0-36.0) Red Cell Distribution Width 14.3 % (11.6-14.8) Platelet Count 609 K/UL (150-450) H Mean Platelet Volume 5.2 FL (6.5-10.1) L Neutrophils (%) (Auto) 61.2 % (45.0-75.0) Lymphocytes (%) (Auto) 25.7 % (20.0-45.0) Monocytes (%) (Auto) 9.8 % (1.0-10.0) Eosinophils (%) (Auto) 1.8 % (0.0-3.0) Basophils (%) (Auto) 1.6 % (0.0-2.0) Sodium Level 137 MMOL/L (136-145) Potassium Level 4.4 MMOL/L (3.5-5.1) Chloride Level 103 MMOL/L (98-107) Carbon Dioxide Level 28 MMOL/L (21-32) Anion Gap 6 mmol/L (5-15) Blood Urea Nitrogen 17 mg/dL (7-18) Creatinine 1.2 MG/DL (0.55-1.30) Estimat Glomerular Filtration Rate > 60 mL/min (>60) Glucose Level 82 MG/DL (74-106) Calcium Level 8.3 MG/DL (8.5-10.1) L Plan Problems: (1) Diabetes mellitus Assessment & Plan: A1c 14 glu improved cont with Rx DAILY ESTIMATED NEEDS: Needs based on Wound, DM/ 70kg 25-30 kcals/kg 5598-1678 total kcals 1.25-1.5 g protein/kg 87-105 g total protein 25-30 mL/kg 7254-6392 total fluid mLs NUTRITION DIAGNOSIS: * Increased kcal/prot intake needs R/T wound healing as evidenced by pt admitted w/ full thickness pressure injury at sacrococcyx. * Altered nutrition related lab values R/T DKA as evidenced by elev BG of 928* upon adm -> POC glu improved:224 132 102 190 145, A1C of 15.5, 4+ urine glucose, off insulin drip. CURRENT DIET:CCHO MED PO DIET RECOMMENDATIONS: CCHO MED, LOW NA/ texture as tolerated ADDITIONAL RECOMMENDATIONS: * Calibrated bedscale wt for accurate CBW * Wound healing: Continue MVI x 1, Vit C 500mg x1, ZnSO4 220mg QD : Add Hari 1pkt BID * Monitor BGs closely- improved since adm * DM diet education provided on 11/06 * Monitor lytes, replete as needed (2) Hypothyroidism Assessment & Plan: levels noted stable (3) Hypertension (4) DKA (diabetic ketoacidoses) (5) ATN (acute tubular necrosis) (6) Acute on chronic renal insufficiency (7) Sacral wound Assessment & Plan: Pt presented on admission with full thickness pressure injury sacrococcygeal area. Base of wound with trace biofilm,(+) maceration along borders (L)1cm x (W00.5cm x (D)0.2cm. Darker skin tone without induration periwound . Darker skin tone without induration or erythema periwound to both ischial regions.Soft mass upper back .Pt verbalized tenderness when palpated.No erythema noted. Both heels are firm and blanchable. Pt educated on wound prevention and encouraged to frequently turn on sides to relive pressure off buttocks. Tx.Plan: Cleanse with saline. Apply Triad Paste. Cover with Optifoam drsg. Change every 3 days and prn. Apply Cavilon Skin Barrier to Both heels. Off-load heels with Pillow. Cue and encourage pt to Reposition at least every 2 hours or as tolerated. Help patient with reposition q2h (8) Leukocytosis Assessment & Plan: unlikely related to wounds resolved will monitor will follow with recs okay to d/c from surgical standpoint d/c planning Josias Lipscomb Nov 11, 2018 13:11
--- NOTE | 2018-11-11 15:35 | Nephrology Progress Note ---
Assessment/Plan Problem List: (1) ATN (acute tubular necrosis) Assessment: Cr wnl now (2) DKA (diabetic ketoacidoses) (3) Hypertension (4) Hypothyroidism (5) Acute on chronic renal insufficiency Assessment Acute on Chronic renal failure- DKA on admit Diabetic Nephropathy HypoThyroidism HTN Sacral wound Anemia UTI Plan Mag supplement IV as needed Hydrate- BP and BS control Electrolyte check Anemia camp Rocephin per orders and consultants Subjective ROS Limited/Unobtainable: No Constitutional: Reports: malaise Objective Objective Last 24 Hour Vital Signs Date Time Temp Pulse Resp B/P (MAP) Pulse Ox O2 Delivery O2 Flow Rate FiO2 11/11/18 12:00 98.2 86 20 159/98 (118) 97 11/11/18 08:35 Room Air 11/11/18 08:00 97.7 89 18 157/101 (119) 97 11/11/18 07:27 97.8 11/11/18 04:00 97.8 76 18 128/78 (95) 98 11/11/18 04:00 97.8 76 18 128/78 (95) 11/11/18 00:00 98.2 84 20 159/93 (115) 98 11/10/18 22:28 161/103 11/10/18 21:00 Room Air 11/10/18 20:00 98.1 87 20 158/101 (120) 97 11/10/18 15:53 98.0 77 18 128/80 (96) 98 Intake and Output 11/10/18 11/11/18 19:00 07:00 Intake Total 1280 ml 480 ml Output Total 1600 ml Balance 1280 ml -1120 ml Intake Oral 1280 ml 480 ml Output Urine Total 1600 ml # Voids 6 2 # Bowel Movements 1 Laboratory Tests 11/11/18 05:33: White Blood Count 7.3, Red Blood Count 3.20L, Hemoglobin 8.8L, Hematocrit 27.0L , Mean Corpuscular Volume 84, Mean Corpuscular Hemoglobin 27.5, Mean Corpuscular Hemoglobin Concent 32.5, Red Cell Distribution Width 14.3, Platelet Count 609H, Mean Platelet Volume 5.2L, Neutrophils (%) (Auto) 61.2, Lymphocytes (%) (Auto) 25.7, Monocytes (%) (Auto) 9.8, Eosinophils (%) (Auto) 1.8, Basophils (%) (Auto) 1.6, Sodium Level 137, Potassium Level 4.4, Chloride Level 103, Carbon Dioxide Level 28, Anion Gap 6, Blood Urea Nitrogen 17, Creatinine 1.2, Estimat Glomerular Filtration Rate > 60, Glucose Level 82, Calcium Level 8.3L Height (Feet): 5 Height (Inches): 8.00 Weight (Pounds): 169 General Appearance: no apparent distress Objective no change Lefty Zamora MD Nov 11, 2018 15:35
[2018-11-11 16:00] VITALS: BP 156/96
--- NOTE | 2018-11-11 16:01 | Internal Med Progress Note ---
Subjective Date of Service: Nov 11, 2018 Physician Name Sudhir Jones Attending Physician Gómez Mancini MD Current Medications Medications (Trade) Dose Ordered Sig/Oscar Route PRN Reason Start Time Stop Time Status Last Admin Dose Admin Acetaminophen (Tylenol) 650 mg Q4H PRN ORAL Mild Pain/Temp > 100.5 11/04/18 11:15 12/02/18 11:14 11/08/18 08:19 Acetaminophen/ Hydrocodone Bitart ([place] 10/325) 1 tab Q6H PRN ORAL For Pain 11/08/18 13:20 11/15/18 13:19 11/11/18 06:57 Ascorbic Acid (Vitamin C) 500 mg DAILY ORAL 11/05/18 09:00 12/05/18 08:59 11/11/18 08:46 Aspirin (Ecotrin) 81 mg DAILY ORAL 11/04/18 09:00 12/04/18 08:59 11/11/18 08:46 Atorvastatin Calcium (Lipitor) 20 mg BEDTIME ORAL 11/05/18 21:00 12/05/18 20:59 11/10/18 20:49 Clonidine HCl (Catapres Tab) 0.1 mg Q4H PRN ORAL bp over 165 syst 11/04/18 02:30 12/03/18 14:29 11/10/18 22:28 Dextrose (Dextrose 50%) 25 ml Q30M PRN IV Hypoglycemia 11/04/18 00:45 12/03/18 10:01 Dextrose (Dextrose 50%) 50 ml Q30M PRN IV hypoglycemia 11/04/18 00:45 12/03/18 10:14 Docusate Sodium (Colace) 100 mg THREE TIMES A DAY ORAL 11/04/18 09:00 12/03/18 17:59 11/11/18 12:10 Heparin Sodium (Porcine) (Heparin 5000 units/ml) 5,000 units EVERY 12 HOURS SUBQ 11/05/18 21:00 12/02/18 20:59 11/11/18 08:57 Insulin Aspart (NovoLOG) BEFORE MEALS AND HS SUBQ 11/04/18 06:30 12/03/18 11:29 11/11/18 12:12 Insulin Detemir (Levemir) 18 units EVERY 12 HOURS SUBQ 11/09/18 09:00 12/03/18 09:59 11/11/18 08:49 Levothyroxine Sodium (Synthroid) 50 mcg DAILY@0630 ORAL 11/04/18 06:30 12/04/18 06:29 11/11/18 06:53 Multivitamins (Multivitamins) 1 tab DAILY ORAL 11/05/18 09:00 12/05/18 08:59 11/11/18 08:46 Nateglinide (Starlix) 60 mg TIAC ORAL 11/08/18 16:30 12/08/18 16:29 11/11/18 12:10 Ondansetron HCl (Zofran) 4 mg Q6H PRN IVP Nausea & Vomiting 11/04/18 01:45 12/02/18 13:44 Pantoprazole (Protonix) 40 mg EVERY 12 HOURS ORAL 11/04/18 09:00 12/03/18 14:29 11/11/18 08:46 Polyethylene Glycol (Miralax) 17 gm DAILYPRN PRN ORAL Constipation 11/04/18 13:45 12/02/18 13:44 Tamsulosin HCl (Flomax) 0.4 mg BEDTIME ORAL 11/04/18 21:00 12/04/18 20:59 11/10/18 20:49 Zinc Sulfate (Zinc Sulfate) 220 mg DAILY ORAL 11/05/18 09:00 12/05/18 08:59 11/11/18 08:46 Allergies: Coded Allergies: No Known Allergies (Unverified , 11/02/18) ROS Limited/Unobtainable: No Constitutional: Reports: no symptoms HEENT: Reports: no symptoms Cardiovascular: Reports: no symptoms Respiratory: Reports: no symptoms Gastrointestinal/Abdominal: Reports: no symptoms Genitourinary: Reports: no symptoms Neurologic/Psychiatric: Reports: no symptoms Subjective 68 YO M admitted with diabetic ketoacidosis and hyperglycemia. Cover for Geovanni Hoskins-DR Mancini. Objective Last Vital Signs Date Time Temp Pulse Resp B/P (MAP) Pulse Ox O2 Delivery O2 Flow Rate FiO2 11/11/18 12:00 98.2 86 20 159/98 (118) 97 11/11/18 08:35 Room Air 11/02/18 11:42 2.0 Laboratory Tests Test 11/11/18 05:33 White Blood Count 7.3 K/UL (4.8-10.8) Red Blood Count 3.20 M/UL (4.70-6.10) L Hemoglobin 8.8 G/DL (14.2-18.0) L Hematocrit 27.0 % (42.0-52.0) L Mean Corpuscular Volume 84 FL (80-99) Mean Corpuscular Hemoglobin 27.5 PG (27.0-31.0) Mean Corpuscular Hemoglobin Concent 32.5 G/DL (32.0-36.0) Red Cell Distribution Width 14.3 % (11.6-14.8) Platelet Count 609 K/UL (150-450) H Mean Platelet Volume 5.2 FL (6.5-10.1) L Neutrophils (%) (Auto) 61.2 % (45.0-75.0) Lymphocytes (%) (Auto) 25.7 % (20.0-45.0) Monocytes (%) (Auto) 9.8 % (1.0-10.0) Eosinophils (%) (Auto) 1.8 % (0.0-3.0) Basophils (%) (Auto) 1.6 % (0.0-2.0) Sodium Level 137 MMOL/L (136-145) Potassium Level 4.4 MMOL/L (3.5-5.1) Chloride Level 103 MMOL/L (98-107) Carbon Dioxide Level 28 MMOL/L (21-32) Anion Gap 6 mmol/L (5-15) Blood Urea Nitrogen 17 mg/dL (7-18) Creatinine 1.2 MG/DL (0.55-1.30) Estimat Glomerular Filtration Rate > 60 mL/min (>60) Glucose Level 82 MG/DL (74-106) Calcium Level 8.3 MG/DL (8.5-10.1) L Intake and Output 11/10/18 11/11/18 19:00 07:00 Intake Total 1280 ml 480 ml Output Total 1600 ml Balance 1280 ml -1120 ml Intake Oral 1280 ml 480 ml Output Urine Total 1600 ml # Voids 6 2 # Bowel Movements 1 Objective PHYSICAL EXAMINATION: GENERAL: The patient is a well-developed and well-nourished male, in no apparent distress. HEENT: Eyes, pupils are equal and responsive to light and accommodation. Extraocular movements are intact. NECK: Supple without lymphadenopathy. CHEST: Lungs are clear to auscultation bilaterally without wheezes or rales. CARDIOVASCULAR: Regular rhythm and rate. S1 and S2 are normal without murmurs, rubs, or gallops. ABDOMEN: Soft, nontender, and nondistended. Positive bowel sounds. No evidence of hepatosplenomegaly. Currently, no rebound or guarding noted. EXTREMITIES: Negative for clubbing, cyanosis, or edema. RECTAL/GENITAL: Not performed. NEUROLOGIC: Cranial nerves II through XII are grossly intact without focal deficits. Assessment/Plan Assessment/Plan Assessment: 1. Diabetes II 2. Diabetic ketoacidosis 3. hyponatremia 4. hyperglycemia 5. hypertension 6. hypothyroidism 7. diabetic neuropathy 8. Hypercholesterolemia TREATMENT: 1. Diabetic ketoacidosis/Hyperglycemia. Continue levemir and novolog sliding scale per endocrinology. Latest fingerstick readings are improved. 2. Acute renal failure. This may be secondary to diabetic ketoacidosis as above. 3. Hyponatremia. The patient has been started on normal saline intravenously. 4. Hypertension. Continue amlodipine and lisinopril as above. Continue metoprolol as above. 5. Hypothyroidism. Continue Levoxyl as above. 6. Hypercholesterolemia. Continue atorvastatin as above. 7. Discharge planning Sudhir Jones MD Nov 11, 2018 16:01
[2018-11-11 20:00] VITALS: BP 159/95
[2018-11-11] MEDS: Atorvastatin 20mg tab ORAL SCH (20:46)
[2018-11-11] MEDS: Tamsulosin 0.4mg cap ORAL SCH (20:46)
[2018-11-12] VITALS (7 sets, daily range): BP systolic 134–157; BP diastolic 81–99
[2018-11-12] MEDS: Nateglinide 60mg tab ORAL SCH (06:26)
[2018-11-12] MEDS: NovoLOG Insulin Flexpen SUBQ SCH ×4 (06:27→20:57)
[2018-11-12 07:05] LABS: BASOPHILS % (AUTO) 1.1 % (0.0-2.0); EOSINOPHILS % (AUTO) 1.5 % (0.0-3.0); HEMATOCRIT 28.1 % (42.0-52.0); LYMPHOCYTES % (AUTO) 19.3 % (20.0-45.0); MEAN CORPUSCULAR VOLUME 84 FL (80-99); MONOCYTES % (AUTO) 9.7 % (1.0-10.0); NEUTROPHILS % (AUTO) 68.4 % (45.0-75.0); PLATELET COUNT 441 K/UL (150-450); RED BLOOD COUNT 3.34 M/UL (4.70-6.10); WHITE BLOOD COUNT 7.7 K/UL (4.8-10.8)
[2018-11-12 07:06] LABS: ANION GAP 7 mmol/L (5-15); CALCIUM 8.4 MG/DL (8.5-10.1); CARBON DIOXIDE 26 MMOL/L (21-32); CHLORIDE 103 MMOL/L (98-107); CREATININE 1.1 MG/DL (0.55-1.30); POTASSIUM 5.3 MMOL/L (3.5-5.1); SODIUM 136 MMOL/L (136-145)
[2018-11-12 07:28] LABS: BLOOD UREA NITROGEN 21 mg/dL (7-18)
--- NOTE | 2018-11-12 07:42 | General Progress Note ---
Assessment/Plan Problem List: (1) DKA (diabetic ketoacidoses) ICD Codes: E13.10 - Other specified diabetes mellitus with ketoacidosis without coma SNOMED: 82996648, 011138247 (2) Diabetes mellitus ICD Codes: E11.9 - Type 2 diabetes mellitus without complications SNOMED: 51417523 (3) Hypothyroidism ICD Codes: E03.9 - Hypothyroidism, unspecified SNOMED: 28406406 (4) Hypertension ICD Codes: I10 - Essential (primary) hypertension SNOMED: 08989064 Assessment/Plan: mealtime BG values are elevated continue Levemir 18 units bid increase Starlix 60 to 120 mg ac tid continue Levothyroxine 50 mcg daily Subjective Allergies: Coded Allergies: No Known Allergies (Unverified , 11/02/18) Subjective events noted mealtimes glucose is elevated Item Value Date Time Bedside Blood Glucose 112 mg/dl 11/12/18 0630 Bedside Blood Glucose 288 mg/dl H 11/11/18 2100 Bedside Blood Glucose 239 mg/dl H 11/11/18 1712 Bedside Blood Glucose 233 mg/dl H 11/11/18 1212 Bedside Blood Glucose 223 mg/dl H 11/11/18 0849 Objective Last 24 Hour Vital Signs Date Time Temp Pulse Resp B/P (MAP) Pulse Ox O2 Delivery O2 Flow Rate FiO2 11/12/18 04:00 98.0 86 18 137/98 (111) 99 11/12/18 00:00 98.3 90 18 156/96 (116) 97 11/11/18 21:00 Room Air 11/11/18 20:00 97.9 84 20 159/95 (116) 98 11/11/18 17:43 98.0 11/11/18 16:00 98.0 88 20 156/96 (116) 97 11/11/18 12:00 98.2 86 20 159/98 (118) 97 11/11/18 08:35 Room Air 11/11/18 08:00 97.7 89 18 157/101 (119) 97 Intake and Output 11/11/18 11/12/18 19:00 07:00 Intake Total 1080 ml Output Total 1400 ml 1100 ml Balance -320 ml -1100 ml Intake Oral 1080 ml Output Urine Total 1400 ml 1100 ml # Bowel Movements 1 Laboratory Tests 11/12/18 04:55: White Blood Count 7.7, Red Blood Count 3.34L, Hemoglobin 9.0L, Hematocrit 28.1L , Mean Corpuscular Volume 84, Mean Corpuscular Hemoglobin 27.1, Mean Corpuscular Hemoglobin Concent 32.2, Red Cell Distribution Width 14.0, Platelet Count 441, Mean Platelet Volume 4.8L, Neutrophils (%) (Auto) 68.4, Lymphocytes ( %) (Auto) 19.3L, Monocytes (%) (Auto) 9.7, Eosinophils (%) (Auto) 1.5, Basophils (%) (Auto) 1.1, Sodium Level 136, Potassium Level 5.3H, Chloride Level 103, Carbon Dioxide Level 26, Anion Gap 7, Blood Urea Nitrogen 21H, Creatinine 1.1, Estimat Glomerular Filtration Rate > 60, Glucose Level 105, Calcium Level 8.4L Height (Feet): 5 Height (Inches): 8.00 Weight (Pounds): 162 General Appearance: no apparent distress Neck: normal alignment Cardiovascular: regular rhythm Respiratory/Chest: lungs clear Abdomen: normal bowel sounds Edema: no edema noted Arm (L), no edema noted Arm (R), no edema noted Leg (L), no edema noted Leg (R), no edema noted Pedal (L), no edema noted Pedal (R), no edema noted Generalized Objective Current Medications Medications (Trade) Dose Ordered Sig/Oscar Route PRN Reason Start Time Stop Time Status Last Admin Dose Admin Acetaminophen (Tylenol) 650 mg Q4H PRN ORAL Mild Pain/Temp > 100.5 11/04/18 11:15 12/02/18 11:14 11/08/18 08:19 Acetaminophen/ Hydrocodone Bitart ([place] 10/325) 1 tab Q6H PRN ORAL For Pain 11/08/18 13:20 11/15/18 13:19 11/11/18 23:05 Ascorbic Acid (Vitamin C) 500 mg DAILY ORAL 11/05/18 09:00 12/05/18 08:59 11/11/18 08:46 Aspirin (Ecotrin) 81 mg DAILY ORAL 11/04/18 09:00 12/04/18 08:59 11/11/18 08:46 Atorvastatin Calcium (Lipitor) 20 mg BEDTIME ORAL 11/05/18 21:00 12/05/18 20:59 11/11/18 20:46 Clonidine HCl (Catapres Tab) 0.1 mg Q4H PRN ORAL bp over 165 syst 11/04/18 02:30 12/03/18 14:29 11/10/18 22:28 Dextrose (Dextrose 50%) 25 ml Q30M PRN IV Hypoglycemia 11/04/18 00:45 12/03/18 10:01 Dextrose (Dextrose 50%) 50 ml Q30M PRN IV hypoglycemia 11/04/18 00:45 12/03/18 10:14 Docusate Sodium (Colace) 100 mg THREE TIMES A DAY ORAL 11/04/18 09:00 12/03/18 17:59 11/11/18 17:10 Heparin Sodium (Porcine) (Heparin 5000 units/ml) 5,000 units EVERY 12 HOURS SUBQ 11/05/18 21:00 12/02/18 20:59 11/11/18 20:51 Insulin Aspart (NovoLOG) BEFORE MEALS AND HS SUBQ 11/04/18 06:30 12/03/18 11:29 11/12/18 06:27 Insulin Detemir (Levemir) 18 units EVERY 12 HOURS SUBQ 11/09/18 09:00 12/03/18 09:59 11/11/18 20:52 Levothyroxine Sodium (Synthroid) 50 mcg DAILY@0630 ORAL 11/04/18 06:30 12/04/18 06:29 11/12/18 06:26 Multivitamins (Multivitamins) 1 tab DAILY ORAL 11/05/18 09:00 12/05/18 08:59 11/11/18 08:46 Nateglinide (Starlix) 60 mg TIAC ORAL 11/08/18 16:30 12/08/18 16:29 11/12/18 06:26 Ondansetron HCl (Zofran) 4 mg Q6H PRN IVP Nausea & Vomiting 11/04/18 01:45 12/02/18 13:44 Pantoprazole (Protonix) 40 mg EVERY 12 HOURS ORAL 11/04/18 09:00 12/03/18 14:29 11/11/18 20:46 Polyethylene Glycol (Miralax) 17 gm DAILYPRN PRN ORAL Constipation 11/04/18 13:45 12/02/18 13:44 Tamsulosin HCl (Flomax) 0.4 mg BEDTIME ORAL 11/04/18 21:00 12/04/18 20:59 11/11/18 20:46 Zinc Sulfate (Zinc Sulfate) 220 mg DAILY ORAL 11/05/18 09:00 12/05/18 08:59 11/11/18 08:46 Yevgeniy Vinson MD Nov 12, 2018 07:42
[2018-11-12] MEDS: Aspirin EC 81mg tab ORAL SCH (08:24)
[2018-11-12] MEDS: Ascorbic Acid 500mg tab ORAL SCH (08:24)
[2018-11-12] MEDS: Docusate 100mg cap ORAL SCH ×3 (08:24→17:23)
[2018-11-12] MEDS: Zinc Sulfate 220mg cap ORAL SCH (08:24)
[2018-11-12] MEDS: Heparin 5000 units/ml inj SUBQ SCH ×2 (08:29→20:53)
[2018-11-12] MEDS: Levemir Flexpen SUBQ SCH ×2 (09:08→20:55)
[2018-11-12] MEDS: HYDROcodone/Acetamin 10/325 tab ORAL PRN ×2 (09:09→21:13)
[2018-11-12] MEDS ORDERED: Sodium Polystyrene Sulfonate 15gm Powder ORAL ONE (12:00)
--- NOTE | 2018-11-12 13:14 | Surgery Progress Note ---
Surgery Progress Note Subjective Additional Comments tolerating diet. no complaints. feels well. pending placement. Objective Last 24 Hour Vital Signs Date Time Temp Pulse Resp B/P (MAP) Pulse Ox O2 Delivery O2 Flow Rate FiO2 11/12/18 09:39 98.0 11/12/18 09:00 Room Air 11/12/18 08:00 98.8 70 20 157/99 (118) 98 11/12/18 04:00 98.0 86 18 137/98 (111) 99 11/12/18 00:00 98.3 90 18 156/96 (116) 97 11/11/18 21:00 Room Air 11/11/18 20:00 97.9 84 20 159/95 (116) 98 11/11/18 16:00 98.0 88 20 156/96 (116) 97 I&O Intake and Output 11/11/18 11/12/18 19:00 07:00 Intake Total 1080 ml Output Total 1400 ml 1100 ml Balance -320 ml -1100 ml Intake Oral 1080 ml Output Urine Total 1400 ml 1100 ml # Bowel Movements 1 Dressing: dry Wound: clean Drains: none Cardiovascular: RSR Respiratory: clear Abdomen: soft, flat, non-tender, present bowel sounds Extremities: no tenderness, no cyanosis Laboratory Tests Test 11/12/18 04:55 White Blood Count 7.7 K/UL (4.8-10.8) Red Blood Count 3.34 M/UL (4.70-6.10) L Hemoglobin 9.0 G/DL (14.2-18.0) L Hematocrit 28.1 % (42.0-52.0) L Mean Corpuscular Volume 84 FL (80-99) Mean Corpuscular Hemoglobin 27.1 PG (27.0-31.0) Mean Corpuscular Hemoglobin Concent 32.2 G/DL (32.0-36.0) Red Cell Distribution Width 14.0 % (11.6-14.8) Platelet Count 441 K/UL (150-450) Mean Platelet Volume 4.8 FL (6.5-10.1) L Neutrophils (%) (Auto) 68.4 % (45.0-75.0) Lymphocytes (%) (Auto) 19.3 % (20.0-45.0) L Monocytes (%) (Auto) 9.7 % (1.0-10.0) Eosinophils (%) (Auto) 1.5 % (0.0-3.0) Basophils (%) (Auto) 1.1 % (0.0-2.0) Sodium Level 136 MMOL/L (136-145) Potassium Level 5.3 MMOL/L (3.5-5.1) H Chloride Level 103 MMOL/L (98-107) Carbon Dioxide Level 26 MMOL/L (21-32) Anion Gap 7 mmol/L (5-15) Blood Urea Nitrogen 21 mg/dL (7-18) H Creatinine 1.1 MG/DL (0.55-1.30) Estimat Glomerular Filtration Rate > 60 mL/min (>60) Glucose Level 105 MG/DL (74-106) Calcium Level 8.4 MG/DL (8.5-10.1) L Plan Problems: (1) Diabetes mellitus Assessment & Plan: A1c 14 glu improved cont with Rx DAILY ESTIMATED NEEDS: Needs based on Wound, DM/ 70kg 25-30 kcals/kg 6015-2347 total kcals 1.25-1.5 g protein/kg 87-105 g total protein 25-30 mL/kg 8453-3114 total fluid mLs NUTRITION DIAGNOSIS: * Increased kcal/prot intake needs R/T wound healing as evidenced by pt admitted w/ full thickness pressure injury at sacrococcyx. * Altered nutrition related lab values R/T DKA as evidenced by elev BG of 928* upon adm -> POC glu improved:224 132 102 190 145, A1C of 15.5, 4+ urine glucose, off insulin drip. CURRENT DIET:[facility] MED PO DIET RECOMMENDATIONS: CCHO MED, LOW NA/ texture as tolerated ADDITIONAL RECOMMENDATIONS: * Calibrated bedscale wt for accurate CBW * Wound healing: Continue MVI x 1, Vit C 500mg x1, ZnSO4 220mg QD : Add Hari 1pkt BID * Monitor BGs closely- improved since adm * DM diet education provided on 11/06 * Monitor lytes, replete as needed (2) Hypothyroidism Assessment & Plan: levels noted stable (3) Hypertension (4) DKA (diabetic ketoacidoses) (5) ATN (acute tubular necrosis) (6) Acute on chronic renal insufficiency (7) Sacral wound Assessment & Plan: Pt presented on admission with full thickness pressure injury sacrococcygeal area. Base of wound with trace biofilm,(+) maceration along borders (L)1cm x (W00.5cm x (D)0.2cm. Darker skin tone without induration periwound . Darker skin tone without induration or erythema periwound to both ischial regions.Soft mass upper back .Pt verbalized tenderness when palpated.No erythema noted. Both heels are firm and blanchable. Pt educated on wound prevention and encouraged to frequently turn on sides to relive pressure off buttocks. Tx.Plan: Cleanse with saline. Apply Triad Paste. Cover with Optifoam drsg. Change every 3 days and prn. Apply Cavilon Skin Barrier to Both heels. Off-load heels with Pillow. Cue and encourage pt to Reposition at least every 2 hours or as tolerated. Help patient with reposition q2h (8) Leukocytosis Assessment & Plan: unlikely related to wounds resolved will monitor will follow with recs okay to d/c from surgical standpoint d/c planning Josias Lipscomb Nov 12, 2018 13:14
--- NOTE | 2018-11-12 14:39 | Pulmonology Progress Note ---
Assessment/Plan Problems: (1) DKA (diabetic ketoacidoses) (2) Sacral wound (3) ATN (acute tubular necrosis) (4) Acute on chronic renal insufficiency (5) Diabetes mellitus (6) Hypothyroidism (7) Hypertension Assessment/Plan BS controlled with Levemir BID improving dka resolved bp controlled stress study done wound care dc to previous setting. Subjective ROS Limited/Unobtainable: No Allergies: Coded Allergies: No Known Allergies (Unverified , 11/02/18) Objective Last 24 Hour Vital Signs Date Time Temp Pulse Resp B/P (MAP) Pulse Ox O2 Delivery O2 Flow Rate FiO2 11/12/18 12:00 97.9 86 20 154/96 (115) 99 11/12/18 09:39 98.0 11/12/18 09:00 Room Air 11/12/18 08:00 98.8 70 20 157/99 (118) 98 11/12/18 04:00 98.0 86 18 137/98 (111) 99 11/12/18 00:00 98.3 90 18 156/96 (116) 97 11/11/18 21:00 Room Air 11/11/18 20:00 97.9 84 20 159/95 (116) 98 11/11/18 16:00 98.0 88 20 156/96 (116) 97 Intake and Output 11/11/18 11/12/18 19:00 07:00 Intake Total 1080 ml Output Total 1400 ml 1100 ml Balance -320 ml -1100 ml Intake Oral 1080 ml Output Urine Total 1400 ml 1100 ml # Bowel Movements 1 Objective General Appearance: WD/WN HEENT: normocephalic, atraumatic Respiratory/Chest: chest wall non-tender, normal breath sounds Cardiovascular: normal peripheral pulses, normal rate Abdomen: normal bowel sounds, soft, non tender, no organomegaly, non distended Extremities: no cyanosis Skin: no rash, no lesions, no ulcers Laboratory Tests 11/12/18 04:55: White Blood Count 7.7, Red Blood Count 3.34L, Hemoglobin 9.0L, Hematocrit 28.1L , Mean Corpuscular Volume 84, Mean Corpuscular Hemoglobin 27.1, Mean Corpuscular Hemoglobin Concent 32.2, Red Cell Distribution Width 14.0, Platelet Count 441, Mean Platelet Volume 4.8L, Neutrophils (%) (Auto) 68.4, Lymphocytes ( %) (Auto) 19.3L, Monocytes (%) (Auto) 9.7, Eosinophils (%) (Auto) 1.5, Basophils (%) (Auto) 1.1, Sodium Level 136, Potassium Level 5.3H, Chloride Level 103, Carbon Dioxide Level 26, Anion Gap 7, Blood Urea Nitrogen 21H, Creatinine 1.1, Estimat Glomerular Filtration Rate > 60, Glucose Level 105, Calcium Level 8.4L Current Medications Medications (Trade) Dose Ordered Sig/Oscar Route PRN Reason Start Time Stop Time Status Last Admin Dose Admin Acetaminophen (Tylenol) 650 mg Q4H PRN ORAL Mild Pain/Temp > 100.5 11/04/18 11:15 12/02/18 11:14 11/08/18 08:19 Acetaminophen/ Hydrocodone Bitart ([place] 10/325) 1 tab Q6H PRN ORAL For Pain 11/08/18 13:20 11/15/18 13:19 11/12/18 09:09 Ascorbic Acid (Vitamin C) 500 mg DAILY ORAL 11/05/18 09:00 12/05/18 08:59 11/12/18 08:24 Aspirin (Ecotrin) 81 mg DAILY ORAL 11/04/18 09:00 12/04/18 08:59 11/12/18 08:24 Atorvastatin Calcium (Lipitor) 20 mg BEDTIME ORAL 11/05/18 21:00 12/05/18 20:59 11/11/18 20:46 Clonidine HCl (Catapres Tab) 0.1 mg Q4H PRN ORAL bp over 165 syst 11/04/18 02:30 12/03/18 14:29 11/10/18 22:28 Dextrose (Dextrose 50%) 25 ml Q30M PRN IV Hypoglycemia 11/04/18 00:45 12/03/18 10:01 Dextrose (Dextrose 50%) 50 ml Q30M PRN IV hypoglycemia 11/04/18 00:45 12/03/18 10:14 Docusate Sodium (Colace) 100 mg THREE TIMES A DAY ORAL 11/04/18 09:00 12/03/18 17:59 11/12/18 12:04 Heparin Sodium (Porcine) (Heparin 5000 units/ml) 5,000 units EVERY 12 HOURS SUBQ 11/05/18 21:00 12/02/18 20:59 11/12/18 08:29 Insulin Aspart (NovoLOG) BEFORE MEALS AND HS SUBQ 11/04/18 06:30 12/03/18 11:29 11/12/18 12:06 Insulin Detemir (Levemir) 18 units EVERY 12 HOURS SUBQ 11/09/18 09:00 12/03/18 09:59 11/12/18 09:08 Levothyroxine Sodium (Synthroid) 50 mcg DAILY@0630 ORAL 11/04/18 06:30 12/04/18 06:29 11/12/18 06:26 Multivitamins (Multivitamins) 1 tab DAILY ORAL 11/05/18 09:00 12/05/18 08:59 11/12/18 08:24 Nateglinide (Starlix) 120 mg TIAC ORAL 11/12/18 11:30 12/08/18 16:29 11/12/18 12:03 Ondansetron HCl (Zofran) 4 mg Q6H PRN IVP Nausea & Vomiting 11/04/18 01:45 12/02/18 13:44 Pantoprazole (Protonix) 40 mg EVERY 12 HOURS ORAL 11/04/18 09:00 12/03/18 14:29 11/12/18 08:24 Polyethylene Glycol (Miralax) 17 gm DAILYPRN PRN ORAL Constipation 11/04/18 13:45 12/02/18 13:44 Tamsulosin HCl (Flomax) 0.4 mg BEDTIME ORAL 11/04/18 21:00 12/04/18 20:59 11/11/18 20:46 Zinc Sulfate (Zinc Sulfate) 220 mg DAILY ORAL 11/05/18 09:00 12/05/18 08:59 11/12/18 08:24 Jade Mann MD Nov 12, 2018 14:39
--- NOTE | 2018-11-12 16:15 | Internal Med Progress Note ---
Subjective Date of Service: Nov 12, 2018 Physician Name Sudhir Jones Attending Physician Gómez Mancini MD Current Medications Medications (Trade) Dose Ordered Sig/Oscar Route PRN Reason Start Time Stop Time Status Last Admin Dose Admin Acetaminophen (Tylenol) 650 mg Q4H PRN ORAL Mild Pain/Temp > 100.5 11/04/18 11:15 12/02/18 11:14 11/08/18 08:19 Acetaminophen/ Hydrocodone Bitart ([place] 10/325) 1 tab Q6H PRN ORAL For Pain 11/08/18 13:20 11/15/18 13:19 11/12/18 09:09 Ascorbic Acid (Vitamin C) 500 mg DAILY ORAL 11/05/18 09:00 12/05/18 08:59 11/12/18 08:24 Aspirin (Ecotrin) 81 mg DAILY ORAL 11/04/18 09:00 12/04/18 08:59 11/12/18 08:24 Atorvastatin Calcium (Lipitor) 20 mg BEDTIME ORAL 11/05/18 21:00 12/05/18 20:59 11/11/18 20:46 Clonidine HCl (Catapres Tab) 0.1 mg Q4H PRN ORAL bp over 165 syst 11/04/18 02:30 12/03/18 14:29 11/10/18 22:28 Dextrose (Dextrose 50%) 25 ml Q30M PRN IV Hypoglycemia 11/04/18 00:45 12/03/18 10:01 Dextrose (Dextrose 50%) 50 ml Q30M PRN IV hypoglycemia 11/04/18 00:45 12/03/18 10:14 Docusate Sodium (Colace) 100 mg THREE TIMES A DAY ORAL 11/04/18 09:00 12/03/18 17:59 11/12/18 12:04 Heparin Sodium (Porcine) (Heparin 5000 units/ml) 5,000 units EVERY 12 HOURS SUBQ 11/05/18 21:00 12/02/18 20:59 11/12/18 08:29 Insulin Aspart (NovoLOG) BEFORE MEALS AND HS SUBQ 11/04/18 06:30 12/03/18 11:29 11/12/18 12:06 Insulin Detemir (Levemir) 18 units EVERY 12 HOURS SUBQ 11/09/18 09:00 12/03/18 09:59 11/12/18 09:08 Levothyroxine Sodium (Synthroid) 50 mcg DAILY@0630 ORAL 11/04/18 06:30 12/04/18 06:29 11/12/18 06:26 Multivitamins (Multivitamins) 1 tab DAILY ORAL 11/05/18 09:00 12/05/18 08:59 11/12/18 08:24 Nateglinide (Starlix) 120 mg TIAC ORAL 11/12/18 11:30 12/08/18 16:29 11/12/18 12:03 Ondansetron HCl (Zofran) 4 mg Q6H PRN IVP Nausea & Vomiting 11/04/18 01:45 12/02/18 13:44 Pantoprazole (Protonix) 40 mg EVERY 12 HOURS ORAL 11/04/18 09:00 12/03/18 14:29 11/12/18 08:24 Polyethylene Glycol (Miralax) 17 gm DAILYPRN PRN ORAL Constipation 11/04/18 13:45 12/02/18 13:44 Tamsulosin HCl (Flomax) 0.4 mg BEDTIME ORAL 11/04/18 21:00 12/04/18 20:59 11/11/18 20:46 Zinc Sulfate (Zinc Sulfate) 220 mg DAILY ORAL 11/05/18 09:00 12/05/18 08:59 11/12/18 08:24 Allergies: Coded Allergies: No Known Allergies (Unverified , 11/02/18) ROS Limited/Unobtainable: No Constitutional: Reports: no symptoms HEENT: Reports: no symptoms Cardiovascular: Reports: no symptoms Respiratory: Reports: no symptoms Gastrointestinal/Abdominal: Reports: no symptoms Genitourinary: Reports: no symptoms Neurologic/Psychiatric: Reports: no symptoms Subjective 68 YO M admitted with diabetic ketoacidosis and hyperglycemia. Cover for Geovanni Hoskins-DR Mancini. Objective Last Vital Signs Date Time Temp Pulse Resp B/P (MAP) Pulse Ox O2 Delivery O2 Flow Rate FiO2 11/12/18 12:00 97.9 86 20 154/96 (115) 99 11/12/18 09:00 Room Air Laboratory Tests Test 11/12/18 04:55 White Blood Count 7.7 K/UL (4.8-10.8) Red Blood Count 3.34 M/UL (4.70-6.10) L Hemoglobin 9.0 G/DL (14.2-18.0) L Hematocrit 28.1 % (42.0-52.0) L Mean Corpuscular Volume 84 FL (80-99) Mean Corpuscular Hemoglobin 27.1 PG (27.0-31.0) Mean Corpuscular Hemoglobin Concent 32.2 G/DL (32.0-36.0) Red Cell Distribution Width 14.0 % (11.6-14.8) Platelet Count 441 K/UL (150-450) Mean Platelet Volume 4.8 FL (6.5-10.1) L Neutrophils (%) (Auto) 68.4 % (45.0-75.0) Lymphocytes (%) (Auto) 19.3 % (20.0-45.0) L Monocytes (%) (Auto) 9.7 % (1.0-10.0) Eosinophils (%) (Auto) 1.5 % (0.0-3.0) Basophils (%) (Auto) 1.1 % (0.0-2.0) Sodium Level 136 MMOL/L (136-145) Potassium Level 5.3 MMOL/L (3.5-5.1) H Chloride Level 103 MMOL/L (98-107) Carbon Dioxide Level 26 MMOL/L (21-32) Anion Gap 7 mmol/L (5-15) Blood Urea Nitrogen 21 mg/dL (7-18) H Creatinine 1.1 MG/DL (0.55-1.30) Estimat Glomerular Filtration Rate > 60 mL/min (>60) Glucose Level 105 MG/DL (74-106) Calcium Level 8.4 MG/DL (8.5-10.1) L Intake and Output 11/11/18 11/12/18 19:00 07:00 Intake Total 1080 ml Output Total 1400 ml 1100 ml Balance -320 ml -1100 ml Intake Oral 1080 ml Output Urine Total 1400 ml 1100 ml # Bowel Movements 1 Objective PHYSICAL EXAMINATION: GENERAL: The patient is a well-developed and well-nourished male, in no apparent distress. HEENT: Eyes, pupils are equal and responsive to light and accommodation. Extraocular movements are intact. NECK: Supple without lymphadenopathy. CHEST: Lungs are clear to auscultation bilaterally without wheezes or rales. CARDIOVASCULAR: Regular rhythm and rate. S1 and S2 are normal without murmurs, rubs, or gallops. ABDOMEN: Soft, nontender, and nondistended. Positive bowel sounds. No evidence of hepatosplenomegaly. Currently, no rebound or guarding noted. EXTREMITIES: Negative for clubbing, cyanosis, or edema. RECTAL/GENITAL: Not performed. NEUROLOGIC: Cranial nerves II through XII are grossly intact without focal deficits. Assessment/Plan Assessment/Plan Assessment: 1. Diabetes II 2. Diabetic ketoacidosis 3. hyponatremia 4. hyperglycemia 5. hypertension 6. hypothyroidism 7. diabetic neuropathy 8. Hypercholesterolemia TREATMENT: 1. Diabetic ketoacidosis/Hyperglycemia. Continue levemir and novolog sliding scale per endocrinology. Latest fingerstick readings are improved. 2. Acute renal failure. This may be secondary to diabetic ketoacidosis as above. 3. Hyponatremia. The patient has been started on normal saline intravenously. 4. Hypertension. Continue amlodipine and lisinopril as above. Continue metoprolol as above. 5. Hypothyroidism. Continue Levoxyl as above. 6. Hypercholesterolemia. Continue atorvastatin as above. 7. Discharge planning Sudhir Jones MD Nov 12, 2018 16:15
--- NOTE | 2018-11-12 17:13 | Nephrology Progress Note ---
Assessment/Plan Problem List: (1) ATN (acute tubular necrosis) Assessment: Cr wnl now (2) DKA (diabetic ketoacidoses) (3) Hypertension (4) Hypothyroidism (5) Acute on chronic renal insufficiency Assessment Acute on Chronic renal failure- DKA on admit Diabetic Nephropathy HypoThyroidism HTN Sacral wound Anemia UTI Plan Mag supplement IV as needed Hydrate- BP and BS control Electrolyte check Anemia camp Rocephin per orders and consultants high K likely hemolysis Subjective ROS Limited/Unobtainable: No Constitutional: Reports: malaise Objective Objective Last 24 Hour Vital Signs Date Time Temp Pulse Resp B/P (MAP) Pulse Ox O2 Delivery O2 Flow Rate FiO2 11/12/18 16:00 98.1 94 20 134/81 (98) 95 11/12/18 12:00 97.9 86 20 154/96 (115) 99 11/12/18 09:39 98.0 11/12/18 09:00 Room Air 11/12/18 08:00 98.8 70 20 157/99 (118) 98 11/12/18 04:00 98.0 86 18 137/98 (111) 99 11/12/18 00:00 98.3 90 18 156/96 (116) 97 11/11/18 21:00 Room Air 11/11/18 20:00 97.9 84 20 159/95 (116) 98 Intake and Output 11/11/18 11/12/18 19:00 07:00 Intake Total 1080 ml Output Total 1400 ml 1100 ml Balance -320 ml -1100 ml Intake Oral 1080 ml Output Urine Total 1400 ml 1100 ml # Bowel Movements 1 Laboratory Tests 11/12/18 04:55: White Blood Count 7.7, Red Blood Count 3.34L, Hemoglobin 9.0L, Hematocrit 28.1L , Mean Corpuscular Volume 84, Mean Corpuscular Hemoglobin 27.1, Mean Corpuscular Hemoglobin Concent 32.2, Red Cell Distribution Width 14.0, Platelet Count 441, Mean Platelet Volume 4.8L, Neutrophils (%) (Auto) 68.4, Lymphocytes ( %) (Auto) 19.3L, Monocytes (%) (Auto) 9.7, Eosinophils (%) (Auto) 1.5, Basophils (%) (Auto) 1.1, Sodium Level 136, Potassium Level 5.3H, Chloride Level 103, Carbon Dioxide Level 26, Anion Gap 7, Blood Urea Nitrogen 21H, Creatinine 1.1, Estimat Glomerular Filtration Rate > 60, Glucose Level 105, Calcium Level 8.4L Height (Feet): 5 Height (Inches): 8.00 Weight (Pounds): 162 General Appearance: no apparent distress Objective no change Lefty Zamora MD Nov 12, 2018 17:13
[2018-11-12] MEDS: Tamsulosin 0.4mg cap ORAL SCH (20:49)
[2018-11-12] MEDS: Atorvastatin 20mg tab ORAL SCH (20:50)
--- NOTE | 2018-11-12 22:56 | Diagnostic Imaging Report ---
APPROVED REPORT CPT Code: 80546 Present Symptoms Comments: Screening RIGHT LEG: Venous imaging reveals chronic thrombus in the superficial femoral vein. Large collateral vein noted anterior to the superficial femoral artery. Remainder of the deep venous system within normal limits. No evidence of thrombus in the common femoral, superficial femoral and calf veins. Greater saphenous vein also within normal limits. LEFT LEG: Venous imaging reveals a patent deep venous system. There is no evidence of thrombus within the femoral, popliteal or tibial segments. The greater saphenous vein is also within normal limits. Doppler indicates normal spontaneous flow within these segments.
[2018-11-13] VITALS: BP 159/96
[2018-11-13 04:00] VITALS: BP 142/87
[2018-11-13 06:09] LABS: EOSINOPHILS % (AUTO) 2.1 % (0.0-3.0); HEMATOCRIT 27.3 % (42.0-52.0); HEMOGLOBIN 8.8 G/DL (14.2-18.0); LYMPHOCYTES % (AUTO) 30.1 % (20.0-45.0); MEAN CORPUSCULAR VOLUME 84 FL (80-99); MONOCYTES % (AUTO) 5.4 % (1.0-10.0); NEUTROPHILS % (AUTO) 61.4 % (45.0-75.0); PLATELET COUNT 691 K/UL (150-450); RED BLOOD COUNT 3.27 M/UL (4.70-6.10); RED CELL DISTRIBUTION WIDTH 14.2 % (11.6-14.8); WHITE BLOOD COUNT 6.7 K/UL (4.8-10.8)
[2018-11-13] MEDS: HYDROcodone/Acetamin 10/325 tab ORAL PRN ×3 (06:10→21:46)
[2018-11-13 06:29] LABS: ANION GAP 7 mmol/L (5-15); BLOOD UREA NITROGEN 23 mg/dL (7-18); CALCIUM 8.3 MG/DL (8.5-10.1); CARBON DIOXIDE 27 MMOL/L (21-32); CHLORIDE 102 MMOL/L (98-107); CREATININE 1.2 MG/DL (0.55-1.30); POTASSIUM 4.2 MMOL/L (3.5-5.1); SODIUM 136 MMOL/L (136-145)
--- NOTE | 2018-11-13 06:41 | General Progress Note ---
Assessment/Plan Problem List: (1) DKA (diabetic ketoacidoses) ICD Codes: E13.10 - Other specified diabetes mellitus with ketoacidosis without coma SNOMED: 90426405, 127486711 (2) Diabetes mellitus ICD Codes: E11.9 - Type 2 diabetes mellitus without complications SNOMED: 70207788 (3) Hypothyroidism ICD Codes: E03.9 - Hypothyroidism, unspecified SNOMED: 43563352 (4) Hypertension ICD Codes: I10 - Essential (primary) hypertension SNOMED: 32565064 Assessment/Plan: continue Levemir 18 units bid continue Starlix 120 mg ac tid continue Levothyroxine 50 mcg daily Subjective Allergies: Coded Allergies: No Known Allergies (Unverified , 11/02/18) All Systems: reviewed and negative except above Subjective events noted Item Value Date Time Bedside Blood Glucose 125 mg/dl H 11/12/18 2100 Bedside Blood Glucose 286 mg/dl H 11/12/18 1725 Bedside Blood Glucose 177 mg/dl H 11/12/18 1206 Bedside Blood Glucose 204 mg/dl H 11/12/18 0908 Bedside Blood Glucose 112 mg/dl 11/12/18 0630 Objective Last 24 Hour Vital Signs Date Time Temp Pulse Resp B/P (MAP) Pulse Ox O2 Delivery O2 Flow Rate FiO2 11/13/18 04:00 97.9 79 18 142/87 (105) 95 11/13/18 00:00 98.3 83 19 159/96 (117) 98 11/12/18 22:43 98.1 85 18 135/83 (100) 85 11/12/18 21:00 Room Air 11/12/18 20:00 98.1 85 18 135/83 (100) 85 11/12/18 16:00 98.1 94 20 134/81 (98) 95 11/12/18 12:00 97.9 86 20 154/96 (115) 99 11/12/18 09:39 98.0 11/12/18 09:00 Room Air 11/12/18 08:00 98.8 70 20 157/99 (118) 98 Intake and Output 11/12/18 11/13/18 18:59 06:59 Intake Total 800 ml Output Total 700 ml 700 ml Balance 100 ml -700 ml Intake Oral 800 ml Output Urine Total 700 ml 700 ml Laboratory Tests 11/13/18 05:05: White Blood Count 6.7, Red Blood Count 3.27L, Hemoglobin 8.8L, Hematocrit 27.3L , Mean Corpuscular Volume 84, Mean Corpuscular Hemoglobin 26.8L, Mean Corpuscular Hemoglobin Concent 32.1, Red Cell Distribution Width 14.2, Platelet Count 691#H, Mean Platelet Volume 5.2L, Neutrophils (%) (Auto) 61.4, Lymphocytes (%) (Auto) 30.1, Monocytes (%) (Auto) 5.4, Eosinophils (%) (Auto) 2.1, Basophils (%) (Auto) 1.0, Sodium Level 136, Potassium Level 4.2, Chloride Level 102, Carbon Dioxide Level 27, Anion Gap 7, Blood Urea Nitrogen 23H, Creatinine 1.2, Estimat Glomerular Filtration Rate > 60, Glucose Level 209#H, Calcium Level 8.3L Height (Feet): 5 Height (Inches): 8.00 Weight (Pounds): 78 General Appearance: no apparent distress Neck: normal alignment Cardiovascular: normal rate Respiratory/Chest: lungs clear Abdomen: normal bowel sounds Edema: no edema noted Arm (L), no edema noted Arm (R), no edema noted Leg (L), no edema noted Leg (R), no edema noted Pedal (L), no edema noted Pedal (R), no edema noted Generalized Objective Current Medications Medications (Trade) Dose Ordered Sig/Oscar Route PRN Reason Start Time Stop Time Status Last Admin Dose Admin Acetaminophen (Tylenol) 650 mg Q4H PRN ORAL Mild Pain/Temp > 100.5 11/04/18 11:15 12/02/18 11:14 11/08/18 08:19 Acetaminophen/ Hydrocodone Bitart ([place] 10/325) 1 tab Q6H PRN ORAL For Pain 11/08/18 13:20 11/15/18 13:19 11/13/18 06:10 Ascorbic Acid (Vitamin C) 500 mg DAILY ORAL 11/05/18 09:00 12/05/18 08:59 11/12/18 08:24 Aspirin (Ecotrin) 81 mg DAILY ORAL 11/04/18 09:00 12/04/18 08:59 11/12/18 08:24 Atorvastatin Calcium (Lipitor) 20 mg BEDTIME ORAL 11/05/18 21:00 12/05/18 20:59 11/12/18 20:50 Clonidine HCl (Catapres Tab) 0.1 mg Q4H PRN ORAL bp over 165 syst 11/04/18 02:30 12/03/18 14:29 11/10/18 22:28 Dextrose (Dextrose 50%) 25 ml Q30M PRN IV Hypoglycemia 11/04/18 00:45 12/03/18 10:01 Dextrose (Dextrose 50%) 50 ml Q30M PRN IV hypoglycemia 11/04/18 00:45 12/03/18 10:14 Docusate Sodium (Colace) 100 mg THREE TIMES A DAY ORAL 11/04/18 09:00 12/03/18 17:59 11/12/18 17:23 Heparin Sodium (Porcine) (Heparin 5000 units/ml) 5,000 units EVERY 12 HOURS SUBQ 11/05/18 21:00 12/02/18 20:59 11/12/18 20:53 Insulin Aspart (NovoLOG) BEFORE MEALS AND HS SUBQ 11/04/18 06:30 12/03/18 11:29 11/12/18 20:57 Insulin Detemir (Levemir) 18 units EVERY 12 HOURS SUBQ 11/09/18 09:00 12/03/18 09:59 11/12/18 20:55 Levothyroxine Sodium (Synthroid) 50 mcg DAILY@0630 ORAL 11/04/18 06:30 12/04/18 06:29 11/13/18 06:08 Multivitamins (Multivitamins) 1 tab DAILY ORAL 11/05/18 09:00 12/05/18 08:59 11/12/18 08:24 Nateglinide (Starlix) 120 mg TIAC ORAL 11/12/18 11:30 12/08/18 16:29 11/13/18 06:06 Ondansetron HCl (Zofran) 4 mg Q6H PRN IVP Nausea & Vomiting 11/04/18 01:45 12/02/18 13:44 Pantoprazole (Protonix) 40 mg EVERY 12 HOURS ORAL 11/04/18 09:00 12/03/18 14:29 11/12/18 20:50 Polyethylene Glycol (Miralax) 17 gm DAILYPRN PRN ORAL Constipation 11/04/18 13:45 12/02/18 13:44 Tamsulosin HCl (Flomax) 0.4 mg BEDTIME ORAL 11/04/18 21:00 12/04/18 20:59 11/12/18 20:49 Zinc Sulfate (Zinc Sulfate) 220 mg DAILY ORAL 11/05/18 09:00 12/05/18 08:59 11/12/18 08:24 Yevgeniy Vinson MD Nov 13, 2018 06:41
[2018-11-13] MEDS: NovoLOG Insulin Flexpen SUBQ SCH ×4 (06:43→21:55)
[2018-11-13 08:00] VITALS: BP 140/80
[2018-11-13] MEDS: Zinc Sulfate 220mg cap ORAL SCH (08:40)
[2018-11-13] MEDS: Docusate 100mg cap ORAL SCH ×3 (08:40→17:15)
[2018-11-13] MEDS: Ascorbic Acid 500mg tab ORAL SCH (08:40)
[2018-11-13] MEDS: Aspirin EC 81mg tab ORAL SCH (08:40)
[2018-11-13] MEDS: Levemir Flexpen SUBQ SCH ×2 (08:42→21:55)
[2018-11-13] MEDS: Heparin 5000 units/ml inj SUBQ SCH ×2 (08:42→21:56)
--- NOTE | 2018-11-13 10:52 | Nephrology Progress Note ---
Assessment/Plan Problem List: (1) ATN (acute tubular necrosis) Assessment: Cr wnl now (2) DKA (diabetic ketoacidoses) (3) Hypertension (4) Hypothyroidism (5) Acute on chronic renal insufficiency Assessment Acute on Chronic renal failure- DKA on admit Diabetic Nephropathy HypoThyroidism HTN Sacral wound Anemia UTI Plan Mag supplement IV as needed Hydrate- BP and BS control Electrolyte check Anemia camp per orders and consultants high K likely hemolysis Subjective ROS Limited/Unobtainable: No Objective Objective Last 24 Hour Vital Signs Date Time Temp Pulse Resp B/P (MAP) Pulse Ox O2 Delivery O2 Flow Rate FiO2 11/13/18 08:15 Room Air 11/13/18 08:00 97.6 81 18 140/80 (100) 96 11/13/18 04:00 97.9 79 18 142/87 (105) 95 11/13/18 00:00 98.3 83 19 159/96 (117) 98 11/12/18 22:43 98.1 85 18 135/83 (100) 85 11/12/18 21:00 Room Air 11/12/18 20:00 98.1 85 18 135/83 (100) 85 11/12/18 16:00 98.1 94 20 134/81 (98) 95 11/12/18 12:00 97.9 86 20 154/96 (115) 99 Intake and Output 11/12/18 11/13/18 19:00 07:00 Intake Total 800 ml Output Total 700 ml 700 ml Balance 100 ml -700 ml Intake Oral 800 ml Output Urine Total 700 ml 700 ml Laboratory Tests 11/13/18 05:05: White Blood Count 6.7, Red Blood Count 3.27L, Hemoglobin 8.8L, Hematocrit 27.3L , Mean Corpuscular Volume 84, Mean Corpuscular Hemoglobin 26.8L, Mean Corpuscular Hemoglobin Concent 32.1, Red Cell Distribution Width 14.2, Platelet Count 691#H, Mean Platelet Volume 5.2L, Neutrophils (%) (Auto) 61.4, Lymphocytes (%) (Auto) 30.1, Monocytes (%) (Auto) 5.4, Eosinophils (%) (Auto) 2.1, Basophils (%) (Auto) 1.0, Sodium Level 136, Potassium Level 4.2, Chloride Level 102, Carbon Dioxide Level 27, Anion Gap 7, Blood Urea Nitrogen 23H, Creatinine 1.2, Estimat Glomerular Filtration Rate > 60, Glucose Level 209#H, Calcium Level 8.3L Height (Feet): 5 Height (Inches): 8.00 Weight (Pounds): 78 General Appearance: no apparent distress Objective no change Lefty Zamora MD Nov 13, 2018 10:52
[2018-11-13 12:00] VITALS: BP 138/77
--- NOTE | 2018-11-13 12:52 | Pulmonology Progress Note ---
Assessment/Plan Problems: (1) DKA (diabetic ketoacidoses) (2) Sacral wound (3) ATN (acute tubular necrosis) (4) Acute on chronic renal insufficiency (5) Diabetes mellitus (6) Hypothyroidism (7) Hypertension Assessment/Plan BS controlled with Levemir BID improving dka resolved bp controlled stress study done wound care dc to previous setting. Subjective ROS Limited/Unobtainable: No Constitutional: Reports: no symptoms HEENT: Repors: no symptoms Respiratory: Reports: no symptoms Allergies: Coded Allergies: No Known Allergies (Unverified , 11/02/18) Objective Last 24 Hour Vital Signs Date Time Temp Pulse Resp B/P (MAP) Pulse Ox O2 Delivery O2 Flow Rate FiO2 11/13/18 08:15 Room Air 11/13/18 08:00 97.6 81 18 140/80 (100) 96 11/13/18 04:00 97.9 79 18 142/87 (105) 95 11/13/18 00:00 98.3 83 19 159/96 (117) 98 11/12/18 22:43 98.1 85 18 135/83 (100) 85 11/12/18 21:00 Room Air 11/12/18 20:00 98.1 85 18 135/83 (100) 85 11/12/18 16:00 98.1 94 20 134/81 (98) 95 Intake and Output 11/12/18 11/13/18 19:00 07:00 Intake Total 800 ml Output Total 700 ml 700 ml Balance 100 ml -700 ml Intake Oral 800 ml Output Urine Total 700 ml 700 ml Objective General Appearance: WD/WN HEENT: normocephalic, atraumatic Respiratory/Chest: chest wall non-tender, normal breath sounds Cardiovascular: normal peripheral pulses, normal rate Abdomen: normal bowel sounds, soft, non tender, no organomegaly, non distended Extremities: no cyanosis Skin: no rash, no lesions, no ulcers Laboratory Tests 11/13/18 05:05: White Blood Count 6.7, Red Blood Count 3.27L, Hemoglobin 8.8L, Hematocrit 27.3L , Mean Corpuscular Volume 84, Mean Corpuscular Hemoglobin 26.8L, Mean Corpuscular Hemoglobin Concent 32.1, Red Cell Distribution Width 14.2, Platelet Count 691#H, Mean Platelet Volume 5.2L, Neutrophils (%) (Auto) 61.4, Lymphocytes (%) (Auto) 30.1, Monocytes (%) (Auto) 5.4, Eosinophils (%) (Auto) 2.1, Basophils (%) (Auto) 1.0, Sodium Level 136, Potassium Level 4.2, Chloride Level 102, Carbon Dioxide Level 27, Anion Gap 7, Blood Urea Nitrogen 23H, Creatinine 1.2, Estimat Glomerular Filtration Rate > 60, Glucose Level 209#H, Calcium Level 8.3L Current Medications Medications (Trade) Dose Ordered Sig/Oscar Route PRN Reason Start Time Stop Time Status Last Admin Dose Admin Acetaminophen (Tylenol) 650 mg Q4H PRN ORAL Mild Pain/Temp > 100.5 11/04/18 11:15 12/02/18 11:14 11/08/18 08:19 Acetaminophen/ Hydrocodone Bitart ([place] 10/325) 1 tab Q6H PRN ORAL For Pain 11/08/18 13:20 11/15/18 13:19 11/13/18 12:27 Ascorbic Acid (Vitamin C) 500 mg DAILY ORAL 11/05/18 09:00 12/05/18 08:59 11/13/18 08:40 Aspirin (Ecotrin) 81 mg DAILY ORAL 11/04/18 09:00 12/04/18 08:59 11/13/18 08:40 Atorvastatin Calcium (Lipitor) 20 mg BEDTIME ORAL 11/05/18 21:00 12/05/18 20:59 11/12/18 20:50 Clonidine HCl (Catapres Tab) 0.1 mg Q4H PRN ORAL bp over 165 syst 11/04/18 02:30 12/03/18 14:29 11/10/18 22:28 Dextrose (Dextrose 50%) 25 ml Q30M PRN IV Hypoglycemia 11/04/18 00:45 12/03/18 10:01 Dextrose (Dextrose 50%) 50 ml Q30M PRN IV hypoglycemia 11/04/18 00:45 12/03/18 10:14 Docusate Sodium (Colace) 100 mg THREE TIMES A DAY ORAL 11/04/18 09:00 12/03/18 17:59 11/13/18 12:23 Heparin Sodium (Porcine) (Heparin 5000 units/ml) 5,000 units EVERY 12 HOURS SUBQ 11/05/18 21:00 12/02/18 20:59 11/13/18 08:42 Insulin Aspart (NovoLOG) BEFORE MEALS AND HS SUBQ 11/04/18 06:30 12/03/18 11:29 11/13/18 12:25 Insulin Detemir (Levemir) 18 units EVERY 12 HOURS SUBQ 11/09/18 09:00 12/03/18 09:59 11/13/18 08:42 Levothyroxine Sodium (Synthroid) 50 mcg DAILY@0630 ORAL 11/04/18 06:30 12/04/18 06:29 11/13/18 06:08 Multivitamins (Multivitamins) 1 tab DAILY ORAL 11/05/18 09:00 12/05/18 08:59 11/13/18 08:40 Nateglinide (Starlix) 120 mg TIAC ORAL 11/12/18 11:30 12/08/18 16:29 11/13/18 12:23 Ondansetron HCl (Zofran) 4 mg Q6H PRN IVP Nausea & Vomiting 11/04/18 01:45 12/02/18 13:44 Pantoprazole (Protonix) 40 mg EVERY 12 HOURS ORAL 11/04/18 09:00 12/03/18 14:29 11/13/18 08:40 Polyethylene Glycol (Miralax) 17 gm DAILYPRN PRN ORAL Constipation 11/04/18 13:45 12/02/18 13:44 Tamsulosin HCl (Flomax) 0.4 mg BEDTIME ORAL 11/04/18 21:00 12/04/18 20:59 11/12/18 20:49 Zinc Sulfate (Zinc Sulfate) 220 mg DAILY ORAL 11/05/18 09:00 12/05/18 08:59 11/13/18 08:40 Jade Mann MD Nov 13, 2018 12:52
[2018-11-13 16:00] VITALS: BP 143/94
--- NOTE | 2018-11-13 19:18 | Internal Med Progress Note ---
Subjective Date of Service: Nov 13, 2018 Physician Name Sudhir Jones Attending Physician Gómez Mancini MD Current Medications Medications (Trade) Dose Ordered Sig/Oscar Route PRN Reason Start Time Stop Time Status Last Admin Dose Admin Acetaminophen (Tylenol) 650 mg Q4H PRN ORAL Mild Pain/Temp > 100.5 11/04/18 11:15 12/02/18 11:14 11/08/18 08:19 Acetaminophen/ Hydrocodone Bitart ([place] 10/325) 1 tab Q6H PRN ORAL For Pain 11/08/18 13:20 11/15/18 13:19 11/13/18 12:27 Ascorbic Acid (Vitamin C) 500 mg DAILY ORAL 11/05/18 09:00 12/05/18 08:59 11/13/18 08:40 Aspirin (Ecotrin) 81 mg DAILY ORAL 11/04/18 09:00 12/04/18 08:59 11/13/18 08:40 Atorvastatin Calcium (Lipitor) 20 mg BEDTIME ORAL 11/05/18 21:00 12/05/18 20:59 11/12/18 20:50 Clonidine HCl (Catapres Tab) 0.1 mg Q4H PRN ORAL bp over 165 syst 11/04/18 02:30 12/03/18 14:29 11/10/18 22:28 Dextrose (Dextrose 50%) 25 ml Q30M PRN IV Hypoglycemia 11/04/18 00:45 12/03/18 10:01 Dextrose (Dextrose 50%) 50 ml Q30M PRN IV hypoglycemia 11/04/18 00:45 12/03/18 10:14 Docusate Sodium (Colace) 100 mg THREE TIMES A DAY ORAL 11/04/18 09:00 12/03/18 17:59 11/13/18 17:15 Heparin Sodium (Porcine) (Heparin 5000 units/ml) 5,000 units EVERY 12 HOURS SUBQ 11/05/18 21:00 12/02/18 20:59 11/13/18 08:42 Insulin Aspart (NovoLOG) BEFORE MEALS AND HS SUBQ 11/04/18 06:30 12/03/18 11:29 11/13/18 17:17 Insulin Detemir (Levemir) 18 units EVERY 12 HOURS SUBQ 11/09/18 09:00 12/03/18 09:59 11/13/18 08:42 Levothyroxine Sodium (Synthroid) 50 mcg DAILY@0630 ORAL 11/04/18 06:30 12/04/18 06:29 11/13/18 06:08 Multivitamins (Multivitamins) 1 tab DAILY ORAL 11/05/18 09:00 12/05/18 08:59 11/13/18 08:40 Nateglinide (Starlix) 120 mg TIAC ORAL 11/12/18 11:30 12/08/18 16:29 11/13/18 17:15 Ondansetron HCl (Zofran) 4 mg Q6H PRN IVP Nausea & Vomiting 11/04/18 01:45 12/02/18 13:44 Pantoprazole (Protonix) 40 mg EVERY 12 HOURS ORAL 11/04/18 09:00 12/03/18 14:29 11/13/18 08:40 Polyethylene Glycol (Miralax) 17 gm DAILYPRN PRN ORAL Constipation 11/04/18 13:45 12/02/18 13:44 Tamsulosin HCl (Flomax) 0.4 mg BEDTIME ORAL 11/04/18 21:00 12/04/18 20:59 11/12/18 20:49 Zinc Sulfate (Zinc Sulfate) 220 mg DAILY ORAL 11/05/18 09:00 12/05/18 08:59 11/13/18 08:40 Allergies: Coded Allergies: No Known Allergies (Unverified , 11/02/18) ROS Limited/Unobtainable: No Constitutional: Reports: no symptoms HEENT: Reports: no symptoms Cardiovascular: Reports: no symptoms Respiratory: Reports: no symptoms Gastrointestinal/Abdominal: Reports: no symptoms Genitourinary: Reports: no symptoms Neurologic/Psychiatric: Reports: no symptoms Subjective 68 YO M admitted with diabetic ketoacidosis and hyperglycemia. Cover for Int Gato-DR Mancini. Await SNF placement Objective Last Vital Signs Date Time Temp Pulse Resp B/P (MAP) Pulse Ox O2 Delivery O2 Flow Rate FiO2 11/13/18 16:00 97.5 80 18 143/94 (110) 97 11/13/18 08:15 Room Air Laboratory Tests Test 11/13/18 05:05 White Blood Count 6.7 K/UL (4.8-10.8) Red Blood Count 3.27 M/UL (4.70-6.10) L Hemoglobin 8.8 G/DL (14.2-18.0) L Hematocrit 27.3 % (42.0-52.0) L Mean Corpuscular Volume 84 FL (80-99) Mean Corpuscular Hemoglobin 26.8 PG (27.0-31.0) L Mean Corpuscular Hemoglobin Concent 32.1 G/DL (32.0-36.0) Red Cell Distribution Width 14.2 % (11.6-14.8) Platelet Count 691 K/UL (150-450) #H Mean Platelet Volume 5.2 FL (6.5-10.1) L Neutrophils (%) (Auto) 61.4 % (45.0-75.0) Lymphocytes (%) (Auto) 30.1 % (20.0-45.0) Monocytes (%) (Auto) 5.4 % (1.0-10.0) Eosinophils (%) (Auto) 2.1 % (0.0-3.0) Basophils (%) (Auto) 1.0 % (0.0-2.0) Sodium Level 136 MMOL/L (136-145) Potassium Level 4.2 MMOL/L (3.5-5.1) Chloride Level 102 MMOL/L (98-107) Carbon Dioxide Level 27 MMOL/L (21-32) Anion Gap 7 mmol/L (5-15) Blood Urea Nitrogen 23 mg/dL (7-18) H Creatinine 1.2 MG/DL (0.55-1.30) Estimat Glomerular Filtration Rate > 60 mL/min (>60) Glucose Level 209 MG/DL (74-106) #H Calcium Level 8.3 MG/DL (8.5-10.1) L Intake and Output 11/12/18 11/13/18 19:00 07:00 Intake Total 800 ml Output Total 700 ml 700 ml Balance 100 ml -700 ml Intake Oral 800 ml Output Urine Total 700 ml 700 ml Objective PHYSICAL EXAMINATION: GENERAL: The patient is a well-developed and well-nourished male, in no apparent distress. HEENT: Eyes, pupils are equal and responsive to light and accommodation. Extraocular movements are intact. NECK: Supple without lymphadenopathy. CHEST: Lungs are clear to auscultation bilaterally without wheezes or rales. CARDIOVASCULAR: Regular rhythm and rate. S1 and S2 are normal without murmurs, rubs, or gallops. ABDOMEN: Soft, nontender, and nondistended. Positive bowel sounds. No evidence of hepatosplenomegaly. Currently, no rebound or guarding noted. EXTREMITIES: Negative for clubbing, cyanosis, or edema. RECTAL/GENITAL: Not performed. NEUROLOGIC: Cranial nerves II through XII are grossly intact without focal deficits. Assessment/Plan Assessment/Plan Assessment: 1. Diabetes II 2. Diabetic ketoacidosis 3. hyponatremia 4. hyperglycemia 5. hypertension 6. hypothyroidism 7. diabetic neuropathy 8. Hypercholesterolemia TREATMENT: 1. Diabetic ketoacidosis/Hyperglycemia. Continue levemir and novolog sliding scale per endocrinology. Latest fingerstick readings are improved. 2. Acute renal failure. This may be secondary to diabetic ketoacidosis as above. 3. Hyponatremia. The patient has been started on normal saline intravenously. 4. Hypertension. Continue amlodipine and lisinopril as above. Continue metoprolol as above. 5. Hypothyroidism. Continue Levoxyl as above. 6. Hypercholesterolemia. Continue atorvastatin as above. 7. Discharge planning-Rehab on [facility] when bed available Sudhir Jones MD Nov 13, 2018 19:18
[2018-11-13 20:00] VITALS: BP 161/108
--- NOTE | 2018-11-13 20:37 | Surgery Progress Note ---
Surgery Progress Note Subjective Symptoms: improved, pain absent, tolerating diet, passing flatus, BM Objective Last 24 Hour Vital Signs Date Time Temp Pulse Resp B/P (MAP) Pulse Ox O2 Delivery O2 Flow Rate FiO2 11/13/18 16:00 97.5 80 18 143/94 (110) 97 11/13/18 12:00 97.6 83 18 138/77 (97) 97 11/13/18 08:15 Room Air 11/13/18 08:00 97.6 81 18 140/80 (100) 96 11/13/18 04:00 97.9 79 18 142/87 (105) 95 11/13/18 00:00 98.3 83 19 159/96 (117) 98 11/12/18 22:43 98.1 85 18 135/83 (100) 85 11/12/18 21:00 Room Air I&O Intake and Output 11/12/18 11/13/18 19:00 07:00 Intake Total 800 ml Output Total 700 ml 700 ml Balance 100 ml -700 ml Intake Oral 800 ml Output Urine Total 700 ml 700 ml Dressing: saturated Wound: clean Drains: none Cardiovascular: RSR Respiratory: clear Abdomen: soft, flat, present bowel sounds Extremities: no tenderness, no cyanosis Laboratory Tests Test 11/13/18 05:05 White Blood Count 6.7 K/UL (4.8-10.8) Red Blood Count 3.27 M/UL (4.70-6.10) L Hemoglobin 8.8 G/DL (14.2-18.0) L Hematocrit 27.3 % (42.0-52.0) L Mean Corpuscular Volume 84 FL (80-99) Mean Corpuscular Hemoglobin 26.8 PG (27.0-31.0) L Mean Corpuscular Hemoglobin Concent 32.1 G/DL (32.0-36.0) Red Cell Distribution Width 14.2 % (11.6-14.8) Platelet Count 691 K/UL (150-450) #H Mean Platelet Volume 5.2 FL (6.5-10.1) L Neutrophils (%) (Auto) 61.4 % (45.0-75.0) Lymphocytes (%) (Auto) 30.1 % (20.0-45.0) Monocytes (%) (Auto) 5.4 % (1.0-10.0) Eosinophils (%) (Auto) 2.1 % (0.0-3.0) Basophils (%) (Auto) 1.0 % (0.0-2.0) Sodium Level 136 MMOL/L (136-145) Potassium Level 4.2 MMOL/L (3.5-5.1) Chloride Level 102 MMOL/L (98-107) Carbon Dioxide Level 27 MMOL/L (21-32) Anion Gap 7 mmol/L (5-15) Blood Urea Nitrogen 23 mg/dL (7-18) H Creatinine 1.2 MG/DL (0.55-1.30) Estimat Glomerular Filtration Rate > 60 mL/min (>60) Glucose Level 209 MG/DL (74-106) #H Calcium Level 8.3 MG/DL (8.5-10.1) L Plan Problems: (1) Diabetes mellitus Assessment & Plan: A1c 14 glu improved cont with Rx DAILY ESTIMATED NEEDS: Needs based on Wound, DM/ 70kg 25-30 kcals/kg 6629-7407 total kcals 1.25-1.5 g protein/kg 87-105 g total protein 25-30 mL/kg 0572-8711 total fluid mLs NUTRITION DIAGNOSIS: * Increased kcal/prot intake needs R/T wound healing as evidenced by pt admitted w/ full thickness pressure injury at sacrococcyx. * Altered nutrition related lab values R/T DKA as evidenced by elev BG of 928* upon adm -> POC glu improved:224 132 102 190 145, A1C of 15.5, 4+ urine glucose, off insulin drip. CURRENT DIET:CCHO MED PO DIET RECOMMENDATIONS: CCHO MED, LOW NA/ texture as tolerated ADDITIONAL RECOMMENDATIONS: * Calibrated bedscale wt for accurate CBW * Wound healing: Continue MVI x 1, Vit C 500mg x1, ZnSO4 220mg QD : Add Hari 1pkt BID * Monitor BGs closely- improved since adm * DM diet education provided on 11/06 * Monitor lytes, replete as needed (2) Hypothyroidism Assessment & Plan: levels noted stable (3) Hypertension (4) DKA (diabetic ketoacidoses) (5) ATN (acute tubular necrosis) (6) Acute on chronic renal insufficiency (7) Sacral wound Assessment & Plan: Pt presented on admission with full thickness pressure injury sacrococcygeal area. Base of wound with trace biofilm,(+) maceration along borders (L)1cm x (W00.5cm x (D)0.2cm. Darker skin tone without induration periwound . Darker skin tone without induration or erythema periwound to both ischial regions.Soft mass upper back .Pt verbalized tenderness when palpated.No erythema noted. Both heels are firm and blanchable. Pt educated on wound prevention and encouraged to frequently turn on sides to relive pressure off buttocks. Tx.Plan: Cleanse with saline. Apply Triad Paste. Cover with Optifoam drsg. Change every 3 days and prn. Apply Cavilon Skin Barrier to Both heels. Off-load heels with Pillow. Cue and encourage pt to Reposition at least every 2 hours or as tolerated. Help patient with reposition q2h (8) Leukocytosis Assessment & Plan: unlikely related to wounds resolved will monitor will follow with recs okay to d/c from surgical standpoint d/c planning Josias Lipscomb Nov 13, 2018 20:37
[2018-11-13] MEDS: Atorvastatin 20mg tab ORAL SCH (21:46)
[2018-11-13] MEDS: Tamsulosin 0.4mg cap ORAL SCH (21:47)
[2018-11-14] VITALS: BP 165/103
[2018-11-14 04:00] VITALS: BP 91/59
[2018-11-14] MEDS: NovoLOG Insulin Flexpen SUBQ SCH ×4 (05:56→21:00)
--- NOTE | 2018-11-14 06:24 | General Progress Note ---
Assessment/Plan Problem List: (1) DKA (diabetic ketoacidoses) ICD Codes: E13.10 - Other specified diabetes mellitus with ketoacidosis without coma SNOMED: 97734664, 030313413 (2) Diabetes mellitus ICD Codes: E11.9 - Type 2 diabetes mellitus without complications SNOMED: 31394056 (3) Hypothyroidism ICD Codes: E03.9 - Hypothyroidism, unspecified SNOMED: 73598154 (4) Hypertension ICD Codes: I10 - Essential (primary) hypertension SNOMED: 09733576 Assessment/Plan: increase Levemir to 20 units bid continue Starlix 120 mg ac tid continue Levothyroxine 50 mcg daily Subjective Allergies: Coded Allergies: No Known Allergies (Unverified , 11/02/18) All Systems: reviewed and negative except above Subjective events noted Item Value Date Time Bedside Blood Glucose 218 mg/dl H 11/14/18 0556 Bedside Blood Glucose 115 mg/dl 11/13/18 2155 Bedside Blood Glucose 154 mg/dl H 11/13/18 1717 Bedside Blood Glucose 330 mg/dl H 11/13/18 1225 Bedside Blood Glucose 247 mg/dl H 11/13/18 0842 Objective Last 24 Hour Vital Signs Date Time Temp Pulse Resp B/P (MAP) Pulse Ox O2 Delivery O2 Flow Rate FiO2 11/14/18 01:08 165/103 11/14/18 00:00 98.0 82 18 165/103 (123) 98 11/13/18 21:00 Room Air 11/13/18 20:00 97.2 84 19 161/108 (125) 99 11/13/18 16:00 97.5 80 18 143/94 (110) 97 11/13/18 12:00 97.6 83 18 138/77 (97) 97 11/13/18 08:15 Room Air 11/13/18 08:00 97.6 81 18 140/80 (100) 96 Intake and Output 11/13/18 11/14/18 18:59 06:59 Intake Total 820 ml Balance 820 ml Intake Oral 820 ml # Voids 6 # Bowel Movements 1 Height (Feet): 5 Height (Inches): 8.00 Weight (Pounds): 78 General Appearance: no apparent distress Neck: normal alignment Cardiovascular: normal rate Respiratory/Chest: lungs clear Abdomen: normal bowel sounds Objective Current Medications Medications (Trade) Dose Ordered Sig/Oscar Route PRN Reason Start Time Stop Time Status Last Admin Dose Admin Acetaminophen (Tylenol) 650 mg Q4H PRN ORAL Mild Pain/Temp > 100.5 11/04/18 11:15 12/02/18 11:14 11/08/18 08:19 Acetaminophen/ Hydrocodone Bitart ([place] 10/325) 1 tab Q6H PRN ORAL For Pain 11/08/18 13:20 11/15/18 13:19 11/13/18 21:46 Ascorbic Acid (Vitamin C) 500 mg DAILY ORAL 11/05/18 09:00 12/05/18 08:59 11/13/18 08:40 Aspirin (Ecotrin) 81 mg DAILY ORAL 11/04/18 09:00 12/04/18 08:59 11/13/18 08:40 Atorvastatin Calcium (Lipitor) 20 mg BEDTIME ORAL 11/05/18 21:00 12/05/18 20:59 11/13/18 21:46 Clonidine HCl (Catapres Tab) 0.1 mg Q4H PRN ORAL bp over 165 syst 11/04/18 02:30 12/03/18 14:29 11/14/18 01:08 Dextrose (Dextrose 50%) 25 ml Q30M PRN IV Hypoglycemia 11/04/18 00:45 12/03/18 10:01 Dextrose (Dextrose 50%) 50 ml Q30M PRN IV hypoglycemia 11/04/18 00:45 12/03/18 10:14 Docusate Sodium (Colace) 100 mg THREE TIMES A DAY ORAL 11/04/18 09:00 12/03/18 17:59 11/13/18 17:15 Heparin Sodium (Porcine) (Heparin 5000 units/ml) 5,000 units EVERY 12 HOURS SUBQ 11/05/18 21:00 12/02/18 20:59 11/13/18 21:56 Insulin Aspart (NovoLOG) BEFORE MEALS AND HS SUBQ 11/04/18 06:30 12/03/18 11:29 11/14/18 05:56 Insulin Detemir (Levemir) 18 units EVERY 12 HOURS SUBQ 11/09/18 09:00 12/03/18 09:59 11/13/18 21:55 Levothyroxine Sodium (Synthroid) 50 mcg DAILY@0630 ORAL 11/04/18 06:30 12/04/18 06:29 11/14/18 05:52 Multivitamins (Multivitamins) 1 tab DAILY ORAL 11/05/18 09:00 12/05/18 08:59 11/13/18 08:40 Nateglinide (Starlix) 120 mg TIAC ORAL 11/12/18 11:30 12/08/18 16:29 11/14/18 05:52 Ondansetron HCl (Zofran) 4 mg Q6H PRN IVP Nausea & Vomiting 11/04/18 01:45 12/02/18 13:44 Pantoprazole (Protonix) 40 mg EVERY 12 HOURS ORAL 11/04/18 09:00 12/03/18 14:29 11/13/18 21:46 Polyethylene Glycol (Miralax) 17 gm DAILYPRN PRN ORAL Constipation 11/04/18 13:45 12/02/18 13:44 Tamsulosin HCl (Flomax) 0.4 mg BEDTIME ORAL 11/04/18 21:00 12/04/18 20:59 11/13/18 21:47 Zinc Sulfate (Zinc Sulfate) 220 mg DAILY ORAL 11/05/18 09:00 12/05/18 08:59 11/13/18 08:40 Yevgeniy Vinson MD Nov 14, 2018 06:24
[2018-11-14 06:57] LABS: ANION GAP 6 mmol/L (5-15); BLOOD UREA NITROGEN 22 mg/dL (7-18); CALCIUM 8.6 MG/DL (8.5-10.1); CARBON DIOXIDE 29 MMOL/L (21-32); CHLORIDE 101 MMOL/L (98-107); CREATININE 1.2 MG/DL (0.55-1.30); POTASSIUM 4.8 MMOL/L (3.5-5.1); SODIUM 136 MMOL/L (136-145)
[2018-11-14 07:12] LABS: BASOPHILS % (AUTO) 1.8 % (0.0-2.0); EOSINOPHILS % (AUTO) 1.9 % (0.0-3.0); HEMATOCRIT 26.7 % (42.0-52.0); HEMOGLOBIN 8.6 G/DL (14.2-18.0); LYMPHOCYTES % (AUTO) 18.4 % (20.0-45.0); MEAN CORPUSCULAR VOLUME 84 FL (80-99); MONOCYTES % (AUTO) 7.3 % (1.0-10.0); NEUTROPHILS % (AUTO) 70.7 % (45.0-75.0); PLATELET COUNT 702 K/UL (150-450); RED BLOOD COUNT 3.16 M/UL (4.70-6.10); RED CELL DISTRIBUTION WIDTH 14.2 % (11.6-14.8); WHITE BLOOD COUNT 8.1 K/UL (4.8-10.8)
[2018-11-14 08:00] VITALS: BP 148/99
[2018-11-14] MEDS: Aspirin EC 81mg tab ORAL SCH (08:12)
[2018-11-14] MEDS: Ascorbic Acid 500mg tab ORAL SCH (08:13)
[2018-11-14] MEDS: Docusate 100mg cap ORAL SCH ×3 (08:13→17:05)
[2018-11-14] MEDS: HYDROcodone/Acetamin 10/325 tab ORAL PRN ×3 (08:13→23:58)
[2018-11-14] MEDS: Zinc Sulfate 220mg cap ORAL SCH (08:13)
[2018-11-14] MEDS: Heparin 5000 units/ml inj SUBQ SCH ×2 (08:15→21:13)
[2018-11-14] MEDS: Levemir Flexpen SUBQ SCH ×2 (09:33→21:13)
[2018-11-14 12:00] VITALS: BP 150/92
--- NOTE | 2018-11-14 12:48 | Pulmonology Progress Note ---
Assessment/Plan Problems: (1) DKA (diabetic ketoacidoses) (2) Sacral wound (3) ATN (acute tubular necrosis) (4) Acute on chronic renal insufficiency (5) Diabetes mellitus (6) Hypothyroidism (7) Hypertension Assessment/Plan dc planning in progress BS controlled with Levemir BID improving dka resolved bp controlled stress study done wound care dc to previous setting. Subjective ROS Limited/Unobtainable: No Constitutional: Reports: no symptoms HEENT: Repors: no symptoms Respiratory: Reports: no symptoms Allergies: Coded Allergies: No Known Allergies (Unverified , 11/02/18) Objective Last 24 Hour Vital Signs Date Time Temp Pulse Resp B/P (MAP) Pulse Ox O2 Delivery O2 Flow Rate FiO2 11/14/18 09:00 Room Air 11/14/18 08:43 98.1 11/14/18 08:00 97.3 77 16 148/99 (115) 97 11/14/18 04:00 98.1 94 18 91/59 (70) 98 11/14/18 01:08 165/103 11/14/18 00:00 98.0 82 18 165/103 (123) 98 11/13/18 21:00 Room Air 11/13/18 20:00 97.2 84 19 161/108 (125) 99 11/13/18 16:00 97.5 80 18 143/94 (110) 97 Intake and Output 11/13/18 11/14/18 18:59 06:59 Intake Total 820 ml Balance 820 ml Intake Oral 820 ml # Voids 6 4 # Bowel Movements 1 Objective General Appearance: WD/WN HEENT: normocephalic, atraumatic Respiratory/Chest: chest wall non-tender, normal breath sounds Cardiovascular: normal peripheral pulses, normal rate Abdomen: normal bowel sounds, soft, non tender, no organomegaly, non distended Extremities: no cyanosis Skin: no rash, no lesions, no ulcers Laboratory Tests 11/14/18 06:15: White Blood Count 8.1, Red Blood Count 3.16L, Hemoglobin 8.6L, Hematocrit 26.7L , Mean Corpuscular Volume 84, Mean Corpuscular Hemoglobin 27.2, Mean Corpuscular Hemoglobin Concent 32.3, Red Cell Distribution Width 14.2, Platelet Count 702H, Mean Platelet Volume 5.0L, Neutrophils (%) (Auto) 70.7, Lymphocytes (%) (Auto) 18.4L, Monocytes (%) (Auto) 7.3, Eosinophils (%) (Auto) 1.9, Basophils (%) (Auto) 1.8, Sodium Level 136, Potassium Level 4.8, Chloride Level 101, Carbon Dioxide Level 29, Anion Gap 6, Blood Urea Nitrogen 22H, Creatinine 1.2, Estimat Glomerular Filtration Rate > 60, Glucose Level 216H, Calcium Level 8.6 Current Medications Medications (Trade) Dose Ordered Sig/Oscar Route PRN Reason Start Time Stop Time Status Last Admin Dose Admin Acetaminophen (Tylenol) 650 mg Q4H PRN ORAL Mild Pain/Temp > 100.5 11/04/18 11:15 12/02/18 11:14 11/08/18 08:19 Acetaminophen/ Hydrocodone Bitart ([place] 10/325) 1 tab Q6H PRN ORAL For Pain 11/08/18 13:20 11/15/18 13:19 11/14/18 08:13 Ascorbic Acid (Vitamin C) 500 mg DAILY ORAL 11/05/18 09:00 12/05/18 08:59 11/14/18 08:13 Aspirin (Ecotrin) 81 mg DAILY ORAL 11/04/18 09:00 12/04/18 08:59 11/14/18 08:12 Atorvastatin Calcium (Lipitor) 20 mg BEDTIME ORAL 11/05/18 21:00 12/05/18 20:59 11/13/18 21:46 Clonidine HCl (Catapres Tab) 0.1 mg Q4H PRN ORAL bp over 165 syst 11/04/18 02:30 12/03/18 14:29 11/14/18 01:08 Dextrose (Dextrose 50%) 25 ml Q30M PRN IV Hypoglycemia 11/04/18 00:45 12/03/18 10:01 Dextrose (Dextrose 50%) 50 ml Q30M PRN IV hypoglycemia 11/04/18 00:45 12/03/18 10:14 Docusate Sodium (Colace) 100 mg THREE TIMES A DAY ORAL 11/04/18 09:00 12/03/18 17:59 11/14/18 12:16 Heparin Sodium (Porcine) (Heparin 5000 units/ml) 5,000 units EVERY 12 HOURS SUBQ 11/05/18 21:00 12/02/18 20:59 11/14/18 08:15 Insulin Aspart (NovoLOG) BEFORE MEALS AND HS SUBQ 11/04/18 06:30 12/03/18 11:29 11/14/18 12:15 Insulin Detemir (Levemir) 20 units EVERY 12 HOURS SUBQ 11/14/18 09:00 12/03/18 09:59 11/14/18 09:33 Levothyroxine Sodium (Synthroid) 50 mcg DAILY@0630 ORAL 11/04/18 06:30 12/04/18 06:29 11/14/18 05:52 Multivitamins (Multivitamins) 1 tab DAILY ORAL 11/05/18 09:00 12/05/18 08:59 11/14/18 08:12 Nateglinide (Starlix) 120 mg TIAC ORAL 11/12/18 11:30 12/08/18 16:29 11/14/18 12:15 Ondansetron HCl (Zofran) 4 mg Q6H PRN IVP Nausea & Vomiting 11/04/18 01:45 12/02/18 13:44 Pantoprazole (Protonix) 40 mg EVERY 12 HOURS ORAL 11/04/18 09:00 12/03/18 14:29 11/14/18 08:13 Polyethylene Glycol (Miralax) 17 gm DAILYPRN PRN ORAL Constipation 11/04/18 13:45 12/02/18 13:44 Tamsulosin HCl (Flomax) 0.4 mg BEDTIME ORAL 11/04/18 21:00 12/04/18 20:59 11/13/18 21:47 Zinc Sulfate (Zinc Sulfate) 220 mg DAILY ORAL 11/05/18 09:00 12/05/18 08:59 11/14/18 08:13 Jade Mann MD Nov 14, 2018 12:48
--- NOTE | 2018-11-14 14:25 | Surgery Progress Note ---
Surgery Progress Note Subjective Symptoms: improved, pain absent, tolerating diet, passing flatus, BM Objective Last 24 Hour Vital Signs Date Time Temp Pulse Resp B/P (MAP) Pulse Ox O2 Delivery O2 Flow Rate FiO2 11/14/18 12:00 98.3 76 16 150/92 (111) 96 11/14/18 09:00 Room Air 11/14/18 08:43 98.1 11/14/18 08:00 97.3 77 16 148/99 (115) 97 11/14/18 04:00 98.1 94 18 91/59 (70) 98 11/14/18 01:08 165/103 11/14/18 00:00 98.0 82 18 165/103 (123) 98 11/13/18 21:00 Room Air 11/13/18 20:00 97.2 84 19 161/108 (125) 99 11/13/18 16:00 97.5 80 18 143/94 (110) 97 I&O Intake and Output 11/13/18 11/14/18 19:00 07:00 Intake Total 820 ml Balance 820 ml Intake Oral 820 ml # Voids 6 4 # Bowel Movements 1 Cardiovascular: RSR Respiratory: clear Abdomen: soft, flat, non-tender, present bowel sounds, non-distended Extremities: no tenderness, no cyanosis Laboratory Tests Test 11/14/18 06:15 White Blood Count 8.1 K/UL (4.8-10.8) Red Blood Count 3.16 M/UL (4.70-6.10) L Hemoglobin 8.6 G/DL (14.2-18.0) L Hematocrit 26.7 % (42.0-52.0) L Mean Corpuscular Volume 84 FL (80-99) Mean Corpuscular Hemoglobin 27.2 PG (27.0-31.0) Mean Corpuscular Hemoglobin Concent 32.3 G/DL (32.0-36.0) Red Cell Distribution Width 14.2 % (11.6-14.8) Platelet Count 702 K/UL (150-450) H Mean Platelet Volume 5.0 FL (6.5-10.1) L Neutrophils (%) (Auto) 70.7 % (45.0-75.0) Lymphocytes (%) (Auto) 18.4 % (20.0-45.0) L Monocytes (%) (Auto) 7.3 % (1.0-10.0) Eosinophils (%) (Auto) 1.9 % (0.0-3.0) Basophils (%) (Auto) 1.8 % (0.0-2.0) Sodium Level 136 MMOL/L (136-145) Potassium Level 4.8 MMOL/L (3.5-5.1) Chloride Level 101 MMOL/L (98-107) Carbon Dioxide Level 29 MMOL/L (21-32) Anion Gap 6 mmol/L (5-15) Blood Urea Nitrogen 22 mg/dL (7-18) H Creatinine 1.2 MG/DL (0.55-1.30) Estimat Glomerular Filtration Rate > 60 mL/min (>60) Glucose Level 216 MG/DL (74-106) H Calcium Level 8.6 MG/DL (8.5-10.1) Plan Problems: (1) Diabetes mellitus Assessment & Plan: A1c 14 glu improved cont with Rx DAILY ESTIMATED NEEDS: Needs based on Wound, DM/ 70kg 25-30 kcals/kg 9767-4393 total kcals 1.25-1.5 g protein/kg 87-105 g total protein 25-30 mL/kg 4179-0278 total fluid mLs NUTRITION DIAGNOSIS: * Increased kcal/prot intake needs R/T wound healing as evidenced by pt admitted w/ full thickness pressure injury at sacrococcyx. * Altered nutrition related lab values R/T DKA as evidenced by elev BG of 928* upon adm -> POC glu improved:224 132 102 190 145, A1C of 15.5, 4+ urine glucose, off insulin drip. CURRENT DIET:CCHO MED PO DIET RECOMMENDATIONS: CCHO MED, LOW NA/ texture as tolerated ADDITIONAL RECOMMENDATIONS: * Calibrated bedscale wt for accurate CBW * Wound healing: Continue MVI x 1, Vit C 500mg x1, ZnSO4 220mg QD : Add Hari 1pkt BID * Monitor BGs closely- improved since adm * DM diet education provided on 11/06 * Monitor lytes, replete as needed (2) Hypothyroidism Assessment & Plan: levels noted stable (3) Hypertension (4) DKA (diabetic ketoacidoses) (5) ATN (acute tubular necrosis) (6) Acute on chronic renal insufficiency (7) Sacral wound Assessment & Plan: Pt presented on admission with full thickness pressure injury sacrococcygeal area. Base of wound with trace biofilm,(+) maceration along borders (L)1cm x (W00.5cm x (D)0.2cm. Darker skin tone without induration periwound . Darker skin tone without induration or erythema periwound to both ischial regions.Soft mass upper back .Pt verbalized tenderness when palpated.No erythema noted. Both heels are firm and blanchable. Pt educated on wound prevention and encouraged to frequently turn on sides to relive pressure off buttocks. Tx.Plan: Cleanse with saline. Apply Triad Paste. Cover with Optifoam drsg. Change every 3 days and prn. Apply Cavilon Skin Barrier to Both heels. Off-load heels with Pillow. Cue and encourage pt to Reposition at least every 2 hours or as tolerated. Help patient with reposition q2h (8) Leukocytosis Assessment & Plan: unlikely related to wounds resolved will monitor will follow with recs okay to d/c from surgical standpoint d/c planning Josias Lipscomb Nov 14, 2018 14:25
--- NOTE | 2018-11-14 14:54 | Nephrology Progress Note ---
Assessment/Plan Problem List: (1) ATN (acute tubular necrosis) Assessment: Cr wnl now (2) DKA (diabetic ketoacidoses) (3) Hypertension (4) Hypothyroidism (5) Acute on chronic renal insufficiency Assessment Acute on Chronic renal failure- DKA on admit Diabetic Nephropathy HypoThyroidism HTN Sacral wound Anemia UTI Plan Mag supplement IV as needed Hydrate- BP and BS control Electrolyte check Anemia camp per orders and consultants placement issue Subjective ROS Limited/Unobtainable: No Constitutional: Reports: malaise Objective Objective Last 24 Hour Vital Signs Date Time Temp Pulse Resp B/P (MAP) Pulse Ox O2 Delivery O2 Flow Rate FiO2 11/14/18 12:00 98.3 76 16 150/92 (111) 96 11/14/18 09:00 Room Air 11/14/18 08:43 98.1 11/14/18 08:00 97.3 77 16 148/99 (115) 97 11/14/18 04:00 98.1 94 18 91/59 (70) 98 11/14/18 01:08 165/103 11/14/18 00:00 98.0 82 18 165/103 (123) 98 11/13/18 21:00 Room Air 11/13/18 20:00 97.2 84 19 161/108 (125) 99 11/13/18 16:00 97.5 80 18 143/94 (110) 97 Intake and Output 11/13/18 11/14/18 19:00 07:00 Intake Total 820 ml Balance 820 ml Intake Oral 820 ml # Voids 6 4 # Bowel Movements 1 Laboratory Tests 11/14/18 06:15: White Blood Count 8.1, Red Blood Count 3.16L, Hemoglobin 8.6L, Hematocrit 26.7L , Mean Corpuscular Volume 84, Mean Corpuscular Hemoglobin 27.2, Mean Corpuscular Hemoglobin Concent 32.3, Red Cell Distribution Width 14.2, Platelet Count 702H, Mean Platelet Volume 5.0L, Neutrophils (%) (Auto) 70.7, Lymphocytes (%) (Auto) 18.4L, Monocytes (%) (Auto) 7.3, Eosinophils (%) (Auto) 1.9, Basophils (%) (Auto) 1.8, Sodium Level 136, Potassium Level 4.8, Chloride Level 101, Carbon Dioxide Level 29, Anion Gap 6, Blood Urea Nitrogen 22H, Creatinine 1.2, Estimat Glomerular Filtration Rate > 60, Glucose Level 216H, Calcium Level 8.6 Height (Feet): 5 Height (Inches): 8.00 Weight (Pounds): 171 General Appearance: no apparent distress Objective no change Lefty Zamora MD Nov 14, 2018 14:54
[2018-11-14 16:00] VITALS: BP 156/96
--- NOTE | 2018-11-14 17:54 | Internal Med Progress Note ---
Subjective Date of Service: Nov 14, 2018 Physician Name Sudhir Jones Attending Physician Gómez Mancini MD Current Medications Medications (Trade) Dose Ordered Sig/Oscar Route PRN Reason Start Time Stop Time Status Last Admin Dose Admin Acetaminophen (Tylenol) 650 mg Q4H PRN ORAL Mild Pain/Temp > 100.5 11/04/18 11:15 12/02/18 11:14 11/08/18 08:19 Acetaminophen/ Hydrocodone Bitart ([place] 10/325) 1 tab Q6H PRN ORAL For Pain 11/08/18 13:20 11/15/18 13:19 11/14/18 17:32 Ascorbic Acid (Vitamin C) 500 mg DAILY ORAL 11/05/18 09:00 12/05/18 08:59 11/14/18 08:13 Aspirin (Ecotrin) 81 mg DAILY ORAL 11/04/18 09:00 12/04/18 08:59 11/14/18 08:12 Atorvastatin Calcium (Lipitor) 20 mg BEDTIME ORAL 11/05/18 21:00 12/05/18 20:59 11/13/18 21:46 Clonidine HCl (Catapres Tab) 0.1 mg Q4H PRN ORAL bp over 165 syst 11/04/18 02:30 12/03/18 14:29 11/14/18 01:08 Dextrose (Dextrose 50%) 25 ml Q30M PRN IV Hypoglycemia 11/04/18 00:45 12/03/18 10:01 Dextrose (Dextrose 50%) 50 ml Q30M PRN IV hypoglycemia 11/04/18 00:45 12/03/18 10:14 Docusate Sodium (Colace) 100 mg THREE TIMES A DAY ORAL 11/04/18 09:00 12/03/18 17:59 11/14/18 17:05 Heparin Sodium (Porcine) (Heparin 5000 units/ml) 5,000 units EVERY 12 HOURS SUBQ 11/05/18 21:00 12/02/18 20:59 11/14/18 08:15 Insulin Aspart (NovoLOG) BEFORE MEALS AND HS SUBQ 11/04/18 06:30 12/03/18 11:29 11/14/18 17:07 Insulin Detemir (Levemir) 20 units EVERY 12 HOURS SUBQ 11/14/18 09:00 12/03/18 09:59 11/14/18 09:33 Levothyroxine Sodium (Synthroid) 50 mcg DAILY@0630 ORAL 11/04/18 06:30 12/04/18 06:29 11/14/18 05:52 Multivitamins (Multivitamins) 1 tab DAILY ORAL 11/05/18 09:00 12/05/18 08:59 11/14/18 08:12 Nateglinide (Starlix) 120 mg TIAC ORAL 11/12/18 11:30 12/08/18 16:29 11/14/18 17:04 Ondansetron HCl (Zofran) 4 mg Q6H PRN IVP Nausea & Vomiting 11/04/18 01:45 12/02/18 13:44 Pantoprazole (Protonix) 40 mg EVERY 12 HOURS ORAL 11/04/18 09:00 12/03/18 14:29 11/14/18 08:13 Polyethylene Glycol (Miralax) 17 gm DAILYPRN PRN ORAL Constipation 11/04/18 13:45 12/02/18 13:44 Tamsulosin HCl (Flomax) 0.4 mg BEDTIME ORAL 11/04/18 21:00 12/04/18 20:59 11/13/18 21:47 Zinc Sulfate (Zinc Sulfate) 220 mg DAILY ORAL 11/05/18 09:00 12/05/18 08:59 11/14/18 08:13 Allergies: Coded Allergies: No Known Allergies (Unverified , 11/02/18) ROS Limited/Unobtainable: Yes Constitutional: Reports: no symptoms HEENT: Reports: no symptoms Cardiovascular: Reports: no symptoms Respiratory: Reports: no symptoms Gastrointestinal/Abdominal: Reports: no symptoms Genitourinary: Reports: no symptoms Neurologic/Psychiatric: Reports: no symptoms Subjective 68 YO M admitted with diabetic ketoacidosis and hyperglycemia. Cover for Int Gato-DR Mancini. Await SNF placement Objective Last Vital Signs Date Time Temp Pulse Resp B/P (MAP) Pulse Ox O2 Delivery O2 Flow Rate FiO2 11/14/18 16:00 97.9 86 17 156/96 (116) 99 11/14/18 09:00 Room Air Laboratory Tests Test 11/14/18 06:15 White Blood Count 8.1 K/UL (4.8-10.8) Red Blood Count 3.16 M/UL (4.70-6.10) L Hemoglobin 8.6 G/DL (14.2-18.0) L Hematocrit 26.7 % (42.0-52.0) L Mean Corpuscular Volume 84 FL (80-99) Mean Corpuscular Hemoglobin 27.2 PG (27.0-31.0) Mean Corpuscular Hemoglobin Concent 32.3 G/DL (32.0-36.0) Red Cell Distribution Width 14.2 % (11.6-14.8) Platelet Count 702 K/UL (150-450) H Mean Platelet Volume 5.0 FL (6.5-10.1) L Neutrophils (%) (Auto) 70.7 % (45.0-75.0) Lymphocytes (%) (Auto) 18.4 % (20.0-45.0) L Monocytes (%) (Auto) 7.3 % (1.0-10.0) Eosinophils (%) (Auto) 1.9 % (0.0-3.0) Basophils (%) (Auto) 1.8 % (0.0-2.0) Sodium Level 136 MMOL/L (136-145) Potassium Level 4.8 MMOL/L (3.5-5.1) Chloride Level 101 MMOL/L (98-107) Carbon Dioxide Level 29 MMOL/L (21-32) Anion Gap 6 mmol/L (5-15) Blood Urea Nitrogen 22 mg/dL (7-18) H Creatinine 1.2 MG/DL (0.55-1.30) Estimat Glomerular Filtration Rate > 60 mL/min (>60) Glucose Level 216 MG/DL (74-106) H Calcium Level 8.6 MG/DL (8.5-10.1) Intake and Output 11/13/18 11/14/18 19:00 07:00 Intake Total 820 ml Balance 820 ml Intake Oral 820 ml # Voids 6 4 # Bowel Movements 1 Objective PHYSICAL EXAMINATION: GENERAL: The patient is a well-developed and well-nourished male, in no apparent distress. HEENT: Eyes, pupils are equal and responsive to light and accommodation. Extraocular movements are intact. NECK: Supple without lymphadenopathy. CHEST: Lungs are clear to auscultation bilaterally without wheezes or rales. CARDIOVASCULAR: Regular rhythm and rate. S1 and S2 are normal without murmurs, rubs, or gallops. ABDOMEN: Soft, nontender, and nondistended. Positive bowel sounds. No evidence of hepatosplenomegaly. Currently, no rebound or guarding noted. EXTREMITIES: Negative for clubbing, cyanosis, or edema. RECTAL/GENITAL: Not performed. NEUROLOGIC: Cranial nerves II through XII are grossly intact without focal deficits. Assessment/Plan Assessment/Plan Assessment: 1. Diabetes II 2. Diabetic ketoacidosis 3. hyponatremia 4. hyperglycemia 5. hypertension 6. hypothyroidism 7. diabetic neuropathy 8. Hypercholesterolemia TREATMENT: 1. Diabetic ketoacidosis/Hyperglycemia. Continue levemir and novolog sliding scale per endocrinology. Latest fingerstick readings are improved. 2. Acute renal failure. This may be secondary to diabetic ketoacidosis as above. 3. Hyponatremia. The patient has been started on normal saline intravenously. 4. Hypertension. Continue amlodipine and lisinopril as above. Continue metoprolol as above. 5. Hypothyroidism. Continue Levoxyl as above. 6. Hypercholesterolemia. Continue atorvastatin as above. 7. Discharge planning-Rehab on [facility] when bed available Sudhir Jones MD Nov 14, 2018 17:54
[2018-11-14 20:00] VITALS: BP 149/100
[2018-11-14] MEDS: Atorvastatin 20mg tab ORAL SCH (21:10)
[2018-11-14] MEDS: Tamsulosin 0.4mg cap ORAL SCH (21:10)
[2018-11-15] VITALS: BP 150/84
[2018-11-15 04:00] VITALS: BP 147/79
[2018-11-15] MEDS: NovoLOG Insulin Flexpen SUBQ SCH ×4 (06:08→20:37)
--- NOTE | 2018-11-15 06:45 | General Progress Note ---
Assessment/Plan Problem List: (1) DKA (diabetic ketoacidoses) ICD Codes: E13.10 - Other specified diabetes mellitus with ketoacidosis without coma SNOMED: 83077688, 732028658 (2) Diabetes mellitus ICD Codes: E11.9 - Type 2 diabetes mellitus without complications SNOMED: 05206459 (3) Hypothyroidism ICD Codes: E03.9 - Hypothyroidism, unspecified SNOMED: 35508500 (4) Hypertension ICD Codes: I10 - Essential (primary) hypertension SNOMED: 10530087 Assessment/Plan: continue Levemir 20 units bid continue Starlix 120 mg ac tid continue Levothyroxine 50 mcg daily Subjective Allergies: Coded Allergies: No Known Allergies (Unverified , 11/02/18) All Systems: reviewed and negative except above Subjective events noted Item Value Date Time Bedside Blood Glucose 107 mg/dl 11/15/18 0610 Bedside Blood Glucose 105 mg/dl 11/14/18 2113 Bedside Blood Glucose 221 mg/dl H 11/14/18 1707 Bedside Blood Glucose 324 mg/dl H 11/14/18 1215 Bedside Blood Glucose 303 mg/dl H 11/14/18 0933 Objective Last 24 Hour Vital Signs Date Time Temp Pulse Resp B/P (MAP) Pulse Ox O2 Delivery O2 Flow Rate FiO2 11/15/18 04:00 99.0 88 18 147/79 (101) 97 11/15/18 00:00 99.2 89 19 150/84 (106) 97 11/14/18 21:00 Room Air 11/14/18 20:00 98.5 87 18 149/100 (116) 99 11/14/18 18:02 97.9 11/14/18 16:00 97.9 86 17 156/96 (116) 99 11/14/18 12:00 98.3 76 16 150/92 (111) 96 11/14/18 09:00 Room Air 11/14/18 08:00 97.3 77 16 148/99 (115) 97 Intake and Output 11/14/18 11/15/18 19:00 07:00 Intake Total 1200 ml Output Total 800 ml Balance 400 ml Intake Oral 1200 ml Output Urine Total 800 ml Height (Feet): 5 Height (Inches): 8.00 Weight (Pounds): 176 General Appearance: no apparent distress Neck: normal alignment Cardiovascular: normal rate Respiratory/Chest: lungs clear Abdomen: normal bowel sounds Pelvis: normal external exam Edema: no edema noted Arm (L), no edema noted Arm (R), no edema noted Leg (L), no edema noted Leg (R), no edema noted Pedal (L), no edema noted Pedal (R), no edema noted Generalized Objective Current Medications Medications (Trade) Dose Ordered Sig/Oscar Route PRN Reason Start Time Stop Time Status Last Admin Dose Admin Acetaminophen (Tylenol) 650 mg Q4H PRN ORAL Mild Pain/Temp > 100.5 11/04/18 11:15 12/02/18 11:14 11/08/18 08:19 Acetaminophen/ Hydrocodone Bitart ([place] 10/325) 1 tab Q6H PRN ORAL For Pain 11/08/18 13:20 11/15/18 13:19 11/14/18 23:58 Ascorbic Acid (Vitamin C) 500 mg DAILY ORAL 11/05/18 09:00 12/05/18 08:59 11/14/18 08:13 Aspirin (Ecotrin) 81 mg DAILY ORAL 11/04/18 09:00 12/04/18 08:59 11/14/18 08:12 Atorvastatin Calcium (Lipitor) 20 mg BEDTIME ORAL 11/05/18 21:00 12/05/18 20:59 11/14/18 21:10 Clonidine HCl (Catapres Tab) 0.1 mg Q4H PRN ORAL bp over 165 syst 11/04/18 02:30 12/03/18 14:29 11/14/18 01:08 Dextrose (Dextrose 50%) 25 ml Q30M PRN IV Hypoglycemia 11/04/18 00:45 12/03/18 10:01 Dextrose (Dextrose 50%) 50 ml Q30M PRN IV hypoglycemia 11/04/18 00:45 12/03/18 10:14 Docusate Sodium (Colace) 100 mg THREE TIMES A DAY ORAL 11/04/18 09:00 12/03/18 17:59 11/14/18 17:05 Heparin Sodium (Porcine) (Heparin 5000 units/ml) 5,000 units EVERY 12 HOURS SUBQ 11/05/18 21:00 12/02/18 20:59 11/14/18 21:13 Insulin Aspart (NovoLOG) BEFORE MEALS AND HS SUBQ 11/04/18 06:30 12/03/18 11:29 11/14/18 17:07 Insulin Detemir (Levemir) 20 units EVERY 12 HOURS SUBQ 11/14/18 09:00 12/03/18 09:59 11/14/18 21:13 Levothyroxine Sodium (Synthroid) 50 mcg DAILY@0630 ORAL 11/04/18 06:30 12/04/18 06:29 11/15/18 06:09 Multivitamins (Multivitamins) 1 tab DAILY ORAL 11/05/18 09:00 12/05/18 08:59 11/14/18 08:12 Nateglinide (Starlix) 120 mg TIAC ORAL 11/12/18 11:30 12/08/18 16:29 11/15/18 06:08 Ondansetron HCl (Zofran) 4 mg Q6H PRN IVP Nausea & Vomiting 11/04/18 01:45 12/02/18 13:44 Pantoprazole (Protonix) 40 mg EVERY 12 HOURS ORAL 11/04/18 09:00 12/03/18 14:29 11/14/18 21:10 Polyethylene Glycol (Miralax) 17 gm DAILYPRN PRN ORAL Constipation 11/04/18 13:45 12/02/18 13:44 Tamsulosin HCl (Flomax) 0.4 mg BEDTIME ORAL 11/04/18 21:00 12/04/18 20:59 11/14/18 21:10 Zinc Sulfate (Zinc Sulfate) 220 mg DAILY ORAL 11/05/18 09:00 12/05/18 08:59 11/14/18 08:13 Yevgeniy Vinson MD November 15, 2018 06:45
[2018-11-15 07:46] LABS: BASOPHILS % (AUTO) 1.1 % (0.0-2.0); EOSINOPHILS % (AUTO) 0.7 % (0.0-3.0); HEMATOCRIT 27.3 % (42.0-52.0); HEMOGLOBIN 8.8 G/DL (14.2-18.0); MEAN CORPUSCULAR VOLUME 83 FL (80-99); MONOCYTES % (AUTO) 4.8 % (1.0-10.0); NEUTROPHILS % (AUTO) 78.4 % (45.0-75.0); PLATELET COUNT 724 K/UL (150-450); RED BLOOD COUNT 3.28 M/UL (4.70-6.10); RED CELL DISTRIBUTION WIDTH 14.3 % (11.6-14.8); WHITE BLOOD COUNT 10.6 K/UL (4.8-10.8)
[2018-11-15 08:00] VITALS: BP 165/100
[2018-11-15 08:05] LABS: ANION GAP 7 mmol/L (5-15); BLOOD UREA NITROGEN 22 mg/dL (7-18); CALCIUM 8.3 MG/DL (8.5-10.1); CARBON DIOXIDE 28 MMOL/L (21-32); CHLORIDE 100 MMOL/L (98-107); CREATININE 1.2 MG/DL (0.55-1.30); SODIUM 135 MMOL/L (136-145)
[2018-11-15] MEDS: HYDROcodone/Acetamin 10/325 tab ORAL PRN ×2 (09:16→20:37)
[2018-11-15] MEDS: Docusate 100mg cap ORAL SCH ×3 (10:21→17:14)
[2018-11-15] MEDS: Aspirin EC 81mg tab ORAL SCH (10:22)
[2018-11-15] MEDS: Zinc Sulfate 220mg cap ORAL SCH (10:23)
[2018-11-15] MEDS: Ascorbic Acid 500mg tab ORAL SCH (10:23)
[2018-11-15] MEDS: Heparin 5000 units/ml inj SUBQ SCH ×2 (10:34→20:36)
[2018-11-15] MEDS: Levemir Flexpen SUBQ SCH ×2 (10:36→20:36)
[2018-11-15 12:00] VITALS: BP 140/90
--- NOTE | 2018-11-15 12:37 | Internal Med Progress Note ---
Subjective Date of Service: November 15, 2018 Physician Name Sudhir Jones Attending Physician Gómez Mancini MD Current Medications Medications (Trade) Dose Ordered Sig/Oscar Route PRN Reason Start Time Stop Time Status Last Admin Dose Admin Acetaminophen (Tylenol) 650 mg Q4H PRN ORAL Mild Pain/Temp > 100.5 11/04/18 11:15 12/02/18 11:14 11/08/18 08:19 Acetaminophen/ Hydrocodone Bitart ([place] 10/325) 1 tab Q6H PRN ORAL For Pain 11/08/18 13:20 11/15/18 13:19 11/15/18 09:16 Ascorbic Acid (Vitamin C) 500 mg DAILY ORAL 11/05/18 09:00 12/05/18 08:59 11/15/18 10:23 Aspirin (Ecotrin) 81 mg DAILY ORAL 11/04/18 09:00 12/04/18 08:59 11/15/18 10:22 Atorvastatin Calcium (Lipitor) 20 mg BEDTIME ORAL 11/05/18 21:00 12/05/18 20:59 11/14/18 21:10 Clonidine HCl (Catapres Tab) 0.1 mg Q4H PRN ORAL bp over 165 syst 11/04/18 02:30 12/03/18 14:29 11/14/18 01:08 Dextrose (Dextrose 50%) 25 ml Q30M PRN IV Hypoglycemia 11/04/18 00:45 12/03/18 10:01 Dextrose (Dextrose 50%) 50 ml Q30M PRN IV hypoglycemia 11/04/18 00:45 12/03/18 10:14 Docusate Sodium (Colace) 100 mg THREE TIMES A DAY ORAL 11/04/18 09:00 12/03/18 17:59 11/15/18 12:05 Heparin Sodium (Porcine) (Heparin 5000 units/ml) 5,000 units EVERY 12 HOURS SUBQ 11/05/18 21:00 12/02/18 20:59 11/15/18 10:34 Insulin Aspart (NovoLOG) BEFORE MEALS AND HS SUBQ 11/04/18 06:30 12/03/18 11:29 11/15/18 12:13 Insulin Detemir (Levemir) 20 units EVERY 12 HOURS SUBQ 11/14/18 09:00 12/03/18 09:59 11/15/18 10:36 Levothyroxine Sodium (Synthroid) 50 mcg DAILY@0630 ORAL 11/04/18 06:30 12/04/18 06:29 11/15/18 06:09 Multivitamins (Multivitamins) 1 tab DAILY ORAL 11/05/18 09:00 12/05/18 08:59 11/15/18 10:22 Nateglinide (Starlix) 120 mg TIAC ORAL 11/12/18 11:30 12/08/18 16:29 11/15/18 12:05 Ondansetron HCl (Zofran) 4 mg Q6H PRN IVP Nausea & Vomiting 11/04/18 01:45 12/02/18 13:44 Pantoprazole (Protonix) 40 mg EVERY 12 HOURS ORAL 11/04/18 09:00 12/03/18 14:29 11/15/18 10:29 Polyethylene Glycol (Miralax) 17 gm DAILYPRN PRN ORAL Constipation 11/04/18 13:45 12/02/18 13:44 Tamsulosin HCl (Flomax) 0.4 mg BEDTIME ORAL 11/04/18 21:00 12/04/18 20:59 11/14/18 21:10 Zinc Sulfate (Zinc Sulfate) 220 mg DAILY ORAL 11/05/18 09:00 12/05/18 08:59 11/15/18 10:23 Allergies: Coded Allergies: No Known Allergies (Unverified , 11/02/18) ROS Limited/Unobtainable: No Constitutional: Reports: no symptoms HEENT: Reports: no symptoms Cardiovascular: Reports: no symptoms Respiratory: Reports: no symptoms Gastrointestinal/Abdominal: Reports: no symptoms Genitourinary: Reports: no symptoms Neurologic/Psychiatric: Reports: no symptoms Subjective 68 YO M admitted with diabetic ketoacidosis and hyperglycemia. Cover for Int Gato-DR Mancini. Await SNF placement Objective Last Vital Signs Date Time Temp Pulse Resp B/P (MAP) Pulse Ox O2 Delivery O2 Flow Rate FiO2 11/15/18 09:00 Room Air 11/15/18 08:00 98.8 89 18 165/100 (121) 98 Laboratory Tests Test 11/15/18 06:32 White Blood Count 10.6 K/UL (4.8-10.8) Red Blood Count 3.28 M/UL (4.70-6.10) L Hemoglobin 8.8 G/DL (14.2-18.0) L Hematocrit 27.3 % (42.0-52.0) L Mean Corpuscular Volume 83 FL (80-99) Mean Corpuscular Hemoglobin 27.0 PG (27.0-31.0) Mean Corpuscular Hemoglobin Concent 32.4 G/DL (32.0-36.0) Red Cell Distribution Width 14.3 % (11.6-14.8) Platelet Count 724 K/UL (150-450) H Mean Platelet Volume 5.0 FL (6.5-10.1) L Neutrophils (%) (Auto) 78.4 % (45.0-75.0) H Lymphocytes (%) (Auto) 15.0 % (20.0-45.0) L Monocytes (%) (Auto) 4.8 % (1.0-10.0) Eosinophils (%) (Auto) 0.7 % (0.0-3.0) Basophils (%) (Auto) 1.1 % (0.0-2.0) Sodium Level 135 MMOL/L (136-145) L Potassium Level 4.0 MMOL/L (3.5-5.1) Chloride Level 100 MMOL/L (98-107) Carbon Dioxide Level 28 MMOL/L (21-32) Anion Gap 7 mmol/L (5-15) Blood Urea Nitrogen 22 mg/dL (7-18) H Creatinine 1.2 MG/DL (0.55-1.30) Estimat Glomerular Filtration Rate > 60 mL/min (>60) Glucose Level 88 MG/DL (74-106) # Calcium Level 8.3 MG/DL (8.5-10.1) L Intake and Output 11/14/18 11/15/18 18:59 06:59 Intake Total 1200 ml Output Total 800 ml 800 ml Balance 400 ml -800 ml Intake Oral 1200 ml Output Urine Total 800 ml 800 ml # Voids 2 Objective PHYSICAL EXAMINATION: GENERAL: The patient is a well-developed and well-nourished male, in no apparent distress. HEENT: Eyes, pupils are equal and responsive to light and accommodation. Extraocular movements are intact. NECK: Supple without lymphadenopathy. CHEST: Lungs are clear to auscultation bilaterally without wheezes or rales. CARDIOVASCULAR: Regular rhythm and rate. S1 and S2 are normal without murmurs, rubs, or gallops. ABDOMEN: Soft, nontender, and nondistended. Positive bowel sounds. No evidence of hepatosplenomegaly. Currently, no rebound or guarding noted. EXTREMITIES: Negative for clubbing, cyanosis, or edema. RECTAL/GENITAL: Not performed. NEUROLOGIC: Cranial nerves II through XII are grossly intact without focal deficits. Assessment/Plan Assessment/Plan Assessment: 1. Diabetes II 2. Diabetic ketoacidosis 3. hyponatremia 4. hyperglycemia 5. hypertension 6. hypothyroidism 7. diabetic neuropathy 8. Hypercholesterolemia TREATMENT: 1. Diabetic ketoacidosis/Hyperglycemia. Continue levemir and novolog sliding scale per endocrinology. Latest fingerstick readings are improved. 2. Acute renal failure. This may be secondary to diabetic ketoacidosis as above. 3. Hyponatremia. The patient has been started on normal saline intravenously. 4. Hypertension. Continue amlodipine and lisinopril as above. Continue metoprolol as above. 5. Hypothyroidism. Continue Levoxyl as above. 6. Hypercholesterolemia. Continue atorvastatin as above. 7. Discharge planning-Rehab on [facility] when bed available Sudhir Jones MD November 15, 2018 12:37
--- NOTE | 2018-11-15 13:30 | Pulmonology Progress Note ---
Assessment/Plan Problems: (1) DKA (diabetic ketoacidoses) (2) Sacral wound (3) ATN (acute tubular necrosis) (4) Acute on chronic renal insufficiency (5) Diabetes mellitus (6) Hypothyroidism (7) Hypertension Assessment/Plan dc planning in progress BS controlled with Levemir BID improving dka resolved bp controlled stress study done wound care dc to previous setting. Subjective ROS Limited/Unobtainable: No Constitutional: Reports: no symptoms HEENT: Repors: no symptoms Allergies: Coded Allergies: No Known Allergies (Unverified , 11/02/18) Objective Last 24 Hour Vital Signs Date Time Temp Pulse Resp B/P (MAP) Pulse Ox O2 Delivery O2 Flow Rate FiO2 11/15/18 12:00 98.5 73 16 140/90 (107) 99 11/15/18 09:00 Room Air 11/15/18 08:00 98.8 89 18 165/100 (121) 98 11/15/18 04:00 99.0 88 18 147/79 (101) 97 11/15/18 00:00 99.2 89 19 150/84 (106) 97 11/14/18 21:00 Room Air 11/14/18 20:00 98.5 87 18 149/100 (116) 99 11/14/18 18:02 97.9 11/14/18 16:00 97.9 86 17 156/96 (116) 99 Intake and Output 11/14/18 11/15/18 18:59 06:59 Intake Total 1200 ml Output Total 800 ml 800 ml Balance 400 ml -800 ml Intake Oral 1200 ml Output Urine Total 800 ml 800 ml # Voids 2 Objective General Appearance: WD/WN HEENT: normocephalic, atraumatic Respiratory/Chest: chest wall non-tender, normal breath sounds Cardiovascular: normal peripheral pulses, normal rate Abdomen: normal bowel sounds, soft, non tender, no organomegaly, non distended Extremities: no cyanosis Skin: no rash, no lesions, no ulcers Laboratory Tests 11/15/18 06:32: White Blood Count 10.6, Red Blood Count 3.28L, Hemoglobin 8.8L, Hematocrit 27.3L , Mean Corpuscular Volume 83, Mean Corpuscular Hemoglobin 27.0, Mean Corpuscular Hemoglobin Concent 32.4, Red Cell Distribution Width 14.3, Platelet Count 724H, Mean Platelet Volume 5.0L, Neutrophils (%) (Auto) 78.4H, Lymphocytes (%) (Auto) 15.0L, Monocytes (%) (Auto) 4.8, Eosinophils (%) (Auto) 0.7, Basophils (%) (Auto) 1.1, Sodium Level 135L, Potassium Level 4.0, Chloride Level 100, Carbon Dioxide Level 28, Anion Gap 7, Blood Urea Nitrogen 22H, Creatinine 1.2, Estimat Glomerular Filtration Rate > 60, Glucose Level 88#, Calcium Level 8.3L Current Medications Medications (Trade) Dose Ordered Sig/Oscar Route PRN Reason Start Time Stop Time Status Last Admin Dose Admin Acetaminophen (Tylenol) 650 mg Q4H PRN ORAL Mild Pain/Temp > 100.5 11/04/18 11:15 12/02/18 11:14 11/08/18 08:19 Ascorbic Acid (Vitamin C) 500 mg DAILY ORAL 11/05/18 09:00 12/05/18 08:59 11/15/18 10:23 Aspirin (Ecotrin) 81 mg DAILY ORAL 11/04/18 09:00 12/04/18 08:59 11/15/18 10:22 Atorvastatin Calcium (Lipitor) 20 mg BEDTIME ORAL 11/05/18 21:00 12/05/18 20:59 11/14/18 21:10 Clonidine HCl (Catapres Tab) 0.1 mg Q4H PRN ORAL bp over 165 syst 11/04/18 02:30 12/03/18 14:29 11/14/18 01:08 Dextrose (Dextrose 50%) 25 ml Q30M PRN IV Hypoglycemia 11/04/18 00:45 12/03/18 10:01 Dextrose (Dextrose 50%) 50 ml Q30M PRN IV hypoglycemia 11/04/18 00:45 12/03/18 10:14 Docusate Sodium (Colace) 100 mg THREE TIMES A DAY ORAL 11/04/18 09:00 12/03/18 17:59 11/15/18 12:05 Heparin Sodium (Porcine) (Heparin 5000 units/ml) 5,000 units EVERY 12 HOURS SUBQ 11/05/18 21:00 12/02/18 20:59 11/15/18 10:34 Insulin Aspart (NovoLOG) BEFORE MEALS AND HS SUBQ 11/04/18 06:30 12/03/18 11:29 11/15/18 12:13 Insulin Detemir (Levemir) 20 units EVERY 12 HOURS SUBQ 11/14/18 09:00 12/03/18 09:59 11/15/18 10:36 Levothyroxine Sodium (Synthroid) 50 mcg DAILY@0630 ORAL 11/04/18 06:30 12/04/18 06:29 11/15/18 06:09 Multivitamins (Multivitamins) 1 tab DAILY ORAL 11/05/18 09:00 12/05/18 08:59 11/15/18 10:22 Nateglinide (Starlix) 120 mg TIAC ORAL 11/12/18 11:30 12/08/18 16:29 11/15/18 12:05 Ondansetron HCl (Zofran) 4 mg Q6H PRN IVP Nausea & Vomiting 11/04/18 01:45 12/02/18 13:44 Pantoprazole (Protonix) 40 mg EVERY 12 HOURS ORAL 11/04/18 09:00 12/03/18 14:29 11/15/18 10:29 Polyethylene Glycol (Miralax) 17 gm DAILYPRN PRN ORAL Constipation 11/04/18 13:45 12/02/18 13:44 Tamsulosin HCl (Flomax) 0.4 mg BEDTIME ORAL 11/04/18 21:00 12/04/18 20:59 11/14/18 21:10 Zinc Sulfate (Zinc Sulfate) 220 mg DAILY ORAL 11/05/18 09:00 12/05/18 08:59 11/15/18 10:23 Jade Mann MD November 15, 2018 13:30
--- NOTE | 2018-11-15 14:57 | Nephrology Progress Note ---
Assessment/Plan Problem List: (1) ATN (acute tubular necrosis) Assessment: Cr wnl now (2) DKA (diabetic ketoacidoses) (3) Hypertension (4) Hypothyroidism (5) Acute on chronic renal insufficiency Assessment Acute on Chronic renal failure- DKA on admit Diabetic Nephropathy HypoThyroidism HTN Sacral wound Anemia UTI Plan Mag supplement IV as needed BP and BS control Electrolyte check Anemia camp per orders and consultants placement issue Subjective ROS Limited/Unobtainable: No Constitutional: Reports: malaise, weakness Objective Objective Last 24 Hour Vital Signs Date Time Temp Pulse Resp B/P (MAP) Pulse Ox O2 Delivery O2 Flow Rate FiO2 11/15/18 12:00 98.5 73 16 140/90 (107) 99 11/15/18 09:00 Room Air 11/15/18 08:00 98.8 89 18 165/100 (121) 98 11/15/18 04:00 99.0 88 18 147/79 (101) 97 11/15/18 00:00 99.2 89 19 150/84 (106) 97 11/14/18 21:00 Room Air 11/14/18 20:00 98.5 87 18 149/100 (116) 99 11/14/18 18:02 97.9 11/14/18 16:00 97.9 86 17 156/96 (116) 99 Intake and Output 11/14/18 11/15/18 18:59 06:59 Intake Total 1200 ml Output Total 800 ml 800 ml Balance 400 ml -800 ml Intake Oral 1200 ml Output Urine Total 800 ml 800 ml # Voids 2 Laboratory Tests 11/15/18 06:32: White Blood Count 10.6, Red Blood Count 3.28L, Hemoglobin 8.8L, Hematocrit 27.3L , Mean Corpuscular Volume 83, Mean Corpuscular Hemoglobin 27.0, Mean Corpuscular Hemoglobin Concent 32.4, Red Cell Distribution Width 14.3, Platelet Count 724H, Mean Platelet Volume 5.0L, Neutrophils (%) (Auto) 78.4H, Lymphocytes (%) (Auto) 15.0L, Monocytes (%) (Auto) 4.8, Eosinophils (%) (Auto) 0.7, Basophils (%) (Auto) 1.1, Sodium Level 135L, Potassium Level 4.0, Chloride Level 100, Carbon Dioxide Level 28, Anion Gap 7, Blood Urea Nitrogen 22H, Creatinine 1.2, Estimat Glomerular Filtration Rate > 60, Glucose Level 88#, Calcium Level 8.3L Height (Feet): 5 Height (Inches): 8.00 Weight (Pounds): 176 General Appearance: no apparent distress Cardiovascular: normal rate Respiratory/Chest: lungs clear Abdomen: soft Objective no change Lefty Zamora MD November 15, 2018 14:57
[2018-11-15 16:00] VITALS: BP 159/84
[2018-11-15 20:00] VITALS: BP 158/98
[2018-11-15] MEDS ORDERED: HYDROcodone/Acetamin 10/325 tab ORAL PRN (20:30)
[2018-11-15] MEDS: Atorvastatin 20mg tab ORAL SCH (20:35)
[2018-11-15] MEDS: Tamsulosin 0.4mg cap ORAL SCH (20:35)
--- NOTE | 2018-11-15 22:32 | Surgery Progress Note ---
Surgery Progress Note Subjective Symptoms: improved, pain absent, tolerating diet, BM Objective Last 24 Hour Vital Signs Date Time Temp Pulse Resp B/P (MAP) Pulse Ox O2 Delivery O2 Flow Rate FiO2 11/15/18 21:00 Room Air 11/15/18 20:00 98.4 83 17 158/98 (118) 97 11/15/18 16:00 96.8 79 16 159/84 (109) 97 11/15/18 12:00 98.5 73 16 140/90 (107) 99 11/15/18 09:00 Room Air 11/15/18 08:00 98.8 89 18 165/100 (121) 98 11/15/18 04:00 99.0 88 18 147/79 (101) 97 11/15/18 00:00 99.2 89 19 150/84 (106) 97 I&O Intake and Output 11/14/18 11/15/18 19:00 07:00 Intake Total 1200 ml Output Total 800 ml 800 ml Balance 400 ml -800 ml Intake Oral 1200 ml Output Urine Total 800 ml 800 ml # Voids 2 Cardiovascular: RSR Respiratory: clear Abdomen: soft, non-tender, present bowel sounds Extremities: no cyanosis Laboratory Tests Test 11/15/18 06:32 White Blood Count 10.6 K/UL (4.8-10.8) Red Blood Count 3.28 M/UL (4.70-6.10) L Hemoglobin 8.8 G/DL (14.2-18.0) L Hematocrit 27.3 % (42.0-52.0) L Mean Corpuscular Volume 83 FL (80-99) Mean Corpuscular Hemoglobin 27.0 PG (27.0-31.0) Mean Corpuscular Hemoglobin Concent 32.4 G/DL (32.0-36.0) Red Cell Distribution Width 14.3 % (11.6-14.8) Platelet Count 724 K/UL (150-450) H Mean Platelet Volume 5.0 FL (6.5-10.1) L Neutrophils (%) (Auto) 78.4 % (45.0-75.0) H Lymphocytes (%) (Auto) 15.0 % (20.0-45.0) L Monocytes (%) (Auto) 4.8 % (1.0-10.0) Eosinophils (%) (Auto) 0.7 % (0.0-3.0) Basophils (%) (Auto) 1.1 % (0.0-2.0) Sodium Level 135 MMOL/L (136-145) L Potassium Level 4.0 MMOL/L (3.5-5.1) Chloride Level 100 MMOL/L (98-107) Carbon Dioxide Level 28 MMOL/L (21-32) Anion Gap 7 mmol/L (5-15) Blood Urea Nitrogen 22 mg/dL (7-18) H Creatinine 1.2 MG/DL (0.55-1.30) Estimat Glomerular Filtration Rate > 60 mL/min (>60) Glucose Level 88 MG/DL (74-106) # Calcium Level 8.3 MG/DL (8.5-10.1) L Plan Problems: (1) Diabetes mellitus Assessment & Plan: A1c 14 glu improved cont with Rx DAILY ESTIMATED NEEDS: Needs based on Wound, DM/ 70kg 25-30 kcals/kg 3486-6799 total kcals 1.25-1.5 g protein/kg 87-105 g total protein 25-30 mL/kg 0228-4638 total fluid mLs NUTRITION DIAGNOSIS: * Increased kcal/prot intake needs R/T wound healing as evidenced by pt admitted w/ full thickness pressure injury at sacrococcyx. * Altered nutrition related lab values R/T DKA as evidenced by elev BG of 928* upon adm -> POC glu improved:224 132 102 190 145, A1C of 15.5, 4+ urine glucose, off insulin drip. CURRENT DIET:CCHO MED PO DIET RECOMMENDATIONS: CCHO MED, LOW NA/ texture as tolerated ADDITIONAL RECOMMENDATIONS: * Calibrated bedscale wt for accurate CBW * Wound healing: Continue MVI x 1, Vit C 500mg x1, ZnSO4 220mg QD : Add Hari 1pkt BID * Monitor BGs closely- improved since adm * DM diet education provided on 11/06 * Monitor lytes, replete as needed (2) Hypothyroidism Assessment & Plan: levels noted stable (3) Hypertension (4) DKA (diabetic ketoacidoses) (5) ATN (acute tubular necrosis) (6) Acute on chronic renal insufficiency (7) Sacral wound Assessment & Plan: Pt presented on admission with full thickness pressure injury sacrococcygeal area. Base of wound with trace biofilm,(+) maceration along borders (L)1cm x (W00.5cm x (D)0.2cm. Darker skin tone without induration periwound . Darker skin tone without induration or erythema periwound to both ischial regions.Soft mass upper back .Pt verbalized tenderness when palpated.No erythema noted. Both heels are firm and blanchable. Pt educated on wound prevention and encouraged to frequently turn on sides to relive pressure off buttocks. Tx.Plan: Cleanse with saline. Apply Triad Paste. Cover with Optifoam drsg. Change every 3 days and prn. Apply Cavilon Skin Barrier to Both heels. Off-load heels with Pillow. Cue and encourage pt to Reposition at least every 2 hours or as tolerated. Help patient with reposition q2h (8) Leukocytosis Assessment & Plan: unlikely related to wounds resolved will monitor will follow with recs okay to d/c from surgical standpoint d/c planning Josias Lipscomb November 15, 2018 22:32
[2018-11-16] VITALS: BP 140/91
[2018-11-16] MEDS: HYDROcodone/Acetamin 10/325 tab ORAL PRN (03:27)
[2018-11-16 04:00] VITALS: BP 149/96
[2018-11-16] MEDS: NovoLOG Insulin Flexpen SUBQ SCH (05:51)
--- NOTE | 2018-11-16 06:50 | General Progress Note ---
Assessment/Plan Problem List: (1) DKA (diabetic ketoacidoses) ICD Codes: E13.10 - Other specified diabetes mellitus with ketoacidosis without coma SNOMED: 66384560, 994910121 (2) Diabetes mellitus ICD Codes: E11.9 - Type 2 diabetes mellitus without complications SNOMED: 77493725 (3) Hypothyroidism ICD Codes: E03.9 - Hypothyroidism, unspecified SNOMED: 06694045 (4) Hypertension ICD Codes: I10 - Essential (primary) hypertension SNOMED: 59715703 Assessment/Plan: continue Levemir 20 units bid continue Starlix 120 mg ac tid continue Levothyroxine 50 mcg daily Subjective Allergies: Coded Allergies: No Known Allergies (Unverified , 11/02/18) All Systems: reviewed and negative except above Subjective events noted Item Value Date Time Bedside Blood Glucose 106 mg/dl 11/16/18 0630 Bedside Blood Glucose 246 mg/dl H 11/15/18 2100 Bedside Blood Glucose 176 mg/dl H 11/15/18 1639 Bedside Blood Glucose 150 mg/dl H 11/15/18 1215 Bedside Blood Glucose 107 mg/dl 11/15/18 1036 Bedside Blood Glucose 107 mg/dl 11/15/18 0610 Objective Last 24 Hour Vital Signs Date Time Temp Pulse Resp B/P (MAP) Pulse Ox O2 Delivery O2 Flow Rate FiO2 11/16/18 04:00 99.2 89 17 149/96 (113) 96 11/16/18 00:00 99.0 84 16 140/91 (107) 97 11/15/18 21:00 Room Air 11/15/18 20:00 98.4 83 17 158/98 (118) 97 11/15/18 16:00 96.8 79 16 159/84 (109) 97 11/15/18 12:00 98.5 73 16 140/90 (107) 99 11/15/18 09:00 Room Air 11/15/18 08:00 98.8 89 18 165/100 (121) 98 Intake and Output 11/15/18 11/16/18 19:00 07:00 Intake Total 620 ml 350 ml Balance 620 ml 350 ml Intake Oral 620 ml 350 ml # Voids 3 3 Height (Feet): 5 Height (Inches): 8.00 Weight (Pounds): 175 General Appearance: no apparent distress Neck: normal alignment Cardiovascular: normal rate Respiratory/Chest: lungs clear Abdomen: normal bowel sounds Objective Current Medications Medications (Trade) Dose Ordered Sig/Oscar Route PRN Reason Start Time Stop Time Status Last Admin Dose Admin Acetaminophen (Tylenol) 650 mg Q4H PRN ORAL Mild Pain/Temp > 100.5 11/04/18 11:15 12/02/18 11:14 11/08/18 08:19 Acetaminophen/ Hydrocodone Bitart ([place] 10/325) 1 tab Q6H PRN ORAL Severe Pain (Pain Scale 7-10) 11/15/18 20:15 11/22/18 20:14 11/16/18 03:27 Ascorbic Acid (Vitamin C) 500 mg DAILY ORAL 11/05/18 09:00 12/05/18 08:59 11/15/18 10:23 Aspirin (Ecotrin) 81 mg DAILY ORAL 11/04/18 09:00 12/04/18 08:59 11/15/18 10:22 Atorvastatin Calcium (Lipitor) 20 mg BEDTIME ORAL 11/05/18 21:00 12/05/18 20:59 11/15/18 20:35 Clonidine HCl (Catapres Tab) 0.1 mg Q4H PRN ORAL bp over 165 syst 11/04/18 02:30 12/03/18 14:29 11/14/18 01:08 Dextrose (Dextrose 50%) 25 ml Q30M PRN IV Hypoglycemia 11/04/18 00:45 12/03/18 10:01 Dextrose (Dextrose 50%) 50 ml Q30M PRN IV hypoglycemia 11/04/18 00:45 12/03/18 10:14 Docusate Sodium (Colace) 100 mg THREE TIMES A DAY ORAL 11/04/18 09:00 12/03/18 17:59 11/15/18 17:14 Heparin Sodium (Porcine) (Heparin 5000 units/ml) 5,000 units EVERY 12 HOURS SUBQ 11/05/18 21:00 12/02/18 20:59 11/15/18 20:36 Insulin Aspart (NovoLOG) BEFORE MEALS AND HS SUBQ 11/04/18 06:30 12/03/18 11:29 11/15/18 20:37 Insulin Detemir (Levemir) 20 units EVERY 12 HOURS SUBQ 11/14/18 09:00 12/03/18 09:59 11/15/18 20:36 Levothyroxine Sodium (Synthroid) 50 mcg DAILY@0630 ORAL 11/04/18 06:30 12/04/18 06:29 11/16/18 05:55 Multivitamins (Multivitamins) 1 tab DAILY ORAL 11/05/18 09:00 12/05/18 08:59 11/15/18 10:22 Nateglinide (Starlix) 120 mg TIAC ORAL 11/12/18 11:30 12/08/18 16:29 11/16/18 05:55 Ondansetron HCl (Zofran) 4 mg Q6H PRN IVP Nausea & Vomiting 11/04/18 01:45 12/02/18 13:44 Pantoprazole (Protonix) 40 mg EVERY 12 HOURS ORAL 11/04/18 09:00 12/03/18 14:29 11/15/18 20:35 Polyethylene Glycol (Miralax) 17 gm DAILYPRN PRN ORAL Constipation 11/04/18 13:45 12/02/18 13:44 Tamsulosin HCl (Flomax) 0.4 mg BEDTIME ORAL 11/04/18 21:00 12/04/18 20:59 11/15/18 20:35 Zinc Sulfate (Zinc Sulfate) 220 mg DAILY ORAL 11/05/18 09:00 12/05/18 08:59 11/15/18 10:23 Yevgeniy Vinson MD November 16, 2018 06:50
[2018-11-16 07:44] LABS: BASOPHILS % (AUTO) 1.2 % (0.0-2.0); EOSINOPHILS % (AUTO) 0.8 % (0.0-3.0); HEMOGLOBIN 8.6 G/DL (14.2-18.0); LYMPHOCYTES % (AUTO) 13.1 % (20.0-45.0); MEAN CORPUSCULAR VOLUME 84 FL (80-99); NEUTROPHILS % (AUTO) 77.8 % (45.0-75.0); PLATELET COUNT 630 K/UL (150-450); RED BLOOD COUNT 3.23 M/UL (4.70-6.10); RED CELL DISTRIBUTION WIDTH 14.1 % (11.6-14.8); WHITE BLOOD COUNT 9.3 K/UL (4.8-10.8)
[2018-11-16 08:00] VITALS: BP 149/92
[2018-11-16 08:17] LABS: ANION GAP 7 mmol/L (5-15); BLOOD UREA NITROGEN 25 mg/dL (7-18); CALCIUM 8.6 MG/DL (8.5-10.1); CARBON DIOXIDE 27 MMOL/L (21-32); CHLORIDE 101 MMOL/L (98-107); CREATININE 1.1 MG/DL (0.55-1.30); SODIUM 135 MMOL/L (136-145)
[2018-11-16] MEDS: Ascorbic Acid 500mg tab ORAL SCH (09:07)
[2018-11-16] MEDS: Docusate 100mg cap ORAL SCH (09:07)
[2018-11-16] MEDS: Zinc Sulfate 220mg cap ORAL SCH (09:07)
[2018-11-16] MEDS: Aspirin EC 81mg tab ORAL SCH (09:07)
[2018-11-16] MEDS: Levemir Flexpen SUBQ SCH (09:08)
[2018-11-16] MEDS: Heparin 5000 units/ml inj SUBQ SCH (09:09)
--- NOTE | 2018-11-16 12:37 | Pulmonology Progress Note ---
Assessment/Plan Problems: (1) DKA (diabetic ketoacidoses) (2) Sacral wound (3) ATN (acute tubular necrosis) (4) Acute on chronic renal insufficiency (5) Diabetes mellitus (6) Hypothyroidism (7) Hypertension Assessment/Plan dc planning in progress BS controlled with Levemir BID improving dka resolved bp controlled stress study done wound care dc to previous setting. Subjective ROS Limited/Unobtainable: No Constitutional: Reports: no symptoms HEENT: Repors: no symptoms Respiratory: Reports: no symptoms Allergies: Coded Allergies: No Known Allergies (Unverified , 11/02/18) Objective Last 24 Hour Vital Signs Date Time Temp Pulse Resp B/P (MAP) Pulse Ox O2 Delivery O2 Flow Rate FiO2 11/16/18 08:00 Room Air 11/16/18 08:00 98.6 90 19 149/92 (111) 96 11/16/18 04:00 99.2 89 17 149/96 (113) 96 11/16/18 00:00 99.0 84 16 140/91 (107) 97 11/15/18 21:00 Room Air 11/15/18 20:00 98.4 83 17 158/98 (118) 97 11/15/18 16:00 96.8 79 16 159/84 (109) 97 Intake and Output 11/15/18 11/16/18 19:00 07:00 Intake Total 620 ml 350 ml Balance 620 ml 350 ml Intake Oral 620 ml 350 ml # Voids 3 3 Objective General Appearance: WD/WN HEENT: normocephalic, atraumatic Respiratory/Chest: chest wall non-tender, normal breath sounds Cardiovascular: normal peripheral pulses, normal rate Abdomen: normal bowel sounds, soft, non tender, no organomegaly, non distended Extremities: no cyanosis Skin: no rash, no lesions, no ulcers Laboratory Tests 11/16/18 07:03: White Blood Count 9.3, Red Blood Count 3.23L, Hemoglobin 8.6L, Hematocrit 27.0L , Mean Corpuscular Volume 84, Mean Corpuscular Hemoglobin 26.8L, Mean Corpuscular Hemoglobin Concent 32.0, Red Cell Distribution Width 14.1, Platelet Count 630H, Mean Platelet Volume 5.0L, Neutrophils (%) (Auto) 77.8H, Lymphocytes (%) (Auto) 13.1L, Monocytes (%) (Auto) 7.0, Eosinophils (%) (Auto) 0.8, Basophils (%) (Auto) 1.2, Sodium Level 135L, Potassium Level 4.0, Chloride Level 101, Carbon Dioxide Level 27, Anion Gap 7, Blood Urea Nitrogen 25H, Creatinine 1.1, Estimat Glomerular Filtration Rate > 60, Glucose Level 70L, Calcium Level 8.6 Current Medications Medications (Trade) Dose Ordered Sig/Oscar Route PRN Reason Start Time Stop Time Status Last Admin Dose Admin Acetaminophen (Tylenol) 650 mg Q4H PRN ORAL Mild Pain/Temp > 100.5 11/04/18 11:15 12/02/18 11:14 11/08/18 08:19 Acetaminophen/ Hydrocodone Bitart ([place] 10/325) 1 tab Q6H PRN ORAL Severe Pain (Pain Scale 7-10) 11/15/18 20:15 11/22/18 20:14 11/16/18 03:27 Ascorbic Acid (Vitamin C) 500 mg DAILY ORAL 11/05/18 09:00 12/05/18 08:59 11/16/18 09:07 Aspirin (Ecotrin) 81 mg DAILY ORAL 11/04/18 09:00 12/04/18 08:59 11/16/18 09:07 Atorvastatin Calcium (Lipitor) 20 mg BEDTIME ORAL 11/05/18 21:00 12/05/18 20:59 11/15/18 20:35 Clonidine HCl (Catapres Tab) 0.1 mg Q4H PRN ORAL bp over 165 syst 11/04/18 02:30 12/03/18 14:29 11/14/18 01:08 Dextrose (Dextrose 50%) 25 ml Q30M PRN IV Hypoglycemia 11/04/18 00:45 12/03/18 10:01 Dextrose (Dextrose 50%) 50 ml Q30M PRN IV hypoglycemia 11/04/18 00:45 12/03/18 10:14 Docusate Sodium (Colace) 100 mg THREE TIMES A DAY ORAL 11/04/18 09:00 12/03/18 17:59 11/16/18 09:07 Heparin Sodium (Porcine) (Heparin 5000 units/ml) 5,000 units EVERY 12 HOURS SUBQ 11/05/18 21:00 12/02/18 20:59 11/16/18 09:09 Insulin Aspart (NovoLOG) BEFORE MEALS AND HS SUBQ 11/04/18 06:30 12/03/18 11:29 11/15/18 20:37 Insulin Detemir (Levemir) 20 units EVERY 12 HOURS SUBQ 11/14/18 09:00 12/03/18 09:59 11/16/18 09:08 Levothyroxine Sodium (Synthroid) 50 mcg DAILY@0630 ORAL 11/04/18 06:30 12/04/18 06:29 11/16/18 05:55 Multivitamins (Multivitamins) 1 tab DAILY ORAL 11/05/18 09:00 12/05/18 08:59 11/16/18 09:07 Nateglinide (Starlix) 120 mg TIAC ORAL 11/12/18 11:30 12/08/18 16:29 11/16/18 05:55 Ondansetron HCl (Zofran) 4 mg Q6H PRN IVP Nausea & Vomiting 11/04/18 01:45 12/02/18 13:44 Pantoprazole (Protonix) 40 mg EVERY 12 HOURS ORAL 11/04/18 09:00 12/03/18 14:29 11/16/18 09:07 Polyethylene Glycol (Miralax) 17 gm DAILYPRN PRN ORAL Constipation 11/04/18 13:45 12/02/18 13:44 Tamsulosin HCl (Flomax) 0.4 mg BEDTIME ORAL 11/04/18 21:00 12/04/18 20:59 11/15/18 20:35 Zinc Sulfate (Zinc Sulfate) 220 mg DAILY ORAL 11/05/18 09:00 12/05/18 08:59 11/16/18 09:07 Jade Mann MD November 16, 2018 12:36
--- NOTE | 2018-11-16 13:47 | Nephrology Progress Note ---
Assessment/Plan Problem List: (1) ATN (acute tubular necrosis) Assessment: Cr wnl now (2) DKA (diabetic ketoacidoses) (3) Hypertension (4) Hypothyroidism (5) Acute on chronic renal insufficiency Assessment Acute on Chronic renal failure- DKA on admit Diabetic Nephropathy HypoThyroidism HTN Sacral wound Anemia UTI Plan Mag supplement IV as needed BP and BS control Electrolyte check Anemia camp per orders and consultants placement issue Subjective ROS Limited/Unobtainable: No Objective Objective Last 24 Hour Vital Signs Date Time Temp Pulse Resp B/P (MAP) Pulse Ox O2 Delivery O2 Flow Rate FiO2 11/16/18 08:00 Room Air 11/16/18 08:00 98.6 90 19 149/92 (111) 96 11/16/18 04:00 99.2 89 17 149/96 (113) 96 11/16/18 00:00 99.0 84 16 140/91 (107) 97 11/15/18 21:00 Room Air 11/15/18 20:00 98.4 83 17 158/98 (118) 97 11/15/18 16:00 96.8 79 16 159/84 (109) 97 Intake and Output 11/15/18 11/16/18 19:00 07:00 Intake Total 620 ml 350 ml Balance 620 ml 350 ml Intake Oral 620 ml 350 ml # Voids 3 3 Laboratory Tests 11/16/18 07:03: White Blood Count 9.3, Red Blood Count 3.23L, Hemoglobin 8.6L, Hematocrit 27.0L , Mean Corpuscular Volume 84, Mean Corpuscular Hemoglobin 26.8L, Mean Corpuscular Hemoglobin Concent 32.0, Red Cell Distribution Width 14.1, Platelet Count 630H, Mean Platelet Volume 5.0L, Neutrophils (%) (Auto) 77.8H, Lymphocytes (%) (Auto) 13.1L, Monocytes (%) (Auto) 7.0, Eosinophils (%) (Auto) 0.8, Basophils (%) (Auto) 1.2, Sodium Level 135L, Potassium Level 4.0, Chloride Level 101, Carbon Dioxide Level 27, Anion Gap 7, Blood Urea Nitrogen 25H, Creatinine 1.1, Estimat Glomerular Filtration Rate > 60, Glucose Level 70L, Calcium Level 8.6 Height (Feet): 5 Height (Inches): 8.00 Weight (Pounds): 175 General Appearance: no apparent distress Objective no change Lefty Zamora MD November 16, 2018 13:46
--- NOTE | 2018-11-17 14:05 | Discharge Summary ---
Discharge Summary Discharge Summary _ DATE OF ADMISSION: 11/02/2018 DATE OF DISCHARGE: 11/16/2018 CONSULTANTS: Dr. Lefty Medrano BRIEF HOSPITAL COURSE: Patient is a 68-year-old male who presented to ED with chief complaint of elevated blood sugar. Patient is a resident of [facility]. According to the staff at [facility], patient had elevated blood sugar. He has medical history significant for type 2 diabetes mellitus, diabetic neuropathy, hypertension, anemia and hypothyroidism. On evaluation at the ED, WBC was 11, hemoglobin and hematocrit were stable. Glucose was elevated to 928. Sodium 124. Potassium 5.1. Chloride 86. Carbon dioxide 16, anion gap is 22. Creatinine 3.9. BUN 74. Acetone positive. ABG showed pH of 7.2, CO2 28, bicarb 11. Urinalysis with 2+ protein, 4+ glucose, negative nitrite, +1 leukocyte esterase, 2-4 RBC and 2-4 WBC. Chest x-ray did not show any acute disease. EKG was in normal sinus rhythm. He he he was admitted for DKA. He was given aggressive IV hydration. He was started on insulin drip. Kidney function was monitored. He was started empirically on Rocephin. Kidney ultrasound showed bilateral kidneys with normal echogenicity. He was noted to have full-thickness pressure injury in the sacrococcygeal area. Surgeon was consulted. Patient was given wound care. Advised frequent repositioning and offloading. Anion gap closed. Patient was started on Levemir and NovoLog. She was given levothyroxine 50 mcg. He was continued on amlodipine and lisinopril for blood pressure control. He was continued on atorvastatin. He complained of chest pain. Research Mechanic was consulted. Troponin was elevated to 0.25. Symptoms were not exertional, substernal, non-radiating and not associated with any other symptoms. EKG done did not show any ischemic changes although there was poor R wave progression anteriorly. Echocardiogram did not show any wall motion abnormalities. EF was 55% with no left ventricular hypertrophy. Doppler showed mild valvular regurgitation on the aortic, mitral and tricuspid valves. He was continued on aspirin Lipitor. He eventually underwent myocardial perfusion test. Test did not show any fixed or reversible lesion. Blood glucose continued to be elevated. Insulin dose was titrated. Starlix was added AC meals. Urine culture showed growth of Klebsiella pneumoniae, sensitive to ceftriaxone. He was given PT mobility. Patient had difficulty with placement. Patient was discharged to SNF and was accepted at [facility]. Patient refused to go and wanted to return to [facility]. [facility] was unable to accept patient , due to need for higher level of care and medication administration. Patient left AGAINST MEDICAL ADVICE. FINAL DIAGNOSES: Diabetic ketoacidosis Acute on chronic renal failure Acute tubular necrosis Diabetic nephropathy Hypothyroidism hypertension anemia Sacral wound, present on admission Leukocytosis Klebsiella UTI DISPOSITION: Patient left AMA. I have been assigned to complete a discharge summary on this account, I was not involved with the patient's management. Sarahi Fleming NP November 17, 2018 14:05
== END 2018-11-16 12:42 | disposition left against medical advice (07) | DRG 420 ==
LOC: EDBD 11:07 → EMR 12:08 → ICU 12:55 → EDBEDREQ 13:00 → 4E 11-04 00:46
DX: E11.10 Type 2 diabetes mellitus with ketoacidosis without coma (principal); N17.0 Acute kidney failure with tubular necrosis; L89.159 Pressure ulcer of sacral region, unspecified stage; E11.40 Type 2 diabetes mellitus with diabetic neuropathy, unspecified; N39.0 Urinary tract infection, site not specified; E87.1 Hypo-osmolality and hyponatremia; E03.9 Hypothyroidism, unspecified; E78.00 Pure hypercholesterolemia, unspecified; E11.65 Type 2 diabetes mellitus with hyperglycemia; I12.9 Hypertensive chronic kidney disease with stage 1 through stage 4 chronic kidney disease, or unspecified chronic kidney disease; E11.22 Type 2 diabetes mellitus with diabetic chronic kidney disease; N18.9 Chronic kidney disease, unspecified; R07.9 Chest pain, unspecified; D64.9 Anemia, unspecified; B96.1 Klebsiella pneumoniae [K. pneumoniae] as the cause of diseases classified elsewhere; D72.829 Elevated white blood cell count, unspecified; I24.8 Other forms of acute ischemic heart disease
CPT/HCPCS: 36415; 36600; 71045; 76770; 78452; 80048; 80053; 80061; 80076; 81001; 81003; 82009; 82043; 82248; 82550; 82570; 82607; 82728; 82746; 82803; 82962; 82977; 83036; 83540; 83550; 83735; 83880; 84100; 84133; 84300; 84443; 84484; 84550; 85007; 85025; 85610; 85730; 86140; 87081; 87086; 87181; 89050; 93005; 93017; 93306; 93970; 96360; 96361; 99291; J1815; J2785; J8499; S5561